=== PATIENT | female | born 1945 | race Two or more races ===

== ENCOUNTER 2024-03-04 03:21 | Inpatient (IN) | payer OTHER ==
[2024-03-04] VITALS (9 sets, daily range): BP systolic 108–128; BP diastolic 56–82; PULSE 89–128; RESP 18–39; TEMP 97.5–97.8; O2SAT 92–97
[~2024-03-04] VITALS: Ht 154.9 cm; Wt 52.0 kg
[~2024-03-04 03:21] MED LIST: ALLO300T2 PO; AMIO200T13 PO; AMLO1TAB22 PO; APIX2.5T PO; FER325T PO; FURO20TA3 PO; LISI10TA34 PO; METO25TA93 PO; NITR0.4S29 SL
--- NOTE | 2024-03-04 03:39 | ED.PDOC ---
SOB-HPI HPI Comments 78-year-old female came to the ER via EMS with shortness of breath. Patient has history of hypertension, AFib CHF. Patient started complaining of shortness a breath which progressively worsened. Was seen to be saturating a 67% on room air. Patient was placed on CPAP by paramedics in improved to 90%. Patient is s everely anxious at this time. Chief Complaint: Shortness of Breath Time Seen by MD: 03:38 Reviewed notes: Nurses Notes Information Source: Patient, Emergency Med Personnel Mode of Arrival: EMS Severity: Moderate Timing: Hours Duration: Since onset Context: With Light Exertion PE Risk Factors: None History of: CHF Prehospital treatment: None Modifying Factors: Nothing Past Medical History PAST MEDICAL HISTORY: AFIB, CHF, HTN Surgical History (Other): Heart surgery [employer]OKER History: Denies all [employer] STOKER Hx Family History Family History: Reviewed,noncontributory to illness Social History Smoker: Non-Smoker Alcohol: Denies ETOH Use Drugs: Denies Drug Use Lives In: Home Constitutional: denies: chills, diaphoresis, fatigue, fever, malaise, sweats, weakness, others EENTM: denies: blurred vision, double vision, ear bleeding, ear discharge, ear drainage, ear pain, ear ringing, eye pain, eye redness, hearing loss, mouth pain, mouth swelling, nasal discharge, nose bleeding, nose congestion, nose ale n, photophobia, tearing, throat pain, throat swelling, voice changes, others Respiratory: reports: SOB at rest, shortness of breath; denies: cough, hemoptysis, orthopnea, SOB with excertion, stridor, wheezing, others Cardiovascular: denies: chest pain, dizzy spells, diaphoresis, Dyspnea on exertion, edema, irregular heart beat, left arm pain, lightheadedness, palpitations, PND, syncope, others Gastrointestinal: denies: abdomen distended, abdominal pain, blood streaked bowels, constipated, diarrhea, dysphagia, difficulty swallowing, hematemesis, melena, nausea, poor appetite, poor fluid intake, rectal bleeding, rectal pain, vomiting, others Genitourinary: denies: abnormal vagina bleeding, burning, dyspareunia, dysuria, flank pain, frequency, hematuria, incontinence, pain, , vagina discharge, urgency, others Neurological: denies: dizziness, fainting, headache, left sided numbness, left sided weakness, numbness, paresthesia, pre-existing deficit, right sided numbness, right sided weakness, seizure, speech problems, tingling, tremors, weakness, others Musculoskeletal: denies: back pain, gout, joint pain, joint swelling, muscle pain, muscle stiffness, neck pain, others Integumetry: denies: bruises, change in color, change in hair/nails, dryness, laceration, lesions, lumps, rash, wounds, others Allergic/Immunocompromised: denies: Difficulty Healing, Frequent Infections, Hives, Itching, others Hematologic/Lymphatic: denies: anemia, blood clots, easy bleeding, easy bruising, swollen glands, others Endocrine: denies: excessive hunger, excessive sweating, excessive thirst, excessive urination, flushing, intolerance to cold, intolerance to heat, unexplained weight gain, unexplained weight loss, others Psychiatric: reports: anxiety; denies: bipolar disorder, depression, hopeless, panic disorder, schizophrenia, sleepless, suicidal, others Physical Exam General Appearance: Normal, Severe Distress HEENT: Normal ENT Inspection, Pharynx Normal, TMs Normal Neck: Full Range of Motion, Non-Tender, Normal, Normal Inspection Respiratory: Chest Non-Tender, Lungs Clear, No Accessory Muscle Use, No Respiratory Distress, Normal Breath Sounds Cardiovascular: No Edema, No JVD, No Murmur, No Gallop, Normal Peripheral Pulses, Regular Rate/Rhythm Breast Exam: Deferred Gastrointestinal: No Organomegaly, Non Tender, No Pulsatile Mass, Normal Bowel Sounds, Soft Genitalia: Deferred Pelvic: Deferred Rectal: Deferred Extremities: No calf tenderness, Normal capillary refill, Normal inspection, Normal range of motion, Non-tender, No pedal edema Musculoskeletal : Apperance: Normal Neurologic: Alert, monotype machinist II-XII nml as Tested, No Motor Deficits, Normal Affect, Normal Mood, No Sensory Deficits Cerebellar Function: Normal Reflexes: Normal Skin: Dry, Normal Color, Warm Lymphatic: No Adenopathy EKG EKG : Pulse Rate (adult): 135 Cardiac Rhythm: Afib Was a procedure done? Was a procedure done?: No Differential Dx Differential Diagnosis: CHF, COPD, Hyperventilation, Myocardial infarction, Panic Attack, Pneumonia, Respiratory Distress, Other (AFib) X-Ray, Labs, Meds, VS Vital Signs Date Time Temp Pulse Resp B/P (MAP) Pulse Ox O2 Delivery O2 Flow Rate FiO2 03/04/24 03:38 135 03/04/24 03:29 136 03/04/24 03:21 97.1 140 30 188/104 (132) 90 Lab Test 03/04/24 03:35 Range/Units Blood Gas Specimen Type Arterial Blood Gas Sample Site Left radial Blood Gas Patient Temperature 37.0 Arterial Blood Date Drawn [id number] Arterial Blood pH 7.135 *L 7.350-7.450 Arterial Blood Partial Pressure CO2 51.4 H 32.0-45.0 mmHg Arterial Blood Partial Pressure O2 79.9 L 83.0-108.0 mmHg Arterial Blood HCO3 16.9 L 21.0-28.0 mmol/L Arterial Blood Oxygen Saturation 91.0 L 94.0-98.0 % Arterial Blood Base Excess -12.3 L -2.0-3.0 mmol/L Arterial Blood Oxyhemoglobin 89.7 L 94.0-98.0 % Arterial Blood Carboxyhemoglobin 0.9 0.5-1.5 % Arterial Blood Methemoglobin 0.5 0.0-1.5 % Antoni Test Modified Blood Gas Total Hemoglobin 15.00 12.0-16.0 g/dL Blood Gas Set Respiration Rate 14.0 Blood Gas Modality Mask - bipap Blood Gas Spontaneous Rate 35 FiO2 % 60.0 Blood Gas Spontaneous Tidal Volume 378 Blood Gas EPAP 5 Blood Gas IPAP 12 Specimen Drawn By Ashleigh sahu Blood Gas Critical Value Read Back Yes Blood Gas Notified Whom Carlene monroy md Blood Gas Notified Time [id number] Blood Gas Notified By Ashleigh sahu Current Medications Medications (Trade) Dose Ordered Sig/Anthony Route Start Time Stop Time Status Last Admin Lorazepam (Ativan Inj) 2 mg ONCE ONCE IV 03/04/24 03:45 03/04/24 03:46 DC 03/04/24 03:51 EKG shows AFib. ABG shows pCO2 of 51 and SpO2 80. The patient is currently on BiPAP at 60% we will increase her RR. She was given Rocephin and Solu-Medrol and a continuous DuoNeb treatment. She was also given diltiazem for atrial fibrillation Troponin and other labs are pending. The patient will be admitted to the hospitalist for further evaluation and care. Time of 1ST Reevaluation: 03:36 Reevaluation 1ST: Unchanged Patient Education/Counseling: Diagnosis, Treatment Family Education/Counseling: No Family Present Departure 1 Departure Time of Disposition: 04:02 Impression: Primary Impression: Acute hypoxic on chronic hypercapnic respiratory failure Additional Impressions: Atrial fibrillation CHF (congestive heart failure) Acute coronary syndrome Disposition: 09 ADMITTED INPATIENT Admit to: Tele Condition: Guarded Critical Care Note Critical Care Time?: Yes (55 min-critical care time only) Critical care comment: Shortness of breath Stability Stability form required: No Heart Score Heart Score: Heart Score Response (Comments) Value History Moderate Suspicious 1 EKG Repolarization Disturb 1 Age >65 2 Risk Factors >3 or Hx ASHD 2 Troponin Normal limit 0 Total 6 I personally scribed for ADRIÁN MONROY MD ([email or web address]) on 03/04/24 at 03:38. Electronically submitted by Rafael Watson ([email or web address]). ADRIÁN MONROY MD Mar 04, 2024 03:38
[2024-03-04 03:43] LABS: Base Excess -12.3 mmol/L (-2.0-3.0)
[2024-03-04] MEDS: LORazepam 2MG/ML-1ML VIAL IV ONE (03:51)
[2024-03-04 04:15] LABS: Eosinophils # (auto) 0.1 10 ^3/uL (0-0.8); Lymphocytes # (auto) 2.4 10 ^3/uL (0.4-5.4)
[2024-03-04 04:16] LABS: Basophils # (auto) 0.1 10 ^3/uL (0-0.2); Basophils % (auto) 0.6 % (0.0-2.0); Eosinophils % (auto) 0.6 % (0.0-7.0); Hematocrit 43.3 % (36.0-46.0); Hemoglobin 14.2 g/dL (12.2-16.2); Lymphocytes % (auto) 28.1 % (10.0-50.0); Mean Corpuscular Hemoglobin 34.1 pg (28.0-32.0); Mean Corpuscular Hgb Conc. 32.7 g/dL (32.0-36.0); Mean Corpuscular Volume 104.5 fL (80.0-100.0); Monocytes # (auto) 0.2 10 ^3/uL (0-1.3); Monocytes % (auto) 2.7 % (0.0-12.0); Neutrophils # (auto) 5.8 10 ^3/uL (1.6-8.6); Nucleated Red Blood Cells % 0.1 %; Platelet Count (auto) 172 10^3/uL (140-450); Red Blood Cells 4.15 10^6/uL (4.0-5.20); Red Cell Distribution Width 15.8 % (11.8-14.3); White Blood Cell 8.5 10^3/uL (4.4-10.8)
[2024-03-04] MEDS: methylPREDNISolone SOD SUCC 125 MG/2 ML VL IV ONE (04:24)
[2024-03-04 04:26] LABS: Alanine Aminotransferase 27 U/L (7-40); Albumin 4.2 g/dL (3.2-4.8); Anion Gap 12 (5-15); Aspartate Aminotransferase 38 U/L (13-40); Calcium 9.7 mg/dL (8.7-10.4); Potassium 4.1 mmol/L (3.5-5.1); Sodium 143 mmol/L (136-145)
[2024-03-04] MEDS: ALBUTEROL SULF 2.5 MG/0.5ML(0.5%) NEB SOLN NEB ONE (04:26)
[2024-03-04 04:27] LABS: Bilirubin, Total 0.8 mg/dL (0.2-1.0); Chloride 111 mmol/L (98-107); Total Protein 6.4 g/dL (5.7-8.2)
[2024-03-04] MEDS: IPRATROPIUM BROM 0.5 MG/2.5ML INH SOL NEB ONE (04:27)
[2024-03-04 04:28] LABS: Alkaline Phosphatase 136 U/L (46-116); Carbon Dioxide 20 mmol/L (20-31); Glucose 248 mg/dL (74-106)
[2024-03-04 04:44] LABS: BUN/Creatinine Ratio 15.1 (10.0-20.0); Blood Urea Nitrogen 23 mg/dL (9-23)
[2024-03-04 05:15] LABS: INR 1.1 (0.9-1.15); Partial Thromboplastin Time 25.1 SEC (24.5-34.5); Prothrombin Time 11.6 sec (9.3-11.8)
--- NOTE | 2024-03-04 05:51 | DVH ---
CHEST RADIOGRAPH Indication: sob Technique: Single frontal view of the chest was obtained Comparison: None IMPRESSION: The heart is enlarged with low lung volumes. There are diffuse bilateral interstitial and alveolar ai rspace opacities with small bilateral pleural effusions. Findings may be on the basis of pulmonary ed eduardo versus bilateral pneumonia. No pneumothorax.
[2024-03-04] MEDS: cefTRIAXone 1GM/50ML D5W 50 ML IV ONE (07:09)
[2024-03-04 07:19] LABS: Base Excess -7.5 mmol/L (-2.0-3.0)
[2024-03-04] MEDS ORDERED: IPRATROPIUM BROM 0.5 MG/2.5ML INH SOL NEB PRN ×2 (10:30→21:30)
[2024-03-04] MEDS ORDERED: ALBUTEROL SULF 2.5 MG/0.5ML(0.5%) NEB SOLN NEB PRN ×2 (10:30→21:30)
[2024-03-04] MEDS ORDERED: NITROGLYCERIN 0.4 MG SL TAB SL PRN ×2 (10:45→21:45)
[2024-03-04] MEDS ORDERED: ONDANSETRON HCL 4 MG/2 ML VIAL IV PRN (10:45)
[2024-03-04] MEDS ORDERED: MORPHINE SULFATE INJ 2 MG/ml SYRG IV PRN ×2 (10:45→21:45)
--- NOTE | 2024-03-04 10:54 | DVHHP2 ---
History of Present Illness Reason for Visit: Shortness of breath History of Present Illness This 78-year-old female presents in the ED via EMS with a chief complaint of shortness of breath. The patient reports progressive shortness of breath for the past few days. Symptoms is associated with difficulty in breathing, dyspnea on exertion, and cough. The patient was found in respiratory distress with hypoxemia O2 Sat 67% for which was placed on CPAP by paramedics which improved O2 sat to 90%. The patient denies dizziness, syncope, chest pain, palpitations or other acute symptoms. The patient reports that she was last seen her Cardiology Dr. Sushil Teixeira last week for regular checkup. She reports that she started on a new medication, unknown name, by her cement tester assistant and has plan to see a master cosmetologist down to [place] for a Watchman procedure. Past medical history of chronic AFib on Eliquis, CHF, hypertension, and gout. Past Medical History As stated in HPI Past Surgical History Watchman procedure Family History Reviewed, non-contributory to the management of this case. Past Social History The patient lives at home, denies smoking, alcohol or illicit drugs abuse. Review of Systems Constitutional: Yes: Malaise; No: Fever, Chills, Sweats, Weakness, Other Eyes: No: Pain, Vision change, Conjunctivae inflammation, Eyelid inflammation, Other, Redness ENT: No: Ear pain, Ear discharge, Nose pain, Nose discharge, Nose congestion, Mouth pain, Mouth swelling, Throat pain, Throat swelling, Other Respiratory: Cough, Shortness of breath; No: Dry, SOB with excertion, Wheezing, Hemoptysis, Pleuritic Pain, Sputum, Wheezing, Other Cardiovascular: No: Chest Pain, Palpitations, Orthopnea, Paroxysmal Noc. Dyspnea, Edema, Lt Headedness, Other Gastrointestinal: No: Nausea, Vomiting, Abdominal Pain, Diarrhea, Constipation, Melena, Hematochezia, Other Genitourinary: No Dysuria, No Frequency, No Incontinence, No Hematuria, No Retention, No Other Skin: No: Rash, Lesions, Jaundice, Bruising, Other Neurological: No: Weakness, Numbness, Incoordination, Change in speech, Confusion, Seizures, Other Allergies: Coded Allergies: UNOBTAINABLE (Unverified , 03/04/24) Exam Vital Signs Vital Signs Date Time Temp Pulse Resp B/P (MAP) Pulse Ox O2 Delivery O2 Flow Rate FiO2 03/04/24 08:00 110 22 128/82 (97) 95 03/04/24 06:34 Facial BiPAP Mask 55 03/04/24 03:30 97.7 97.7 General Appearance: Alert, Oriented X3, Cooperative, moderate distress HEENT: Atraumatic, PERRLA, EOMI, Mucous membr. moist/pink Respiratory: Other (Rales) Cardiovascular: Other (Atrial fibrillation low 100s) Abdominal: Normal bowel sounds, Soft, No tenderness Extremities: No clubbing, No cyanosis, No edema, Normal pulses, No tenderness/swelling Skin: No rashes, No breakdown, No significant lesion Neuro: Normal speech Psych/Mental Status: Mental status NL Labs/Xrays Labs Test 03/04/24 07:32 03/04/24 07:09 03/04/24 03:48 03/04/24 03:35 Range/Units Troponin I High Sensitivity 26 </=34 ng/L Blood Gas Specimen Type Arterial Blood Gas Sample Site Left radial Blood Gas Patient Temperature 37.0 Arterial Blood Date Drawn [id number] Arterial Blood pH 7.369 7.350-7.450 Arterial Blood Partial Pressure CO2 29.2 L 32.0-45.0 mmHg Arterial Blood Partial Pressure O2 81.8 L 83.0-108.0 mmHg Arterial Blood HCO3 16.5 L 21.0-28.0 mmol/L Arterial Blood Oxygen Saturation 95.6 94.0-98.0 % Arterial Blood Base Excess -7.5 L -2.0-3.0 mmol/L Arterial Blood Oxyhemoglobin 94.5 94.0-98.0 % Arterial Blood Carboxyhemoglobin 1.0 0.5-1.5 % Arterial Blood Methemoglobin 0.2 0.0-1.5 % Antoni Test Modified Blood Gas Total Hemoglobin 13.00 12.0-16.0 g/dL Blood Gas Set Respiration Rate 14.0 Blood Gas Modality Mask - bipap Blood Gas Spontaneous Rate 23 FiO2 % 55.0 Blood Gas Spontaneous Tidal Volume 679 Blood Gas EPAP 5 Blood Gas IPAP 12 White Blood Count 8.5 4.4-10.8 10^3/uL Red Blood Count 4.15 4.0-5.20 10^6/uL Hemoglobin 14.2 12.2-16.2 g/dL Hematocrit 43.3 36.0-46.0 % Mean Corpuscular Volume 104.5 H 80.0-100.0 fL Mean Corpuscular Hemoglobin 34.1 H 28.0-32.0 pg Mean Corpuscular Hemoglobin Concent 32.7 32.0-36.0 g/dL Red Cell Distribution Width 15.8 H 11.8-14.3 % Platelet Count 172 140-450 10^3/uL Mean Platelet Volume 9.6 6.9-10.8 fL Neutrophils (%) (Auto) 68.0 37.0-80.0 % Lymphocytes (%) (Auto) 28.1 10.0-50.0 % Monocytes (%) (Auto) 2.7 0.0-12.0 % Eosinophils (%) (Auto) 0.6 0.0-7.0 % Basophils (%) (Auto) 0.6 0.0-2.0 % Neutrophils # (Auto) 5.8 1.6-8.6 10 ^3/uL Lymphocytes # (Auto) 2.4 0.4-5.4 10 ^3/uL Monocytes # (Auto) 0.2 0-1.3 10 ^3/uL Eosinophils # (Auto) 0.1 0-0.8 10 ^3/uL Basophils # (Auto) 0.1 0-0.2 10 ^3/uL Nucleated Red Blood Cells 0.1 % Prothrombin Time 11.6 9.3-11.8 sec Prothrombin Time INR 1.10 0.9-1.15 Activated Partial Thromboplast Time 25.1 24.5-34.5 SEC D-Dimer, Quantitative 4.76 H 0.0-0.49 mg/L FEU Sodium Level 143 136-145 mmol/L Potassium Level 4.1 3.5-5.1 mmol/L Chloride Level 111 H 98-107 mmol/L Carbon Dioxide Level 20 20-31 mmol/L Anion Gap 12 5-15 Blood Urea Nitrogen 23 9-23 mg/dL Creatinine 1.52 H 0.550-1.02 mg/dL Glomerular Filtration Rate Calc 34 >90 mL/min BUN/Creatinine Ratio 15.1 10.0-20.0 Serum Glucose 248 H 74-106 mg/dL Calcium Level 9.7 8.7-10.4 mg/dL Total Bilirubin 0.8 0.2-1.0 mg/dL Aspartate Amino Transferase (AST) 38 13-40 U/L Alanine Aminotransferase (ALT) 27 7-40 U/L Alkaline Phosphatase 136 H 46-116 U/L B-Type Natriuretic Peptide 1041.70 0-100 pg/mL Total Protein 6.4 5.7-8.2 g/dL Albumin 4.2 3.2-4.8 g/dL Specimen Drawn By Ashleigh sahu Blood Gas Critical Value Read Back Yes Blood Gas Notified Whom Carlene adams md Blood Gas Notified Time [id number] Blood Gas Notified By Ashleigh sahu PROCEDURE(s): CXRP - CHEST PORTABLE REASON: sob ORDER NUMBER(s): [id number], ACCESSION NUMBER(s): [id number] CHEST RADIOGRAPH Indication: sob Technique: Single frontal view of the chest was obtained Comparison: None IMPRESSION: The heart is enlarged with low lung volumes. There are diffuse bilateral interstitial and alveolar airspace opacities with small bilateral pleural effusions. Findings may be on the basis of pulmonary edema versus bilateral pneumonia. No pneumothorax. Assessment/Plan Assessment/Plan # acute hypoxic and hypercapnic respiratory failure # ?Pneumonia Admit to telemetry unit Med neb treatment O2 supplement to keep O2 sat > 92% Pulmonary consult Blood and sputum culture Was given prophylactic antibiotics in ED Chest x-ray in a.m. 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 Monitor # hypertension Amlodipine Hydralazine as needed # gout Allopurinol Medical plan discussed with patient, granddaughter, and RN Plan discussed with: Patient, Other (Granddaughter) My Orders Orders - ALMA THURMANP Procedure Category Date Status Time Nm Vq Scan NM 03/04/24 Logged 09:57 Bilat Lower Dvt US 03/04/24 Logged 10:22 Insert Bernabe Catheter ALYSA 03/04/24 In Process 10:22 Furosemide Injection PHA 03/05/24 Logged (Lasix Injection) 10:00 Furosemide Injection PHA 03/04/24 Logged (Lasix Injection) 10:30 * Cardiology Consult CONS 03/04/24 Transmitted 10:22 Echo 2d Mode Cardiac US 03/04/24 Logged DOP 10:22 Daily Weight ALYSA 03/04/24 In Process 10:22 Strict I & O ALYSA 03/04/24 In Process 10:22 B-Type Natriuretic LAB 03/05/24 Verified Peptide 04:00 Electrocardigram EKG 03/05/24 Logged 04:00 Enoxaparin Sodium PHA 03/04/24 Logged (Lovenox) 10:30 Enoxaparin Sodium PHA 03/05/24 Logged (Lovenox) 10:00 Albuterol Medneb PHA 03/04/24 Logged (Ventolin Medneb) 10:30 Albuterol Medneb PHA 03/04/24 Logged (Ventolin Medneb) 12:00 Ipratropium Medneb PHA 03/04/24 Logged (Atrovent Medneb) 10:30 Ipratropium Medneb PHA 03/04/24 Logged (Atrovent Medneb) 12:00 Chest Portable XY 03/05/24 Logged 04:00 Blood Culture MING 03/04/24 Logged 10:22 Urine Bacterial MING 03/04/24 Logged Culture 10:22 Respiratory Culture MING 03/04/24 Logged W/ Gs 10:22 Lipid Panel LAB 03/04/24 Logged 10:22 Thyroid Stimulating LAB 03/04/24 Logged Hormone 10:22 Date of Service: Mar 04, 2024 Billing Provider: ALMA THURMAN Common Visit Codes: [id number] INP/OBS CARE (HIGH) ALMA THURMAN Mar 04, 2024 10:54
[2024-03-04 11:11] LABS: Triglycerides 86 mg/dL (< 150)
[2024-03-04 11:13] LABS: Cholesterol 195 mg/dL (< 200)
[2024-03-04 11:14] LABS: HDL Cholesterol 73 mg/dL (40-59); LDL Cholesterol 107 mg/dL (< 100)
[2024-03-04] MEDS: IPRATROPIUM BROM 0.5 MG/2.5ML INH SOL NEB SCH (12:07)
[2024-03-04] MEDS: ALBUTEROL SULF 2.5 MG/0.5ML(0.5%) NEB SOLN NEB SCH (12:07)
--- NOTE | 2024-03-04 12:23 | DVH ---
US BiLat Lower DVT HISTORY: Elevated D-dimer, shortness of breath COMPARISON: None TECHNIQUE: Duplex doppler evaluation of the deep venous system of the lower extremity from the common femoral veins, superficial femoral vein, great saphenous vein, deep femoral vein, popliteal vein, an d calf veins, including color doppler and spectral/pulsed waveform analysis, was performed. FINDINGS: Right: - Common femoral vein: Compressible - Deep femoral vein: Compressible - Femoral vein: Compressible - Popliteal vein: Compressible - Posterior tibial vein: Waveforms present - Other: Nothing Left: - Common femoral vein: Compressible - Deep femoral vein: Compressible - Femoral vein: Compressible - Popliteal vein: Compressible - Posterior tibial vein: Waveforms present - Other: Nothing IMPRESSION: No right or left lower extremity deep venous thrombosis.
[2024-03-04 12:36] LABS: Urine Bacteria None Seen /hpf (None Seen)
[2024-03-04] MEDS: ENOXAPARIN SOD 80 MG/0.8ML SYRINGE SC ONE (12:38)
[2024-03-04] MEDS: FUROSEMIDE 40 MG/4 ML VIAL IV ONE (12:40)
[2024-03-04 12:46] LABS: Urine Blood Negative /uL (Negative); Urine Clarity Clear (Clear); Urine Color Yellow (Yellow); Urine Hyaline Cast FEW /lpf (0 - 2); Urine Mucus FEW (None Seen); Urine Protein, UAD 1+ (Negative); Urine Specific Gravity 1.022 (1.001-1.035); Urine Squamous Epithelial Cell FEW /hpf (<5); Urine Urobilinogen Normal (Negative); Urine WBC 4 /hpf (0 - 5); Urine pH 5.5 (5.0-9.0)
--- NOTE | 2024-03-04 16:13 | DVHSR ---
APPROVED REPORT EXAM: Two-dimensional and M-mode echocardiogram with Doppler and color Doppler. Blood Pressure: 128/82 mmHg INDICATION CHF exacerbation RISK FACTORS Height: 5'5", Weight: 150 DIMENSIONS LVDd4.2 (3.8-5.7cm)LA (2D)3.8 (1.9-4.0cm)Aortic Root3.0 (2.0-3.7cm) LVDs3.8 (2.5-4.0cm)LA (MM) (1.9-4.0cm)Aortic Cusp Exc1.2 (1.5-2.0cm) EF (%) 30.0 (55-70%)Rt. Atrium4.4 (1.9-4.0cm)Asc. Aorta cm IVSd1.1 (0.7-1.1cm)RV (D)4.0 (1.8-2.4cm) PWd1.1 (0.7-1.1cm) Mitral Valve MitralMitral Stenosis E wave1.08m/sMV Mean GR.mmHg E/A ratio0.02D MVAcm2 Aortic Valve Aortic ValveAortic Stenosis V10.73m/Linda Mean GR.5mmHg V21.58m/Linda Peak GR.10mmHg LVOT Diameter1.9 (1.8-2.4cm)Doppler AVA1.31cm2 Pulmonic Valve V21.19m/s Tricuspid Valve TR Velocity3.07m/s [id number] LEFT VENTRICLE The left ventricle is normal size. There is mild concentric left ventricular hypertrophy. Left ventricular systolic function is severely reduced, LVEF is 25-30%. Moderate diastolic dysfunctio n. There is global hypokinesis, with severe hypokinesis to akinesis of the septal, anteroseptal wall. RIGHT VENTRICLE The right ventricle is normal size. The right ventricular systolic function is normal. ATRIA The left atrium is mildly dilated. The right atrium is mildly dilated. MITRAL VALVE The mitral valve is grossly normal. Mitral regurgitation is mild to moderate. PULMONIC VALVE The pulmonic valve is not well visualized. There is no pulmonic valvular regurgitation. TRICUSPID VALVE There is moderate tricuspid regurgitation. AORTIC VALVE The aortic valve is trileaflet. The aortic valve is mildly sclerotic. No aortic regurgitation is present. GREAT VESSELS The aortic root is normal size. PERICARDIAL EFFUSION No evidence of pericardial effusion. Other Information Technically limited study due to body habitus. Conclusion The left ventricle is normal size. There is mild concentric left ventricular hypertrophy. Left ventri cular systolic function is severely reduced, LVEF is 25-30%. Moderate diastolic dysfunction. There is global hypokinesis, with severe hypokinesis to akinesis of the septal, anteroseptal wall. The right ventricle is normal size. The right ventricular systolic function is normal. The left atrium is mildly dilated. The right atrium is mildly dilated. Mitral regurgitation is mild to moderate. There is moderate tricuspid regurgitation. PASP is 51 mmHg. IVC is dilated and collapses > 50% with inspiration. No evidence of pericardial effusion.
[2024-03-04] MEDS ORDERED: CHOL20004 PO (17:26)
[2024-03-04] MEDS ORDERED: APOA10CA PO (17:26)
[2024-03-04] MEDS ORDERED: NITR1SPR TL (17:26)
[2024-03-04] MEDS ORDERED: GLUC1CAP12 PO (17:26)
[2024-03-04] MEDS ORDERED: TURM500C3 OR (17:26)
[2024-03-04] MEDS ORDERED: MELATONIN 5 MG TAB PO PRN (20:30)
[2024-03-04] MEDS: MELATONIN 5 MG TAB PO PRN (21:36)
[2024-03-04] MEDS: AMIODARONE HCL 200 MG TAB PO SCH (21:36)
[2024-03-04] MEDS ORDERED: AMIODARONE HCL 200 MG TAB PO SCH (22:00)
--- NOTE | 2024-03-04 23:38 | DVHINCON2 ---
Date of service: Mar 04, 2024 Referring Physician DANIEL Cagle Reason for Consultation Acute hypoxic respiratory failure, pneumonia, pulmonary edema. History of Present Illness An 78-year-old woman with past medical history of chronic AFib on Eliquis, CHF, hypertension, and gout who presents in the ED via EMS today with a chief complaint of shortness of breath. The patient reports progressive shortness of breath for the past few days. Symptoms associated with difficulty breathing, dyspnea on exertion, and cough. The patient was found in respiratory distress with hypoxemia, O2 Sat 67%, for which she was placed on CPAP by paramedics with improved O2 sat to 90%. She denies dizziness, syncope, chest pain, palpitations or other acute symptoms. The patient reports that she was last seen by her box liner, Dr. Sushil Teixeira last week for regular checkup. Per pt, she was started on a new medication, unknown name, by her box liner and has plan to see digital marketing manager for a Watchman procedure. Patient was admitted for further care and pulmonary consultation is requested for evaluation and management due to the above findings. Review of Systems: 14-point review of systems negative unless otherwise noted above. Past Medical History: Chronic AFib on Eliquis, CHF, hypertension, and gout Past Surgical History: Watchman procedure Medications: Reviewed. Allergies: No known drug allergies. Family History: No family history of premature CAD. No family history of lung disorders. Social History: Nonsmoker. No alcohol or illicit drug use. Family History: Patient reports no known family medical history. Allergies: Coded Allergies: UNOBTAINABLE (Unverified , 03/04/24) Home Meds Reported Medications Tqkskurcqiz-Vbttmsqdwxd-Ezc C- (Glucosamine Chondroitin) 1 Cap Cap, 1 CAP PO AC, CAP 03/04/24 Cholecalciferol (D3) 50 Mcg Cap, 50 MCG PO DAILY, CAP 03/04/24 Apoaequorin (PREVAGEN) 10 Mg Cap, 10 MG PO, CAP 03/04/24 Curcuma Longa (Turmeric) Extra (TURMERIC) 500 Mg Cap, 500 MG OR, CAP 03/04/24 Furosemide (Furosemide) 20 Mg Tab, 1 TAB PO DAILY for 30 Days, #30 03/04/24 Ferrous Sulfate (FERROUS SULFATE) 325 Mg Tb, 1 TAB PO DAILY for 90 Days, #90 03/04/24 Apixaban Base (ELIQUIS) 2.5 Mg Tab, 2.5 MG PO BID for 30 Days, #60 03/04/24 Nitroglycerin (NTROSTAT SUBLINGUAL) 0.4 Mg Sl, 0.4 MG SL PRN for 33 Days, #100 *MAY REPEAT EVERY 5 MINUTES X 3 TOTAL IF NO RELIEF, INITIATE ANALGESIC THERAPY. NOTIFY PHYSICIAN *Do not crush. 03/04/24 Amlodipine Besylate (Amlodipine Besylate) 5 Mg Tab, 1 TAB PO DAILY for 90 Days, #90 03/04/24 Lisinopril (Lisinopril) 10 Mg Tab, 1 TAB PO DAILY for 100 Days, #100 03/04/24 Metoprolol Succinate (Metoprolol Succinate Er) 25 Mg Tab, 1 TAB PO DAILY for 90 Days, #90 03/04/24 Allopurinol (Allopurinol) 300 Mg Tab, 1 TAB PO DAILY for 90 Days, #90 03/04/24 Amiodarone HCl (Amiodarone HCl) 200 Mg Tab, 1 TAB PO BID for 30 Days, #60 03/04/24 Discontinued Reported Medications Nitroglycerin (Nitroglycerin Lingual) 0.4 Mg/[place] Spr, 0.4 MG TL, SPR 03/04/24 Current Medications Current Medications Medications (Trade) Dose Ordered Sig/Anthony Route PRN Reason Start Time Stop Time Status Last Admin Furosemide (Lasix Injection) 40 mg DAILY IV 03/05/24 10:00 03/04/24 21:28 DC Enoxaparin Sodium (Lovenox) 30 mg DAILY SC 03/05/24 10:00 03/04/24 21:29 DC Albuterol (Ventolin Medneb) 2.5 mg Q4HPRN PRN NEB SHORTNESS OF BREATH 03/04/24 10:30 03/04/24 21:29 DC Albuterol (Ventolin Medneb) 2.5 mg Q6HR NEB 03/04/24 12:00 03/04/24 21:29 DC 03/04/24 12:07 Ipratropium [place] (Atrovent Medneb) 0.5 mg Q4HPRN PRN NEB SHORTNESS OF BREATH 03/04/24 10:30 03/04/24 21:29 DC Ipratropium [place] (Atrovent Medneb) 0.5 mg Q6HR NEB 03/04/24 12:00 03/04/24 21:29 DC 03/04/24 12:07 Amiodarone HCl (Cordarone Tablet) 200 mg BID PO 03/04/24 22:00 03/04/24 21:27 DC Amlodipine Besylate (Norvasc Tablet) 5 mg DAILY PO 03/05/24 10:00 03/04/24 21:29 DC Allopurinol (Zyloprim Tablet) 100 mg DAILY PO 03/05/24 10:00 03/04/24 21:29 DC Metoprolol Succinate (Toprol Xl) 25 mg DAILY PO 03/05/24 10:00 03/04/24 21:30 DC Ondansetron HCl (Zofran) 4 mg Q4HP PRN IV NAUSEA / VOMITING 03/04/24 10:45 03/04/24 21:30 DC Nitroglycerin (Ntrostat Sublingual) 0.4 mg Q5MINP PRN SL FOR CHEST PAIN 03/04/24 10:45 03/04/24 21:30 DC Morphine Sulfate 2 mg Q30M PRN IV FOR CHEST PAIN 03/04/24 10:45 03/04/24 21:30 DC Melatonin (Melatonin) 10 mg PRN PRN PO FOR INSOMNIA 03/04/24 20:30 03/04/24 21:26 DC Melatonin (Melatonin) 10 mg PRN PRN PO FOR INSOMNIA 03/04/24 21:30 03/04/24 21:36 Amiodarone HCl (Cordarone Tablet) 200 mg BID PO 03/04/24 22:00 03/04/24 21:36 Furosemide (Lasix Injection) 40 mg DAILY IV 03/05/24 10:00 Enoxaparin Sodium (Lovenox) 30 mg DAILY SC 03/05/24 10:00 Albuterol (Ventolin Medneb) 2.5 mg Q4HPRN PRN NEB SHORTNESS OF BREATH 03/04/24 21:30 Albuterol (Ventolin Medneb) 2.5 mg Q6HR NEB 03/05/24 00:00 Ipratropium [place] (Atrovent Medneb) 0.5 mg Q4HPRN PRN NEB SHORTNESS OF BREATH 03/04/24 21:30 Ipratropium [place] (Atrovent Medneb) 0.5 mg Q6HR NEB 03/05/24 00:00 Amlodipine Besylate (Norvasc Tablet) 5 mg DAILY PO 03/05/24 10:00 Allopurinol (Zyloprim Tablet) 100 mg DAILY PO 03/05/24 10:00 Metoprolol Succinate (Toprol Xl) 25 mg DAILY PO 03/05/24 10:00 Ondansetron HCl (Zofran) 4 mg Q4HP PRN IV NAUSEA / VOMITING 03/04/24 21:45 Nitroglycerin (Ntrostat Sublingual) 0.4 mg Q5MINP PRN SL FOR CHEST PAIN 03/04/24 21:45 Morphine Sulfate 2 mg Q30M PRN IV FOR CHEST PAIN 03/04/24 21:45 Vital Signs Vital Signs Date Time Temp Pulse Resp B/P (MAP) Pulse Ox O2 Delivery O2 Flow Rate FiO2 03/04/24 21:00 97.8 89 18 113/66 (82) 97 97.8 03/04/24 16:06 Nasal Cannula* 4 36 Physical Exam Gen.: Patient lying in bed in no apparent distress. On supplemental oxygen. Head: Normocephalic, atraumatic. Eyes: EOMI/PERRLA. Ears: Normal hearing. Normal anatomy. Neck/trachea: Trachea midline, supple. Nose: Normal external anatomy. Mouth: Moist mucous membranes. Chest: Decreased air entry bilaterally. No wheezing or rhonchi. Cardiovascular: Positive S1, positive S2. Regular rate and rhythm. Abdomen: Positive bowel sounds in all 4 quadrants. Soft, non-tender, non- distended. : Deferred. Rectal: Deferred. Skin: Warm, dry. Intact. Extremities: 2+ radial pulses bilaterally. No lower extremity edema. Neuro: Awake, alert, oriented x3. No gross motor or sensory deficits. Cranial nerves II through XII intact. Gait not assessed. Labs/Diagnostic Data Labs Test 03/04/24 12:34 03/04/24 07:32 03/04/24 07:09 03/04/24 03:48 Range/Units Urine Color Yellow Yellow Urine Clarity Clear Clear Urine pH 5.5 5.0-9.0 Urine Specific [place] 1.022 1.001-1.035 Urine Protein 1+ H Negative Urine Ketones 1+ H Negative Urine Blood Negative Negative /uL Urine Nitrite Negative Negative Urine Bilirubin Negative Negative Urine Urobilinogen Normal Negative mg/dL Urine Leukocyte Esterase Negative Negative /uL Urine RBC 1 0 - 4 /hpf Urine WBC 4 0 - 5 /hpf Urine Squamous Epithelial Cells Few <5 /hpf Urine Bacteria None seen None Seen /hpf Urine Hyaline Casts Few 0 - 2 /lpf Urine Mucus Few None Seen Urine Glucose Normal Normal mg/dL Magnesium Level 2.0 1.6-2.6 mg/dL Troponin I High Sensitivity 26 </=34 ng/L Triglycerides Level 86 < 150 mg/dL Cholesterol Level 195 < 200 mg/dL LDL Cholesterol 107 H < 100 mg/dL HDL Cholesterol 73 H 40-59 mg/dL Thyroid Stimulating Hormone (TSH) 1.23 0.55-4.78 uIU/mL Blood Gas Specimen Type Arterial Blood Gas Sample Site Left radial Blood Gas Patient Temperature 37.0 Arterial Blood Date Drawn [id number] Arterial Blood pH 7.369 7.350-7.450 Arterial Blood Partial Pressure CO2 29.2 L 32.0-45.0 mmHg Arterial Blood Partial Pressure O2 81.8 L 83.0-108.0 mmHg Arterial Blood HCO3 16.5 L 21.0-28.0 mmol/L Arterial Blood Oxygen Saturation 95.6 94.0-98.0 % Arterial Blood Base Excess -7.5 L -2.0-3.0 mmol/L Arterial Blood Oxyhemoglobin 94.5 94.0-98.0 % Arterial Blood Carboxyhemoglobin 1.0 0.5-1.5 % Arterial Blood Methemoglobin 0.2 0.0-1.5 % Antoni Test Modified Blood Gas Total Hemoglobin 13.00 12.0-16.0 g/dL Blood Gas Set Respiration Rate 14.0 Blood Gas Modality Mask - bipap Blood Gas Spontaneous Rate 23 FiO2 % 55.0 Blood Gas Spontaneous Tidal Volume 679 Blood Gas EPAP 5 Blood Gas IPAP 12 White Blood Count 8.5 4.4-10.8 10^3/uL Red Blood Count 4.15 4.0-5.20 10^6/uL Hemoglobin 14.2 12.2-16.2 g/dL Hematocrit 43.3 36.0-46.0 % Mean Corpuscular Volume 104.5 H 80.0-100.0 fL Mean Corpuscular Hemoglobin 34.1 H 28.0-32.0 pg Mean Corpuscular Hemoglobin Concent 32.7 32.0-36.0 g/dL Red Cell Distribution Width 15.8 H 11.8-14.3 % Platelet Count 172 140-450 10^3/uL Mean Platelet Volume 9.6 6.9-10.8 fL Neutrophils (%) (Auto) 68.0 37.0-80.0 % Lymphocytes (%) (Auto) 28.1 10.0-50.0 % Monocytes (%) (Auto) 2.7 0.0-12.0 % Eosinophils (%) (Auto) 0.6 0.0-7.0 % Basophils (%) (Auto) 0.6 0.0-2.0 % Neutrophils # (Auto) 5.8 1.6-8.6 10 ^3/uL Lymphocytes # (Auto) 2.4 0.4-5.4 10 ^3/uL Monocytes # (Auto) 0.2 0-1.3 10 ^3/uL Eosinophils # (Auto) 0.1 0-0.8 10 ^3/uL Basophils # (Auto) 0.1 0-0.2 10 ^3/uL Nucleated Red Blood Cells 0.1 % Prothrombin Time 11.6 9.3-11.8 sec Prothrombin Time INR 1.10 0.9-1.15 Activated Partial Thromboplast Time 25.1 24.5-34.5 SEC D-Dimer, Quantitative 4.76 H 0.0-0.49 mg/L FEU Sodium Level 143 136-145 mmol/L Potassium Level 4.1 3.5-5.1 mmol/L Chloride Level 111 H 98-107 mmol/L Carbon Dioxide Level 20 20-31 mmol/L Anion Gap 12 5-15 Blood Urea Nitrogen 23 9-23 mg/dL Creatinine 1.52 H 0.550-1.02 mg/dL Glomerular Filtration Rate Calc 34 >90 mL/min BUN/Creatinine Ratio 15.1 10.0-20.0 Serum Glucose 248 H 74-106 mg/dL Hemoglobin A1c 5.2 <5.7 % A1C Calcium Level 9.7 8.7-10.4 mg/dL Total Bilirubin 0.8 0.2-1.0 mg/dL Aspartate Amino Transferase (AST) 38 13-40 U/L Alanine Aminotransferase (ALT) 27 7-40 U/L Alkaline Phosphatase 136 H 46-116 U/L B-Type Natriuretic Peptide 1041.70 0-100 pg/mL Total Protein 6.4 5.7-8.2 g/dL Albumin 4.2 3.2-4.8 g/dL Test 03/04/24 03:35 Range/Units Specimen Drawn By Ashleigh sahu Blood Gas Critical Value Read Back Yes Blood Gas Notified Whom Carlene adams md Blood Gas Notified Time [id number] Blood Gas Notified By Ashleigh sahu Assessment Impression: Acute hypoxic respiratory failure Acute hypercarbic respiratory failure, improved Dependence on supplemental oxygen Pneumonia less likely Pulmonary edema. Acute CHF exacerbation Chronic AFib with RVR Plan: Supplemental oxygen 4 LPM NC Titrate to keep O2 sats above 92%. Taper O2 as tolerated. BiPAP PRN. Continue bronchodilators. No WBC elevation. No fever, less likely pneumonia. Diurese to euvolemia Monitor renal function. Monitor electrolytes. Supplement as necessary. Monitor ins and outs. DVT prophylaxis. Prognosis: Poor given patient's multiple co-morbidities. Rest of plan per hospitalist and other consultants. Thank you, DAVID Avalos, for allowing me to participate in this patient's care. Further recommendations will depend on the patient's clinical course. Please do not hesitate to contact me if you have any questions or concerns. This medical document was created using an electronic medical record system with [employer] dictation system. Although these documentations are being carefully reviewed, there may still be some phonetic and typographical changes. The errors are purely typographical, due to imperfection on the software program, and do not reflect any compromise in the patient's medical care. Plan discussed with: Patient, Other (RADHA Hinton/DAVID Avalos/) JORDAN WONG MD Mar 04, 2024 23:38
[2024-03-05] VITALS (12 sets, daily range): BP systolic 96–117; BP diastolic 60–76; PULSE 75–102; RESP 16–18; TEMP 97.6–98.1; O2SAT 97–100
[2024-03-05] MEDS: ALBUTEROL SULF 2.5 MG/0.5ML(0.5%) NEB SOLN NEB SCH
[2024-03-05] MEDS: IPRATROPIUM BROM 0.5 MG/2.5ML INH SOL NEB SCH
[2024-03-05] MEDS: amLODIPine BESYLATE 5 MG TAB PO SCH (09:40)
[2024-03-05] MEDS: METOPROLOL SUCCINATE XL 50 MG TAB PO SCH (09:41)
[2024-03-05] MEDS: FUROSEMIDE 40 MG/4 ML VIAL IV SCH (09:41)
[2024-03-05] MEDS: ENOXAPARIN SOD 30 MG/0.3 ML SYRINGE SC SCH (09:42)
[2024-03-05] MEDS: ALLOPURINOL 100 MG TAB PO SCH (09:42)
[2024-03-05] MEDS ORDERED: FUROSEMIDE 40 MG/4 ML VIAL IV SCH (10:00)
[2024-03-05] MEDS ORDERED: ENOXAPARIN SOD 30 MG/0.3 ML SYRINGE SC SCH (10:00)
[2024-03-05] MEDS ORDERED: amLODIPine BESYLATE 5 MG TAB PO SCH (10:00)
[2024-03-05] MEDS ORDERED: METOPROLOL SUCCINATE XL 50 MG TAB PO SCH (10:00)
[2024-03-05] MEDS ORDERED: ALLOPURINOL 100 MG TAB PO SCH (10:00)
--- NOTE | 2024-03-05 18:03 | DVHPN2 ---
Subjective Patient reports that her breathing has improved. Reviewed: Care Plan, H&P, Labs, Medications, Previous Orders Changes from previous H/P or p: No Changes General: Per HPI Eyes: No Pain, No Vision change, No Conjunctivae inflammation, No Eyelid inflammation, No Other, No Redness ENT: No Ear pain, No Ear discharge, No Nose pain, No Nose discharge, No Nose congestion, No Mouth pain, No Mouth swelling, No Throat pain, No Throat swelling, No Other Cardiovascular: No Chest Pain, No Palpitations, No Orthopnea, No Paroxysmal Noc. Dyspnea, No Edema, No Lt Headedness, No Other Respiratory: Cough; No Dry; Shortness of breath; No SOB with excertion, No Wheezing, No Hemoptysis, No Pleuritic Pain, No Sputum, No Other Gastrointestinal: No Nausea, No Vomiting, No Abdominal Pain, No Diarrhea, No Constipation, No Melena, No Hematochezia, No Other Genitourinary: No Dysuria, No Frequency, No Incontinence, No Hematuria, No Retention, No Other Skin: No Rash, No Lesions, No Jaundice, No Bruising, No Other Objective Vitals Vital Signs Date Time Temp Pulse Resp B/P (MAP) Pulse Ox O2 Delivery O2 Flow Rate FiO2 03/05/24 17:00 97.9 85 18 106/71 (83) 97 97.9 03/05/24 12:10 Nasal Cannula* 4 36 Intake/Output Intake and Output 03/05/24 07:00 Intake Total 1098 ml Output Total 625 ml Balance 473 ml Intake Oral 1098 ml Output Urine Total 625 ml General Appearance: Alert, Oriented X3, Cooperative, mild distress HEENT: Atraumatic, PERRLA Lungs: Clear to auscultation, Normal air movement Cardiovascular: Normal S1, Normal S2 Abdomen: Normal bowel sounds, Soft Genitourinary: No Apparent Abnormalities Musculoskeletal: Normal sensory function, Normal motor function Neuro: Normal gait, Normal speech, Strength at 5/5 X4 ext, Sensation intact, C ranial nerves 3-12 NL Psych/Mental Status: Mental status NL, Mood NL Medications Current Medications Medications Dose Ordered Sig/Anthony Route Start Time Stop Time Status Last Admin Dose Admin Melatonin 10 mg PRN PRN PO 03/04/24 21:30 03/04/24 21:36 10 MG Amiodarone HCl 200 mg BID PO 03/04/24 22:00 03/05/24 09:37 200 MG Furosemide 40 mg DAILY IV 03/05/24 10:00 03/05/24 09:41 40 MG Enoxaparin Sodium 30 mg DAILY SC 03/05/24 10:00 03/05/24 09:42 30 MG Albuterol 2.5 mg Q4HPRN PRN NEB 03/04/24 21:30 Albuterol 2.5 mg Q6HR NEB 03/05/24 00:00 03/05/24 12:10 2.5 MG Ipratropium [place] 0.5 mg Q4HPRN PRN NEB 03/04/24 21:30 Ipratropium [place] 0.5 mg Q6HR NEB 03/05/24 00:00 03/05/24 12:10 0.5 MG Amlodipine Besylate 5 mg DAILY PO 03/05/24 10:00 03/05/24 09:40 5 MG Allopurinol 100 mg DAILY PO 03/05/24 10:00 03/05/24 09:42 100 MG Metoprolol Succinate 25 mg DAILY PO 03/05/24 10:00 03/05/24 09:41 25 MG Ondansetron HCl 4 mg Q4HP PRN IV 03/04/24 21:45 Nitroglycerin 0.4 mg Q5MINP PRN SL 03/04/24 21:45 Morphine Sulfate 2 mg Q30M PRN IV 03/04/24 21:45 Laboratory Results Laboratory Tests 03/04/24 03:48 Urinalysis Test 03/04/24 12:34 Urine Color Yellow (Yellow) Urine Clarity Clear (Clear) Urine pH 5.5 (5.0-9.0) Urine Specific [place] 1.022 (1.001-1.035) Urine Protein 1+ (Negative) H Urine Ketones 1+ (Negative) H Urine Blood Negative /uL (Negative) Urine Nitrite Negative (Negative) Urine Bilirubin Negative (Negative) Urine Urobilinogen Normal mg/dL (Negative) Urine Leukocyte Esterase Negative /uL (Negative) Urine RBC 1 /hpf (0 - 4) Urine WBC 4 /hpf (0 - 5) Urine Squamous Epithelial Cells Few /hpf (<5) Urine Bacteria None seen /hpf (None Seen) Urine Hyaline Casts Few /lpf (0 - 2) Urine Mucus Few (None Seen) Urine Glucose Normal mg/dL (Normal) Microbiology Microbiology Date/Time Source Procedure Growth Status 03/04/24 12:34 Voided Urine Urine Culture - Preliminary Resulted 03/04/24 11:00 Blood Blood Culture - Preliminary NO GROWTH AFTER 24 HOURS OF INCUBATION. Resulted Labs and/or images reviewed: Labs reviewed by me, Image(s) reviewed by me Assessment/Plan Assessment/Plan Impression: -acute on chronic systolic heart failure -acute hypoxic respiratory failure -atrial fibrillation rapid ventricular rate -history of Watchman device -elevated D-dimer, rule out pulmonary embolism -dyslipidemia Plan: -cardiology consultation: Pending. Echocardiogram reviewed. -continue goal-directed medical therapy with IV diuresis -continue Eliquis -continue statin -O2 supplementation to keep saturation greater than 92% -pulmonology consultation: Recommendations reviewed -repeat chest x-ray in a.m. -further course of care per Cardiology recommendations Total time spent with patient discussing and formulating plan of care: 35 minutes. This medical document was created using an electronic medical record system with [employer] dictation system. Although this document has been carefully reviewed, there may still be some phonetic and typographical errors. These areas are purely typographical due to imperfections of the software programs, and do not reflect any compromise in the patient's medical care. Plan discussed with: Patient, Other (RN) Date of Service: Mar 05, 2024 Billing Provider: NICOLE REBOLLAR NP Common Visit Codes: [id number] INP/OBS CARE(HIGH) NICOLE REBOLLAR NP Mar 05, 2024 18:03
[2024-03-06] VITALS (8 sets, daily range): BP systolic 94–113; BP diastolic 59–69; PULSE 62–84; RESP 17–19; TEMP 97.6–98.4; O2SAT 95–99
[2024-03-06] MEDS: SPIRONOLACTONE 25 MG TAB PO SCH (10:25)
[2024-03-06] MEDS: EMPAGLIFLOZIN 10 MG TAB PO SCH (10:27)
--- NOTE | 2024-03-06 10:32 | DVH ---
CHEST RADIOGRAPH Indication: chf Technique: Single frontal view of the chest was obtained Comparison: XY CHEST PORTABLE on DOS: 03/04/24, XY CHEST PORTABLE on DOS: 03/04/24 FINDINGS: The heart is enlarged with low lung volumes. There are diffuse bilateral interstitial and alveolar ai rspace opacities with small bilateral pleural effusions. Findings may be on the basis of pulmonary ed eduardo versus bilateral pneumonia. No pneumothorax. IMPRESSION: The heart is enlarged with low lung volumes. There are diffuse bilateral interstitial and alveolar ai rspace opacities with small bilateral pleural effusions. Findings may be on the basis of pulmonary ed eduardo versus bilateral pneumonia. No pneumothorax.
--- NOTE | 2024-03-06 10:49 | CONS ---
Pharmacy Clinical Information: From Heart Failure Fallout Report on CQM Application, Romy Chase is a 78 year old female with PMH of chronic Afib, CHF, HTN, and gout. Her home medications for heart failure include metoprolol succinate, lisinopril, and furosemide. Her inpatient medications include empagliflozin, metoprolol succinate, spironolactone, and furosemide. Consider reinitiating lisinopril once patient is hemodynamically stable and renal function stabilizes. YI WALKER PHARMACIST Mar 06, 2024 10:49
--- NOTE | 2024-03-06 13:12 | DVHINCON2 ---
Date Seen: Mar 06, 2024 Referring Physician DAVID Gonzalez Reason for Consultation CHF exacerbation History of Present Illness This is an 78-year-old female patient who presents to emergency room with chief complaint of shortness of breath, chest pain, and palpitations. The patient reports that she has been having intermittent chest pain since her on January 24, 2024. The patient reports progressive worsening shortness of breath and was suddenly brought to the emergency room yesterday. Per patient, she describes the chest pain as unprovoked, pressure-like in nature, intermittent, and left-sided radiation across her chest. Associated symptoms include shortness of breath. The patient also mentions intermittent palpitations. Initial twelve lead electrocardiogram reveals atrial fibrillation with left bundle branch block. Initial troponin level of 27ng/L with flat trend thereafter. Initial BNP level of 1041.70pg/mL. Significant past medical history includes congestive heart failure, atrial fibrillation status post Watchman device, hypertension, and gout. The patient reports her primary yard cleaner is Dr.Omar Musa. She also reports following up at [facility] after Watchman device placement approximately two years ago. Past Medical History Past medical history reviewed. No other significant than mentioned above. Past Surgical History Denies Family History: Patient reports no known family medical history. Family History Family history reviewed. Social History The patient has a five pack-year history, quit smoking approximately 40 years ago Patient denies any alcohol use Patient denies any illicit drug use Allergies: Coded Allergies: UNOBTAINABLE (Unverified , 03/04/24) Home Meds Reported Medications Zewhfpdavti-Pkjnktlegiu-Gkh C- (Glucosamine Chondroitin) 1 Cap Cap, 1 CAP PO AC, CAP 03/04/24 Cholecalciferol (D3) 50 Mcg Cap, 50 MCG PO DAILY, CAP 03/04/24 Apoaequorin (PREVAGEN) 10 Mg Cap, 10 MG PO, CAP 03/04/24 Curcuma Longa (Turmeric) Extra (TURMERIC) 500 Mg Cap, 500 MG OR, CAP 03/04/24 Furosemide (Furosemide) 20 Mg Tab, 1 TAB PO DAILY for 30 Days, #30 03/04/24 Ferrous Sulfate (FERROUS SULFATE) 325 Mg Tb, 1 TAB PO DAILY for 90 Days, #90 03/04/24 Apixaban Base (ELIQUIS) 2.5 Mg Tab, 2.5 MG PO BID for 30 Days, #60 03/04/24 Nitroglycerin (NTROSTAT SUBLINGUAL) 0.4 Mg Sl, 0.4 MG SL PRN for 33 Days, #100 *MAY REPEAT EVERY 5 MINUTES X 3 TOTAL IF NO RELIEF, INITIATE ANALGESIC THERAPY. NOTIFY PHYSICIAN *Do not crush. 03/04/24 Amlodipine Besylate (Amlodipine Besylate) 5 Mg Tab, 1 TAB PO DAILY for 90 Days, #90 03/04/24 Lisinopril (Lisinopril) 10 Mg Tab, 1 TAB PO DAILY for 100 Days, #100 03/04/24 Metoprolol Succinate (Metoprolol Succinate Er) 25 Mg Tab, 1 TAB PO DAILY for 90 Days, #90 03/04/24 Allopurinol (Allopurinol) 300 Mg Tab, 1 TAB PO DAILY for 90 Days, #90 03/04/24 Amiodarone HCl (Amiodarone HCl) 200 Mg Tab, 1 TAB PO BID for 30 Days, #60 03/04/24 Discontinued Reported Medications Nitroglycerin (Nitroglycerin Lingual) 0.4 Mg/[place] Spr, 0.4 MG TL, SPR 03/04/24 Current Medications Current Medications Medications (Trade) Dose Ordered Sig/Anthony Route PRN Reason Start Time Stop Time Status Last Admin Spironolactone (Aldactone) 25 mg DAILY PO 03/06/24 10:00 03/06/24 10:25 Empaglifozin (Jardiance) 10 mg DAILY PO 03/06/24 10:00 03/06/24 10:27 Vital Signs Vital Signs Date Time Temp Pulse Resp B/P (MAP) Pulse Ox O2 Delivery O2 Flow Rate FiO2 03/06/24 10:27 110/68 03/06/24 10:26 72 03/06/24 09:00 97.7 19 95 97.7 03/06/24 08:00 Nasal Cannula* 3 32 Physical Exam General Appearance: Cooperative. Well-developed. Well-nourished. No acute distress. Pulmonary/Respiratory: Clear, bilateral breaths sounds. Cardiovascular/Chest: Regular rate and rhythm. Peripheral Pulses: 2+ Radial (R). 2+ Radial (L). 2+ Pedal (R). 2+ Pedal (L) Abdominal Exam: Normal bowel sounds. Ankle Exam: Negative ankle edema Lower extremities: Negative lower extremity edema Neuro/Mental Status: A/OX4, coherent. Thoughts/Psych: Normal thought pattern. Appropriate mood and affect. Good judgment and insight. Appearance: No acute distress. Skin Exam: Normal inspection. Normal color. Warm and dry. Labs/Diagnostic Data Labs Test 03/04/24 12:34 03/04/24 07:32 03/04/24 07:09 03/04/24 03:48 Range/Units Urine Color Yellow Yellow Urine Clarity Clear Clear Urine pH 5.5 5.0-9.0 Urine Specific [place] 1.022 1.001-1.035 Urine Protein 1+ H Negative Urine Ketones 1+ H Negative Urine Blood Negative Negative /uL Urine Nitrite Negative Negative Urine Bilirubin Negative Negative Urine Urobilinogen Normal Negative mg/dL Urine Leukocyte Esterase Negative Negative /uL Urine RBC 1 0 - 4 /hpf Urine WBC 4 0 - 5 /hpf Urine Squamous Epithelial Cells Few <5 /hpf Urine Bacteria None seen None Seen /hpf Urine Hyaline Casts Few 0 - 2 /lpf Urine Mucus Few None Seen Urine Glucose Normal Normal mg/dL Magnesium Level 2.0 1.6-2.6 mg/dL Troponin I High Sensitivity 26 </=34 ng/L Triglycerides Level 86 < 150 mg/dL Cholesterol Level 195 < 200 mg/dL LDL Cholesterol 107 H < 100 mg/dL HDL Cholesterol 73 H 40-59 mg/dL Thyroid Stimulating Hormone (TSH) 1.23 0.55-4.78 uIU/mL Blood Gas Specimen Type Arterial Blood Gas Sample Site Left radial Blood Gas Patient Temperature 37.0 Arterial Blood Date Drawn [id number] Arterial Blood pH 7.369 7.350-7.450 Arterial Blood Partial Pressure CO2 29.2 L 32.0-45.0 mmHg Arterial Blood Partial Pressure O2 81.8 L 83.0-108.0 mmHg Arterial Blood HCO3 16.5 L 21.0-28.0 mmol/L Arterial Blood Oxygen Saturation 95.6 94.0-98.0 % Arterial Blood Base Excess -7.5 L -2.0-3.0 mmol/L Arterial Blood Oxyhemoglobin 94.5 94.0-98.0 % Arterial Blood Carboxyhemoglobin 1.0 0.5-1.5 % Arterial Blood Methemoglobin 0.2 0.0-1.5 % Antoni Test Modified Blood Gas Total Hemoglobin 13.00 12.0-16.0 g/dL Blood Gas Set Respiration Rate 14.0 Blood Gas Modality Mask - bipap Blood Gas Spontaneous Rate 23 FiO2 % 55.0 Blood Gas Spontaneous Tidal Volume 679 Blood Gas EPAP 5 Blood Gas IPAP 12 White Blood Count 8.5 4.4-10.8 10^3/uL Red Blood Count 4.15 4.0-5.20 10^6/uL Hemoglobin 14.2 12.2-16.2 g/dL Hematocrit 43.3 36.0-46.0 % Mean Corpuscular Volume 104.5 H 80.0-100.0 fL Mean Corpuscular Hemoglobin 34.1 H 28.0-32.0 pg Mean Corpuscular Hemoglobin Concent 32.7 32.0-36.0 g/dL Red Cell Distribution Width 15.8 H 11.8-14.3 % Platelet Count 172 140-450 10^3/uL Mean Platelet Volume 9.6 6.9-10.8 fL Neutrophils (%) (Auto) 68.0 37.0-80.0 % Lymphocytes (%) (Auto) 28.1 10.0-50.0 % Monocytes (%) (Auto) 2.7 0.0-12.0 % Eosinophils (%) (Auto) 0.6 0.0-7.0 % Basophils (%) (Auto) 0.6 0.0-2.0 % Neutrophils # (Auto) 5.8 1.6-8.6 10 ^3/uL Lymphocytes # (Auto) 2.4 0.4-5.4 10 ^3/uL Monocytes # (Auto) 0.2 0-1.3 10 ^3/uL Eosinophils # (Auto) 0.1 0-0.8 10 ^3/uL Basophils # (Auto) 0.1 0-0.2 10 ^3/uL Nucleated Red Blood Cells 0.1 % Prothrombin Time 11.6 9.3-11.8 sec Prothrombin Time INR 1.10 0.9-1.15 Activated Partial Thromboplast Time 25.1 24.5-34.5 SEC D-Dimer, Quantitative 4.76 H 0.0-0.49 mg/L FEU Sodium Level 143 136-145 mmol/L Potassium Level 4.1 3.5-5.1 mmol/L Chloride Level 111 H 98-107 mmol/L Carbon Dioxide Level 20 20-31 mmol/L Anion Gap 12 5-15 Blood Urea Nitrogen 23 9-23 mg/dL Creatinine 1.52 H 0.550-1.02 mg/dL Glomerular Filtration Rate Calc 34 >90 mL/min BUN/Creatinine Ratio 15.1 10.0-20.0 Serum Glucose 248 H 74-106 mg/dL Hemoglobin A1c 5.2 <5.7 % A1C Calcium Level 9.7 8.7-10.4 mg/dL Total Bilirubin 0.8 0.2-1.0 mg/dL Aspartate Amino Transferase (AST) 38 13-40 U/L Alanine Aminotransferase (ALT) 27 7-40 U/L Alkaline Phosphatase 136 H 46-116 U/L B-Type Natriuretic Peptide 1041.70 0-100 pg/mL Total Protein 6.4 5.7-8.2 g/dL Albumin 4.2 3.2-4.8 g/dL Test 03/04/24 03:35 Range/Units Specimen Drawn By Ashleigh sahu Blood Gas Critical Value Read Back Yes Blood Gas Notified Whom Carlene adams md Blood Gas Notified Time [id number] Blood Gas Notified By Ashleigh sahu Microbiology Date/Time Source Procedure Growth Status 03/04/24 12:34 Voided Urine Urine Culture - Final Complete 03/04/24 11:00 Blood Blood Culture - Preliminary NO GROWTH AFTER 48 HOURS OF INCUBATION. Resulted Assessment Acute on chronic decompensated HFrEF, NYHA class III Atrial fibrillation status post Watchman device (on Eliquis) Hypertension Dyslipidemia Gout Plan/Recommendation We will continue with the following plan/recommendations (Dr. Beltrán): * Echocardiogram reveals EF 25-30% with global hypokinesis * Initiate GDMT for CHF as tolerated * Strict intake and output, daily weights, maintain fluid restriction * BP control * Lipid-lowering agent * Consider inpatient ischemic workup Case discussed with Dr. Beltrán. At this time we will recommend to control atrial fibrillation. We will also recommend to continue GDMT for CHF as tolerated. We will consider possible inpatient ischemic workup when patient is stable. Thank you for allowing us to care for this patient. Please call with any questions or concerns. Critical care time spent: 44 minutes This medical document was created using an electronic medical record system with voice recognition software and computerized dictation system. Although this document has been carefully reviewed, there might still be some phonetic and typographical errors. Occasional wrong-word or ``sound-alike substitutions may have occurred due to the inherent limitations of voice recognition software. These areas are purely typographical due to imperfections of the software p abdulkadirs and do not reflect any compromise in the patient's medical care. Please read the chart carefully and recognize, using context, where these substitutions have occurred. Plan discussed with: Patient NYHA Physical activity limitations: Class3(Marked) ordinary (activity causes symtoms) Date of Service: Mar 06, 2024 Billing Provider: TARIQ HERNÁNDEZ Cardiology Common Codes: 55565-[id number] INP/OBS CARE (High) Cardiology Consultation Codes: [id number] CONSULT <45MIN TARIQ HERNÁNDEZ Mar 06, 2024 13:12
--- NOTE | 2024-03-06 15:38 | DVHPN2 ---
Subjective Patient reports having severe dyspnea with ambulation today. Reviewed: Care Plan, H&P, Labs, Medications, Previous Orders Changes from previous H/P or p: No Changes General: Per HPI Eyes: No Pain, No Vision change, No Conjunctivae inflammation, No Eyelid inflammation, No Other, No Redness ENT: No Ear pain, No Ear discharge, No Nose pain, No Nose discharge, No Nose congestion, No Mouth pain, No Mouth swelling, No Throat pain, No Throat swelling, No Other Cardiovascular: No Chest Pain, No Palpitations, No Orthopnea, No Paroxysmal Noc. Dyspnea, No Edema, No Lt Headedness, No Other Respiratory: Cough; No Dry; Shortness of breath; No SOB with excertion, No Wheezing, No Hemoptysis, No Pleuritic Pain, No Sputum, No Other Gastrointestinal: No Nausea, No Vomiting, No Abdominal Pain, No Diarrhea, No Constipation, No Melena, No Hematochezia, No Other Genitourinary: No Dysuria, No Frequency, No Incontinence, No Hematuria, No Retention, No Other Skin: No Rash, No Lesions, No Jaundice, No Bruising, No Other Objective Vitals Vital Signs Date Time Temp Pulse Resp B/P (MAP) Pulse Ox O2 Delivery O2 Flow Rate FiO2 03/06/24 13:00 97.6 84 17 113/68 (83) 96 97.6 03/06/24 08:00 Nasal Cannula* 3 32 Intake/Output Intake and Output 03/06/24 07:00 Intake Total 1200 ml Output Total 1350 ml Balance -150 ml Intake Oral 1200 ml Output Urine Total 1350 ml # Bowel Movements 1 General Appearance: Alert, Oriented X3, Cooperative, mild distress HEENT: Atraumatic, PERRLA Lungs: Clear to auscultation, Normal air movement Cardiovascular: Normal S1, Normal S2 Abdomen: Normal bowel sounds, Soft Genitourinary: No Apparent Abnormalities Musculoskeletal: Normal sensory function, Normal motor function Neuro: Normal gait, Normal speech, Strength at 5/5 X4 ext, Sensation intact, C ranial nerves 3-12 NL Psych/Mental Status: Mental status NL, Mood NL Medications Current Medications Medications Dose Ordered Sig/Anthony Route Start Time Stop Time Status Last Admin Dose Admin Melatonin 10 mg PRN PRN PO 03/04/24 21:30 03/04/24 21:36 10 MG Amiodarone HCl 200 mg BID PO 03/04/24 22:00 03/06/24 10:26 200 MG Furosemide 40 mg DAILY IV 03/05/24 10:00 03/06/24 10:25 40 MG Enoxaparin Sodium 30 mg DAILY SC 03/05/24 10:00 03/06/24 10:28 30 MG Allopurinol 100 mg DAILY PO 03/05/24 10:00 03/06/24 10:28 100 MG Metoprolol Succinate 25 mg DAILY PO 03/05/24 10:00 03/06/24 10:26 25 MG Ondansetron HCl 4 mg Q4HP PRN IV 03/04/24 21:45 Nitroglycerin 0.4 mg Q5MINP PRN SL 03/04/24 21:45 Morphine Sulfate 2 mg Q30M PRN IV 03/04/24 21:45 Spironolactone 25 mg DAILY PO 03/06/24 10:00 03/06/24 10:25 25 MG Empaglifozin 10 mg DAILY PO 03/06/24 10:00 03/06/24 10:27 10 MG Laboratory Results Laboratory Tests 03/04/24 03:48 Urinalysis Test 03/04/24 12:34 Urine Color Yellow (Yellow) Urine Clarity Clear (Clear) Urine pH 5.5 (5.0-9.0) Urine Specific [place] 1.022 (1.001-1.035) Urine Protein 1+ (Negative) H Urine Ketones 1+ (Negative) H Urine Blood Negative /uL (Negative) Urine Nitrite Negative (Negative) Urine Bilirubin Negative (Negative) Urine Urobilinogen Normal mg/dL (Negative) Urine Leukocyte Esterase Negative /uL (Negative) Urine RBC 1 /hpf (0 - 4) Urine WBC 4 /hpf (0 - 5) Urine Squamous Epithelial Cells Few /hpf (<5) Urine Bacteria None seen /hpf (None Seen) Urine Hyaline Casts Few /lpf (0 - 2) Urine Mucus Few (None Seen) Urine Glucose Normal mg/dL (Normal) Microbiology Microbiology Date/Time Source Procedure Growth Status 03/04/24 12:34 Voided Urine Urine Culture - Final Complete 03/04/24 11:00 Blood Blood Culture - Preliminary NO GROWTH AFTER 48 HOURS OF INCUBATION. Resulted Labs and/or images reviewed: Labs reviewed by me, Image(s) reviewed by me Assessment/Plan Assessment/Plan Impression: -acute on chronic systolic heart failure -acute hypoxic respiratory failure -atrial fibrillation rapid ventricular rate -history of Watchman device -elevated D-dimer, rule out pulmonary embolism -dyslipidemia Plan: Events: Discussed case with Cardiology. Possible ischemia workup. Long discussion made with the patient's granddaughter. All questions answered. -cardiology consultation: Echocardiogram reviewed. -continue goal-directed medical therapy with IV diuresis -continue Eliquis -continue statin -O2 supplementation to keep saturation greater than 92% -pulmonology consultation: Recommendations reviewed -repeat labs in a.m. Total time spent with patient discussing and formulating plan of care: 35 minutes. This medical document was created using an electronic medical record system with [employer] dictation system. Although this document has been carefully reviewed, there may still be some phonetic and typographical errors. These areas are purely typographical due to imperfections of the software programs, and do not reflect any compromise in the patient's medical care. Plan discussed with: Patient, Other (RN) My Orders Orders - NICOLE REBOLLAR NP Procedure Category Date Status Time * Cardiology Consult CONS 03/05/24 Transmitted 17:58 Spironolactone PHA 03/06/24 In Process (Aldactone) 10:00 Empagliflozin PHA 03/06/24 In Process (Jardiance) 10:00 Chest Xray 1 View XY 03/06/24 Resulted 08:54 Basic Metabolic Panel LAB 03/07/24 Verified 04:00 Date of Service: Mar 06, 2024 Billing Provider: NICOLE REBOLLAR NP Common Visit Codes: [id number] INP/OBS CARE(HIGH) NICOLE REBOLLAR NP Mar 06, 2024 15:38
[2024-03-06] MEDS: ACETAMINOPHEN 325 MG TAB PO ONE (18:17)
--- NOTE | 2024-03-06 20:44 | DVH ---
NUCLEAR MEDICINE VENTILATION/PERFUSION LUNG SCAN. INDICATION: PULMONARY EMBOLISM COMPARISON: None TECHNIQUE: Following intravenous demonstration of 4.5 millicuries of technetium 99m MAA, and inhalat ion of 4.7 mCi of xenon aerosol scintigrams were obtained in multiple projections of the lungs. FINDINGS: There is normal uptake of radionuclide on both the ventilation and perfusion portions of the examinat ion. No mismatched perfusion defects are demonstrated. Uptake is normally homogeneous. IMPRESSION: 1. Low probability for PE.
--- NOTE | 2024-03-06 21:29 | DVHPN2 ---
Progress Note - Dictate Date Seen: Mar 05, 2024 Medical Necessity Reason Pt with a Central, PICC or Fol: No Subjective Patient seen and examined at bedside. Remains on supplemental oxygen Overnight events reviewed. vital signs Vital Sign Date Time Temp Pulse Resp B/P (MAP) Pulse Ox O2 Delivery O2 Flow Rate FiO2 03/06/24 21:00 98.4 82 18 100/64 (76) 98 98.4 03/06/24 20:00 Nasal Cannula* 3 32 Total Intake and Output 03/05/24 03/05/24 03/06/24 15:00 23:00 07:00 Intake Total 800 ml 400 ml Output Total 1000 ml 350 ml Balance -200 ml 50 ml medications Current Medications Medications Dose Ordered Sig/Anthony Route Start Time Stop Time Status Last Admin Dose Admin Melatonin 10 mg PRN PRN PO 03/04/24 21:30 03/04/24 21:36 10 MG Amiodarone HCl 200 mg BID PO 03/04/24 22:00 03/06/24 21:20 200 MG Furosemide 40 mg DAILY IV 03/05/24 10:00 03/06/24 10:25 40 MG Enoxaparin Sodium 30 mg DAILY SC 03/05/24 10:00 03/06/24 10:28 30 MG Allopurinol 100 mg DAILY PO 03/05/24 10:00 03/06/24 10:28 100 MG Metoprolol Succinate 25 mg DAILY PO 03/05/24 10:00 03/06/24 10:26 25 MG Ondansetron HCl 4 mg Q4HP PRN IV 03/04/24 21:45 Nitroglycerin 0.4 mg Q5MINP PRN SL 03/04/24 21:45 Morphine Sulfate 2 mg Q30M PRN IV 03/04/24 21:45 Spironolactone 25 mg DAILY PO 03/06/24 10:00 03/06/24 10:25 25 MG Empaglifozin 10 mg DAILY PO 03/06/24 10:00 03/06/24 10:27 10 MG objective Gen.: Patient lying in bed in no apparent distress. On supplemental oxygen. Head: Normocephalic, atraumatic. Eyes: EOMI/PERRLA. Ears: Normal hearing. Normal anatomy. Neck/trachea: Trachea midline, supple. Nose: Normal external anatomy. Mouth: Moist mucous membranes. Chest: Decreased air entry bilaterally. No wheezing or rhonchi. Cardiovascular: Positive S1, positive S2. Regular rate and rhythm. Abdomen: Positive bowel sounds in all 4 quadrants. Soft, non-tender, non- distended. : Deferred. Rectal: Deferred. Skin: Warm, dry. Intact. Extremities: 2+ radial pulses bilaterally. No lower extremity edema. Neuro: Awake, alert, oriented x3. No gross motor or sensory deficits. Cranial nerves II through XII intact. Gait not assessed. laboratory and microbiology Laboratory Tests 03/04/24 03:48 Test 03/04/24 03:48 Range/Units Serum Glucose 248 H 74-106 mg/dL Assessment/Plan Impression: Acute hypoxic respiratory failure Acute hypercarbic respiratory failure, improved Dependence on supplemental oxygen Pneumonia less likely Pulmonary edema. Acute CHF exacerbation Chronic AFib with RVR Events: Supp o2 Diurese Monitor ins/outs ABG compensated on 03/04/24 after BIPAP. Reset of plan as noted below Plan: Supplemental oxygen 4 LPM NC Titrate to keep O2 sats above 92%. Taper O2 as tolerated. BiPAP PRN. Continue bronchodilators. No WBC elevation. No fever, less likely pneumonia. Diurese to euvolemia Monitor renal function. Monitor electrolytes. Supplement as necessary. Monitor ins and outs. DVT prophylaxis. Prognosis: Poor given patient's multiple co-morbidities. Rest of plan per hospitalist and other consultants. Thank you, DAVID Avalos, for allowing me to participate in this patient's care. Further recommendations will depend on the patient's clinical course. Please do not hesitate to contact me if you have any questions or concerns. This medical document was created using an electronic medical record system with [employer] dictation system. Although these documentations are being carefully reviewed, there may still be some phonetic and typographical changes. The errors are purely typographical, due to imperfection on the software program, and do not reflect any compromise in the patient's medical care. Plan discussed with: Patient, Other (RN) JORDAN WONG MD Mar 06, 2024 21:29
--- NOTE | 2024-03-06 22:40 | DVHPN2 ---
Progress Note - Dictate Date Seen: Mar 06, 2024 Medical Necessity Reason Pt with a Central, PICC or Fol: No Subjective Patient seen and examined at bedside. Remains on supplemental oxygen Overnight events reviewed. vital signs Vital Sign Date Time Temp Pulse Resp B/P (MAP) Pulse Ox O2 Delivery O2 Flow Rate FiO2 03/06/24 21:00 98.4 82 18 100/64 (76) 98 98.4 03/06/24 20:00 Nasal Cannula* 3 32 Total Intake and Output 03/05/24 03/05/24 03/06/24 15:00 23:00 07:00 Intake Total 800 ml 400 ml Output Total 1000 ml 350 ml Balance -200 ml 50 ml medications Current Medications Medications Dose Ordered Sig/Anthony Route Start Time Stop Time Status Last Admin Dose Admin Melatonin 10 mg PRN PRN PO 03/04/24 21:30 03/04/24 21:36 10 MG Amiodarone HCl 200 mg BID PO 03/04/24 22:00 03/06/24 21:20 200 MG Furosemide 40 mg DAILY IV 03/05/24 10:00 03/06/24 10:25 40 MG Enoxaparin Sodium 30 mg DAILY SC 03/05/24 10:00 03/06/24 10:28 30 MG Allopurinol 100 mg DAILY PO 03/05/24 10:00 03/06/24 10:28 100 MG Metoprolol Succinate 25 mg DAILY PO 03/05/24 10:00 03/06/24 10:26 25 MG Ondansetron HCl 4 mg Q4HP PRN IV 03/04/24 21:45 Nitroglycerin 0.4 mg Q5MINP PRN SL 03/04/24 21:45 Morphine Sulfate 2 mg Q30M PRN IV 03/04/24 21:45 Spironolactone 25 mg DAILY PO 03/06/24 10:00 03/06/24 10:25 25 MG Empaglifozin 10 mg DAILY PO 03/06/24 10:00 03/06/24 10:27 10 MG objective Gen.: Patient lying in bed in no apparent distress. On supplemental oxygen. Head: Normocephalic, atraumatic. Eyes: EOMI/PERRLA. Ears: Normal hearing. Normal anatomy. Neck/trachea: Trachea midline, supple. Nose: Normal external anatomy. Mouth: Moist mucous membranes. Chest: Decreased air entry bilaterally. No wheezing or rhonchi. Cardiovascular: Positive S1, positive S2. Regular rate and rhythm. Abdomen: Positive bowel sounds in all 4 quadrants. Soft, non-tender, non- distended. : Deferred. Rectal: Deferred. Skin: Warm, dry. Intact. Extremities: 2+ radial pulses bilaterally. No lower extremity edema. Neuro: Awake, alert, oriented x3. No gross motor or sensory deficits. Cranial nerves II through XII intact. Gait not assessed. laboratory and microbiology Laboratory Tests 03/04/24 03:48 Test 03/04/24 03:48 Range/Units Serum Glucose 248 H 74-106 mg/dL Assessment/Plan Impression: Acute hypoxic respiratory failure Acute hypercarbic respiratory failure, improved Dependence on supplemental oxygen Pneumonia less likely Pulmonary edema. Acute CHF exacerbation Chronic AFib with RVR Events: Continue supplemental o2 at 3 LPM NC Taper O2 as tolerated. CXR demonstrates bilateral pleural effusions. Limited chest ultrasound will be performed to evaluate if pleural effusions amenable for thoracentesis. Blood cultures show no growth in 24 hours Diurese w/ Lasix as tolerated Monitor renal function. Monitor electrolytes. Supplement as necessary. Monitor ins/outs Rest of plan as noted below Plan: Supplemental oxygen Titrate to keep O2 sats above 92%. Taper O2 as tolerated. BiPAP PRN. Continue bronchodilators. No WBC elevation. No fever, less likely pneumonia. Diurese to euvolemia Monitor renal function. Monitor electrolytes. Supplement as necessary. Monitor ins and outs. DVT prophylaxis. Prognosis: Poor given patient's multiple co-morbidities. Rest of plan per hospitalist and other consultants. A total of 51 minutes of clinical care time was spent reviewing the patient record, examining the patient, making a diagnostic and therapeutic plan, discussing this plan with the medical personnel, following up on diagnostic studies and following the patient for clinical stability excluding any and all procedures. At least 50% of this time was spent in direct, [id number] contact. Thank you, DAVID Avalos, for allowing me to participate in this patient's care. Further recommendations will depend on the patient's clinical course. Please do not hesitate to contact me if you have any questions or concerns. This medical document was created using an electronic medical record system with [employer] system. Although these documentations are being carefully reviewed, there may still be some phonetic and typographical changes. The errors are purely typographical, due to imperfection on the software program, and do not reflect any compromise in the patient's medical care. Plan discussed with: Patient, Other (RADHA Kraft) JORDAN WONG MD Mar 06, 2024 22:40
[2024-03-07] VITALS (8 sets, daily range): BP systolic 98–121; BP diastolic 59–78; PULSE 65–110; RESP 16–19; TEMP 97.4–98.8; O2SAT 96–99
[2024-03-07 07:43] LABS: Anion Gap 5 (5-15); Carbon Dioxide 31 mmol/L (20-31); Chloride 104 mmol/L (98-107); Potassium 3.8 mmol/L (3.5-5.1); Sodium 140 mmol/L (136-145)
[2024-03-07 07:45] LABS: Calcium 9.4 mg/dL (8.7-10.4)
[2024-03-07 07:49] LABS: BUN/Creatinine Ratio 24.4 (10.0-20.0); Glucose 91 mg/dL (74-106)
[2024-03-07 07:50] LABS: Blood Urea Nitrogen 31 mg/dL (9-23)
--- NOTE | 2024-03-07 08:23 | DVH ---
US CHEST ULTRASOUND, HISTORY: FLUID CHECK FOR POSSIBLE THORACENTESIS COMPARISON(S): None TECHNICAL DATA: Transverse and longitudinal images are obtained of the chest. FINDING: IMPRESSION(S): Moderate right > left pleural effusion.
--- NOTE | 2024-03-07 09:41 | DVH ---
XY CHEST PORTABLE, HISTORY: POST THORACENTESIS COMPARISON: XY CHEST XRAY 1 VIEW on DOS: 03/06/24, XY CHEST PORTABLE on DOS: 03/04/24 XY CHEST XRAY 1 VIEW on DOS: 03/06/24, XY CHEST PORTABLE on DOS: 03/04/24 TECHNICAL DATA: 1 view of the chest was obtained. FINDINGS: Lines and tubes: None Cardiomediastinal silhouette: normal Pulmonary vasculature: normal Lung expansion: normal Lung airspace: normal Lung interstitium: normal Pleura: Decreased right effusion. Pneumothorax: no Bones: Unremarkable Other: no IMPRESSION: Decreased right effusion. No pneumothorax.
--- NOTE | 2024-03-07 09:42 | DVH ---
US THORACENTESIS, HISTORY: BILAT PLUERAL EFFUSIONS PROCEDURE: Informed consent was obtained. The patient was seated on the bed. A limited localization u ltrasound of the right thorax was obtained, and the optimal approach was marked on the skin. The area was prepped with chlorhexidine which was allowed to dry and draped in the usual sterile fashion. Joe e out was performed. The skin and the soft tissues were infiltrated with 1% lidocaine. A 5.5 Maori c entesis needle catheter was advanced into right pleural space. Following aspiration of fluid, the cat heter was advanced and the needle removed. About 500 cc of fluid was drained. Specimen/s was/were sen t for appropriate cultures/cytology/cultures and cytology. No immediate complication was identified. FINDINGS: Small right pleural effusion. Aspirated fluid is clear and serous. IMPRESSION: Right thoracentesis with 500 mL removed.
[2024-03-07 11:11] LABS: Body Fluid Red Blood Cells 6055 CUMM (0-2000); Body Fluid White Blood Cells 587 CUMM (0-200)
[2024-03-07 11:39] LABS: Body Fluid Polymorphonuclear 75 % (0-25)
[2024-03-07] MEDS: MORPHINE SULFATE INJ 2 MG/ml SYRG IV PRN (12:02)
--- NOTE | 2024-03-07 12:58 | DVHPN2 ---
Subjective Continues to report shortness of breath Reviewed: Care Plan, H&P, Labs, Medications, Previous Orders Changes from previous H/P or p: No Changes General: Per HPI Eyes: No Pain, No Vision change, No Conjunctivae inflammation, No Eyelid inflammation, No Other, No Redness ENT: No Ear pain, No Ear discharge, No Nose pain, No Nose discharge, No Nose congestion, No Mouth pain, No Mouth swelling, No Throat pain, No Throat swelling, No Other Cardiovascular: No Chest Pain, No Palpitations, No Orthopnea, No Paroxysmal Noc. Dyspnea, No Edema, No Lt Headedness, No Other Respiratory: Cough; No Dry; Shortness of breath; No SOB with excertion, No Wheezing, No Hemoptysis, No Pleuritic Pain, No Sputum, No Other Gastrointestinal: No Nausea, No Vomiting, No Abdominal Pain, No Diarrhea, No Constipation, No Melena, No Hematochezia, No Other Genitourinary: No Dysuria, No Frequency, No Incontinence, No Hematuria, No Retention, No Other Skin: No Rash, No Lesions, No Jaundice, No Bruising, No Other Objective Vitals Vital Signs Date Time Temp Pulse Resp B/P (MAP) Pulse Ox O2 Delivery O2 Flow Rate FiO2 03/07/24 12:02 88 18 118/68 03/07/24 11:48 97.4 99 97.4 03/07/24 08:00 Nasal Cannula* 3 32 Intake/Output Intake and Output 03/07/24 07:00 Intake Total 2200 ml Output Total 2700 ml Balance -500 ml Intake Oral 2200 ml Output Urine Total 2700 ml General Appearance: Alert, Oriented X3, Cooperative, mild distress HEENT: Atraumatic, PERRLA Lungs: Clear to auscultation, Normal air movement Cardiovascular: Normal S1, Normal S2 Abdomen: Normal bowel sounds, Soft Genitourinary: No Apparent Abnormalities Musculoskeletal: Normal sensory function, Normal motor function Neuro: Normal gait, Normal speech, Strength at 5/5 X4 ext, Sensation intact, C ranial nerves 3-12 NL Skin: Dry, Intact Psych/Mental Status: Mental status NL, Mood NL Medications Current Medications Medications Dose Ordered Sig/Anthony Route Start Time Stop Time Status Last Admin Dose Admin Melatonin 10 mg PRN PRN PO 03/04/24 21:30 03/04/24 21:36 10 MG Amiodarone HCl 200 mg BID PO 03/04/24 22:00 03/07/24 09:48 200 MG Furosemide 40 mg DAILY IV 03/05/24 10:00 03/07/24 09:47 40 MG Enoxaparin Sodium 30 mg DAILY SC 03/05/24 10:00 03/06/24 10:28 30 MG Allopurinol 100 mg DAILY PO 03/05/24 10:00 03/07/24 09:48 100 MG Metoprolol Succinate 25 mg DAILY PO 03/05/24 10:00 03/06/24 10:26 25 MG Ondansetron HCl 4 mg Q4HP PRN IV 03/04/24 21:45 Nitroglycerin 0.4 mg Q5MINP PRN SL 03/04/24 21:45 Morphine Sulfate 2 mg Q30M PRN IV 03/04/24 21:45 Spironolactone 25 mg DAILY PO 03/06/24 10:00 03/07/24 09:48 25 MG Empaglifozin 10 mg DAILY PO 03/06/24 10:00 03/07/24 09:48 10 MG Morphine Sulfate 1 mg Q3HP PRN IV 03/07/24 11:15 03/07/24 12:02 1 MG Laboratory Results Laboratory Tests 03/04/24 03:48 03/07/24 06:09 Chemistry Test 03/07/24 06:09 Calcium Level 9.4 mg/dL (8.7-10.4) Urinalysis Test 03/04/24 12:34 Urine Color Yellow (Yellow) Urine Clarity Clear (Clear) Urine pH 5.5 (5.0-9.0) Urine Specific [place] 1.022 (1.001-1.035) Urine Protein 1+ (Negative) H Urine Ketones 1+ (Negative) H Urine Blood Negative /uL (Negative) Urine Nitrite Negative (Negative) Urine Bilirubin Negative (Negative) Urine Urobilinogen Normal mg/dL (Negative) Urine Leukocyte Esterase Negative /uL (Negative) Urine RBC 1 /hpf (0 - 4) Urine WBC 4 /hpf (0 - 5) Urine Squamous Epithelial Cells Few /hpf (<5) Urine Bacteria None seen /hpf (None Seen) Urine Hyaline Casts Few /lpf (0 - 2) Urine Mucus Few (None Seen) Urine Glucose Normal mg/dL (Normal) Microbiology Microbiology Date/Time Source Procedure Growth Status 03/07/24 09:35 Pleural Fluid Received 03/04/24 12:34 Voided Urine Urine Culture - Final Complete 03/04/24 11:00 Blood Blood Culture - Preliminary NO GROWTH AFTER 72 HOURS OF INCUBATION. Resulted Labs and/or images reviewed: Labs reviewed by me, Image(s) reviewed by me Assessment/Plan Assessment/Plan Impression: -acute on chronic systolic heart failure -acute hypoxic respiratory failure -atrial fibrillation rapid ventricular rate -history of Watchman device -elevated D-dimer, rule out pulmonary embolism -dyslipidemia Plan: Events: Discussed case with Cardiology. Possible ischemia workup. Thoracentesis today, 500ml hr. -cardiology consultation: Echocardiogram reviewed. Recommendations appreciated -continue goal-directed medical therapy with IV diuresis -continue Eliquis -continue statin -O2 supplementation to keep saturation greater than 92% -pulmonology consultation: Recommendations reviewed -repeat labs in a.m. Total time spent with patient discussing and formulating plan of care: 35 minutes. This medical document was created using an electronic medical record system with [employer] dictation system. Although this document has been carefully reviewed, there may still be some phonetic and typographical errors. These areas are purely typographical due to imperfections of the software programs, and do not reflect any compromise in the patient's medical care. Plan discussed with: Patient, Other (Rn) My Orders Orders - NICOLE REBOLLAR NP Procedure Category Date Status Time Thoracentesis US 03/07/24 Resulted Morphine Sulfate PHA 03/07/24 In Process Injection 11:15 Chest Xray 1 View XY 03/08/24 Logged 04:00 Basic Metabolic Panel LAB 03/08/24 Verified 04:00 Date of Service: Mar 07, 2024 Billing Provider: NICOLE REBOLLAR NP Common Visit Codes: [id number] INP/OBS CARE(HIGH) NICOLE REBOLLAR NP Mar 07, 2024 12:58
--- NOTE | 2024-03-07 15:31 | DVHPN2 ---
Consult Progress Note Subjective Other Systems: Patient remains in atrial fibrillation with controlled rate on monitor. Objective vital signs Vital Sign Date Time Temp Pulse Resp B/P (MAP) Pulse Ox O2 Delivery O2 Flow Rate FiO2 03/07/24 12:02 88 18 118/68 03/07/24 11:48 97.4 99 97.4 03/07/24 08:00 Nasal Cannula* 3 32 Total Intake and Output 03/06/24 03/06/24 03/07/24 15:00 23:00 07:00 Intake Total 200 ml 1200 ml 800 ml Output Total 2000 ml 700 ml Balance 200 ml -800 ml 100 ml medications Current Medications Medications Dose Ordered Sig/Anthony Route Start Time Stop Time Status Last Admin Dose Admin Melatonin 10 mg PRN PRN PO 03/04/24 21:30 03/04/24 21:36 10 MG Amiodarone HCl 200 mg BID PO 03/04/24 22:00 03/07/24 09:48 200 MG Furosemide 40 mg DAILY IV 03/05/24 10:00 03/07/24 09:47 40 MG Enoxaparin Sodium 30 mg DAILY SC 03/05/24 10:00 03/06/24 10:28 30 MG Allopurinol 100 mg DAILY PO 03/05/24 10:00 03/07/24 09:48 100 MG Metoprolol Succinate 25 mg DAILY PO 03/05/24 10:00 03/06/24 10:26 25 MG Ondansetron HCl 4 mg Q4HP PRN IV 03/04/24 21:45 Nitroglycerin 0.4 mg Q5MINP PRN SL 03/04/24 21:45 Morphine Sulfate 2 mg Q30M PRN IV 03/04/24 21:45 Spironolactone 25 mg DAILY PO 03/06/24 10:00 03/07/24 09:48 25 MG Empaglifozin 10 mg DAILY PO 03/06/24 10:00 03/07/24 09:48 10 MG Morphine Sulfate 1 mg Q3HP PRN IV 03/07/24 11:15 03/07/24 12:02 1 MG Examination: GENERAL:Normal, LUNGS:Normal, CVS:Normal, NEURO:Normal laboratory and microbiology Laboratory Tests 03/07/24 06:09 03/04/24 03:48 Test 03/07/24 06:09 Range/Units Serum Glucose 91 74-106 mg/dL Problem List/Assessment/Plan Problem List/Assessment/Plan Acute on chronic decompensated HFrEF, NYHA class III Atrial fibrillation, status post Watchman device (on Eliquis and Amiodarone) Hypertension Dyslipidemia Pleural effusion s/p Right thoracentesis Gout Plan/Recommendation (Dr. Gomez): * Echocardiogram reveals EF 25-30% with global hypokinesis * Continue GDMT for CHF as tolerated * Strict intake and output, daily weights, maintain fluid restriction * [id number] VASc score: 5 points, HAS-BLED score: 2 points * Therapeutic lovenox while in patient, transition back to Eliquis (per primary wood die maker) when appropriate * Beta-kathie for rate control * Home dose Amiodarone * BP control * Preload and afterload reduction * Lipid-lowering agent * Obtain medical records Patient seen and examined at bedside with . At this time we will recommend to control atrial fibrillation. We will also recommend to continue GDMT for CHF as tolerated. We will proceed with obtaining medical records from patient's primary wood die maker regarding any previous ischemic workup. In the meantime, continue with medical management. Thank you for allowing us to care for this patient. Please call with any questions or concerns. This medical document was created using an electronic medical record system with voice recognition software and computerized dictation system. Although this document has been carefully reviewed, there might still be some phonetic and typographical errors. Occasional wrong-word or ``sound-alike substitutions may have occurred due to the inherent limitations of voice recognition software. These areas are purely typographical due to imperfections of the software programs and do not reflect any compromise in the patient's medical care. Please read the chart carefully and recognize, using context, where these substitutions have occurred. Plan discussed with: Patient, Other (Grand daughter at bedside) Date of Service: Mar 07, 2024 Billing Provider: SEAN GMOEZ MD Common Visit Codes: [id number] INP/OBS CARE(HIGH) TARIQ HERNÁNDEZ STATION EXAMINER Mar 07, 2024 15:31
[2024-03-07] MEDS ORDERED: ENOXAPARIN SOD 100 MG/1 ML SYRINGE SC SCH (22:00)
--- NOTE | 2024-03-07 22:23 | DVHPN2 ---
Progress Note - Dictate Date Seen: Mar 07, 2024 Medical Necessity Reason Pt with a Central, PICC or Fol: Yes The following are medically ne: Myers Catheter Reason for myers catheter: Strict I&O Subjective Patient seen and examined at bedside. Remains on supplemental oxygen Overnight events reviewed. vital signs Vital Sign Date Time Temp Pulse Resp B/P (MAP) Pulse Ox O2 Delivery O2 Flow Rate FiO2 03/07/24 21:00 98.8 90 18 100/72 (81) 98 98.8 03/07/24 20:00 Nasal Cannula* 3 32 Total Intake and Output 03/06/24 03/06/24 03/07/24 15:00 23:00 07:00 Intake Total 200 ml 1200 ml 800 ml Output Total 2000 ml 700 ml Balance 200 ml -800 ml 100 ml medications Current Medications Medications Dose Ordered Sig/Anthony Route Start Time Stop Time Status Last Admin Dose Admin Melatonin 10 mg PRN PRN PO 03/04/24 21:30 03/04/24 21:36 10 MG Amiodarone HCl 200 mg BID PO 03/04/24 22:00 03/07/24 21:23 200 MG Furosemide 40 mg DAILY IV 03/05/24 10:00 03/07/24 09:47 40 MG Allopurinol 100 mg DAILY PO 03/05/24 10:00 03/07/24 09:48 100 MG Metoprolol Succinate 25 mg DAILY PO 03/05/24 10:00 03/06/24 10:26 25 MG Ondansetron HCl 4 mg Q4HP PRN IV 03/04/24 21:45 Nitroglycerin 0.4 mg Q5MINP PRN SL 03/04/24 21:45 Morphine Sulfate 2 mg Q30M PRN IV 03/04/24 21:45 Spironolactone 25 mg DAILY PO 03/06/24 10:00 03/07/24 09:48 25 MG Empaglifozin 10 mg DAILY PO 03/06/24 10:00 03/07/24 09:48 10 MG Morphine Sulfate 1 mg Q3HP PRN IV 03/07/24 11:15 03/07/24 12:02 1 MG Losartan Potassium 12.5 mg DAILY PO 03/08/24 10:00 Enoxaparin Sodium 60 mg DAILY SC 03/08/24 10:00 objective Gen.: Patient lying in bed in no apparent distress. On supplemental oxygen. Head: Normocephalic, atraumatic. Eyes: EOMI/PERRLA. Ears: Normal hearing. Normal anatomy. Neck/trachea: Trachea midline, supple. Nose: Normal external anatomy. Mouth: Moist mucous membranes. Chest: Decreased air entry bilaterally. No wheezing or rhonchi. Cardiovascular: Positive S1, positive S2. Regular rate and rhythm. Abdomen: Positive bowel sounds in all 4 quadrants. Soft, non-tender, non- distended. : Deferred. Rectal: Deferred. Skin: Warm, dry. Intact. Extremities: 2+ radial pulses bilaterally. No lower extremity edema. Neuro: Awake, alert, oriented x3. No gross motor or sensory deficits. Cranial nerves II through XII intact. Gait not assessed. laboratory and microbiology Laboratory Tests 03/07/24 06:09 03/04/24 03:48 Test 03/07/24 06:09 Range/Units Serum Glucose 91 74-106 mg/dL Assessment/Plan Impression: Acute hypoxic respiratory failure Acute hypercarbic respiratory failure, improved Dependence on supplemental oxygen Pneumonia less likely Pulmonary edema. Acute CHF exacerbation Chronic AFib with RVR Events: Continue supplemental o2 at 3 LPM NC Taper O2 as tolerated. S/p right thoracentesis by IR with removal of 500 mL from right pleural space. Cardiology recs appreciated. Blood cultures show no growth in 72 hours Urine cultures show no growth in 48 hours Patient is NPO Stress test Diurese w/ Lasix as tolerated Monitor renal function. Monitor electrolytes. Supplement as necessary. Monitor ins/outs Fluid restriction Rest of plan as noted below Plan: Supplemental oxygen Titrate to keep O2 sats above 92%. Taper O2 as tolerated. BiPAP PRN. Continue bronchodilators. No WBC elevation. No fever, less likely pneumonia. Diurese to euvolemia Monitor renal function. Monitor electrolytes. Supplement as necessary. Monitor ins and outs. DVT prophylaxis. Prognosis: Poor given patient's multiple co-morbidities. Rest of plan per hospitalist and other consultants. A total of 51 minutes of clinical care time was spent reviewing the patient record, examining the patient, making a diagnostic and therapeutic plan, discussing this plan with the medical personnel, following up on diagnostic studies and following the patient for clinical stability excluding any and all procedures. At least 50% of this time was spent in direct, [id number] contact. Thank you, DAVID Avalos, for allowing me to participate in this patient's care. Further recommendations will depend on the patient's clinical course. Please do not hesitate to contact me if you have any questions or concerns. This medical document was created using an electronic medical record system with [employer] dictation system. Although these documentations are being carefully reviewed, there may still be some phonetic and typographical changes. The errors are purely typographical, due to imperfection on the software program, and do not reflect any compromise in the patient's medical care. Plan discussed with: Patient, Other (RADHA Lowe) JORDAN WONG MD Mar 07, 2024 22:23
[2024-03-07] MEDS: GABAPENTIN 100 MG CAP PO ONE (23:20)
[2024-03-08] VITALS (12 sets, daily range): BP systolic 100–148; BP diastolic 66–93; PULSE 86–112; RESP 10–24; TEMP 97.6–98.6; O2SAT 95–100
[2024-03-08] MEDS: KETOROLAC TROMETH 30 MG/ML 1ML VIAL IV ONE (00:24)
--- NOTE | 2024-03-08 06:33 | DVH ---
CHEST RADIOGRAPH Indication: chf Technique: Single frontal view of the chest was obtained Comparison: XY CHEST PORTABLE on DOS: 03/07/24 FINDINGS: Lines and Tubes: None Lungs: Right basilar opacities noted. Left basilar opacities noted. Pleura: There is a right pleural effusion similar prior study. No pneumothorax. Cardiomediastinal contours: Unremarkable Bones: No acute osseous abnormality. IMPRESSION: 1. No significant interval change in right pleural effusion and bibasilar opacities.
[2024-03-08 08:05] LABS: Mean Corpuscular Volume 100.7 fL (80.0-100.0); Platelet Count (auto) 180 10^3/uL (140-450); Red Cell Distribution Width 14.5 % (11.8-14.3)
[2024-03-08 08:07] LABS: Hematocrit 46.5 % (36.0-46.0); Hemoglobin 15.7 g/dL (12.2-16.2); Mean Corpuscular Hemoglobin 33.9 pg (28.0-32.0); Mean Corpuscular Hgb Conc. 33.7 g/dL (32.0-36.0); Red Blood Cells 4.62 10^6/uL (4.0-5.20); White Blood Cell 10.1 10^3/uL (4.4-10.8)
[2024-03-08 08:08] LABS: Anion Gap 10 (5-15); Carbon Dioxide 27 mmol/L (20-31); Chloride 101 mmol/L (98-107); Potassium 4.7 mmol/L (3.5-5.1); Sodium 138 mmol/L (136-145)
[2024-03-08 08:09] LABS: Calcium 10.2 mg/dL (8.7-10.4)
[2024-03-08 08:14] LABS: BUN/Creatinine Ratio 21.9 (10.0-20.0)
[2024-03-08 08:15] LABS: Basophils % (manual) 0 (0.0-2.0); Blast Cells 0; Eosinophils % (manual) 0 (0-7); Metamyelocytes % 0; Myelocytes % 0; Promyelocytes % 0; Reactive Lymphocytes 0
[2024-03-08 08:25] LABS: Blood Urea Nitrogen 30 mg/dL (9-23); Glucose 139 mg/dL (74-106)
[2024-03-08 10:40] LABS: Band Neutrophils % (manual) 4; Lymphocytes % (manual) 5 (10.0-50.0); Macrocytosis Slight; Monocytes % (manual) 4 (0-12); Platelet Estimate Adequate
[2024-03-08] MEDS: ENOXAPARIN SOD 100 MG/1 ML SYRINGE SC SCH (11:35)
[2024-03-08] MEDS: LOSARTAN POTASSIUM 25 MG TAB PO SCH (11:40)
[2024-03-08 13:48] LABS: Base Excess 2.4 mmol/L (-2.0-3.0)
[2024-03-08] MEDS: HYDROmorphone HCL 2 MG/ML VL/or syr IV PRN (14:56)
[2024-03-08] MEDS: HYDROMORPHONE HCL 1 MG/ML INJ IV ONE (15:03)
[2024-03-08 15:06] LABS: Protein, Body Fluid 1.9 g/dL (.)
--- NOTE | 2024-03-08 15:25 | DVH ---
RIGHT Lower Extremity Arterial Duplex Clinical History: critical limb ischemia Comparison: None Technique: Duplex Doppler evaluation including color Doppler and spectral/pulsed waveform analysis of the lower extremity arteries was performed. Findings: RIGHT: Peak systolic velocities are as follows: OUTCOMES ANALYST 72 cm/s BIPHASIC WAVEFORM Deep femoral 0 cm/s SFA proximal 0 cm/s SFA mid-portion 0 cm/s SFA distal 0 cm/s Popliteal 0 cm/s Posterior tibial 0 cm/s Anterior tibial 0 cm/s Peroneal 0 cm/s Dorsalis pedis 0 cm/s The waveforms are BIPHASIC WAVEFORM NOTED IN THE RIGHT COMMON FEMORAL ARTERY NO FLOW NOTED DISTALLY. IMPRESSION: 1. NO FLOW IDENTIFIED DISTAL TO THE RIGHT COMMON FEMORAL ARTERY. REFERENCE VALUES, [facility]) vascular Imaging Lab Criteria: Peak systolic velocity ranges (in cm/sec) are as follows: <150 cm/s - <20 % stenosis 150-200 cm/s - 20-49% stenosis 200-300 cm/s - 50-75% stenosis >300 cm/s -> 75% stenosis
--- NOTE | 2024-03-08 16:03 | DVHPN2 ---
Subjective Continues to report shortness of breath Reviewed: Care Plan, H&P, Labs, Medications, Previous Orders Changes from previous H/P or p: No Changes General: Per HPI Eyes: No Pain, No Vision change, No Conjunctivae inflammation, No Eyelid inflammation, No Other, No Redness ENT: No Ear pain, No Ear discharge, No Nose pain, No Nose discharge, No Nose congestion, No Mouth pain, No Mouth swelling, No Throat pain, No Throat swelling, No Other Cardiovascular: No Chest Pain, No Palpitations, No Orthopnea, No Paroxysmal Noc. Dyspnea, No Edema, No Lt Headedness, No Other Respiratory: Cough; No Dry; Shortness of breath; No SOB with excertion, No Wheezing, No Hemoptysis, No Pleuritic Pain, No Sputum, No Other Gastrointestinal: No Nausea, No Vomiting, No Abdominal Pain, No Diarrhea, No Constipation, No Melena, No Hematochezia, No Other Genitourinary: No Dysuria, No Frequency, No Incontinence, No Hematuria, No Retention, No Other Skin: No Rash, No Lesions, No Jaundice, No Bruising, No Other Objective Vitals Vital Signs Date Time Temp Pulse Resp B/P (MAP) Pulse Ox O2 Delivery O2 Flow Rate FiO2 03/08/24 14:56 102 19 148/85 03/08/24 12:28 98.1 95 98.1 03/07/24 20:00 Nasal Cannula* 3 32 Intake/Output Intake and Output 03/08/24 07:00 Intake Total 1300 ml Output Total 2800 ml Balance -1500 ml Intake Oral 1300 ml Output Urine Total 2800 ml General Appearance: Alert, Oriented X3, Cooperative, mild distress HEENT: Atraumatic, PERRLA Lungs: Clear to auscultation, Normal air movement Cardiovascular: Normal S1, Normal S2 Abdomen: Normal bowel sounds, Soft Genitourinary: No Apparent Abnormalities Musculoskeletal: Normal sensory function, Normal motor function Neuro: Normal gait, Normal speech, Strength at 5/5 X4 ext, Sensation intact, C ranial nerves 3-12 NL Skin: Dry, Intact Psych/Mental Status: Mental status NL, Mood NL Medications Current Medications Medications Dose Ordered Sig/Anthony Route Start Time Stop Time Status Last Admin Dose Admin Melatonin 10 mg PRN PRN PO 03/04/24 21:30 03/04/24 21:36 10 MG Amiodarone HCl 200 mg BID PO 03/04/24 22:00 03/08/24 11:36 200 MG Furosemide 40 mg DAILY IV 03/05/24 10:00 03/08/24 11:34 40 MG Allopurinol 100 mg DAILY PO 03/05/24 10:00 03/08/24 11:40 100 MG Metoprolol Succinate 25 mg DAILY PO 03/05/24 10:00 03/08/24 11:39 25 MG Ondansetron HCl 4 mg Q4HP PRN IV 03/04/24 21:45 Nitroglycerin 0.4 mg Q5MINP PRN SL 03/04/24 21:45 Morphine Sulfate 2 mg Q30M PRN IV 03/04/24 21:45 Spironolactone 25 mg DAILY PO 03/06/24 10:00 03/08/24 11:37 25 MG Empaglifozin 10 mg DAILY PO 03/06/24 10:00 03/08/24 11:44 10 MG Losartan Potassium 12.5 mg DAILY PO 03/08/24 10:00 03/08/24 11:40 12.5 MG Enoxaparin Sodium 60 mg DAILY SC 03/08/24 10:00 03/08/24 11:35 60 MG Hydromorphone HCl 0.5 mg Q4HPRN PRN IV 03/08/24 14:45 03/08/24 14:56 0.5 MG Laboratory Results Laboratory Tests 03/08/24 06:55 Chemistry Test 03/08/24 06:55 Calcium Level 10.2 mg/dL (8.7-10.4) Urinalysis Test 03/04/24 12:34 Urine Color Yellow (Yellow) Urine Clarity Clear (Clear) Urine pH 5.5 (5.0-9.0) Urine Specific [place] 1.022 (1.001-1.035) Urine Protein 1+ (Negative) H Urine Ketones 1+ (Negative) H Urine Blood Negative /uL (Negative) Urine Nitrite Negative (Negative) Urine Bilirubin Negative (Negative) Urine Urobilinogen Normal mg/dL (Negative) Urine Leukocyte Esterase Negative /uL (Negative) Urine RBC 1 /hpf (0 - 4) Urine WBC 4 /hpf (0 - 5) Urine Squamous Epithelial Cells Few /hpf (<5) Urine Bacteria None seen /hpf (None Seen) Urine Hyaline Casts Few /lpf (0 - 2) Urine Mucus Few (None Seen) Urine Glucose Normal mg/dL (Normal) Blood Gas Results Test 03/08/24 13:38 Arterial Blood pH 7.461 (7.350-7.450) FiO2 % 21.0 Microbiology Microbiology Date/Time Source Procedure Growth Status 03/07/24 09:35 Pleural Fluid Gram Stain Pending Resulted 03/07/24 09:35 Pleural Fluid Body Fluid Culture - Preliminary Resulted 03/04/24 12:34 Voided Urine Urine Culture - Final Complete 03/04/24 11:00 Blood Blood Culture - Preliminary NO GROWTH AFTER 72 HOURS OF INCUBATION. Resulted Labs and/or images reviewed: Labs reviewed by me, Image(s) reviewed by me Assessment/Plan Assessment/Plan Impression: -acute on chronic systolic heart failure -acute hypoxic respiratory failure -atrial fibrillation rapid ventricular rate -history of Watchman device -elevated D-dimer, rule out pulmonary embolism -dyslipidemia Plan: Events: Patient was assessed to have extreme pain to right lower extremity. Patient also found to have cold leg from [id number] to foot. Unable to appreciate pulse. Arterial study was ordered which showed no flow past common femoral artery. Findings were discussed with vascular surgeon. Plans for emergent revascularization of right lower extremity in the operating room. -cardiology consultation: Echocardiogram reviewed. Recommendations appreciated -continue goal-directed medical therapy with IV diuresis -continue statin -O2 supplementation to keep saturation greater than 92% -pulmonology consultation: Recommendations reviewed -repeat labs in a.m. -transfer to ICU Total time spent with patient discussing and formulating plan of care: 35 minutes. This medical document was created using an electronic medical record system with [employer] dictation system. Although this document has been carefully reviewed, there may still be some phonetic and typographical errors. These areas are purely typographical due to imperfections of the software programs, and do not reflect any compromise in the patient's medical care. Plan discussed with: Patient, Other (RN) My Orders Orders - NICOLE REBOLLAR NP Procedure Category Date Status Time Abg W/ Co-Ox RT 03/08/24 Logged 12:11 Rt Low Ext Art Duplex US 03/08/24 Resulted 14:36 Lactic Acid W/ Reflex LAB 03/08/24 Logged Order 14:36 Hydromorphone PHA 03/08/24 In Process Injection (Dilaudid 14:45 Npo (Nothing By DIET 03/08/24 Transmitted Mouth) Diet Dinner * Surgical Consult CONS 03/08/24 Transmitted Date of Service: Mar 08, 2024 Billing Provider: NICOLE REBOLLAR NP Common Visit Codes: [id number] CARE 30-74 MIN NICOLE REBOLLAR NP Mar 08, 2024 16:03
--- NOTE | 2024-03-08 16:15 | DVHPN2 ---
Consult Progress Note Subjective Other Systems: Patient remains in atrial fibrillation on athletic monitor Objective vital signs Vital Sign Date Time Temp Pulse Resp B/P (MAP) Pulse Ox O2 Delivery O2 Flow Rate FiO2 03/08/24 14:56 102 19 148/85 03/08/24 12:28 98.1 95 98.1 03/07/24 20:00 Nasal Cannula* 3 32 Total Intake and Output 03/07/24 03/07/24 03/08/24 15:00 23:00 07:00 Intake Total 200 ml 700 ml 400 ml Output Total 2300 ml 500 ml Balance 200 ml -1600 ml -100 ml medications Current Medications Medications Dose Ordered Sig/Anthony Route Start Time Stop Time Status Last Admin Dose Admin Melatonin 10 mg PRN PRN PO 03/04/24 21:30 03/04/24 21:36 Amiodarone HCl 200 mg BID PO 03/04/24 22:00 03/08/24 11:36 Furosemide 40 mg DAILY IV 03/05/24 10:00 03/08/24 11:34 Allopurinol 100 mg DAILY PO 03/05/24 10:00 03/08/24 11:40 Metoprolol Succinate 25 mg DAILY PO 03/05/24 10:00 03/08/24 11:39 Ondansetron HCl 4 mg Q4HP PRN IV 03/04/24 21:45 Nitroglycerin 0.4 mg Q5MINP PRN SL 03/04/24 21:45 Morphine Sulfate 2 mg Q30M PRN IV 03/04/24 21:45 Spironolactone 25 mg DAILY PO 03/06/24 10:00 03/08/24 11:37 Empaglifozin 10 mg DAILY PO 03/06/24 10:00 03/08/24 11:44 Losartan Potassium 12.5 mg DAILY PO 03/08/24 10:00 03/08/24 11:40 Enoxaparin Sodium 60 mg DAILY SC 03/08/24 10:00 03/08/24 11:35 Hydromorphone HCl 0.5 mg Q4HPRN PRN IV 03/08/24 14:45 03/08/24 14:56 Examination: GENERAL:Normal, LUNGS:Normal, CVS:Normal, NEURO:Normal laboratory and microbiology Laboratory Tests 03/08/24 06:55 Test 03/08/24 06:55 Range/Units Serum Glucose 139 H 74-106 mg/dL Problem List/Assessment/Plan Problem List/Assessment/Plan Acute on chronic decompensated HFrEF, NYHA class III Atrial fibrillation, status post Watchman device (on Eliquis and Amiodarone) Hypertension Dyslipidemia Pleural effusion s/p Right thoracentesis Gout Plan/Recommendation (Dr. Gomez): * Echocardiogram reveals EF 25-30% with global hypokinesis * Continue GDMT for CHF as tolerated * Strict intake and output, daily weights, maintain fluid restriction * [id number] VASc score: 5 points, HAS-BLED score: 2 points * Therapeutic lovenox while in patient, transition back to Eliquis (per primary bar gauger and lubricator tender) when appropriate * Beta-kathie for rate control * Home dose Amiodarone * BP control * Preload and afterload reduction * Lipid-lowering agent * Obtain medical records Patient seen and examined at bedside with . At this time we will recommend to control atrial fibrillation. We will also recommend to continue GDMT for CHF as tolerated. Have not received any medical records from [facility] or patient's primary bar gauger and lubricator tender. Patient to have ischemic workup as outpatient basis. Primary attending team noted patient to have extreme right lower extremity pain. An arterial duplex was ordered and revealed no flow distal to right common femoral artery. Vascular surgeon has been consulted for further intervention. Thank you for allowing us to care for this patient. Please call with any questions or concerns. This medical document was created using an electronic medical record system with voice recognition software and computerized dictation system. Although this document has been carefully reviewed, there might still be some phonetic and typographical errors. Occasional wrong-word or ``sound-alike substitutions may have occurred due to the inherent limitations of voice recognition software. These areas are purely typographical due to imperfections of the software programs and do not reflect any compromise in the patient's medical care. Please read the chart carefully and recognize, using context, where these substitutions have occurred. Plan discussed with: Patient Dietary Evaluation Review Comments: Consider renal specific-55g protein restriction with a 2GNa CCHO-60 Lo fat Lo chol diet Expected Outcomes/Goals: Avoid uremic symptoms, normal blood glucose, maintain weight. Date of Service: Mar 08, 2024 Billing Provider: SEAN GOMEZ MD Common Visit Codes: [id number] INP/OBS CARE(HIGH) TARIQ HERNÁNDEZ [facility] Mar 08, 2024 16:15
[2024-03-08] MEDS ORDERED: MIDAZOLAM HCL 2MG/2ML 2ml VIAL (1mg/ml) ONE ×2 (18:01→19:03)
[2024-03-08] MEDS ORDERED: HYDROmorphone HCL 2 MG/ML VL/or syr ONE (18:01)
[2024-03-08] MEDS ORDERED: fentaNYL CITRATE 100 MCG/2 ML VL ONE (18:01)
--- NOTE | 2024-03-08 18:07 | DVHCONRES ---
Date Seen: Mar 08, 2024 Resident Creating Document: VIDAL JONES Jr., MD Referring Physician MARILEE Reason for Consultation ischemic right leg acute History of Present Illness This 78-year-old female presents in the ED via EMS with a chief complaint of shortness of breath. The patient reports progressive shortness of breath for the past few days. Symptoms is associated with difficulty in breathing, dyspnea on exertion, and cough. The patient was found in respiratory distress with hypoxemia O2 Sat 67% for which was placed on CPAP by paramedics which improved O2 sat to 90%. The patient denies dizziness, syncope, chest pain, palpitations or other acute symptoms. The patient reports that she was last seen her Cardiology Dr. Sushil Teixeira last week for regular checkup. She reports that she started on a new medication, unknown name, by her legal aid and has plan to see a brake drum molder down to [place] for a Watchman procedure. Past medical history of chronic AFib on Eliquis, CHF, hypertension, and gout. During hospitalization over the last 24 hours patient developed right foot pain followed by coldness and decreased sensation in her foot and calf. Arterial duplex was performed this afternoon demonstrated no flow below the common femoral artery. I was consulted a proximally 3:00 p.m.. Unfortunately there was 1 emergent case going in I will be able to begin this case following. I discussed at length with the family need for emergent surgery. Past Medical History Past medical history of chronic AFib on Eliquis, CHF, hypertension, and gout. Past Surgical History None Family History: Patient reports no known family medical history. Family History Noncontributory Social History Nonsmoker nondrinker Allergies: Coded Allergies: NO KNOWN ALLERGIES (Unverified , 03/08/24) Home Meds Reported Medications Iyvwgkewmss-Pqkdopdsrzy-Qfy C- (Glucosamine Chondroitin) 1 Cap Cap, 1 CAP PO AC, CAP 03/04/24 Cholecalciferol (D3) 50 Mcg Cap, 50 MCG PO DAILY, CAP 03/04/24 Apoaequorin (PREVAGEN) 10 Mg Cap, 10 MG PO, CAP 03/04/24 Cur[place]uma [place]a (Turmeric) Extra (TURMERIC) 500 Mg Cap, 500 MG OR, CAP 03/04/24 Furosemide (Furosemide) 20 Mg Tab, 1 TAB PO DAILY for 30 Days, #30 03/04/24 Ferrous Sulfate (FERROUS SULFATE) 325 Mg Tb, 1 TAB PO DAILY for 90 Days, #90 03/04/24 Apixaban Base (ELIQUIS) 2.5 Mg Tab, 2.5 MG PO BID for 30 Days, #60 03/04/24 Nitroglycerin (NTROSTAT SUBLINGUAL) 0.4 Mg Sl, 0.4 MG SL PRN for 33 Days, #100 *MAY REPEAT EVERY 5 MINUTES X 3 TOTAL IF NO RELIEF, INITIATE ANALGESIC THERAPY. NOTIFY PHYSICIAN *Do not crush. 03/04/24 Amlodipine Besylate (Amlodipine Besylate) 5 Mg Tab, 1 TAB PO DAILY for 90 Days, #90 03/04/24 Lisinopril (Lisinopril) 10 Mg Tab, 1 TAB PO DAILY for 100 Days, #100 03/04/24 Metoprolol Succinate (Metoprolol Succinate Er) 25 Mg Tab, 1 TAB PO DAILY for 90 Days, #90 03/04/24 Allopurinol (Allopurinol) 300 Mg Tab, 1 TAB PO DAILY for 90 Days, #90 03/04/24 Amiodarone HCl (Amiodarone HCl) 200 Mg Tab, 1 TAB PO BID for 30 Days, #60 03/04/24 Discontinued Reported Medications Nitroglycerin (Nitroglycerin Lingual) 0.4 Mg/[place] Spr, 0.4 MG TL, SPR 03/04/24 Current Medications Current Medications Medications (Trade) Dose Ordered Sig/Anthony Route PRN Reason Start Time Stop Time Status Last Admin Losartan Potassium (Cozaar Tablet) 12.5 mg DAILY PO 03/08/24 10:00 03/08/24 11:40 Enoxaparin Sodium (Lovenox) 60 mg Q12HR SC 03/07/24 22:00 03/07/24 15:53 DC Enoxaparin Sodium (Lovenox) 60 mg DAILY SC 03/08/24 10:00 03/08/24 11:35 Hydromorphone HCl (Dilaudid Injection) 0.5 mg Q4HPRN PRN IV SEVERE PAIN (7-10 PAIN SCALE) 03/08/24 14:45 03/08/24 14:56 Review of Systems All systems reviewed otherwise negative other than what is in HPI Vital Signs Vital Signs Date Time Temp Pulse Resp B/P (MAP) Pulse Ox O2 Delivery O2 Flow Rate FiO2 03/08/24 16:24 97.6 96 18 123/66 (85) 98 97.6 03/07/24 20:00 Nasal Cannula* 3 32 Physical Exam Head eyes ears nose and throat exam eyes are nonicteric conjunctiva is pink neck was supple no JVD no lymphadenopathy no carotid bruits lungs are clear to auscultation heart was regular rate and rhythm abdomen was soft and nontender with no pulsatile abdominal mass or bruits lower extremities she had a palpable left femoral artery pulse palpable pedal pulse in the left side on the right side she had nonpalpable common femoral artery pulse and no pulses or Doppler signals in her right lower extremity she had a cool to touch leg her calf was tender to the touch she had no motor or sensory of her foot. Labs/Diagnostic Data Labs Test 03/08/24 16:41 03/08/24 13:38 03/08/24 06:55 03/07/24 09:35 Range/Units Lactic Acid Level 1.8 0.4-2.0 mmol/L Blood Gas Specimen Type Arterial Blood Gas Sample Site Left radial Blood Gas Patient Temperature 37.0 Arterial Blood Date Drawn [id number] Arterial Blood pH 7.461 H 7.350-7.450 Arterial Blood Partial Pressure CO2 37.4 32.0-45.0 mmHg Arterial Blood Partial Pressure O2 69.8 L 83.0-108.0 mmHg Arterial Blood HCO3 26.1 21.0-28.0 mmol/L Arterial Blood Oxygen Saturation 93.4 L 94.0-98.0 % Arterial Blood Base Excess 2.4 -2.0-3.0 mmol/L Arterial Blood Oxyhemoglobin 92.6 L 94.0-98.0 % Arterial Blood Carboxyhemoglobin 0.6 0.5-1.5 % Arterial Blood Methemoglobin 0.3 0.0-1.5 % Antoni Test Yes Blood Gas Total Hemoglobin 16.60 H 12.0-16.0 g/dL Blood Gas Modality Room air FiO2 % 21.0 White Blood Count 10.1 4.4-10.8 10^3/uL Red Blood Count 4.62 4.0-5.20 10^6/uL Hemoglobin 15.7 12.2-16.2 g/dL Hematocrit 46.5 H 36.0-46.0 % Mean Corpuscular Volume 100.7 H 80.0-100.0 fL Mean Corpuscular Hemoglobin 33.9 H 28.0-32.0 pg Mean Corpuscular Hemoglobin Concent 33.7 32.0-36.0 g/dL Red Cell Distribution Width 14.5 H 11.8-14.3 % Platelet Count 180 140-450 10^3/uL Mean Platelet Volume 10.4 6.9-10.8 fL Neutrophils (%) (Auto) 37.0-80.0 % Lymphocytes (%) (Auto) 10.0-50.0 % Monocytes (%) (Auto) 0.0-12.0 % Basophils (%) (Auto) 0.0-2.0 % Neutrophils # (Auto) 1.6-8.6 10 ^3/uL Lymphocytes # (Auto) 0.4-5.4 10 ^3/uL Monocytes # (Auto) 0-1.3 10 ^3/uL Differential Total Cells Counted 100.0 100 Neutrophils % (Manual) 87 H 37.0-80.0 Band Neutrophils % (Manual) 4 Lymphocytes % (Manual) 5 L 10.0-50.0 Monocytes % (Manual) 4 0-12 Eosinophils % (Manual) 0 0-7 Basophils % (Manual) 0 0.0-2.0 Metamyelocytes % (manual) 0 Myelocytes % (Manual) 0 Promyelocytes % (Manual) 0 Blast Cells % (Manual) 0 Reactive Lymphocytes 0 Platelet Estimate Adequate Clumped Platelets Few Macrocytosis Slight Sodium Level 138 136-145 mmol/L Potassium Level 4.7 3.5-5.1 mmol/L Chloride Level 101 98-107 mmol/L Carbon Dioxide Level 27 20-31 mmol/L Anion Gap 10 5-15 Blood Urea Nitrogen 30 H 9-23 mg/dL Creatinine 1.37 H 0.550-1.02 mg/dL Glomerular Filtration Rate Calc 39 >90 mL/min BUN/Creatinine Ratio 21.9 H 10.0-20.0 Serum Glucose 139 H 74-106 mg/dL Calcium Level 10.2 8.7-10.4 mg/dL Creatine Kinase 53 34-145 U/L Body Fluid Source Pleural fluid Body Fluid pH 8.0 Body Fluid WBC (Manual) 587 H 0-200 CUMM Body Fluid RBC (Manual) 6055 H 0-2000 CUMM Body Fluid Mononuclear Cells 25 % Body Fluid Polymorphonuclear Cells 75 H 0-25 % Body Fluid Glucose 112 . mg/dL Body Fluid Total Protein 1.9 . g/dL Body Fluid Lactate Dehydrogenase 72 . IU/L Test 03/04/24 12:34 03/04/24 07:32 03/04/24 07:09 03/04/24 03:48 Range/Units Urine Color Yellow Yellow Urine Clarity Clear Clear Urine pH 5.5 5.0-9.0 Urine Specific [place] 1.022 1.001-1.035 Urine Protein 1+ H Negative Urine Ketones 1+ H Negative Urine Blood Negative Negative /uL Urine Nitrite Negative Negative Urine Bilirubin Negative Negative Urine Urobilinogen Normal Negative mg/dL Urine Leukocyte Esterase Negative Negative /uL Urine RBC 1 0 - 4 /hpf Urine WBC 4 0 - 5 /hpf Urine Squamous Epithelial Cells Few <5 /hpf Urine Bacteria None seen None Seen /hpf Urine Hyaline Casts Few 0 - 2 /lpf Urine Mucus Few None Seen Urine Glucose Normal Normal mg/dL Magnesium Level 2.0 1.6-2.6 mg/dL Troponin I High Sensitivity 26 </=34 ng/L Triglycerides Level 86 < 150 mg/dL Cholesterol Level 195 < 200 mg/dL LDL Cholesterol 107 H < 100 mg/dL HDL Cholesterol 73 H 40-59 mg/dL Thyroid Stimulating Hormone (TSH) 1.23 0.55-4.78 uIU/mL Blood Gas Set Respiration Rate 14.0 Blood Gas Spontaneous Rate 23 Blood Gas Spontaneous Tidal Volume 679 Blood Gas EPAP 5 Blood Gas IPAP 12 Eosinophils (%) (Auto) 0.6 0.0-7.0 % Eosinophils # (Auto) 0.1 0-0.8 10 ^3/uL Basophils # (Auto) 0.1 0-0.2 10 ^3/uL Nucleated Red Blood Cells 0.1 % Prothrombin Time 11.6 9.3-11.8 sec Prothrombin Time INR 1.10 0.9-1.15 Activated Partial Thromboplast Time 25.1 24.5-34.5 SEC D-Dimer, Quantitative 4.76 H 0.0-0.49 mg/L FEU Hemoglobin A1c 5.2 <5.7 % A1C Total Bilirubin 0.8 0.2-1.0 mg/dL Aspartate Amino Transferase (AST) 38 13-40 U/L Alanine Aminotransferase (ALT) 27 7-40 U/L Alkaline Phosphatase 136 H 46-116 U/L B-Type Natriuretic Peptide 1041.70 0-100 pg/mL Total Protein 6.4 5.7-8.2 g/dL Albumin 4.2 3.2-4.8 g/dL Test 03/04/24 03:35 Range/Units Specimen Drawn By Ashleigh sahu Blood Gas Critical Value Read Back Yes Blood Gas Notified Whom Carlene adams md Blood Gas Notified Time [id number] Blood Gas Notified By Ashleigh sahu Microbiology Date/Time Source Procedure Growth Status 03/07/24 09:35 Pleural Fluid Gram Stain Pending Resulted 03/07/24 09:35 Pleural Fluid Body Fluid Culture - Preliminary Resulted 03/04/24 12:34 Voided Urine Urine Culture - Final Complete 03/04/24 11:00 Blood Blood Culture - Preliminary NO GROWTH AFTER 72 HOURS OF INCUBATION. Resulted Assessment Acute right limb ischemia We will plan on emergent right lower extremity revascularization. Plan will be right common femoral artery cutdown followed by embolectomy thrombectomy, angiogram possible bypass . And we will need fasciotomies based on the neurologic exam. Plan was discussed with the patient as well as the granddaughter Karine at length. Risks benefits of the procedure risks including bleeding infection limb loss possible . Patient agrees with this and will proceed. Plan/Recommendation Acute right limb ischemia We will plan on emergent right lower extremity revascularization. Plan will be right common femoral artery cutdown followed by embolectomy thrombectomy, angiogram possible bypass . And we will need fasciotomies based on the neurologic exam. Plan was discussed with the patient as well as the granddaughter Karine at length. Risks benefits of the procedure risks including bleeding infection limb loss possible . Patient agrees with this and will proceed. Plan discussed with: Patient, Other (Granddaughter Karine) VIDAL JONES Jr., MD Mar 08, 2024 18:07
[2024-03-08] MEDS: HEPARIN SODIUM (PORCINE) 5000 UNITS/ML 1ML VIAL ONE (19:08)
[2024-03-08] MEDS: BUPIVACAINE 0.25% INJ 50ML VIAL ONE (19:08)
[2024-03-08] MEDS: GELATIN 1 SPONGE SIZE 100 TOP ONE (19:08)
[2024-03-08] MEDS: GELATIN 1 SPONGE SIZE 50 TOP ONE (19:08)
[2024-03-08] MEDS: THROMBIN (BOVINE) 5000 UNIT SOL VIAL ONE (19:08)
[2024-03-08] MEDS: LIDOCAINE W/ EPINEPHRINE 1% 20ML VIAL ONE (19:08)
[2024-03-08] MEDS: IOHEXOL 300 MG/ML 100ML BOTTLE IJ ONE (19:09)
[2024-03-08] MEDS: IOHEXOL 180 MG/ML 20ML VIAL IJ ONE (19:09)
[2024-03-08] MEDS ORDERED: HEPARIN DRIP/D5W 100UNITS/ML 250 ML IV SCH ×2 (19:30→23:00)
[2024-03-08] MEDS ORDERED: HEPARIN SODIUM (PORCINE) 5000 UNITS/ML 1ML VIAL IV ONE (19:30)
--- NOTE | 2024-03-08 20:38 | DVH ---
C-ARM FLUOROSCOPY: PROCEDURE: Right angiogram FLUOROSCOPY TIME: 25.9 seconds DAP: 2.83 mgy FINDINGS: Spot intraoperative C arm radiographs demonstrating . IMPRESSION: 1. Please refer to surgical report for detailed findings.
[2024-03-08] MEDS ORDERED: MIDAZOLAM HCL 2MG/2ML 2ml VIAL (1mg/ml) IV PRN (20:45)
[2024-03-08] MEDS ORDERED: hydrALAZINE HCL 20 MG/ML VL IV PRN (20:45)
[2024-03-08] MEDS ORDERED: HYDROmorphone HCL 2 MG/ML VL/or syr IV PRN (20:45)
[2024-03-08] MEDS ORDERED: ePHEDrine SULFATE 50 MG/ML AMP IV PRN (20:45)
[2024-03-08] MEDS ORDERED: MORPHINE SULFATE 4 MG/ML SYR/VIAL IV PRN (20:45)
--- NOTE | 2024-03-08 21:09 | DVHOP2 ---
Operative Report - 2 Report Details Date: 03/08/24 Preop Diagnosis: Acute right limb ischemia Postop Diagnosis: Right common femoral artery thrombus/embolism Surgeon: Primo Jones MD Anesthesiologist: Dr. Jacobsen Anesthesia: General Consent: The patient was informed of the risks and benefits of the procedure. These include but are not limited to complications of anesthesia, postoperative infection, incomplete relief of symptoms, recurrence of symptoms, damage to blood vessels, nerves and tendons, deep venous thrombosis, pulmonary embolism and possible need for repeat surgery in the future. Estimated Blood Loss: 50 mL Findings: Right common femoral artery thrombus/embolus with thrombus in the common femoral, SFA, profunda. Post embolectomy angiogram demonstrated patent common femoral artery SFA and profunda with patent popliteal artery and three-vessel runoff Indications for Surgery: Right acute limb ischemia Name of Procedure Performed Right common femoral artery cutdown, right common femoral embolectomy, right lower extremity from the ostomy, right lower extremity angiogram, right 4 quadrant calf fasciotomy Procedure Details Procedure Details: Patient was identified in the preop hold area is being Mrs. Chase. She was consented and preopped by myself. She was brought back to the operating room placed the operating table in supine position after adequate induction of anesthesia antibiotics and time-out the right leg and abdomen were prepped and draped in normal surgical fashion a oblique incision was made in the right groin over the common femoral artery. Dissection was taken down to the common femoral artery which was without a pulse however the external iliac artery did have a pulse circumferential control of the common femoral artery was obtained the SFA and profunda were both circumferentially controlled with vessel loops at this point in time 5000 units of heparin was given. A transverse arteriotomy was made in the common femoral artery there was fresh followed by organize thrombus at the bifurcation of the common femoral artery. This was removed this proximally there was antegrade flow which was well pulsatile. Attention was then used with a 5 [place] balloon to do a embolectomy of the SFA as well as the profunda all thrombus was removed specimen was sent off. Once we had no further thrombus noted heparinized saline was then injected down the profunda and SFA an angiogram was then performed of the SFA which demonstrated widely patent SFA into the popliteal artery with three-vessel runoff below the knee. The a retrograde shot demonstrated the common iliac external iliac were widely patent. All vessels involved were flushed with heparinized saline and then the arteriotomy was closed with a 5 0 Prolene suture in a running fashion. Completion of the anastomosis of vessels involved were released of their vessel loops and antegrade flow was restored Doppler signals were noted in the posterior tibial artery as well as the dorsalis pedis. The popliteal artery was was palpable. Due to her length of ischemia a 4 quadrant fasciotomy was performed a medial incision was made in the of 3rd of the medial calf incision was approximately 10 cm long down to the deep fascia of the calf and then extended proximally and distally with a curved Curtis scissor the muscle did bulge there was some sluggish contraction initially but the muscle did pink up. The lateral fasciotomy was performed and the anterior lateral and compartments were opened in a similar fashion to the medial side. All muscles were viable as well at this point in time hemostasis was obtained with Bovie cauterization was decided to close the skin with interrupted tadeo proximally 2 cm apart. The groin incision was then closed a deep layer of femoral artery fascia was closed with 2-0 Vicryl sutures interrupted followed by dermal layer with 2-0 Vicryl sutures in a running fashion. Followed by skin closure with 4-0 Monocryl subcuticular suture. The skin was closed with Dermabond. Sterile dressings were applied and the patient awoke without any difficulties taken to PACU in stable condition sponge and needle counts were correct. Specimen: Right common femoral artery embolus Condition Guarded Disposition Guarded to the PACU PRIMO JONES Jr., MD Mar 08, 2024 21:09
[2024-03-08 21:59] LABS: Basophils # (auto) 0 10 ^3/uL (0-0.2); Basophils % (auto) 0.1 % (0.0-2.0); Eosinophils # (auto) 0 10 ^3/uL (0-0.8); Eosinophils % (auto) 0.1 % (0.0-7.0); Hematocrit 47.1 % (36.0-46.0); Hemoglobin 15.6 g/dL (12.2-16.2); Lymphocytes # (auto) 0.7 10 ^3/uL (0.4-5.4); Lymphocytes % (auto) 5.6 % (10.0-50.0); Mean Corpuscular Hemoglobin 33.7 pg (28.0-32.0); Mean Corpuscular Hgb Conc. 33.1 g/dL (32.0-36.0); Monocytes # (auto) 0.4 10 ^3/uL (0-1.3); Monocytes % (auto) 3.8 % (0.0-12.0); Neutrophils # (auto) 10.5 10 ^3/uL (1.6-8.6); Neutrophils % (auto) 90.4 % (37.0-80.0); Platelet Count (auto) 173 10^3/uL (140-450); Red Blood Cells 4.62 10^6/uL (4.0-5.20); Red Cell Distribution Width 14.4 % (11.8-14.3); White Blood Cell 11.6 10^3/uL (4.4-10.8)
[2024-03-08] MEDS: NALOXONE HCL 0.4 MG/ML VIAL IV PRN (22:15)
[2024-03-08 22:22] LABS: INR 1.22 (0.9-1.15); Prothrombin Time 12.7 sec (9.3-11.8)
[2024-03-08 22:31] LABS: Partial Thromboplastin Time 81.8 SEC (24.5-34.5)
[2024-03-08] MEDS: HEPARIN DRIP/D5W 100UNITS/ML 250 ML IV SCH (23:15)
[2024-03-08] MEDS: MIDAZOLAM DRIP 50 mg/50mL 50 ML IV SCH (23:25)
[2024-03-08] MEDS: fentaNYL Drip 2500mCg/250mlNS 250 ML IV SCH (23:25)
--- NOTE | 2024-03-08 23:26 | DVHPN2 ---
Progress Note - Dictate Date Seen: Mar 08, 2024 Medical Necessity Reason Pt with a Central, PICC or Fol: Yes The following are medically ne: Myers Catheter Reason for myers catheter: Strict I&O Subjective Patient seen and examined at bedside. Remains on supplemental oxygen Overnight events reviewed. vital signs Vital Sign Date Time Temp Pulse Resp B/P (MAP) Pulse Ox O2 Delivery O2 Flow Rate FiO2 03/08/24 21:10 Nasal Cannula 2.0 99 03/08/24 21:10 87 10 99 03/08/24 20:55 125/80 (95) 03/08/24 20:25 99.3 99.3 Total Intake and Output 03/07/24 03/07/24 03/08/24 15:00 23:00 07:00 Intake Total 200 ml 700 ml 400 ml Output Total 2300 ml 500 ml Balance 200 ml -1600 ml -100 ml medications Current Medications Medications Dose Ordered Sig/Anthony Route Start Time Stop Time Status Last Admin Dose Admin Melatonin 10 mg PRN PRN PO 03/04/24 21:30 03/04/24 21:36 10 MG Amiodarone HCl 200 mg BID PO 03/04/24 22:00 03/08/24 11:36 200 MG Furosemide 40 mg DAILY IV 03/05/24 10:00 03/08/24 11:34 40 MG Allopurinol 100 mg DAILY PO 03/05/24 10:00 03/08/24 11:40 100 MG Metoprolol Succinate 25 mg DAILY PO 03/05/24 10:00 03/08/24 11:39 25 MG Ondansetron HCl 4 mg Q4HP PRN IV 03/04/24 21:45 Nitroglycerin 0.4 mg Q5MINP PRN SL 03/04/24 21:45 Morphine Sulfate 2 mg Q30M PRN IV 03/04/24 21:45 Spironolactone 25 mg DAILY PO 03/06/24 10:00 03/08/24 11:37 25 MG Empaglifozin 10 mg DAILY PO 03/06/24 10:00 03/08/24 11:44 10 MG Losartan Potassium 12.5 mg DAILY PO 03/08/24 10:00 03/08/24 11:40 12.5 MG Hydromorphone HCl 0.5 mg Q4HPRN PRN IV 03/08/24 14:45 03/08/24 14:56 0.5 MG Midazolam HCl 50 ml @ 1 mls/hr Q24H IV 03/08/24 19:15 Fentanyl Citrate 250 ml @ 2.5 mls/hr Q24H IV 03/08/24 19:15 Naloxone HCl 0.08 mg PRN PRN IV 03/08/24 22:10 03/08/24 23:59 03/08/24 22:15 0.08 MG Heparin Sodium/ Dextrose 250 ml @ 10 mls/hr Q24H IV 03/08/24 23:15 objective Gen.: Patient lying in bed in no apparent distress. On supplemental oxygen. Head: Normocephalic, atraumatic. Eyes: EOMI/PERRLA. Ears: Normal hearing. Normal anatomy. Neck/trachea: Trachea midline, supple. Nose: Normal external anatomy. Mouth: Moist mucous membranes. Chest: Decreased air entry bilaterally. No wheezing or rhonchi. Cardiovascular: Positive S1, positive S2. Regular rate and rhythm. Abdomen: Positive bowel sounds in all 4 quadrants. Soft, non-tender, non- distended. : Deferred. Rectal: Deferred. Skin: Warm, dry. Intact. Extremities: 2+ radial pulses bilaterally. No lower extremity edema. Neuro: Awake, alert, oriented x3. No gross motor or sensory deficits. Cranial nerves II through XII intact. Gait not assessed. laboratory and microbiology Laboratory Tests 03/08/24 21:15 03/08/24 06:55 Test 03/08/24 06:55 Range/Units Serum Glucose 139 H 74-106 mg/dL Assessment/Plan Impression: Acute hypoxic respiratory failure Acute hypercarbic respiratory failure, improved Dependence on supplemental oxygen Pneumonia less likely Pulmonary edema. Acute CHF exacerbation Chronic AFib with RVR Events: Patient underwent vascular surgery - femoral artery embolectomy with fasciotomy. Pt tolerated procedure well, was extubated post procedure. Continue heparin drip. Continue supplemental o2 at 2 LPM NC Taper O2 as tolerated. Continue abx Wound care Monitor hemoglobin S/p right thoracentesis on 03/07/24 by IR with removal of 500 mL from right pleural space. F/u pleural fluid cultures Patient is NPO Stress test Diurese w/ Lasix as tolerated Monitor renal function. Monitor electrolytes. Supplement as necessary. Monitor ins/outs Fluid restriction Rest of plan as noted below Plan: Supplemental oxygen Titrate to keep O2 sats above 92%. Taper O2 as tolerated. BiPAP PRN. Continue bronchodilators. Continue antibiotics F/u cultures Monitor WBC Diurese to euvolemia Monitor renal function. Monitor electrolytes. Supplement as necessary. Monitor ins and outs. DVT prophylaxis. Prognosis: Poor given patient's multiple co-morbidities. Rest of plan per hospitalist and other consultants. A total of 51 minutes of clinical care time was spent reviewing the patient record, examining the patient, making a diagnostic and therapeutic plan, discussing this plan with the medical personnel, following up on diagnostic studies and following the patient for clinical stability excluding any and all procedures. At least 50% of this time was spent in direct, [id number] contact. Thank you, DAVID Avalos, for allowing me to participate in this patient's care. Further recommendations will depend on the patient's clinical course. Please do not hesitate to contact me if you have any questions or concerns. This medical document was created using an electronic medical record system with [employer] dictation system. Although these documentations are being carefully reviewed, there may still be some phonetic and typographical changes. The errors are purely typographical, due to imperfection on the software program, and do not reflect any compromise in the patient's medical care. Dietary Evaluation Review Comments: Consider renal specific-55g protein restriction with a 2GNa CCHO-60 Lo fat Lo chol diet Expected Outcomes/Goals: Avoid uremic symptoms, normal blood glucose, maintain weight. Plan discussed with: Patient, Other (RADHA Betancourt) Critical Care Time(min): 35 JORDAN WONG MD Mar 08, 2024 23:26
[2024-03-08] MEDS: ACETAMINOPHEN IV 1000 MG/100ML (10MG/ML) IV ONE (23:30)
[2024-03-08] MEDS: ONDANSETRON HCL 4 MG/2 ML VIAL IV ONE (23:38)
--- NOTE | 2024-03-08 23:48 | DVH ---
C-ARM FLUOROSCOPY: PROCEDURE: angio FLUOROSCOPY TIME: refer to op report DAP: refer to op report mgy FINDINGS: Spot intraoperative C arm radiographs demonstrating angiography . IMPRESSION: Please refer to surgical report for detailed findings.
[2024-03-08] MEDS: NALOXONE HCL 0.4 MG/ML VIAL ONE (23:53)
[2024-03-08] MEDS: NALOXONE HCL 0.4 MG/ML VIAL IV ONE (23:53)
[2024-03-09] VITALS (48 sets, daily range): BP systolic 84–132; BP diastolic 50–87; PULSE 71–120; RESP 7–28; TEMP 97.5–98.3; O2SAT 97–100
[2024-03-09] MEDS: ONDANSETRON HCL 4 MG/2 ML VIAL IV PRN (03:49)
[2024-03-09 04:53] LABS: Basophils # (auto) 0 10 ^3/uL (0-0.2); Eosinophils # (auto) 0 10 ^3/uL (0-0.8); Hemoglobin 15.8 g/dL (12.2-16.2); INR 1.06 (0.9-1.15); Mean Corpuscular Hgb Conc. 33.2 g/dL (32.0-36.0); Prothrombin Time 11.2 sec (9.3-11.8)
[2024-03-09 04:54] LABS: Basophils % (auto) 0.2 % (0.0-2.0); Eosinophils % (auto) 0.1 % (0.0-7.0); Hematocrit 47.5 % (36.0-46.0); Lymphocytes # (auto) 0.4 10 ^3/uL (0.4-5.4); Lymphocytes % (auto) 3.7 % (10.0-50.0); Mean Corpuscular Hemoglobin 33.9 pg (28.0-32.0); Mean Corpuscular Volume 102.2 fL (80.0-100.0); Monocytes # (auto) 0.7 10 ^3/uL (0-1.3); Monocytes % (auto) 5.6 % (0.0-12.0); Neutrophils # (auto) 10.7 10 ^3/uL (1.6-8.6); Neutrophils % (auto) 90.4 % (37.0-80.0); Nucleated Red Blood Cells % 0.1 %; Platelet Count (auto) 151 10^3/uL (140-450); Red Blood Cells 4.64 10^6/uL (4.0-5.20); Red Cell Distribution Width 14.7 % (11.8-14.3); White Blood Cell 11.8 10^3/uL (4.4-10.8)
[2024-03-09 04:55] LABS: Chloride 101 mmol/L (98-107); Sodium 138 mmol/L (136-145)
[2024-03-09 04:56] LABS: Anion Gap 10 (5-15); Carbon Dioxide 27 mmol/L (20-31)
[2024-03-09 04:57] LABS: Calcium 9.5 mg/dL (8.7-10.4)
[2024-03-09 05:01] LABS: BUN/Creatinine Ratio 25.6 (10.0-20.0)
[2024-03-09 05:55] LABS: Blood Urea Nitrogen 41 mg/dL (9-23); Glucose 153 mg/dL (74-106); Potassium 6.2 mmol/L (3.5-5.1)
[2024-03-09] MEDS: SODIUM BICARB 8.4% 50Meq/50ml SYR INJ IV ONE (06:55)
[2024-03-09] MEDS: CALCIUM GLUC 1,000mg/50ml-NS 50 ML IV ONE (06:55)
[2024-03-09] MEDS: DEXTROSE (50%) 50ML SYRG IV ONE (06:55)
[2024-03-09] MEDS: FUROSEMIDE 20 MG/2 ML VIAL IV ONE (06:56)
[2024-03-09] MEDS: InsuLIN REG 1unit/0.01ml Soln (100units/ml) IV ONE (06:57)
[2024-03-09] MEDS: SODIUM CHLORIDE 0.9% 1,000 ML IV SCH (06:59)
[2024-03-09] MEDS ORDERED: HYDROmorphone HCL 2 MG/ML VL/or syr IV PRN (09:00)
--- NOTE | 2024-03-09 09:10 | DVHPN2 ---
Subjective Continues to report shortness of breath Reviewed: Care Plan, H&P, Labs, Medications, Previous Orders Changes from previous H/P or p: Changes General: Per HPI Eyes: No Pain, No Vision change, No Conjunctivae inflammation, No Eyelid inflammation, No Other, No Redness ENT: No Ear pain, No Ear discharge, No Nose pain, No Nose discharge, No Nose congestion, No Mouth pain, No Mouth swelling, No Throat pain, No Throat swelling, No Other Cardiovascular: No Chest Pain, No Palpitations, No Orthopnea, No Paroxysmal Noc. Dyspnea, No Edema, No Lt Headedness, No Other Respiratory: Cough; No Dry; Shortness of breath; No SOB with excertion, No Wheezing, No Hemoptysis, No Pleuritic Pain, No Sputum, No Other Gastrointestinal: No Nausea, No Vomiting, No Abdominal Pain, No Diarrhea, No Constipation, No Melena, No Hematochezia, No Other Genitourinary: No Dysuria, No Frequency, No Incontinence, No Hematuria, No Retention, No Other Skin: No Rash, No Lesions, No Jaundice, No Bruising, No Other Objective Vitals Vital Signs Date Time Temp Pulse Resp B/P (MAP) Pulse Ox O2 Delivery O2 Flow Rate FiO2 03/09/24 08:14 89 12 125/87 03/09/24 06:30 99 03/09/24 04:00 97.5 97.5 03/08/24 22:55 Nasal Cannula* 2 28 Intake/Output Intake and Output 03/09/24 07:00 Intake Total 700 ml Output Total 3140 ml Balance -2440 ml Intake Oral 700 ml Output Urine Total 3140 ml General Appearance: Alert, Oriented X3, Cooperative, mild distress HEENT: Atraumatic, PERRLA Lungs: Clear to auscultation, Normal air movement Cardiovascular: Normal S1, Normal S2 Abdomen: Normal bowel sounds, Soft Genitourinary: No Apparent Abnormalities (Bernabe catheter) Musculoskeletal: Normal sensory function, Normal motor function Neuro: Normal gait, Normal speech, Strength at 5/5 X4 ext, Sensation intact, C ranial nerves 3-12 NL Skin: Dry, Intact Psych/Mental Status: Mental status NL, Mood NL Medications Current Medications Medications Dose Ordered Sig/Anthony Route Start Time Stop Time Status Last Admin Dose Admin Melatonin 10 mg PRN PRN PO 03/04/24 21:30 03/04/24 21:36 10 MG Amiodarone HCl 200 mg BID PO 03/04/24 22:00 03/08/24 11:36 200 MG Furosemide 40 mg DAILY IV 03/05/24 10:00 03/08/24 11:34 40 MG Allopurinol 100 mg DAILY PO 03/05/24 10:00 03/08/24 11:40 100 MG Metoprolol Succinate 25 mg DAILY PO 03/05/24 10:00 03/08/24 11:39 25 MG Ondansetron HCl 4 mg Q4HP PRN IV 03/04/24 21:45 03/09/24 03:49 4 MG Nitroglycerin 0.4 mg Q5MINP PRN SL 03/04/24 21:45 Morphine Sulfate 2 mg Q30M PRN IV 03/04/24 21:45 Spironolactone 25 mg DAILY PO 03/06/24 10:00 03/08/24 11:37 25 MG Empaglifozin 10 mg DAILY PO 03/06/24 10:00 03/08/24 11:44 10 MG Fentanyl Citrate 250 ml @ 2.5 mls/hr Q24H IV 03/08/24 19:15 Heparin Sodium/ Dextrose 250 ml @ 10 mls/hr Q24H IV 03/08/24 23:15 Hydromorphone HCl 0.25 mg Q4HPRN PRN IV 03/09/24 09:00 UNV Sodium Bicarbonate 50 ml/ Sodium Chloride 1,050 ml @ 75 mls/hr Q14H IV 03/09/24 09:00 UNV Laboratory Results Laboratory Tests 03/09/24 03:14 Chemistry Test 03/09/24 03:14 Calcium Level 9.5 mg/dL (8.7-10.4) Coagulation Test 03/08/24 21:15 03/09/24 03:14 Prothrombin Time 12.7 sec (9.3-11.8) H 11.2 sec (9.3-11.8) Prothrombin Time INR 1.22 (0.9-1.15) H 1.06 (0.9-1.15) Activated Partial Thromboplast Time 81.8 SEC (24.5-34.5) *H 29.0 SEC (24.5-34.5) Urinalysis Test 03/04/24 12:34 Urine Color Yellow (Yellow) Urine Clarity Clear (Clear) Urine pH 5.5 (5.0-9.0) Urine Specific [place] 1.022 (1.001-1.035) Urine Protein 1+ (Negative) H Urine Ketones 1+ (Negative) H Urine Blood Negative /uL (Negative) Urine Nitrite Negative (Negative) Urine Bilirubin Negative (Negative) Urine Urobilinogen Normal mg/dL (Negative) Urine Leukocyte Esterase Negative /uL (Negative) Urine RBC 1 /hpf (0 - 4) Urine WBC 4 /hpf (0 - 5) Urine Squamous Epithelial Cells Few /hpf (<5) Urine Bacteria None seen /hpf (None Seen) Urine Hyaline Casts Few /lpf (0 - 2) Urine Mucus Few (None Seen) Urine Glucose Normal mg/dL (Normal) Blood Gas Results Test 03/08/24 13:38 Arterial Blood pH 7.461 (7.350-7.450) FiO2 % 21.0 Microbiology Microbiology Date/Time Source Procedure Growth Status 03/07/24 09:35 Pleural Fluid Gram Stain Pending Resulted 03/07/24 09:35 Pleural Fluid Body Fluid Culture - Preliminary Resulted 03/04/24 12:34 Voided Urine Urine Culture - Final Complete 03/04/24 11:00 Blood Blood Culture - Preliminary NO GROWTH AFTER 72 HOURS OF INCUBATION. Resulted Labs and/or images reviewed: Labs reviewed by me, Image(s) reviewed by me Assessment/Plan Assessment/Plan Impression: -acute on chronic systolic heart failure -acute hypoxic respiratory failure -atrial fibrillation rapid ventricular rate -history of Watchman device -elevated D-dimer, rule out pulmonary embolism -dyslipidemia -acute right lower leg PND with a ischemia -hyperkalemia with acute kidney injury -rule out rhabdomyolysis Plan: Events: Patient was status post right peripheral angiogram with thrombectomy as well as fasciotomy. Patient has improved circulation to foot, palpable pulses and immediate cap refill with skin warm to touch. Patient has some issues with motor movement feeling at this time. Room air ABG was performed yesterday, with patient not qualify for oxygen. Discussed case with Cardiology as well as vascular surgery, with further workup for etiology of thrombus including possible ASA. -continue heparin drip per vascular surgery recommendations. -nephrology consultation -potassium lowering agent. Restart IV fluids with sodium bicarbonate. Repeat CMP and CPK -cardiology consultation: Echocardiogram reviewed. Recommendations appreciated -continue goal-directed medical therapy with IV diuresis -continue statin -O2 supplementation to keep saturation greater than 92% -pulmonology consultation: Recommendations reviewed -repeat labs in a.m. -long discussion we will who me with patient was family as well as administration regarding arrangements for patient to go to 's tomorrow with continued care in the hospital. Critical care time spent with patient discussing and formulating plan of care: 90 minutes. This does not include time spent performing procedures. This medical document was created using an electronic medical record system with [employer] dictation system. Although this document has been carefully reviewed, there may still be some phonetic and typographical errors. These areas are purely typographical due to imperfections of the software programs, and do not reflect any compromise in the patient's medical care. Plan discussed with: Patient, Other (RN, Granddaughter) My Orders Orders - NICOLE REBOLLAR NP Procedure Category Date Status Time Abg W/ Co-Ox RT 03/08/24 Logged 12:11 Rt Low Ext Art Duplex US 03/08/24 Resulted 14:36 Npo (Nothing By DIET 03/08/24 Transmitted Mouth) Diet Dinner * Surgical Consult CONS 03/08/24 Transmitted Transfer Orders XFER 03/08/24 Transmitted 15:56 C Arm Fluoroscopy Up XY 03/08/24 Resulted To 60min 19:31 ANGAC XY 03/08/24 Resulted 19:31 Mrsa Screen MING 03/08/24 In Process 22:46 Hydromorphone PHA 03/09/24 Logged Injection (Dilaudid 09:00 Creatine Kinase LAB 03/09/24 In Process 08:47 Sod Chl 0.45% PHA 03/09/24 Logged (Sodi... W/Sodium 09:00 Comprehensive LAB 03/09/24 Logged Metabolic Panel 14:00 *Dr. [facility] CONS 03/09/24 Transmitted -[place] 08:47 Complete Blood Count LAB 03/09/24 Logged 14:00 Date of Service: Mar 09, 2024 Billing Provider: NICOLE REBOLLAR NP Common Visit Codes: [id number] CARE 30-74 MIN NICOLE REBOLLAR NP Mar 09, 2024 09:10
--- NOTE | 2024-03-09 09:29 | DVHPN2 ---
Progress Note Date Seen: Mar 09, 2024 Has the PT tested + for MRSA If YES, has PT been informed?: No Medical Necessity Reason Pt with a Central, PICC or Fol: Yes The following are medically ne: Myers Catheter Reason for myers catheter: Strict I&O Subjective Patient reports: Other (Pain in right calf) Review of Systems: HEENT:Normal, CVS:Normal, RESPIRATORY:Normal, GI:Normal, :Normal, MSK:Normal, NEURO:Normal Objective vital signs Vital Sign Date Time Temp Pulse Resp B/P (MAP) Pulse Ox O2 Delivery O2 Flow Rate FiO2 03/09/24 08:14 89 12 125/87 03/09/24 06:30 99 03/09/24 04:00 97.5 97.5 03/08/24 22:55 Nasal Cannula* 2 28 Total Intake and Output 03/08/24 03/08/24 03/09/24 15:00 23:00 07:00 Intake Total 700 ml Output Total 100 ml 2800 ml 240 ml Balance -100 ml -2100 ml -240 ml medications Current Medications Medications Dose Ordered Sig/Anthony Route Start Time Stop Time Status Last Admin Dose Admin Melatonin 10 mg PRN PRN PO 03/04/24 21:30 03/04/24 21:36 10 MG Amiodarone HCl 200 mg BID PO 03/04/24 22:00 03/08/24 11:36 200 MG Furosemide 40 mg DAILY IV 03/05/24 10:00 03/08/24 11:34 40 MG Allopurinol 100 mg DAILY PO 03/05/24 10:00 03/08/24 11:40 100 MG Metoprolol Succinate 25 mg DAILY PO 03/05/24 10:00 03/08/24 11:39 25 MG Ondansetron HCl 4 mg Q4HP PRN IV 03/04/24 21:45 03/09/24 03:49 4 MG Nitroglycerin 0.4 mg Q5MINP PRN SL 03/04/24 21:45 Morphine Sulfate 2 mg Q30M PRN IV 03/04/24 21:45 Spironolactone 25 mg DAILY PO 03/06/24 10:00 03/08/24 11:37 25 MG Empaglifozin 10 mg DAILY PO 03/06/24 10:00 03/08/24 11:44 10 MG Fentanyl Citrate 250 ml @ 2.5 mls/hr Q24H IV 03/08/24 19:15 Heparin Sodium/ Dextrose 250 ml @ 10 mls/hr Q24H IV 03/08/24 23:15 Hydromorphone HCl 0.25 mg Q4HPRN PRN IV 03/09/24 09:00 Sodium Bicarbonate 50 ml/ Sodium Chloride 1,050 ml @ 75 mls/hr Q14H IV 03/09/24 09:00 Examination: GENERAL:Normal, HEENT:Normal, NECK:Normal, LUNGS:Normal, CVS:Normal, ABDOMEN:Normal, MSK:Normal (Right foot is warm palpable pulse DP and PT. calf is tender to the touch. Kincaid were removed muscles were viable. Both fasciotomy sites were packed with saline soaked gauze. Patient has minimal sensation in her foot and minimal movement of her toes.), SKIN:Normal, NEURO:Normal, :Normal laboratory and microbiology Laboratory Tests 03/09/24 03:14 Test 03/09/24 03:14 Range/Units Serum Glucose 153 H 74-106 mg/dL Microbiology Date/Time Source Procedure Growth Status 03/07/24 09:35 Pleural Fluid Gram Stain Pending Resulted 03/07/24 09:35 Pleural Fluid Body Fluid Culture - Preliminary Resulted 03/04/24 12:34 Voided Urine Urine Culture - Final Complete 03/04/24 11:00 Blood Blood Culture - Preliminary NO GROWTH AFTER 72 HOURS OF INCUBATION. Resulted Problem List/Assessment/Plan Problem List/Assessment/Plan Status post right common femoral artery embolectomy, angiogram, fasciotomy March 08 2024. Plan today tadeo were removed to allow calf muscles to expand. Preventative measures for rhabdomyolysis Drowsy consultation Offloading of the heels. Brace the foot from foot drop position. Insulin, Plan discussed with: Patient, Other (Granddaughter) My Orders My Orders Orders - VIDAL JONES Jr., MD Procedure Category Date Status Time Platelet Monitoring ALYSA 03/08/24 In Process 19:28 Vte Protocol Initiated ALYSA 03/08/24 In Process 19:28 Heparin Per ALYSA 03/08/24 In Process Standardized Proce 19:28 Discontinue All Im ALYSA 03/08/24 In Process Injections 19:28 Heparin Drip/D5w PHA 03/08/24 In Process 100units/Ml 23:15 Dietary Evaluation Review Comments: Consider renal specific-55g protein restriction with a 2GNa CCHO-60 Lo fat Lo chol diet Expected Outcomes/Goals: Avoid uremic symptoms, normal blood glucose, maintain weight. VIDAL JONES Jr., MD Mar 09, 2024 09:29
[2024-03-09] MEDS: HEPARIN DRIP/D5W 100UNITS/ML 250 ML IV SCH ×2 (09:33→18:00)
[2024-03-09] MEDS: SODIUM BICARB 50mEq/50ml Vial 50 ML in SOD CHL 0.45% 1,000 ML IV SCH (11:07)
[2024-03-09] MEDS: ALBUTEROL SULF 2.5 MG/0.5ML(0.5%) NEB SOLN NEB ONE (11:10)
[2024-03-09] MEDS: HYDROmorphone HCL 2 MG/ML VL/or syr IV PRN (12:01)
[2024-03-09 14:46] LABS: Basophils # (auto) 0 10 ^3/uL (0-0.2); Eosinophils # (auto) 0 10 ^3/uL (0-0.8); Hemoglobin 14.5 g/dL (12.2-16.2); Lymphocytes # (auto) 0.3 10 ^3/uL (0.4-5.4); Neutrophils # (auto) 11.3 10 ^3/uL (1.6-8.6); White Blood Cell 12.4 10^3/uL (4.4-10.8)
[2024-03-09 14:47] LABS: Basophils % (auto) 0.1 % (0.0-2.0); Hematocrit 43.9 % (36.0-46.0); Lymphocytes % (auto) 2.6 % (10.0-50.0); Mean Corpuscular Hemoglobin 33.8 pg (28.0-32.0); Mean Corpuscular Hgb Conc. 33.1 g/dL (32.0-36.0); Monocytes # (auto) 0.8 10 ^3/uL (0-1.3); Monocytes % (auto) 6.1 % (0.0-12.0); Neutrophils % (auto) 91.2 % (37.0-80.0); Nucleated Red Blood Cells % 0.2 %; Platelet Count (auto) 153 10^3/uL (140-450); Red Cell Distribution Width 14.4 % (11.8-14.3)
[2024-03-09 15:05] LABS: Albumin 3.7 g/dL (3.2-4.8); Alkaline Phosphatase 101 U/L (46-116); Anion Gap 10 (5-15); BUN/Creatinine Ratio 23.2 (10.0-20.0); Calcium 9.2 mg/dL (8.7-10.4); Carbon Dioxide 29 mmol/L (20-31); Chloride 100 mmol/L (98-107); Potassium 4.4 mmol/L (3.5-5.1); Sodium 139 mmol/L (136-145)
[2024-03-09 15:06] LABS: Bilirubin, Total 0.7 mg/dL (0.2-1.0)
[2024-03-09 15:09] LABS: Alanine Aminotransferase 183 U/L (7-40); Aspartate Aminotransferase 773 U/L (13-40); Blood Urea Nitrogen 43 mg/dL (9-23); Glucose 205 mg/dL (74-106)
--- NOTE | 2024-03-09 16:51 | DVHPN2 ---
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 Objective vital signs Vital Sign Date Time Temp Pulse Resp B/P (MAP) Pulse Ox O2 Delivery O2 Flow Rate FiO2 03/09/24 12:31 111 12 108/71 03/09/24 12:00 97.6 98 97.6 03/09/24 11:10 Nasal Cannula 2.0 03/09/24 11:10 28 Total Intake and Output 03/08/24 03/08/24 03/09/24 15:00 23:00 07:00 Intake Total 700 ml Output Total 100 ml 2800 ml 240 ml Balance -100 ml -2100 ml -240 ml medications Current Medications Medications Dose Ordered Sig/Anthony Route Start Time Stop Time Status Last Admin Dose Admin Melatonin 10 mg PRN PRN PO 03/04/24 21:30 03/04/24 21:36 10 MG Amiodarone HCl 200 mg BID PO 03/04/24 22:00 03/09/24 11:07 200 MG Furosemide 40 mg DAILY IV 03/05/24 10:00 03/09/24 11:06 40 MG Allopurinol 100 mg DAILY PO 03/05/24 10:00 03/09/24 11:08 100 MG Metoprolol Succinate 25 mg DAILY PO 03/05/24 10:00 03/09/24 11:07 25 MG Ondansetron HCl 4 mg Q4HP PRN IV 03/04/24 21:45 03/09/24 09:52 4 MG Nitroglycerin 0.4 mg Q5MINP PRN SL 03/04/24 21:45 Morphine Sulfate 2 mg Q30M PRN IV 03/04/24 21:45 Spironolactone 25 mg DAILY PO 03/06/24 10:00 03/09/24 11:08 25 MG Empaglifozin 10 mg DAILY PO 03/06/24 10:00 03/09/24 11:07 10 MG Fentanyl Citrate 250 ml @ 2.5 mls/hr Q24H IV 03/08/24 19:15 Sodium Bicarbonate 50 ml/ Sodium Chloride 1,050 ml @ 75 mls/hr Q14H IV 03/09/24 09:00 03/09/24 11:07 75 MLS/HR Heparin Sodium/ Dextrose 250 ml @ 10 mls/hr Q24H IV 03/09/24 09:30 03/09/24 09:33 10 MLS/HR Hydromorphone HCl 0.25 mg Q3HPRN PRN IV 03/09/24 11:30 03/09/24 12:01 0.25 MG Cefazolin Sodium 50 ml @ 100 mls/hr Q12HR IV 03/09/24 16:30 Examination: GENERAL:Abnormal (Generalized weakness), LUNGS:Normal, CVS:Normal, NEURO:Normal laboratory and microbiology Laboratory Tests 03/09/24 14:25 Test 03/09/24 14:25 Range/Units Serum Glucose 205 H 74-106 mg/dL Problem List/Assessment/Plan Problem List/Assessment/Plan Rule out cardiac source of embolus Acute on chronic decompensated HFrEF, NYHA class III Atrial fibrillation, status post Watchman device (on Eliquis and Amiodarone) Right common femoral artery embolism status post thrombectomy and fasciotomy Hypertension Dyslipidemia Pleural effusion s/p Right thoracentesis Gout Plan/Recommendation (Dr. Gabriel): * Echocardiogram reveals EF 25-30% with global hypokinesis * Continue GDMT for CHF as tolerated * Strict intake and output, daily weights, maintain fluid restriction * [id number] VASc score: 5 points, HAS-BLED score: 2 points * on Heparin per vascular team; transition to NOAC when appropriate * Beta-kathie for rate control * Home dose Amiodarone * BP control * Preload and afterload reduction * Lipid-lowering agent * Obtain medical records Patient seen and examined at bedside with . The patient underwent a right lower extremity angiogram on 03/08/24 with vascular team. She was found to have a right common femoral artery thrombus in which she underwent a thrombectomy and fasciotomy. Today, the patient denies any pain to her right lower extremity. Pulse not palpable, but auscultated via Doppler. Right foot warm to touch. Primary team requesting for a future transesophageal echocardiogram to rule out cardiac source of embolus. Pending possible transesophageal echocardiogram on 03/11/24. Thank you for allowing us to care for this patient. Please call with any questions or concerns. Critical care time spent: 38 minutes This medical document was created using an electronic medical record system with voice recognition software and computerized dictation system. Although this document has been carefully reviewed, there might still be some phonetic and typographical errors. Occasional wrong-word or ``sound-alike substitutions may have occurred due to the inherent limitations of voice recognition software. These areas are purely typographical due to imperfections of the software programs and do not reflect any compromise in the patient's medical care. Please read the chart carefully and recognize, using context, where these substitutions have occurred. Plan discussed with: Patient, Other (Bedside RN) Dietary Evaluation Review Comments: Consider renal specific-55g protein restriction with a 2GNa CCHO-60 Lo fat Lo chol diet Expected Outcomes/Goals: Avoid uremic symptoms, normal blood glucose, maintain weight. Date of Service: Mar 09, 2024 Billing Provider: TARIQ HERNÁNDEZ Common Visit Codes: [id number] CARE 30-74 MIN TARIQ HERNÁNDEZ Mar 09, 2024 16:51
[2024-03-09 17:02] LABS: INR 1.05 (0.9-1.15); Prothrombin Time 11.1 sec (9.3-11.8)
[2024-03-09 17:11] LABS: Partial Thromboplastin Time > 139.0 SEC (24.5-34.5)
[2024-03-09] MEDS: ceFAZolin 1GM/50ML 50 ML IV SCH (17:26)
[2024-03-09] MEDS: methylPREDNISolone SOD SUCC 125 MG/2 ML VL ONE (19:06)
--- NOTE | 2024-03-09 21:00 | DVHPN2 ---
Consult Progress Note Subjective Other Systems: Patient was seen and evaluated in follow up in the ICU. Patient remains in atrial fibrillation on cancer genetic counselor. Patint awating wheelchair to be delivered. WBC 12.4, PTT 139, BUN 43, FISCAL ECONOMIST 1.85, GLUC 205, AST 773. Objective vital signs Vital Sign Date Time Temp Pulse Resp B/P (MAP) Pulse Ox O2 Delivery O2 Flow Rate FiO2 03/09/24 18:30 81 14 117/77 (90) 99 03/09/24 12:00 97.6 97.6 03/09/24 11:10 Nasal Cannula 2.0 03/09/24 11:10 28 Total Intake and Output 03/08/24 03/08/24 03/09/24 15:00 23:00 07:00 Intake Total 700 ml Output Total 100 ml 2800 ml 240 ml Balance -100 ml -2100 ml -240 ml medications Current Medications Medications Dose Ordered Sig/Anthony Route Start Time Stop Time Status Last Admin Dose Admin Melatonin 10 mg PRN PRN PO 03/04/24 21:30 03/04/24 21:36 10 MG Amiodarone HCl 200 mg BID PO 03/04/24 22:00 03/09/24 11:07 200 MG Furosemide 40 mg DAILY IV 03/05/24 10:00 03/09/24 11:06 40 MG Allopurinol 100 mg DAILY PO 03/05/24 10:00 03/09/24 11:08 100 MG Metoprolol Succinate 25 mg DAILY PO 03/05/24 10:00 03/09/24 11:07 25 MG Ondansetron HCl 4 mg Q4HP PRN IV 03/04/24 21:45 03/09/24 09:52 4 MG Nitroglycerin 0.4 mg Q5MINP PRN SL 03/04/24 21:45 Morphine Sulfate 2 mg Q30M PRN IV 03/04/24 21:45 Spironolactone 25 mg DAILY PO 03/06/24 10:00 03/09/24 11:08 25 MG Empaglifozin 10 mg DAILY PO 03/06/24 10:00 03/09/24 11:07 10 MG Fentanyl Citrate 250 ml @ 2.5 mls/hr Q24H IV 03/08/24 19:15 Sodium Bicarbonate 50 ml/ Sodium Chloride 1,050 ml @ 75 mls/hr Q14H IV 03/09/24 09:00 03/09/24 11:07 75 MLS/HR Hydromorphone HCl 0.25 mg Q3HPRN PRN IV 03/09/24 11:30 03/09/24 12:01 0.25 MG Cefazolin Sodium 50 ml @ 100 mls/hr Q12HR IV 03/09/24 16:30 03/09/24 17:26 100 MLS/HR Heparin Sodium/ Dextrose 250 ml @ 7 mls/hr Q24H IV 03/09/24 18:00 03/09/24 18:00 7 MLS/HR Examination: GENERAL:Abnormal (Generalized weakness), HEENT:Normal, NECK:Normal, LUNGS:Normal, CVS:Normal, ABDOMEN:Normal, MSK:Normal, SKIN:Normal, NEURO:Normal laboratory and microbiology Laboratory Tests 03/09/24 14:25 Test 03/09/24 14:25 Range/Units Serum Glucose 205 H 74-106 mg/dL Problem List/Assessment/Plan Problem List/Assessment/Plan Rule out cardiac source of embolus. Acute on chronic decompensated HFrEF, NYHA class III. Atrial fibrillation, status post Watchman device (on Eliquis and Amiodarone). Right common femoral artery embolism status post thrombectomy and fasciotomy. Hypertension. Dyslipidemia. Pleural effusion s/p Right thoracentesis. Gout. Plan/Recommendation Continued all current supportive medical care. Patient has been seen by Keli Stuart NP on my behalf, her and I discussed the plan with the patient. The patient underwent a right lower extremity angiogram on 03/08/24 with vascular team. She was found to have a right common femoral artery thrombus in which she underwent a thrombectomy and fasciotomy. Today, the patient denies any pain to her right lower extremity. Pulse not palpable, but auscultated via Doppler. Right foot warm to touch. Primary team requesting for a future transesophageal echocardiogram to rule out cardiac source of embolus. Pending possible transesophageal echocardiogram on 03/11/24. Echocardiogram reveals EF 25-30% with global hypokinesis. Continue GDMT for CHF as tolerated. Strict intake and output, daily weights, maintain fluid restriction. [id number] VASc score: 5 points, HAS-BLED score: 2 points. on Heparin per vascular team; transition to NOAC when appropriate. Beta-kathie for rate control. Home dose Amiodarone. BP control. Preload and afterload reduction. Lipid-lowering agent. Obtain medical records. Additional plan as per the hospital course. Plan discussed with: Patient Dietary Evaluation Review Comments: Consider renal specific-55g protein restriction with a 2GNa CCHO-60 Lo fat Lo chol diet Expected Outcomes/Goals: Avoid uremic symptoms, normal blood glucose, maintain weight. Date of Service: Mar 09, 2024 Billing Provider: SALVADOR CONNORS MD Cardiology Common Codes: 49716-[id number] CARE 30-74 MIN SALVADOR CONNORS MD Mar 09, 2024 19:48
[2024-03-09 23:07] LABS: INR 1.06 (0.9-1.15); Partial Thromboplastin Time 58.7 SEC (24.5-34.5); Prothrombin Time 11.2 sec (9.3-11.8)
--- NOTE | 2024-03-09 23:10 | DVHPN2 ---
Progress Note - Dictate Date Seen: Mar 09, 2024 Has the PT tested + for MRSA If YES, has PT been informed?: No Medical Necessity Reason Pt with a Central, PICC or Fol: Yes The following are medically ne: Myers Catheter Reason for myers catheter: Strict I&O Subjective Patient seen and examined at bedside. Remains on supplemental oxygen Overnight events reviewed. vital signs Vital Sign Date Time Temp Pulse Resp B/P (MAP) Pulse Ox O2 Delivery O2 Flow Rate FiO2 03/09/24 22:00 83 03/09/24 20:00 11 98 Nasal Cannula* 2 28 03/09/24 19:30 110/58 (75) 03/09/24 12:00 97.6 97.6 Total Intake and Output 03/08/24 03/08/24 03/09/24 15:00 23:00 07:00 Intake Total 700 ml Output Total 100 ml 2800 ml 240 ml Balance -100 ml -2100 ml -240 ml medications Current Medications Medications Dose Ordered Sig/Anthony Route Start Time Stop Time Status Last Admin Dose Admin Melatonin 10 mg PRN PRN PO 03/04/24 21:30 03/04/24 21:36 10 MG Amiodarone HCl 200 mg BID PO 03/04/24 22:00 03/09/24 21:56 200 MG Furosemide 40 mg DAILY IV 03/05/24 10:00 03/09/24 11:06 40 MG Allopurinol 100 mg DAILY PO 03/05/24 10:00 03/09/24 11:08 100 MG Metoprolol Succinate 25 mg DAILY PO 03/05/24 10:00 03/09/24 11:07 25 MG Ondansetron HCl 4 mg Q4HP PRN IV 03/04/24 21:45 03/09/24 09:52 4 MG Nitroglycerin 0.4 mg Q5MINP PRN SL 03/04/24 21:45 Morphine Sulfate 2 mg Q30M PRN IV 03/04/24 21:45 Spironolactone 25 mg DAILY PO 03/06/24 10:00 03/09/24 11:08 25 MG Empaglifozin 10 mg DAILY PO 03/06/24 10:00 03/09/24 11:07 10 MG Fentanyl Citrate 250 ml @ 2.5 mls/hr Q24H IV 03/08/24 19:15 Sodium Bicarbonate 50 ml/ Sodium Chloride 1,050 ml @ 75 mls/hr Q14H IV 03/09/24 09:00 03/09/24 11:07 75 MLS/HR Hydromorphone HCl 0.25 mg Q3HPRN PRN IV 03/09/24 11:30 03/09/24 12:01 0.25 MG Cefazolin Sodium 50 ml @ 100 mls/hr Q12HR IV 03/09/24 16:30 03/09/24 21:55 100 MLS/HR Heparin Sodium/ Dextrose 250 ml @ 7 mls/hr Q24H IV 03/09/24 18:00 03/09/24 18:00 7 MLS/HR objective Gen.: Patient lying in bed in no apparent distress. On supplemental oxygen. Head: Normocephalic, atraumatic. Eyes: EOMI/PERRLA. Ears: Normal hearing. Normal anatomy. Neck/trachea: Trachea midline, supple. Nose: Normal external anatomy. Mouth: Moist mucous membranes. Chest: Decreased air entry bilaterally. No wheezing or rhonchi. Cardiovascular: Positive S1, positive S2. Regular rate and rhythm. Abdomen: Positive bowel sounds in all 4 quadrants. Soft, non-tender, non- distended. : Deferred. Rectal: Deferred. Skin: Warm, dry. Intact. Extremities: 2+ radial pulses bilaterally. No lower extremity edema. Neuro: Awake, alert, oriented x3. No gross motor or sensory deficits. Cranial nerves II through XII intact. Gait not assessed. laboratory and microbiology Laboratory Tests 03/09/24 14:25 Test 03/09/24 14:25 Range/Units Serum Glucose 205 H 74-106 mg/dL Assessment/Plan Impression: Acute hypoxic respiratory failure Acute hypercarbic respiratory failure, improved Dependence on supplemental oxygen Pneumonia less likely Pulmonary edema. Acute CHF exacerbation Chronic AFib with RVR Events: Patient underwent vascular surgery - femoral artery embolectomy with fasciotomy on 03/08/24. Pt tolerated procedure well, was extubated post procedure. Continue heparin drip. Continue supplemental o2 at 2 LPM NC Taper O2 as tolerated. Continue abx Wound care Monitor hemoglobin Rhabdomyolysis Monitor renal function. Monitor electrolytes. Supplement as necessary. Monitor ins/outs Diurese w/ Lasix as tolerated IV fluids. Bicarbonate drip Pain control Avoid oversedation S/p right thoracentesis on 03/07/24 by IR with removal of 500 mL from right pleural space. Labs and imaging reviewed Rest of plan as noted below Plan: Supplemental oxygen Titrate to keep O2 sats above 92%. Taper O2 as tolerated. BiPAP PRN. Continue bronchodilators. Continue antibiotics F/u cultures Monitor WBC Diurese to euvolemia Monitor renal function. Monitor electrolytes. Supplement as necessary. Monitor ins and outs. DVT prophylaxis. Prognosis: Poor given patient's multiple co-morbidities. Rest of plan per hospitalist and other consultants. A total of 51 minutes of clinical care time was spent reviewing the patient record, examining the patient, making a diagnostic and therapeutic plan, discussing this plan with the medical personnel, following up on diagnostic studies and following the patient for clinical stability excluding any and all procedures. At least 50% of this time was spent in direct, [id number] contact. Thank you, DAVID Avalos, for allowing me to participate in this patient's care. Further recommendations will depend on the patient's clinical course. Please do not hesitate to contact me if you have any questions or concerns. This medical document was created using an electronic medical record system with [employer] dictation system. Although these documentations are being carefully reviewed, there may still be some phonetic and typographical changes. The errors are purely typographical, due to imperfection on the software program, and do not reflect any compromise in the patient's medical care. Dietary Evaluation Review Comments: Consider renal specific-55g protein restriction with a 2GNa CCHO-60 Lo fat Lo chol diet Expected Outcomes/Goals: Avoid uremic symptoms, normal blood glucose, maintain weight. Plan discussed with: Other (RADHA Perez) Critical Care Time(min): 35 JORDAN WONG MD Mar 09, 2024 23:10
[2024-03-10] VITALS (17 sets, daily range): BP systolic 105–133; BP diastolic 56–79; PULSE 75–95; RESP 11–25; TEMP 97.6–98.1; O2SAT 93–100
[2024-03-10 04:28] LABS: Eosinophils # (auto) 0 10 ^3/uL (0-0.8); Lymphocytes # (auto) 0.4 10 ^3/uL (0.4-5.4); Lymphocytes % (auto) 3.9 % (10.0-50.0)
[2024-03-10 04:31] LABS: Basophils # (auto) 0.1 10 ^3/uL (0-0.2); Basophils % (auto) 0.5 % (0.0-2.0); Hematocrit 39.1 % (36.0-46.0); Hemoglobin 13.2 g/dL (12.2-16.2); Mean Corpuscular Hemoglobin 34.2 pg (28.0-32.0); Mean Corpuscular Hgb Conc. 33.7 g/dL (32.0-36.0); Mean Corpuscular Volume 101.5 fL (80.0-100.0); Monocytes # (auto) 0.7 10 ^3/uL (0-1.3); Monocytes % (auto) 6.5 % (0.0-12.0); Neutrophils # (auto) 9.1 10 ^3/uL (1.6-8.6); Neutrophils % (auto) 89.1 % (37.0-80.0); Platelet Count (auto) 140 10^3/uL (140-450); Red Blood Cells 3.85 10^6/uL (4.0-5.20); Red Cell Distribution Width 14.6 % (11.8-14.3); White Blood Cell 10.2 10^3/uL (4.4-10.8)
[2024-03-10 04:43] LABS: INR 1.04 (0.9-1.15); Partial Thromboplastin Time 60.1 SEC (24.5-34.5)
[2024-03-10 04:52] LABS: Albumin 3.6 g/dL (3.2-4.8); Alkaline Phosphatase 90 U/L (46-116); Anion Gap 7 (5-15); BUN/Creatinine Ratio 25.6 (10.0-20.0); Bilirubin, Total 0.6 mg/dL (0.2-1.0); Calcium 8.7 mg/dL (8.7-10.4); Potassium 4.9 mmol/L (3.5-5.1); Sodium 136 mmol/L (136-145)
[2024-03-10 05:08] LABS: Alanine Aminotransferase 167 U/L (7-40); Aspartate Aminotransferase 653 U/L (13-40); Blood Urea Nitrogen 52 mg/dL (9-23); Carbon Dioxide 32 mmol/L (20-31); Chloride 97 mmol/L (98-107); Creatine Kinase IFCC 23665 U/L (34-145); Glucose 172 mg/dL (74-106)
[2024-03-10 06:34] LABS: Total Protein 5.8 g/dL (5.7-8.2)
--- NOTE | 2024-03-10 07:40 | DVHPN2 ---
Progress Note Date Seen: Mar 10, 2024 Has the PT tested + for MRSA If YES, has PT been informed?: No Medical Necessity Reason Pt with a Central, PICC or Fol: Yes The following are medically ne: Myers Catheter Reason for myers catheter: Strict I&O Subjective Patient reports: Feels better Changes from previous H/P or p: No Changes Review of Systems: HEENT:Normal, CVS:Normal, RESPIRATORY:Normal, GI:Normal, :Normal, MSK:Normal, NEURO:Normal Objective vital signs Vital Sign Date Time Temp Pulse Resp B/P (MAP) Pulse Ox O2 Delivery O2 Flow Rate FiO2 03/10/24 06:30 87 25 127/77 (94) 93 03/10/24 04:00 97.6 97.6 03/09/24 20:00 Nasal Cannula* 2 28 Total Intake and Output 03/09/24 03/09/24 03/10/24 15:00 23:00 07:00 Intake Total 340 ml 1637 ml 674 ml Output Total 525 ml 350 ml Balance 340 ml 1112 ml 324 ml medications Current Medications Medications Dose Ordered Sig/Anthony Route Start Time Stop Time Status Last Admin Dose Admin Melatonin 10 mg PRN PRN PO 03/04/24 21:30 03/04/24 21:36 10 MG Amiodarone HCl 200 mg BID PO 03/04/24 22:00 03/09/24 21:56 200 MG Allopurinol 100 mg DAILY PO 03/05/24 10:00 03/09/24 11:08 100 MG Metoprolol Succinate 25 mg DAILY PO 03/05/24 10:00 03/09/24 11:07 25 MG Ondansetron HCl 4 mg Q4HP PRN IV 03/04/24 21:45 03/10/24 00:26 4 MG Nitroglycerin 0.4 mg Q5MINP PRN SL 03/04/24 21:45 Morphine Sulfate 2 mg Q30M PRN IV 03/04/24 21:45 Spironolactone 25 mg DAILY PO 03/06/24 10:00 03/09/24 11:08 25 MG Empaglifozin 10 mg DAILY PO 03/06/24 10:00 03/09/24 11:07 10 MG Fentanyl Citrate 250 ml @ 2.5 mls/hr Q24H IV 03/08/24 19:15 Sodium Bicarbonate 50 ml/ Sodium Chloride 1,050 ml @ 75 mls/hr Q14H IV 03/09/24 09:00 03/10/24 05:05 75 MLS/HR Hydromorphone HCl 0.25 mg Q3HPRN PRN IV 03/09/24 11:30 03/10/24 00:25 0.25 MG Cefazolin Sodium 50 ml @ 100 mls/hr Q12HR IV 03/09/24 16:30 03/09/24 21:55 100 MLS/HR Heparin Sodium/ Dextrose 250 ml @ 7 mls/hr Q24H IV 03/09/24 18:00 03/09/24 18:00 7 MLS/HR Oxycodone/ Acetaminophen 1 tab Q4HP PRN PO 03/10/24 06:30 Examination: GENERAL:Normal, HEENT:Normal, NECK:Normal, LUNGS:Normal, CVS:Normal, ABDOMEN:Normal, MSK:Normal (Palpable posterior tibial and dorsalis pedis pulse. Minimal sensation in the right foot. Slight movement of the toes at this time. Fasciotomy incisions are dressed just within the last hour nurse states healthy tissue.), SKIN:Normal, NEURO:Normal, :Normal laboratory and microbiology Laboratory Tests 03/10/24 03:53 Test 03/10/24 03:53 Range/Units Serum Glucose 172 H 74-106 mg/dL Microbiology Date/Time Source Procedure Growth Status 03/08/24 22:46 Nose MRSA Screen - Final Complete 03/07/24 09:35 Pleural Fluid Gram Stain - Final Resulted 03/07/24 09:35 Pleural Fluid Body Fluid Culture - Preliminary Resulted 03/04/24 12:34 Voided Urine Urine Culture - Final Complete 03/04/24 11:00 Blood Blood Culture - Final NO GROWTH AFTER 5 DAYS OF INCUBATION. Complete Labs and/or images reviewed: Labs reviewed by me Problem List/Assessment/Plan Problem List/Assessment/Plan Status post right common femoral artery embolectomy, angiogram, fasciotomy March 08 2024. Preventative measures for rhabdomyolysis Consider renal consultation Offloading of the heels. Brace the foot from foot drop position. Regarding fasciotomy incisions we will require either wound VAC or operative closure in the next several days. Plan discussed with: Patient My Orders My Orders Orders - VIDAL JONES Jr., MD Procedure Category Date Status Time Order Routine Aptt ALYSA 03/09/24 In Process 15:30 Order Routine Aptt ALYSA 03/09/24 In Process 21:30 Heparin Per Pharmacy ALYSA 03/09/24 In Process Protocol 10:15 Heparin Drip/D5w PHA 03/09/24 In Process 100units/Ml 18:00 Heparin Per Pharmacy [facility] 03/09/24 In Process Protocol 18:46 PTPTT LAB 03/10/24 Logged 10:00 Dietary Evaluation Review Comments: Consider renal specific-55g protein restriction with a 2GNa CCHO-60 Lo fat Lo chol diet Expected Outcomes/Goals: Avoid uremic symptoms, normal blood glucose, maintain weight. VIDAL JONES Jr., MD Mar 10, 2024 07:40
[2024-03-10] MEDS: OXYCODONE W/ ACETAMINOPHEN 5/325MG TABLET PO PRN (08:05)
--- NOTE | 2024-03-10 11:04 | DVHDS2 ---
Discharge Summary Date of Admission Mar 04, 2024 at 10:32 Date of Discharge: Mar 10, 2024 Admitting Diagnosis Acute hypoxic respiratory failure Labs/Diagnostic Data: Laboratory Results Test 03/10/24 03:53 03/08/24 16:41 03/08/24 13:38 03/08/24 06:55 White Blood Count 10.2 10^3/uL (4.4-10.8) Red Blood Count 3.85 10^6/uL (4.0-5.20) Hemoglobin 13.2 g/dL (12.2-16.2) Hematocrit 39.1 % (36.0-46.0) Mean Corpuscular Volume 101.5 fL (80.0-100.0) Mean Corpuscular Hemoglobin 34.2 pg (28.0-32.0) Mean Corpuscular Hemoglobin Concent 33.7 g/dL (32.0-36.0) Red Cell Distribution Width 14.6 % (11.8-14.3) Platelet Count 140 10^3/uL (140-450) Mean Platelet Volume 10.1 fL (6.9-10.8) Neutrophils (%) (Auto) 89.1 % (37.0-80.0) Lymphocytes (%) (Auto) 3.9 % (10.0-50.0) Monocytes (%) (Auto) 6.5 % (0.0-12.0) Eosinophils (%) (Auto) 0.0 % (0.0-7.0) Basophils (%) (Auto) 0.5 % (0.0-2.0) Neutrophils # (Auto) 9.1 10 ^3/uL (1.6-8.6) Lymphocytes # (Auto) 0.4 10 ^3/uL (0.4-5.4) Monocytes # (Auto) 0.7 10 ^3/uL (0-1.3) Eosinophils # (Auto) 0 10 ^3/uL (0-0.8) Basophils # (Auto) 0.1 10 ^3/uL (0-0.2) Nucleated Red Blood Cells 0.0 % Prothrombin Time 11.0 sec (9.3-11.8) Prothrombin Time INR 1.04 (0.9-1.15) Activated Partial Thromboplast Time 60.1 SEC (24.5-34.5) Sodium Level 136 mmol/L (136-145) Potassium Level 4.9 mmol/L (3.5-5.1) Chloride Level 97 mmol/L (98-107) Carbon Dioxide Level 32 mmol/L (20-31) Anion Gap 7 (5-15) Blood Urea Nitrogen 52 mg/dL (9-23) Creatinine 2.03 mg/dL (0.550-1.02) Glomerular Filtration Rate Calc 24 mL/min (>90) BUN/Creatinine Ratio 25.6 (10.0-20.0) Serum Glucose 172 mg/dL (74-106) Calcium Level 8.7 mg/dL (8.7-10.4) Total Bilirubin 0.6 mg/dL (0.2-1.0) Aspartate Amino Transferase (AST) 653 U/L (13-40) Alanine Aminotransferase (ALT) 167 U/L (7-40) Alkaline Phosphatase 90 U/L (46-116) Lactate Dehydrogenase 690 U/L (120-246) Creatine Kinase 72113 U/L (34-145) Total Protein 5.8 g/dL (5.7-8.2) Albumin 3.6 g/dL (3.2-4.8) Carcinoembryonic Antigen 4.09 ng/mL (<=5.0) Lactic Acid Level 1.8 mmol/L (0.4-2.0) Blood Gas Specimen Type Arterial Blood Gas Sample Site Left radial Blood Gas Patient Temperature 37.0 Arterial Blood Date Drawn [id number] Arterial Blood pH 7.461 (7.350-7.450) Arterial Blood Partial Pressure CO2 37.4 mmHg (32.0-45.0) Arterial Blood Partial Pressure O2 69.8 mmHg (83.0-108.0) Arterial Blood HCO3 26.1 mmol/L (21.0-28.0) Arterial Blood Oxygen Saturation 93.4 % (94.0-98.0) Arterial Blood Base Excess 2.4 mmol/L (-2.0-3.0) Arterial Blood Oxyhemoglobin 92.6 % (94.0-98.0) Arterial Blood Carboxyhemoglobin 0.6 % (0.5-1.5) Arterial Blood Methemoglobin 0.3 % (0.0-1.5) Antoni Test Yes Blood Gas Total Hemoglobin 16.60 g/dL (12.0-16.0) Blood Gas Modality Room air FiO2 % 21.0 Differential Total Cells Counted 100.0 (100) Neutrophils % (Manual) 87 (37.0-80.0) Band Neutrophils % (Manual) 4 Lymphocytes % (Manual) 5 (10.0-50.0) Monocytes % (Manual) 4 (0-12) Eosinophils % (Manual) 0 (0-7) Basophils % (Manual) 0 (0.0-2.0) Metamyelocytes % (manual) 0 Myelocytes % (Manual) 0 Promyelocytes % (Manual) 0 Blast Cells % (Manual) 0 Reactive Lymphocytes 0 Platelet Estimate Adequate Clumped Platelets Few Macrocytosis Slight Test 03/07/24 09:35 03/04/24 12:34 03/04/24 07:32 03/04/24 07:09 Body Fluid Source Pleural fluid Body Fluid pH 8.0 Body Fluid WBC (Manual) 587 CUMM (0-200) Body Fluid RBC (Manual) 6055 CUMM (0-2000) Body Fluid Mononuclear Cells 25 % Body Fluid Polymorphonuclear Cells 75 % (0-25) Body Fluid Glucose 112 mg/dL (.) Body Fluid Total Protein 1.9 g/dL (.) Body Fluid Lactate Dehydrogenase 72 IU/L (.) Urine Color Yellow (Yellow) Urine Clarity Clear (Clear) Urine pH 5.5 (5.0-9.0) Urine Specific [place] 1.022 (1.001-1.035) Urine Protein 1+ (Negative) Urine Ketones 1+ (Negative) Urine Blood Negative /uL (Negative) Urine Nitrite Negative (Negative) Urine Bilirubin Negative (Negative) Urine Urobilinogen Normal mg/dL (Negative) Urine Leukocyte Esterase Negative /uL (Negative) Urine RBC 1 /hpf (0 - 4) Urine WBC 4 /hpf (0 - 5) Urine Squamous Epithelial Cells Few /hpf (<5) Urine Bacteria None seen /hpf (None Seen) Urine Hyaline Casts Few /lpf (0 - 2) Urine Mucus Few (None Seen) Urine Glucose Normal mg/dL (Normal) Magnesium Level 2.0 mg/dL (1.6-2.6) Troponin I High Sensitivity 26 ng/L (</=34) Triglycerides Level 86 mg/dL (< 150) Cholesterol Level 195 mg/dL (< 200) LDL Cholesterol 107 mg/dL (< 100) HDL Cholesterol 73 mg/dL (40-59) Thyroid Stimulating Hormone (TSH) 1.23 uIU/mL (0.55-4.78) Blood Gas Set Respiration Rate 14.0 Blood Gas Spontaneous Rate 23 Blood Gas Spontaneous Tidal Volume 679 Blood Gas EPAP 5 Blood Gas IPAP 12 Test 03/04/24 03:48 03/04/24 03:35 D-Dimer, Quantitative 4.76 mg/L FEU (0.0-0.49) Hemoglobin A1c 5.2 % A1C (<5.7) B-Type Natriuretic Peptide 1041.70 pg/mL (0-100) Specimen Drawn By Ashleigh sahu Blood Gas Critical Value Read Back Yes Blood Gas Notified Whom Carlene adams md Blood Gas Notified Time [id number] Blood Gas Notified By Ashleigh sahu Other Laboratory Tests 03/10/24 03:53 Brief Hx & Hospital Course: History of Present Illness This 78-year-old female presents in the ED via EMS with a chief complaint of shortness of breath. The patient reports progressive shortness of breath for the past few days. Symptoms is associated with difficulty in breathing, dyspnea on exertion, and cough. The patient was found in respiratory distress with hypoxemia O2 Sat 67% for which was placed on CPAP by paramedics which improved O2 sat to 90%. The patient denies dizziness, syncope, chest pain, palpitations or other acute symptoms. The patient reports that she was last seen her Cardiology Dr. Sushil Teixeira last week for regular checkup. She reports that she started on a new medication, unknown name, by her rugby union footballer and has plan to see a k9 handler down to [place] for a Watchman procedure. Past medical history of chronic AFib on Eliquis, CHF, hypertension, and gout. Course of hospitalization: Patient was found to have ejection fraction 25% and echocardiogram. Pulmonary vascular congestion was also appreciated on the patient's x-ray. Cardiology consultation was obtained. Patient was continued on Eliquis, which was transitioned to Lovenox after contemplating having left heart catheterization for the assessment of the patient's decompensated heart failure. It was decided that given the patient's request to be discharge prior to Tuesday for her 's , left heart catheterization will be performed at a later date as an outpatient. Patient has CHF has improved with the patient able to ambulate with improvement with her dyspnea. Two days ago, she was found to have extreme pain to her right lower extremity without palpable pulse, as well as extremity being cold. After assess the patient's leg, stat arterial study was performed via ultrasound, in addition to calling vascular surgery myself, with the patient going to the operating room shortly after for revascularization of the leg. Patient had improvement with the circulation to a rollover extremity, with questionable neurological status of the extremity as well as limited motor movement. Fasciotomy was also performed given the patient has signs of rhabdomyolysis, confirmed with elevated CPK. Patient also went into acute kidney injury, for which a sodium bicarbonate drip was started, with the patient having adequate urine output. Nephrology consultation was placed. Long discussion was made with the patient's family given her clinical status and the need for further treatment. At this time they are leaving in the hospital AMA to attend the , with plans of bringing of the patient back after services today. Bernabe catheter and IVs were removed. Physical examination General: Alert and Oriented x3. No acute distress. Well-nourished. Eyes: EOMI. Anicteric. HENT: Moist mucous membranes. Lungs: Clear to auscultation bilaterally. No accessory muscle use. Cardiovascular: Regular rate and rhythm. No murmur. No JVD. Abdomen: Soft, non-tender and non-distended. No palpable masses. Extremities: No edema. Non-tender. Dressing dry and intact to right lower extremity. Foot warm , with quick cap refill as well as palpable pulses. Skin: No rashes or lesions. Warm. Neurologic: No focal neurological deficits. CN II-XII grossly intact, but not individually tested. Psychiatric: Cooperative. Appropriate mood and affect. Total time spent with patient discussing and formulating plan of care: 35 minutes. This medical document was created using an electronic medical record system with [employer] dictation system. Although this document has been carefully reviewed, there may still be some phonetic and typographical errors. These areas are purely typographical due to imperfections of the software programs, and do not reflect any compromise in the patient's medical care. Consults/Reason for consult Cardiology: Decompensated heart failure Vascular surgery: Right lower extremity ischemia Nephrology: Acute kidney injury Condition at Discharge: Undetermined Final Diagnosis/Problems List Acute decompensated systolic heart failure. Acute thrombus with right lower extremity ischemia Secondary Diagnosis: -acute on chronic systolic heart failure -acute hypoxic respiratory failure -atrial fibrillation rapid ventricular rate -history of Watchman device -elevated D-dimer, rule out pulmonary embolism -dyslipidemia -acute right lower leg PND with a ischemia -hyperkalemia with acute kidney injury -rhabdomyolysis Discharge Disposition: AMA 36 Discharge Statement: "Patient was advised to return to the ER or call 911 if any headaches, dizziness, shortness of breath, chest pain, abdominal pain, bleeding, fevers, or worsening of medical condition. Patient was counseled about treatment plan, medications, possible side effects, patientverbalized understanding. All questions were answered to the best of my ability. This discharge took greater then 30 minutes in planning, reviewing documentation, counseling the patient, and discussing with other team members." DME: Diagnosis: RLE ischemia, s/p fasciotomy ASSESSMENT ASSESSMENT Assessment Right common femoral artery thrombus/embolism Date of Service: Mar 10, 2024 Billing Provider: NICOLE REBOLLAR NP Common Visit Codes: 98552-LDD/OBS DISCH DAY >30min NICOLE REBOLLAR NP Mar 10, 2024 11:04
--- NOTE | 2024-03-10 19:29 | DVHPN2 ---
Progress Note - Dictate Date Seen: Mar 10, 2024 Has the PT tested + for MRSA If YES, has PT been informed?: No Medical Necessity Reason Pt with a Central, PICC or Fol: Yes The following are medically ne: Myers Catheter Reason for myers catheter: Strict I&O Subjective Patient was seen and evaluated in follow up in the ICU earlier this morning. Patient is c/o right sided back pain. CO2 32, BUN 52, HOUSE[employer]OLD [employer]PLI[employer] MECH[employer]IC 2.03, AST 653, ALT 167. vital signs Vital Sign Date Time Temp Pulse Resp B/P (MAP) Pulse Ox O2 Delivery O2 Flow Rate FiO2 03/10/24 08:04 83 133/78 03/10/24 08:00 98.1 16 100 98.1 03/10/24 08:00 Nasal Cannula* 2 28 Total Intake and Output 03/09/24 03/09/24 03/10/24 15:00 23:00 07:00 Intake Total 340 ml 1637 ml 681 ml Output Total 525 ml 350 ml Balance 340 ml 1112 ml 331 ml objective GENERAL: Awake, alert, oriented. LUNGS: Clear. CARDIOVASCULAR: Heart sounds are good. ABDOMEN: Soft. laboratory and microbiology Laboratory Tests 03/10/24 03:53 Test 03/10/24 03:53 Range/Units Serum Glucose 172 H 74-106 mg/dL Problem List Rule out cardiac source of embolus. Acute on chronic decompensated HFrEF, NYHA class III. Atrial fibrillation, status post Watchman device (on Eliquis and Amiodarone). Right common femoral artery embolism status post thrombectomy and fasciotomy. Hypertension. Dyslipidemia. Pleural effusion s/p Right thoracentesis. Gout. Plan/Recommendation Continued all current supportive medical care. Patient has been seen by Keli Stuart NP on my behalf, her and I discussed the plan with the patient. The patient underwent a right lower extremity angiogram on 03/08/24 with vascular team. She was found to have a right common femoral artery thrombus in which she underwent a thrombectomy and fasciotomy. Today, the patient denies any pain to her right lower extremity. Pulse not palpable, but auscultated via Doppler. Right foot warm to touch. Primary team requesting for a future transesophageal echocardiogram to rule out cardiac source of embolus. Pending possible transesophageal echocardiogram on 03/11/24. Echocardiogram reveals EF 25-30% with global hypokinesis. Continue GDMT for CHF as tolerated. Strict intake and output, daily weights, maintain fluid restriction. [id number] VASc score: 5 points, HAS-BLED score: 2 points. on Heparin per vascular team; transition to NOAC when appropriate. Beta-kathie for rate control. Home dose Amiodarone. BP control. Preload and afterload reduction. Lipid-lowering agent. Obtain medical records. Additional plan as per the hospital course. Assessment/Plan Continued all current supportive medical care. Amiodarone. Diuretics with Lasix. Heparin drip per protocol. IV antibiotics as ordered. Solu-Medrol. Dilaudid for pain management. Additional plan as per the hospital course. Critical care time of 45 minutes provided to include time spent evaluation of patient at bedside, when appropriate patient/family education for diagnosis, treatment plan, review of pertinent medical information and discussion of care with specialty providers and PCP. Dietary Evaluation Review Comments: Consider renal specific-55g protein restriction with a 2GNa CCHO-60 Lo fat Lo chol diet Expected Outcomes/Goals: Avoid uremic symptoms, normal blood glucose, maintain weight. Plan discussed with: Patient SALVADOR CONNORS MD Mar 10, 2024 16:59
--- NOTE | 2024-03-10 23:41 | DVHPN2 ---
Progress Note - Dictate Date Seen: Mar 10, 2024 Has the PT tested + for MRSA If YES, has PT been informed?: No Medical Necessity Reason Pt with a Central, PICC or Fol: Yes The following are medically ne: Myers Catheter Reason for myers catheter: Strict I&O Subjective Patient seen and examined at bedside. Remains on supplemental oxygen Overnight events reviewed. vital signs Vital Sign Date Time Temp Pulse Resp B/P (MAP) Pulse Ox O2 Delivery O2 Flow Rate FiO2 03/10/24 08:04 83 133/78 03/10/24 08:00 98.1 16 100 98.1 03/10/24 08:00 Nasal Cannula* 2 28 Total Intake and Output 03/09/24 03/09/24 03/10/24 15:00 23:00 07:00 Intake Total 340 ml 1637 ml 681 ml Output Total 525 ml 350 ml Balance 340 ml 1112 ml 331 ml objective Gen.: Patient lying in bed in no apparent distress. On supplemental oxygen. Head: Normocephalic, atraumatic. Eyes: EOMI/PERRLA. Ears: Normal hearing. Normal anatomy. Neck/trachea: Trachea midline, supple. Nose: Normal external anatomy. Mouth: Moist mucous membranes. Chest: Decreased air entry bilaterally. No wheezing or rhonchi. Cardiovascular: Positive S1, positive S2. Regular rate and rhythm. Abdomen: Positive bowel sounds in all 4 quadrants. Soft, non-tender, non- distended. : Deferred. Rectal: Deferred. Skin: Warm, dry. Intact. Extremities: 2+ radial pulses bilaterally. No lower extremity edema. Neuro: Awake, alert, oriented x3. No gross motor or sensory deficits. Cranial nerves II through XII intact. Gait not assessed. laboratory and microbiology Laboratory Tests 03/10/24 03:53 Test 03/10/24 03:53 Range/Units Serum Glucose 172 H 74-106 mg/dL Assessment/Plan Impression: Acute hypoxic respiratory failure Acute hypercarbic respiratory failure, improved Dependence on supplemental oxygen Pneumonia less likely Pulmonary edema. Acute CHF exacerbation Chronic AFib with RVR Events: Patient underwent vascular surgery - femoral artery embolectomy with fasciotomy on 03/08/24. Pt tolerated procedure well, was extubated post procedure. Continue supplemental o2 at 3 LPM NC Taper O2 as tolerated. Continue abx Wound care Monitor hemoglobin Vascular surgery recs appreciated Rhabdomyolysis Monitor renal function. Monitor electrolytes. Supplement as necessary. Monitor ins/outs Maintain euvolemia IV fluids. Bicarbonate drip Pain control Avoid oversedation S/p right thoracentesis on 03/07/24 by IR with removal of 500 mL from right pleural space. Labs and imaging reviewed Rest of plan as noted below Plan: Supplemental oxygen Titrate to keep O2 sats above 92%. Taper O2 as tolerated. BiPAP PRN. Continue bronchodilators PRN Continue antibiotics F/u cultures Monitor WBC Diurese to euvolemia Monitor renal function. Monitor electrolytes. Supplement as necessary. Monitor ins and outs. DVT prophylaxis. Prognosis: Guarded given patient's multiple co-morbidities. Rest of plan per hospitalist and other consultants. A total of 51 minutes of clinical care time was spent reviewing the patient record, examining the patient, making a diagnostic and therapeutic plan, discussing this plan with the medical personnel, following up on diagnostic studies and following the patient for clinical stability excluding any and all procedures. At least 50% of this time was spent in direct, [id number] contact. Thank you, DAVID Avalos, for allowing me to participate in this patient's care. Further recommendations will depend on the patient's clinical course. Please do not hesitate to contact me if you have any questions or concerns. This medical document was created using an electronic medical record system with [employer] dictation system. Although these documentations are being carefully reviewed, there may still be some phonetic and typographical changes. The errors are purely typographical, due to imperfection on the software program, and do not reflect any compromise in the patient's medical care. Dietary Evaluation Review Comments: Consider renal specific-55g protein restriction with a 2GNa CCHO-60 Lo fat Lo chol diet Expected Outcomes/Goals: Avoid uremic symptoms, normal blood glucose, maintain weight. Plan discussed with: Other (RADHA Perez) Critical Care Time(min): 35 JORDAN WONG MD Mar 10, 2024 23:41
[2024-03-11 07:06] LABS: Carbohydrate Antigen 19-9 9 U/mL (0-35)
== END 2024-03-10 09:30 | disposition left against medical advice (07) | DRG 252 ==
LOC: EDBD 03:21 → ER 03:21 → TELE 10:32 → TELE-WESTW 15:21 → UNDODISIN 20:27 → ICU WEST 03-08 22:45
PROVIDERS: ADMIT Nurse Practitioner Acute Care; ATTEND Nurse Practitioner Acute Care
PROC: 5A09357 Assistance with Respiratory Ventilation, Less than 24 Consecutive Hours, Continuous Positive Airway Pressure (ICD-10-PCS; 2024-03-04)
PROC: 0W993ZX Drainage of Right Pleural Cavity, Percutaneous Approach, Diagnostic (ICD-10-PCS; 2024-03-07)
PROC: 04CK0ZZ Extirpation of Matter from Right Femoral Artery, Open Approach (ICD-10-PCS; 2024-03-08)
PROC: B41F1ZZ Fluoroscopy of Right Lower Extremity Arteries using Low Osmolar Contrast (ICD-10-PCS; 2024-03-08)
PROC: 0J8N0ZZ Division of Right Lower Leg Subcutaneous Tissue and Fascia, Open Approach (ICD-10-PCS; 2024-03-08)
PROC: 05HB33Z Insertion of Infusion Device into Right Basilic Vein, Percutaneous Approach (ICD-10-PCS; principal; 2024-03-09)
PROC: B54MZZA Ultrasonography of Right Upper Extremity Veins, Guidance (ICD-10-PCS; 2024-03-09)
DX: I74.3 Embolism and thrombosis of arteries of the lower extremities (principal); I50.23 Acute on chronic systolic (congestive) heart failure; J96.21 Acute and chronic respiratory failure with hypoxia; J96.22 Acute and chronic respiratory failure with hypercapnia; I13.0 Hypertensive heart and chronic kidney disease with heart failure and stage 1 through stage 4 chronic kidney disease, or unspecified chronic kidney disease; I24.9 Acute ischemic heart disease, unspecified; I48.20 Chronic atrial fibrillation, unspecified; N17.9 Acute kidney failure, unspecified; M62.82 Rhabdomyolysis; Z53.29 Procedure and treatment not carried out because of patient's decision for other reasons; E78.5 Hyperlipidemia, unspecified; M10.9 Gout, unspecified; N18.32 Chronic kidney disease, stage 3b; I44.7 Left bundle-branch block, unspecified; E87.5 Hyperkalemia; Z79.01 Long term (current) use of anticoagulants; Z99.81 Dependence on supplemental oxygen; Z95.818 Presence of other cardiac implants and grafts
CPT/HCPCS: 32555; 36415; 36600; 71045; 75625; 76000; 76604; 76942; 78582; 80048; 80053; 80061; 81001; 82378; 82550; 82805; 83036; 83605; 83615; 83735; 83880; 83986; 84132; 84443; 84484; 85007; 85025; 85027; 85379; 85610; 85730; 86301; 86304; 87040; 87081; 87086; 87205; 89051; 93306; 93926; 93970; 94640; 94660; 96365; 96375; 99291; G0378; J0131; J1885; J2250; J2405; J3490; Q9965

== ENCOUNTER 2024-03-10 13:57 | Inpatient (IN) | payer OTHER ==
[~2024-03-10] VITALS: Ht 157.5 cm; Wt 83.0 kg
[2024-03-10] VITALS (20 sets, daily range): BP systolic 80–109; BP diastolic 44–73; PULSE 71–90; RESP 11–24; TEMP 97.5; O2SAT 76–100
[~2024-03-10 13:57] MED LIST changes: +APOA10CA PO; +CHOL20004 PO; +GLUC1CAP12 PO; +TURM500C3 OR
[2024-03-10] MEDS ORDERED: HEPARIN DRIP/D5W 100UNITS/ML 250 ML IV SCH (14:45)
[2024-03-10] MEDS ORDERED: ONDANSETRON HCL 4 MG/2 ML VIAL IV PRN (14:45)
[2024-03-10] MEDS ORDERED: NITROGLYCERIN 0.4 MG SL TAB SL PRN (14:45)
[2024-03-10 16:03] LABS: Basophils # (auto) 0 10 ^3/uL (0-0.2); Eosinophils # (auto) 0 10 ^3/uL (0-0.8); Hemoglobin 12.8 g/dL (12.2-16.2); Platelet Count (auto) 163 10^3/uL (140-450)
[2024-03-10 16:05] LABS: Basophils % (auto) 0.5 % (0.0-2.0); Lymphocytes # (auto) 0.6 10 ^3/uL (0.4-5.4); Lymphocytes % (auto) 7.4 % (10.0-50.0); Mean Corpuscular Hemoglobin 34.6 pg (28.0-32.0); Mean Corpuscular Hgb Conc. 34.5 g/dL (32.0-36.0); Mean Corpuscular Volume 100.4 fL (80.0-100.0); Monocytes # (auto) 0.6 10 ^3/uL (0-1.3); Monocytes % (auto) 7.8 % (0.0-12.0); Neutrophils # (auto) 6.5 10 ^3/uL (1.6-8.6); Neutrophils % (auto) 84.3 % (37.0-80.0); Nucleated Red Blood Cells % 0.2 %; Red Blood Cells 3.68 10^6/uL (4.0-5.20); Red Cell Distribution Width 14.7 % (11.8-14.3); White Blood Cell 7.7 10^3/uL (4.4-10.8)
[2024-03-10] MEDS: HYDROcodone-ACET 5/325MG TAB PO PRN (16:22)
[2024-03-10] MEDS: DOCUSATE SOD 100 MG CAP PO PRN (16:23)
[2024-03-10] MEDS: cefTRIAXone 1GM/50ML D5W 50 ML IV SCH (16:23)
[2024-03-10] MEDS: FUROSEMIDE 20 MG TAB PO ONE (16:23)
[2024-03-10] MEDS: SODIUM BICARB 50mEq/50ml Vial 50 ML in SOD CHL 0.45% 1,000 ML IV SCH (16:52)
[2024-03-10] MEDS: HEPARIN DRIP/D5W 100UNITS/ML 250 ML IV SCH (16:54)
[2024-03-10] MEDS: AMIODARONE HCL 200 MG TAB PO SCH (21:57)
[2024-03-10 22:46] LABS: Prothrombin Time 10.6 sec (9.3-11.8)
[2024-03-10 23:37] LABS: Urine Bacteria None Seen /hpf (None Seen)
[2024-03-10 23:59] LABS: Urine Blood 3+ /uL (Negative); Urine Budding Yeast FEW /hpf (None Seen); Urine Clarity Ex.Turbid (Clear); Urine Color Brown (Yellow); Urine Protein, UAD TRACE (Negative); Urine Specific Gravity 1.012 (1.001-1.035); Urine Squamous Epithelial Cell FEW /hpf (<5); Urine Urobilinogen Normal (Negative); Urine WBC 42 /hpf (0 - 5); Urine WBC Clumps PRESENT /hpf (None Seen); Urine pH 5.5 (5.0-9.0)
[2024-03-11] VITALS (42 sets, daily range): BP systolic 82–120; BP diastolic 44–65; PULSE 64–105; RESP 12–27; TEMP 97.5–98.1; O2SAT 76–100
[2024-03-11 04:10] LABS: Basophils # (auto) 0 10 ^3/uL (0-0.2); Eosinophils # (auto) 0 10 ^3/uL (0-0.8); Eosinophils % (auto) 0.2 % (0.0-7.0); Hemoglobin 12.3 g/dL (12.2-16.2); Lymphocytes # (auto) 0.8 10 ^3/uL (0.4-5.4); Mean Corpuscular Hemoglobin 34.2 pg (28.0-32.0); Monocytes # (auto) 0.7 10 ^3/uL (0-1.3); Nucleated Red Blood Cells % 0.1 %
[2024-03-11 04:12] LABS: Basophils % (auto) 0.3 % (0.0-2.0); Hematocrit 36.4 % (36.0-46.0); Lymphocytes % (auto) 13.6 % (10.0-50.0); Mean Corpuscular Hgb Conc. 33.8 g/dL (32.0-36.0); Mean Corpuscular Volume 101.1 fL (80.0-100.0); Neutrophils # (auto) 4.7 10 ^3/uL (1.6-8.6); Neutrophils % (auto) 74.9 % (37.0-80.0); Platelet Count (auto) 120 10^3/uL (140-450); Red Cell Distribution Width 14.3 % (11.8-14.3); White Blood Cell 6.2 10^3/uL (4.4-10.8)
[2024-03-11 04:15] LABS: Albumin 3.3 g/dL (3.2-4.8); Alkaline Phosphatase 79 U/L (46-116); Anion Gap 7 (5-15); Bilirubin, Total 0.4 mg/dL (0.2-1.0); Calcium 8.7 mg/dL (8.7-10.4); Potassium 4.4 mmol/L (3.5-5.1); Sodium 137 mmol/L (136-145)
[2024-03-11 04:16] LABS: Alanine Aminotransferase 138 U/L (7-40); Aspartate Aminotransferase 511 U/L (13-40); Blood Urea Nitrogen 44 mg/dL (9-23); Carbon Dioxide 33 mmol/L (20-31); Chloride 97 mmol/L (98-107); Glucose 119 mg/dL (74-106); Total Protein 5.4 g/dL (5.7-8.2)
[2024-03-11 08:56] LABS: INR 0.97 (0.9-1.15); Prothrombin Time 10.5 sec (9.3-11.8)
[2024-03-11 08:58] LABS: Partial Thromboplastin Time 108.5 SEC (24.5-34.5)
[2024-03-11] MEDS: METOPROLOL SUCCINATE XL 50 MG TAB PO SCH (09:01)
[2024-03-11] MEDS ORDERED: HEPARIN DRIP/D5W 100UNITS/ML 250 ML IV SCH (09:15)
--- NOTE | 2024-03-11 09:25 | DVHPN2 ---
Progress Note Date Seen: Mar 11, 2024 Medical Necessity Reason Pt with a Central, PICC or Fol: No Reason for myers catheter: Strict I&O Subjective Patient reports: Feels better (Still with decreased sensation in her foot she is able to feel her heel which she was unable to do 24 hours ago. No movement in the toes.) Review of Systems: HEENT:Normal, CVS:Normal, RESPIRATORY:Normal, GI:Normal, :Normal, MSK:Normal, NEURO:Normal Objective vital signs Vital Sign Date Time Temp Pulse Resp B/P (MAP) Pulse Ox O2 Delivery O2 Flow Rate FiO2 03/11/24 09:01 83 103/61 03/11/24 08:00 13 76 Nasal Cannula* 2 28 03/11/24 08:00 98.1 98.1 Total Intake and Output 03/10/24 03/10/24 03/11/24 15:00 23:00 07:00 Intake Total 939 ml 752 ml Output Total 200 ml 1125 ml Balance 739 ml -373 ml medications Current Medications Medications Dose Ordered Sig/Anthony Route Start Time Stop Time Status Last Admin Dose Admin Nitroglycerin 0.4 mg Q5MINP PRN SL 03/10/24 14:45 Morphine Sulfate 2 mg Q30M PRN IV 03/10/24 14:45 Morphine Sulfate 2 mg Q4HPRN PRN IV 03/10/24 14:45 Acetaminophen/ Hydrocodone Bitart 1 tab Q6HPRN PRN PO 03/10/24 14:45 03/10/24 16:22 1 TAB Acetaminophen 500 mg Q8HP PRN PO 03/10/24 14:45 Ondansetron HCl 4 mg Q6HP PRN IV 03/10/24 14:45 Docusate Sodium 100 mg BID PRN PO 03/10/24 14:45 03/10/24 16:23 100 MG Ceftriaxone Sodium 50 ml @ 100 mls/hr DAILY@09 IV 03/10/24 15:30 03/11/24 09:01 100 MLS/HR Sodium Bicarbonate 50 ml/ Sodium Chloride 1,050 ml @ 80 mls/hr Q13H8M IV 03/10/24 14:45 03/11/24 06:23 80 MLS/HR Amiodarone HCl 200 mg BID PO 03/10/24 22:00 03/11/24 09:01 200 MG Heparin Sodium/ Dextrose 250 ml @ 6 mls/hr Q24H IV 03/11/24 10:00 Examination: GENERAL:Normal, HEENT:Normal, NECK:Normal, LUNGS:Normal, CVS:Normal, ABDOMEN:Normal, MSK:Normal (Fasciotomy sites are wrapped we will re- evaluate tomorrow for possible wound VAC versus secondary closure versus primary closure.), SKIN:Normal, NEURO:Normal, :Normal laboratory and microbiology Laboratory Tests 03/11/24 03:20 Test 03/11/24 03:20 Range/Units Serum Glucose 119 H 74-106 mg/dL Problem List/Assessment/Plan Problem List/Assessment/Plan Status post right common femoral embolectomy, angiogram, 4 quadrant fasciotomy March 08, 2024 Out of bed Continue current wound care to the right leg. Continue anticoagulation We will re-evaluate fasciotomy sites tomorrow for plan for ice primary versus secondary closure. Plan discussed with: Patient VIDAL JONES Jr., MD Mar 11, 2024 09:25
[2024-03-11] MEDS: HEPARIN DRIP/D5W 100UNITS/ML 250 ML IV SCH ×2 (10:13→17:48)
--- NOTE | 2024-03-11 11:31 | DVHHP2 ---
History of Present Illness Reason for Visit: Right lower extremity pain History of Present Illness Patient was an 78-year-old female returning back to the hospital after leaving against medical advice to attend her 's . Patient was originally admitted approximately a week ago for decompensated heart failure which improved. Patient later then had acute limb ischemia to her right lower extremity requiring thrombectomy by vascular surgery in addition to fasciotomy for patient's going to the extremity as well as rhabdomyolysis. Patient also is in acute kidney injury. Patient's tumor markers were performed which have come back with a positive CA 125 with a level of 328. Patient will be continued on heparin drip and be re-evaluated several days for closure of her fasciotomy. Cardiovascular: AFIB, CHF Past Surgical History Watchman device placement Family History: None Smoke: No ALCOHOL: none Drugs: None Lives: with Family Review of Systems Constitutional: No: Fever, Chills, Sweats, Weakness, Malaise, Other Eyes: No: Pain, Vision change, Conjunctivae inflammation, Eyelid inflammation, Other, Redness ENT: No: Ear pain, Ear discharge, Nose pain, Nose discharge, Nose congestion, Mouth pain, Mouth swelling, Throat pain, Throat swelling, Other Respiratory: No: Cough, Dry, Shortness of breath, SOB with excertion, Wheezing, Hemoptysis, Pleuritic Pain, Sputum, Wheezing, Other Cardiovascular: No: Chest Pain, Palpitations, Orthopnea, Paroxysmal Noc. Dyspnea, Edema, Lt Headedness, Other Genitourinary: No Dysuria, No Frequency, No Incontinence, No Hematuria, No Retention, No Other Musculoskeletal: leg pain (Dressing dry and intact) Skin: No: Rash, Lesions, Jaundice, Bruising, Other Neurological: No: Weakness, Numbness, Incoordination, Change in speech, Confusion, Seizures, Other Allergies: Coded Allergies: Procaine (Verified Allergy, Unknown, 03/11/24) Sulfa Antibiotics (Verified Allergy, Unknown, 03/11/24) Medications Current Medications Medications Dose Ordered Sig/Anthony Route Start Time Stop Time Status Last Admin Dose Admin Nitroglycerin 0.4 mg Q5MINP PRN SL 03/10/24 14:45 Morphine Sulfate 2 mg Q30M PRN IV 03/10/24 14:45 Morphine Sulfate 2 mg Q4HPRN PRN IV 03/10/24 14:45 Acetaminophen/ Hydrocodone Bitart 1 tab Q6HPRN PRN PO 03/10/24 14:45 03/10/24 16:22 1 TAB Acetaminophen 500 mg Q8HP PRN PO 03/10/24 14:45 Ondansetron HCl 4 mg Q6HP PRN IV 03/10/24 14:45 Docusate Sodium 100 mg BID PRN PO 03/10/24 14:45 03/10/24 16:23 100 MG Ceftriaxone Sodium 50 ml @ 100 mls/hr DAILY@09 IV 03/10/24 15:30 03/11/24 09:01 100 MLS/HR Sodium Bicarbonate 50 ml/ Sodium Chloride 1,050 ml @ 80 mls/hr Q13H8M IV 03/10/24 14:45 03/11/24 06:23 80 MLS/HR Amiodarone HCl 200 mg BID PO 03/10/24 22:00 03/11/24 09:01 200 MG Heparin Sodium/ Dextrose 250 ml @ 6 mls/hr Q24H IV 03/11/24 10:00 03/11/24 10:13 6 MLS/HR Exam Vital Signs Vital Signs Date Time Temp Pulse Resp B/P (MAP) Pulse Ox O2 Delivery O2 Flow Rate FiO2 03/11/24 11:00 75 16 94/58 (70) 100 03/11/24 10:00 Nasal Cannula* 2 28 03/11/24 08:00 98.1 98.1 General Appearance: Alert, Oriented X3, Cooperative, mild distress HEENT: Atraumatic, PERRLA Respiratory: Clear to auscultation, Normal air movement Cardiovascular: Normal S1, Normal S2, Other (Atrial fibrillation) Abdominal: Normal bowel sounds Extremities: No clubbing, No cyanosis, No edema, Normal pulses, No ten derness/swelling Skin: No rashes, No breakdown Neuro: Normal gait, Normal speech Psych/Mental Status: Mental status NL, Mood NL Labs/Xrays Labs Test 03/11/24 04:43 03/11/24 03:20 03/10/24 23:15 Range/Units Prothrombin Time 10.5 9.3-11.8 sec Prothrombin Time INR 0.97 0.9-1.15 Activated Partial Thromboplast Time 108.5 *H 24.5-34.5 SEC White Blood Count 6.2 4.4-10.8 10^3/uL Red Blood Count 3.60 L 4.0-5.20 10^6/uL Hemoglobin 12.3 12.2-16.2 g/dL Hematocrit 36.4 36.0-46.0 % Mean Corpuscular Volume 101.1 H 80.0-100.0 fL Mean Corpuscular Hemoglobin 34.2 H 28.0-32.0 pg Mean Corpuscular Hemoglobin Concent 33.8 32.0-36.0 g/dL Red Cell Distribution Width 14.3 11.8-14.3 % Platelet Count 120 L 140-450 10^3/uL Mean Platelet Volume 10.4 6.9-10.8 fL Neutrophils (%) (Auto) 74.9 37.0-80.0 % Lymphocytes (%) (Auto) 13.6 10.0-50.0 % Monocytes (%) (Auto) 11.0 0.0-12.0 % Eosinophils (%) (Auto) 0.2 0.0-7.0 % Basophils (%) (Auto) 0.3 0.0-2.0 % Neutrophils # (Auto) 4.7 1.6-8.6 10 ^3/uL Lymphocytes # (Auto) 0.8 0.4-5.4 10 ^3/uL Monocytes # (Auto) 0.7 0-1.3 10 ^3/uL Eosinophils # (Auto) 0 0-0.8 10 ^3/uL Basophils # (Auto) 0 0-0.2 10 ^3/uL Nucleated Red Blood Cells 0.1 % Sodium Level 137 136-145 mmol/L Potassium Level 4.4 3.5-5.1 mmol/L Chloride Level 97 L 98-107 mmol/L Carbon Dioxide Level 33 H 20-31 mmol/L Anion Gap 7 5-15 Blood Urea Nitrogen 44 H 9-23 mg/dL Creatinine 1.76 H 0.550-1.02 mg/dL Glomerular Filtration Rate Calc 29 >90 mL/min BUN/Creatinine Ratio 25.0 H 10.0-20.0 Serum Glucose 119 H 74-106 mg/dL Calcium Level 8.7 8.7-10.4 mg/dL Total Bilirubin 0.4 0.2-1.0 mg/dL Aspartate Amino Transferase (AST) 511 H 13-40 U/L Alanine Aminotransferase (ALT) 138 H 7-40 U/L Alkaline Phosphatase 79 46-116 U/L Creatine Kinase 59422 H 34-145 U/L Total Protein 5.4 L 5.7-8.2 g/dL Albumin 3.3 3.2-4.8 g/dL Urine Color Brown H Yellow Urine Clarity Ex.turbid Clear Urine pH 5.5 5.0-9.0 Urine Specific [place] 1.012 1.001-1.035 Urine Protein Trace H Negative Urine Ketones Negative Negative Urine Blood 3+ H Negative /uL Urine Nitrite Negative Negative Urine Bilirubin Negative Negative Urine Urobilinogen Normal Negative mg/dL Urine Leukocyte Esterase 1+ Negative /uL Urine RBC 3 0 - 4 /hpf Urine WBC 42 0 - 5 /hpf Urine WBC Clumps Present None Seen /hpf Urine Squamous Epithelial Cells Few <5 /hpf Urine Bacteria None seen None Seen /hpf Urine Yeast (Budding) Few None Seen /hpf Urine Glucose 3+ H Normal mg/dL Assessment/Plan Assessment/Plan Acute decompensated systolic heart failure. Acute thrombus with right lower extremity ischemia Secondary Diagnosis: -acute on chronic systolic heart failure -acute hypoxic respiratory failure -atrial fibrillation rapid ventricular rate -history of Watchman device -elevated D-dimer, rule out pulmonary embolism -dyslipidemia -acute right lower leg PND with a ischemia -hyperkalemia with acute kidney injury -rhabdomyolysis -rule out abdominal CA Plan discussed with: Patient, Other (RN) My Orders Orders - NICOLE REBOLLAR BID CLERK Procedure Category Date Status Time Admit ADMIT 03/10/24 Transmitted 14:42 Nitroglycerin PHA 03/10/24 In Process Sublingual (Ntrostat 14:45 Morphine Sulfate PHA 03/10/24 In Process Injection 14:45 Stat Ekg For Chest ALYSA 03/10/24 In Process Pain 14:42 Notify Of Changes ALYSA 03/10/24 In Process From Base 14:42 Vascular Technologist For ALYSA 03/10/24 In Process 24 Hours 14:42 Emergency Dysrhythmia ALYSA 03/10/24 In Process Protocol 14:42 Rhythm Strips Once ALYSA 03/10/24 In Process Every Shift 14:42 Oxygen By Nasal RT 03/10/24 Transmitted Cannula 14:42 *Dr. [facility] CONS 03/10/24 Transmitted -[place] 14:42 * Surgical Consult CONS 03/10/24 Transmitted * Cardiology Consult CONS 03/10/24 Transmitted 14:42 Morphine Sulfate PHA 03/10/24 In Process Injection 14:45 Hydrocodone-Acet PHA 03/10/24 In Process 5/325mg Tab ([place] 14:45 Acetaminophen Tab Or PHA 03/10/24 In Process Cap (Tylenol Tablet 14:45 Ondansetron Hcl PHA 03/10/24 In Process (Zofran) 14:45 Docusate Sodium PHA 03/10/24 In Process Capsule (Colace 14:45 Platelet Monitoring ALYSA 03/10/24 In Process 14:42 Heparin Per ALYSA 03/10/24 In Process Standardized Proce 14:42 Discontinue All Im ALYSA 03/10/24 In Process Injections 14:42 Cleanse Wound With Ns ALYSA 03/10/24 In Process 14:42 Sod Chl 0.45% PHA 03/10/24 In Process (Sodi... W/Sodium 14:45 Insert Midline ORDERS 03/10/24 Transmitted 14:56 Amiodarone Tablet PHA 03/10/24 In Process (Cordarone Tablet) 22:00 Ceftriaxone 1gm/50ml PHA 03/10/24 In Process D5w (Rocephin) 15:30 Mrsa Screen MING 03/10/24 In Process 16:34 Cardiac DIET 03/11/24 Transmitted Diet-2gna,Lofat,Lochol Breakfast Heparin Drip/D5w PHA 03/11/24 In Process 100units/Ml 10:00 PTPTT LAB 03/11/24 Logged 16:00 Basic Metabolic Panel LAB 03/12/24 Verified 05:00 Basic Metabolic Panel LAB 03/13/24 Verified 05:00 Date of Service: Mar 11, 2024 Billing Provider: NICOLE REBOLLAR NP Common Visit Codes: 87461-[id number] CARE 30-74 MIN NICOLE REBOLLAR NP Mar 11, 2024 11:31
[2024-03-11] MEDS: POLYETHYLENE GLYCOL 17 GM PWDR PO PRN (13:29)
--- NOTE | 2024-03-11 16:32 | DVHINCON2 ---
Date of service: Mar 11, 2024 Referring Physician Roque Gonzalez NP Reason for Consultation acute kidney injury History of Present Illness Mrs. Chase is a 78-year-old female who is back at the hospital for ongoing care of recent right lower extremity acute vascular insufficiency requiring vascular surgery intervention, acute kidney injury, rhabdomyolysis. She was seen in the ICU awake alert conversant and in no acute distress currently. 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 Initial creatinines during most recent admission were in the low to mid 1 range. Serum CK levels are down trending. She denies current disproportionate pain involving her right lower extremity. Past Medical History chronic heart failure Allergies: Coded Allergies: Procaine (Verified Allergy, Unknown, 03/11/24) Sulfa Antibiotics (Verified Allergy, Unknown, 03/11/24) Home Meds Reported Medications Wueugksvhbg-Nylusvtmbht-Zql C- (Glucosamine Chondroitin) 1 Cap Cap, 1 CAP PO AC, CAP 03/04/24 Cholecalciferol (D3) 50 Mcg Cap, 50 MCG PO DAILY, CAP 03/04/24 Apoaequorin (PREVAGEN) 10 Mg Cap, 10 MG PO, CAP 03/04/24 Curcuma Longa (Turmeric) Extra (TURMERIC) 500 Mg Cap, 500 MG OR, CAP 03/04/24 Furosemide (Furosemide) 20 Mg Tab, 1 TAB PO DAILY for 30 Days, #30 03/04/24 Ferrous Sulfate (FERROUS SULFATE) 325 Mg Tb, 1 TAB PO DAILY for 90 Days, #90 03/04/24 Apixaban Base (ELIQUIS) 2.5 Mg Tab, 2.5 MG PO BID for 30 Days, #60 03/04/24 Nitroglycerin (NTROSTAT SUBLINGUAL) 0.4 Mg Sl, 0.4 MG SL PRN for 33 Days, #100 *MAY REPEAT EVERY 5 MINUTES X 3 TOTAL IF NO RELIEF, INITIATE ANALGESIC THERAPY. NOTIFY PHYSICIAN *Do not crush. 03/04/24 Amlodipine Besylate (Amlodipine Besylate) 5 Mg Tab, 1 TAB PO DAILY for 90 Days, #90 03/04/24 Lisinopril (Lisinopril) 10 Mg Tab, 1 TAB PO DAILY for 100 Days, #100 03/04/24 Metoprolol Succinate (Metoprolol Succinate Er) 25 Mg Tab, 1 TAB PO DAILY for 90 Days, #90 03/04/24 Allopurinol (Allopurinol) 300 Mg Tab, 1 TAB PO DAILY for 90 Days, #90 03/04/24 Amiodarone HCl (Amiodarone HCl) 200 Mg Tab, 1 TAB PO BID for 30 Days, #60 03/04/24 Discontinued Reported Medications Nitroglycerin (Nitroglycerin Lingual) 0.4 Mg/[place] Spr, 0.4 MG TL, SPR 03/04/24 Current Medications Current Medications Medications (Trade) Dose Ordered Sig/Anthony Route PRN Reason Start Time Stop Time Status Last Admin Amiodarone HCl (Cordarone Tablet) 200 mg BID PO 03/10/24 22:00 03/11/24 09:01 Metoprolol Succinate (Toprol Xl) 25 mg DAILY PO 03/11/24 10:00 03/11/24 09:19 DC Heparin Sodium/ Dextrose 250 ml @ 6 mls/hr Q24H IV 03/11/24 09:15 03/11/24 09:13 DC Heparin Sodium/ Dextrose 250 ml @ 6 mls/hr Q24H IV 03/11/24 10:00 03/11/24 10:13 Polyethylene Glycol (Miralax 17GM Powder) 17 gm DAILYPRN PRN PO FOR CONSTIPATION 03/11/24 13:15 03/11/24 13:29 Family History: Patient reports no known family medical history. Review of Systems denies recent significant outpatient NSAID use, fever, hemoptysis, abdominal pain. H&P Exam Vital Signs/I&O Vital Sign Date Time Temp Pulse Resp B/P (MAP) Pulse Ox O2 Delivery O2 Flow Rate FiO2 03/11/24 16:00 22 99 Nasal Cannula* 2 28 03/11/24 15:00 84 105/57 (73) 03/11/24 08:00 98.1 98.1 Intake and Output 03/10/24 03/11/24 19:00 07:00 Intake Total 551 ml 1140 ml Output Total 200 ml 1125 ml Balance 351 ml 15 ml Intake Oral 240 ml 80 ml IV Total 311 ml 1060 ml Output Urine Total 200 ml 1125 ml # Voids 1 Physical Exam gen: thin elderly woman in no acute distress heent: mmm lungs: cta cvs: no rub abd: soft, nontender ext: R LE wrapped in dressing, L LE with trace dependent edema skin: no petechiae neuro: awake and alert Labs/Diagnostic Data Labs/Diagnostic Data Laboratory Tests Test 03/11/24 16:03 03/11/24 04:43 03/11/24 03:20 03/10/24 23:15 Range/Units Prothrombin Time 10.5 9.3-11.8 sec Prothrombin Time INR 0.97 0.9-1.15 Activated Partial Thromboplast Time 108.5 *H 24.5-34.5 SEC White Blood Count 6.2 4.4-10.8 10^3/uL Red Blood Count 3.60 L 4.0-5.20 10^6/uL Hemoglobin 12.3 12.2-16.2 g/dL Hematocrit 36.4 36.0-46.0 % Mean Corpuscular Volume 101.1 H 80.0-100.0 fL Mean Corpuscular Hemoglobin 34.2 H 28.0-32.0 pg Mean Corpuscular Hemoglobin Concent 33.8 32.0-36.0 g/dL Red Cell Distribution Width 14.3 11.8-14.3 % Platelet Count 120 L 140-450 10^3/uL Mean Platelet Volume 10.4 6.9-10.8 fL Neutrophils (%) (Auto) 74.9 37.0-80.0 % Lymphocytes (%) (Auto) 13.6 10.0-50.0 % Monocytes (%) (Auto) 11.0 0.0-12.0 % Eosinophils (%) (Auto) 0.2 0.0-7.0 % Basophils (%) (Auto) 0.3 0.0-2.0 % Neutrophils # (Auto) 4.7 1.6-8.6 10 ^3/uL Lymphocytes # (Auto) 0.8 0.4-5.4 10 ^3/uL Monocytes # (Auto) 0.7 0-1.3 10 ^3/uL Eosinophils # (Auto) 0 0-0.8 10 ^3/uL Basophils # (Auto) 0 0-0.2 10 ^3/uL Nucleated Red Blood Cells 0.1 % Sodium Level 137 136-145 mmol/L Potassium Level 4.4 3.5-5.1 mmol/L Chloride Level 97 L 98-107 mmol/L Carbon Dioxide Level 33 H 20-31 mmol/L Anion Gap 7 5-15 Blood Urea Nitrogen 44 H 9-23 mg/dL Creatinine 1.76 H 0.550-1.02 mg/dL Glomerular Filtration Rate Calc 29 >90 mL/min BUN/Creatinine Ratio 25.0 H 10.0-20.0 Serum Glucose 119 H 74-106 mg/dL Calcium Level 8.7 8.7-10.4 mg/dL Total Bilirubin 0.4 0.2-1.0 mg/dL Aspartate Amino Transferase (AST) 511 H 13-40 U/L Alanine Aminotransferase (ALT) 138 H 7-40 U/L Alkaline Phosphatase 79 46-116 U/L Creatine Kinase 40171 H 34-145 U/L Total Protein 5.4 L 5.7-8.2 g/dL Albumin 3.3 3.2-4.8 g/dL Urine Color Brown H Yellow Urine Clarity Ex.turbid Clear Urine pH 5.5 5.0-9.0 Urine Specific [place] 1.012 1.001-1.035 Urine Protein Trace H Negative Urine Ketones Negative Negative Urine Blood 3+ H Negative /uL Urine Nitrite Negative Negative Urine Bilirubin Negative Negative Urine Urobilinogen Normal Negative mg/dL Urine Leukocyte Esterase 1+ Negative /uL Urine RBC 3 0 - 4 /hpf Urine WBC 42 0 - 5 /hpf Urine WBC Clumps Present None Seen /hpf Urine Squamous Epithelial Cells Few <5 /hpf Urine Bacteria None seen None Seen /hpf Urine Yeast (Budding) Few None Seen /hpf Urine Glucose 3+ H Normal mg/dL Test 03/10/24 22:10 03/10/24 15:30 Range/Units Prothrombin Time 10.6 9.3-11.8 sec Prothrombin Time INR 1.00 0.9-1.15 Activated Partial Thromboplast Time 44.0 H 24.5-34.5 SEC White Blood Count 7.7 4.4-10.8 10^3/uL Red Blood Count 3.68 L 4.0-5.20 10^6/uL Hemoglobin 12.8 12.2-16.2 g/dL Hematocrit 37.0 36.0-46.0 % Mean Corpuscular Volume 100.4 H 80.0-100.0 fL Mean Corpuscular Hemoglobin 34.6 H 28.0-32.0 pg Mean Corpuscular Hemoglobin Concent 34.5 32.0-36.0 g/dL Red Cell Distribution Width 14.7 H 11.8-14.3 % Platelet Count 163 140-450 10^3/uL Mean Platelet Volume 10.2 6.9-10.8 fL Neutrophils (%) (Auto) 84.3 H 37.0-80.0 % Lymphocytes (%) (Auto) 7.4 L 10.0-50.0 % Monocytes (%) (Auto) 7.8 0.0-12.0 % Eosinophils (%) (Auto) 0.0 0.0-7.0 % Basophils (%) (Auto) 0.5 0.0-2.0 % Neutrophils # (Auto) 6.5 1.6-8.6 10 ^3/uL Lymphocytes # (Auto) 0.6 0.4-5.4 10 ^3/uL Monocytes # (Auto) 0.6 0-1.3 10 ^3/uL Eosinophils # (Auto) 0 0-0.8 10 ^3/uL Basophils # (Auto) 0 0-0.2 10 ^3/uL Nucleated Red Blood Cells 0.2 % Microbiology Date/Time Source Procedure Growth Status 03/10/24 16:00 Nose MRSA Screen - Final Complete Assessment IMP: 1) hemodynamically mediated acute kidney injury, possible ischemic/nephrotoxic ATN, 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 2) Hx of HF 3) elevated tumor marker 4) anemia 5) CKD IIIa? 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 Chase is at relatively low risk for severe episode of contrast-induced nephropathy if CT scan with iodinated contrast is required. Agree with holding off on CT imaging until guille of serum creatinine is observed. - We will continue to follow closely along with you. thank you for the consultation. Plan discussed with: Patient WILLIAM MULLER MD Mar 11, 2024 16:32
[2024-03-11 17:01] LABS: INR 0.96 (0.9-1.15); Partial Thromboplastin Time 38.6 SEC (24.5-34.5); Prothrombin Time 10.2 sec (9.3-11.8)
--- NOTE | 2024-03-11 22:45 | DVHINCON2 ---
Date of service: Mar 11, 2024 Referring Physician Jose Gonzalez NP Reason for Consultation Acute hypoxic respiratory failure History of Present Illness An 78-year-old woman with past medical history of chronic AFib on Eliquis, CHF, hypertension, and gout who is returning back to the hospital after leaving against medical advice to attend her 's . Patient was originally admitted approximately a week ago for decompensated heart failure which improved. Patient later then had acute limb ischemia to her right lower extremity, requiring vascular surgery intervention, acute kidney injury, and rhabdomyolysis. Tumor markers returned with positive CA 125 with a level of 328. Patient was admitted for further care, and pulmonary consultation is requested for evaluation and management of acute hypoxic respiratory failure. Review of Systems: 14-point review of systems negative unless otherwise noted above. Past Medical History: Chronic AFib on Eliquis, CHF, hypertension, and gout Past Surgical History: Watchman device placement Medications: Reviewed. Allergies: Procaine Sulfa antibiotics. Family History: No family history of premature CAD. No family history of lung disorders. Social History: Nonsmoker. No alcohol or illicit drug use. Family History: Patient reports no known family medical history. Allergies: Coded Allergies: Procaine (Verified Allergy, Unknown, 03/11/24) Sulfa Antibiotics (Verified Allergy, Unknown, 03/11/24) Home Meds Reported Medications Dndqvilnqyi-Kwbieaqrayo-Ysf C- (Glucosamine Chondroitin) 1 Cap Cap, 1 CAP PO AC, CAP 03/04/24 Cholecalciferol (D3) 50 Mcg Cap, 50 MCG PO DAILY, CAP 03/04/24 Apoaequorin (PREVAGEN) 10 Mg Cap, 10 MG PO, CAP 03/04/24 Curcuma Longa (Turmeric) Extra (TURMERIC) 500 Mg Cap, 500 MG OR, CAP 03/04/24 Furosemide (Furosemide) 20 Mg Tab, 1 TAB PO DAILY for 30 Days, #30 03/04/24 Ferrous Sulfate (FERROUS SULFATE) 325 Mg Tb, 1 TAB PO DAILY for 90 Days, #90 03/04/24 Apixaban Base (ELIQUIS) 2.5 Mg Tab, 2.5 MG PO BID for 30 Days, #60 25 Nitroglycerin (NTROSTAT SUBLINGUAL) 0.4 Mg Sl, 0.4 MG SL PRN for 33 Days, #100 *MAY REPEAT EVERY 5 MINUTES X 3 TOTAL IF NO RELIEF, INITIATE ANALGESIC THERAPY. NOTIFY PHYSICIAN *Do not crush. 03/04/24 Amlodipine Besylate (Amlodipine Besylate) 5 Mg Tab, 1 TAB PO DAILY for 90 Days, #90 03/04/24 Lisinopril (Lisinopril) 10 Mg Tab, 1 TAB PO DAILY for 100 Days, #100 03/04/24 Metoprolol Succinate (Metoprolol Succinate Er) 25 Mg Tab, 1 TAB PO DAILY for 90 Days, #90 03/04/24 Allopurinol (Allopurinol) 300 Mg Tab, 1 TAB PO DAILY for 90 Days, #90 03/04/24 Amiodarone HCl (Amiodarone HCl) 200 Mg Tab, 1 TAB PO BID for 30 Days, #60 03/04/24 Current Medications Current Medications Medications (Trade) Dose Ordered Sig/Anthony Route PRN Reason Start Time Stop Time Status Last Admin Metoprolol Succinate (Toprol Xl) 25 mg DAILY PO 03/11/24 10:00 03/11/24 09:19 DC Heparin Sodium/ Dextrose 250 ml @ 6 mls/hr Q24H IV 03/11/24 09:15 03/11/24 09:13 DC Heparin Sodium/ Dextrose 250 ml @ 6 mls/hr Q24H IV 03/11/24 10:00 03/11/24 17:44 DC 03/11/24 10:13 Polyethylene Glycol (Miralax 17GM Powder) 17 gm DAILYPRN PRN PO FOR CONSTIPATION 03/11/24 13:15 03/11/24 13:29 Heparin Sodium/ Dextrose 250 ml @ 8 mls/hr Q24H IV 03/11/24 17:45 03/11/24 17:48 Vital Signs Vital Signs Date Time Temp Pulse Resp B/P (MAP) Pulse Ox O2 Delivery O2 Flow Rate FiO2 03/11/24 22:00 75 14 91/49 (63) 100 03/11/24 22:00 Nasal Cannula* 2 28 03/11/24 20:00 98.1 98.1 Physical Exam Gen.: Patient lying in bed in no apparent distress. On supplemental oxygen. Head: Normocephalic, atraumatic. Eyes: EOMI/PERRLA. Ears: Normal hearing. Normal anatomy. Neck/trachea: Trachea midline, supple. Nose: Normal external anatomy. Mouth: Moist mucous membranes. Chest: Decreased air entry bilaterally. No wheezing or rhonchi. Cardiovascular: Positive S1, positive S2. Regular rate and rhythm. Abdomen: Positive bowel sounds in all 4 quadrants. Soft, non-tender, non- distended. : Deferred. Rectal: Deferred. Skin: Warm, dry. Intact. Extremities: 2+ radial pulses bilaterally. No lower extremity edema. Neuro: Awake, alert, oriented x3. No gross motor or sensory deficits. Cranial nerves II through XII intact. Gait not assessed. Labs/Diagnostic Data Labs Test 03/11/24 16:03 03/11/24 03:20 03/10/24 23:15 Range/Units Prothrombin Time 10.2 9.3-11.8 sec Prothrombin Time INR 0.96 0.9-1.15 Activated Partial Thromboplast Time 38.6 H 24.5-34.5 SEC White Blood Count 6.2 4.4-10.8 10^3/uL Red Blood Count 3.60 L 4.0-5.20 10^6/uL Hemoglobin 12.3 12.2-16.2 g/dL Hematocrit 36.4 36.0-46.0 % Mean Corpuscular Volume 101.1 H 80.0-100.0 fL Mean Corpuscular Hemoglobin 34.2 H 28.0-32.0 pg Mean Corpuscular Hemoglobin Concent 33.8 32.0-36.0 g/dL Red Cell Distribution Width 14.3 11.8-14.3 % Platelet Count 120 L 140-450 10^3/uL Mean Platelet Volume 10.4 6.9-10.8 fL Neutrophils (%) (Auto) 74.9 37.0-80.0 % Lymphocytes (%) (Auto) 13.6 10.0-50.0 % Monocytes (%) (Auto) 11.0 0.0-12.0 % Eosinophils (%) (Auto) 0.2 0.0-7.0 % Basophils (%) (Auto) 0.3 0.0-2.0 % Neutrophils # (Auto) 4.7 1.6-8.6 10 ^3/uL Lymphocytes # (Auto) 0.8 0.4-5.4 10 ^3/uL Monocytes # (Auto) 0.7 0-1.3 10 ^3/uL Eosinophils # (Auto) 0 0-0.8 10 ^3/uL Basophils # (Auto) 0 0-0.2 10 ^3/uL Nucleated Red Blood Cells 0.1 % Sodium Level 137 136-145 mmol/L Potassium Level 4.4 3.5-5.1 mmol/L Chloride Level 97 L 98-107 mmol/L Carbon Dioxide Level 33 H 20-31 mmol/L Anion Gap 7 5-15 Blood Urea Nitrogen 44 H 9-23 mg/dL Creatinine 1.76 H 0.550-1.02 mg/dL Glomerular Filtration Rate Calc 29 >90 mL/min BUN/Creatinine Ratio 25.0 H 10.0-20.0 Serum Glucose 119 H 74-106 mg/dL Calcium Level 8.7 8.7-10.4 mg/dL Total Bilirubin 0.4 0.2-1.0 mg/dL Aspartate Amino Transferase (AST) 511 H 13-40 U/L Alanine Aminotransferase (ALT) 138 H 7-40 U/L Alkaline Phosphatase 79 46-116 U/L Creatine Kinase 06979 H 34-145 U/L Total Protein 5.4 L 5.7-8.2 g/dL Albumin 3.3 3.2-4.8 g/dL Urine Color Brown H Yellow Urine Clarity Ex.turbid Clear Urine pH 5.5 5.0-9.0 Urine Specific [place] 1.012 1.001-1.035 Urine Protein Trace H Negative Urine Ketones Negative Negative Urine Blood 3+ H Negative /uL Urine Nitrite Negative Negative Urine Bilirubin Negative Negative Urine Urobilinogen Normal Negative mg/dL Urine Leukocyte Esterase 1+ Negative /uL Urine RBC 3 0 - 4 /hpf Urine WBC 42 0 - 5 /hpf Urine WBC Clumps Present None Seen /hpf Urine Squamous Epithelial Cells Few <5 /hpf Urine Bacteria None seen None Seen /hpf Urine Yeast (Budding) Few None Seen /hpf Urine Glucose 3+ H Normal mg/dL Microbiology Date/Time Source Procedure Growth Status 03/10/24 23:15 Urine - [place] Urine Culture - Preliminary Resulted 03/10/24 16:00 Nose MRSA Screen - Final Complete Assessment Impression: Acute hypoxic respiratory failure Dependence on supplemental oxygen Acute thrombus with right lower extremity ischemia Acute on chronic systolic heart failure Atrial fibrillation w/ rapid ventricular rate Acute kidney injury Rhabdomyolysis Plan: Supplemental oxygen 2 LPM NC Titrate to keep O2 sats above 92%. Taper O2 as tolerated. Continue antibiotics Amiodarone PO Bicarb drip Heparin drip Vascular Surgery recs appreciated. Wound care Monitor renal function. Monitor electrolytes. Supplement as necessary. Monitor ins and outs. DVT prophylaxis. Prognosis: Poor given patient's multiple co-morbidities. Rest of plan per hospitalist and other consultants. Thank you, DAVID Gonzalez, for allowing me to participate in this patient's care. Further recommendations will depend on the patient's clinical course. Please do not hesitate to contact me if you have any questions or concerns. This medical document was created using an electronic medical record system with [employer] dictation system. Although these documentations are being carefully reviewed, there may still be some phonetic and typographical changes. The errors are purely typographical, due to imperfection on the software gulshan panchal, and do not reflect any compromise in the patient's medical care. Plan discussed with: Patient, Other (RADHA Perez/DAVID Gonzalez/) JORDAN WONG MD Mar 11, 2024 22:44
--- NOTE | 2024-03-11 23:26 | DVHINCON2 ---
Date of service: Mar 11, 2024 Referring Physician Lisa Reason for Consultation Acute decompensated HF History of Present Illness This is an 78-year-old female with a PMH of AFIB, CHF who's returning back to [facility] after leaving against medical advice yesterday to attend her late 's . Patient was originally admitted approximately a week ago for decompensated heart failure which has improved. Patient later then had an acute limb ischemia to her right lower extremity requiring thrombectomy by vascular surgery in addition to fasciotomy for patient's going to the extremity as well as rhabdomyolysis. Patient also is in acute kidney injury. Patient's tumor markers were performed which have come back with a positive CA 125 with a level of 328. Patient will be continued on heparin drip and be re-evaluated several days for closure of her fasciotomy. Patient was admitted to the hospital. I am asked to consult on this patient. Family History: Patient reports no known family medical history. Allergies: Coded Allergies: Procaine (Verified Allergy, Unknown, 03/11/24) Sulfa Antibiotics (Verified Allergy, Unknown, 03/11/24) Home Meds Reported Medications Jpokwwalcdw-Gzfwiqkmjui-Boj C- (Glucosamine Chondroitin) 1 Cap Cap, 1 CAP PO AC, CAP 03/04/24 Cholecalciferol (D3) 50 Mcg Cap, 50 MCG PO DAILY, CAP 03/04/24 Apoaequorin (PREVAGEN) 10 Mg Cap, 10 MG PO, CAP 03/04/24 Cur[place]uma [place] (Turmeric) Extra (TURMERIC) 500 Mg Cap, 500 MG OR, CAP 03/04/24 Furosemide (Furosemide) 20 Mg Tab, 1 TAB PO DAILY for 30 Days, #30 03/04/24 Ferrous Sulfate (FERROUS SULFATE) 325 Mg Tb, 1 TAB PO DAILY for 90 Days, #90 03/04/24 Apixaban Base (ELIQUIS) 2.5 Mg Tab, 2.5 MG PO BID for 30 Days, #60 03/04/24 Nitroglycerin (NTROSTAT SUBLINGUAL) 0.4 Mg Sl, 0.4 MG SL PRN for 33 Days, #100 *MAY REPEAT EVERY 5 MINUTES X 3 TOTAL IF NO RELIEF, INITIATE ANALGESIC THERAPY. NOTIFY PHYSICIAN *Do not crush. 03/04/24 Amlodipine Besylate (Amlodipine Besylate) 5 Mg Tab, 1 TAB PO DAILY for 90 Days, #90 03/04/24 Lisinopril (Lisinopril) 10 Mg Tab, 1 TAB PO DAILY for 100 Days, #100 03/04/24 Metoprolol Succinate (Metoprolol Succinate Er) 25 Mg Tab, 1 TAB PO DAILY for 90 Days, #90 03/04/24 Allopurinol (Allopurinol) 300 Mg Tab, 1 TAB PO DAILY for 90 Days, #90 03/04/24 Amiodarone HCl (Amiodarone HCl) 200 Mg Tab, 1 TAB PO BID for 30 Days, #60 03/04/24 Discontinued Reported Medications Nitroglycerin (Nitroglycerin Lingual) 0.4 Mg/[place] Spr, 0.4 MG TL, SPR 03/04/24 Current Medications Current Medications Medications (Trade) Dose Ordered Sig/Anthony Route PRN Reason Start Time Stop Time Status Last Admin Amiodarone HCl (Cordarone Tablet) 200 mg BID PO 03/10/24 22:00 03/11/24 09:01 Metoprolol Succinate (Toprol Xl) 25 mg DAILY PO 03/11/24 10:00 03/11/24 09:19 DC Heparin Sodium/ Dextrose 250 ml @ 6 mls/hr Q24H IV 03/11/24 09:15 03/11/24 09:13 DC Heparin Sodium/ Dextrose 250 ml @ 6 mls/hr Q24H IV 03/11/24 10:00 03/11/24 17:44 DC 03/11/24 10:13 Polyethylene Glycol (Miralax 17GM Powder) 17 gm DAILYPRN PRN PO FOR CONSTIPATION 03/11/24 13:15 03/11/24 13:29 Heparin Sodium/ Dextrose 250 ml @ 8 mls/hr Q24H IV 03/11/24 17:45 03/11/24 17:48 Review of Systems Constitutional: No: Fever, Chills, Sweats, Weakness, Malaise, Other Eyes: No: Pain, Vision change, Conjunctivae inflammation, Eyelid inflammation, Other, Redness ENT: No: Ear pain, Ear discharge, Nose pain, Nose discharge, Nose congestion, Mouth pain, Mouth swelling, Throat pain, Throat swelling, Other Respiratory: No: Cough, Dry, Shortness of breath, SOB with excertion, Wheezing, Hemoptysis, Pleuritic Pain, Sputum, Wheezing, Other Cardiovascular: No: Chest Pain, Palpitations, Orthopnea, Paroxysmal Noc. Dyspnea, Edema, Lt Headedness, Other Genitourinary: No Dysuria, No Frequency, No Incontinence, No Hematuria, No Retention, No Other Musculoskeletal: leg pain (Dressing dry and intact) Skin: No: Rash, Lesions, Jaundice, Bruising, Other Neurological: No: Weakness, Numbness, Incoordination, Change in speech, Confusion, Seizures, Other Vital Signs Vital Signs Date Time Temp Pulse Resp B/P (MAP) Pulse Ox O2 Delivery O2 Flow Rate FiO2 03/11/24 18:30 83 19 99 03/11/24 18:00 Nasal Cannula* 2 28 03/11/24 16:00 98.0 98.0 Physical Exam GENERAL: Awake, alert, oriented. LUNGS: Clear. CARDIOVASCULAR: Heart sounds are good. ABDOMEN: Soft. Labs/Diagnostic Data Labs Test 03/11/24 16:03 03/11/24 03:20 03/10/24 23:15 Range/Units Prothrombin Time 10.2 9.3-11.8 sec Prothrombin Time INR 0.96 0.9-1.15 Activated Partial Thromboplast Time 38.6 H 24.5-34.5 SEC White Blood Count 6.2 4.4-10.8 10^3/uL Red Blood Count 3.60 L 4.0-5.20 10^6/uL Hemoglobin 12.3 12.2-16.2 g/dL Hematocrit 36.4 36.0-46.0 % Mean Corpuscular Volume 101.1 H 80.0-100.0 fL Mean Corpuscular Hemoglobin 34.2 H 28.0-32.0 pg Mean Corpuscular Hemoglobin Concent 33.8 32.0-36.0 g/dL Red Cell Distribution Width 14.3 11.8-14.3 % Platelet Count 120 L 140-450 10^3/uL Mean Platelet Volume 10.4 6.9-10.8 fL Neutrophils (%) (Auto) 74.9 37.0-80.0 % Lymphocytes (%) (Auto) 13.6 10.0-50.0 % Monocytes (%) (Auto) 11.0 0.0-12.0 % Eosinophils (%) (Auto) 0.2 0.0-7.0 % Basophils (%) (Auto) 0.3 0.0-2.0 % Neutrophils # (Auto) 4.7 1.6-8.6 10 ^3/uL Lymphocytes # (Auto) 0.8 0.4-5.4 10 ^3/uL Monocytes # (Auto) 0.7 0-1.3 10 ^3/uL Eosinophils # (Auto) 0 0-0.8 10 ^3/uL Basophils # (Auto) 0 0-0.2 10 ^3/uL Nucleated Red Blood Cells 0.1 % Sodium Level 137 136-145 mmol/L Potassium Level 4.4 3.5-5.1 mmol/L Chloride Level 97 L 98-107 mmol/L Carbon Dioxide Level 33 H 20-31 mmol/L Anion Gap 7 5-15 Blood Urea Nitrogen 44 H 9-23 mg/dL Creatinine 1.76 H 0.550-1.02 mg/dL Glomerular Filtration Rate Calc 29 >90 mL/min BUN/Creatinine Ratio 25.0 H 10.0-20.0 Serum Glucose 119 H 74-106 mg/dL Calcium Level 8.7 8.7-10.4 mg/dL Total Bilirubin 0.4 0.2-1.0 mg/dL Aspartate Amino Transferase (AST) 511 H 13-40 U/L Alanine Aminotransferase (ALT) 138 H 7-40 U/L Alkaline Phosphatase 79 46-116 U/L Creatine Kinase 01958 H 34-145 U/L Total Protein 5.4 L 5.7-8.2 g/dL Albumin 3.3 3.2-4.8 g/dL Urine Color Brown H Yellow Urine Clarity Ex.turbid Clear Urine pH 5.5 5.0-9.0 Urine Specific [place] 1.012 1.001-1.035 Urine Protein Trace H Negative Urine Ketones Negative Negative Urine Blood 3+ H Negative /uL Urine Nitrite Negative Negative Urine Bilirubin Negative Negative Urine Urobilinogen Normal Negative mg/dL Urine Leukocyte Esterase 1+ Negative /uL Urine RBC 3 0 - 4 /hpf Urine WBC 42 0 - 5 /hpf Urine WBC Clumps Present None Seen /hpf Urine Squamous Epithelial Cells Few <5 /hpf Urine Bacteria None seen None Seen /hpf Urine Yeast (Budding) Few None Seen /hpf Urine Glucose 3+ H Normal mg/dL Microbiology Date/Time Source Procedure Growth Status 03/10/24 23:15 Urine - [place] Urine Culture - Preliminary Resulted 03/10/24 16:00 Nose MRSA Screen - Final Complete Assessment Acute decompensated systolic heart failure. Lower extremity ischemia. Acute on chronic systolic heart failure. Acute hypoxic respiratory failure. Atrial fibrillation rapid ventricular rate. History of Watchman device. Dyslipidemia. Acute right lower leg PND with ischemia. Hyperkalemia with acute kidney injury. Rhabdomyolysis. Plan/Recommendation I agree with your ongoing assessment and care of plan. Morphine and [place] for pain management. Amiodarone. IV antibiotics as ordered. Heparin drip per protocol. Nitro SL. Additional plan as per the hospital course. Critical care time of 90 minutes provided to include time spent evaluation of patient at bedside, when appropriate patient/family education for diagnosis, treatment plan, review of pertinent medical information and discussion of care with specialty providers and PCP. Plan discussed with: Patient SALVADOR CONNORS MD Mar 11, 2024 19:47
[2024-03-12] VITALS (24 sets, daily range): BP systolic 88–106; BP diastolic 44–68; PULSE 67–100; RESP 13–25; TEMP 97.6–98.2; O2SAT 96–100
[2024-03-12 04:33] LABS: Chloride 99 mmol/L (98-107); Potassium 4.5 mmol/L (3.5-5.1); Sodium 138 mmol/L (136-145)
[2024-03-12 04:34] LABS: Anion Gap 5 (5-15); Calcium 8.8 mg/dL (8.7-10.4)
[2024-03-12 04:39] LABS: BUN/Creatinine Ratio 24.1 (10.0-20.0); Glucose 94 mg/dL (74-106)
[2024-03-12 04:52] LABS: Blood Urea Nitrogen 28 mg/dL (9-23); Carbon Dioxide 34 mmol/L (20-31)
--- NOTE | 2024-03-12 09:32 | DVHPN2 ---
Subjective Patient reports pain to right lower extremity. Reviewed: Care Plan, H&P, Labs, Medications Changes from previous H/P or p: No Changes General: Per HPI Eyes: No Pain, No Vision change, No Conjunctivae inflammation, No Eyelid inflammation, No Other, No Redness ENT: No Ear pain, No Ear discharge, No Nose pain, No Nose discharge, No Nose congestion, No Mouth pain, No Mouth swelling, No Throat pain, No Throat swelling, No Other Cardiovascular: No Chest Pain, No Palpitations, No Orthopnea, No Paroxysmal Noc. Dyspnea, No Edema, No Lt Headedness, No Other Respiratory: No Cough, No Dry, No Shortness of breath, No SOB with excertion, No Wheezing, No Hemoptysis, No Pleuritic Pain, No Sputum, No Other Genitourinary: No Dysuria, No Frequency, No Incontinence, No Hematuria, No Retention, No Other Musculoskeletal: leg pain (Dressing dry and intact) Skin: No Rash, No Lesions, No Jaundice, No Bruising, No Other Objective Vitals Vital Signs Date Time Temp Pulse Resp B/P (MAP) Pulse Ox O2 Delivery O2 Flow Rate FiO2 03/12/24 06:00 13 100 Nasal Cannula* 2 28 03/12/24 06:00 78 03/12/24 06:00 100/65 (77) 03/12/24 04:00 98.1 98.1 Intake/Output Intake and Output 03/12/24 07:00 Intake Total 2417 ml Output Total 1175 ml Balance 1242 ml Intake Oral 390 ml IV Total 2027 ml Output Urine Total 1175 ml General Appearance: Alert, Oriented X3, Cooperative, mild distress HEENT: Atraumatic, PERRLA Lungs: Clear to auscultation, Normal air movement, Other (Nasal cannula at 2 liters/minute) Cardiovascular: Normal S1, Normal S2, Other (Atrial fibrillation with controlled rate) Abdomen: Normal bowel sounds Genitourinary: No Apparent Abnormalities (Bernabe catheter) Musculoskeletal: Other (No motor movement to right foot.) Extremities: Other (No motor movement or feeling to right foot.) Neuro: Normal gait, Normal speech Skin: Dry, Intact, Warm, Wounds (See nurse notes and pictures) Psych/Mental Status: Mental status NL, Mood NL Medications Current Medications Medications Dose Ordered Sig/Anthony Route Start Time Stop Time Status Last Admin Dose Admin Nitroglycerin 0.4 mg Q5MINP PRN SL 03/10/24 14:45 Morphine Sulfate 2 mg Q30M PRN IV 03/10/24 14:45 Morphine Sulfate 2 mg Q4HPRN PRN IV 03/10/24 14:45 Acetaminophen/ Hydrocodone Bitart 1 tab Q6HPRN PRN PO 03/10/24 14:45 03/11/24 17:46 1 TAB Acetaminophen 500 mg Q8HP PRN PO 03/10/24 14:45 Ondansetron HCl 4 mg Q6HP PRN IV 03/10/24 14:45 Docusate Sodium 100 mg BID PRN PO 03/10/24 14:45 03/10/24 16:23 100 MG Ceftriaxone Sodium 50 ml @ 100 mls/hr DAILY@09 IV 03/10/24 15:30 03/11/24 09:01 100 MLS/HR Sodium Bicarbonate 50 ml/ Sodium Chloride 1,050 ml @ 80 mls/hr Q13H8M IV 03/10/24 14:45 03/11/24 22:01 80 MLS/HR Amiodarone HCl 200 mg BID PO 03/10/24 22:00 03/11/24 22:01 200 MG Polyethylene Glycol 17 gm DAILYPRN PRN PO 03/11/24 13:15 03/11/24 13:29 17 GM Heparin Sodium/ Dextrose 250 ml @ 8 mls/hr Q24H IV 03/11/24 17:45 03/12/24 02:07 8 MLS/HR Laboratory Results Laboratory Tests 03/11/24 03:20 03/12/24 03:25 Chemistry Test 03/12/24 03:25 Calcium Level 8.8 mg/dL (8.7-10.4) Coagulation Test 03/11/24 16:03 03/12/24 00:25 Prothrombin Time 10.2 sec (9.3-11.8) Prothrombin Time INR 0.96 (0.9-1.15) Activated Partial Thromboplast Time 38.6 SEC (24.5-34.5) H 72.7 SEC (24.5-34.5) *H Urinalysis Test 03/10/24 23:15 Urine Color Brown (Yellow) H Urine Clarity Ex.turbid (Clear) Urine pH 5.5 (5.0-9.0) Urine Specific Orr 1.012 (1.001-1.035) Urine Protein Trace (Negative) H Urine Ketones Negative (Negative) Urine Blood 3+ /uL (Negative) H Urine Nitrite Negative (Negative) Urine Bilirubin Negative (Negative) Urine Urobilinogen Normal mg/dL (Negative) Urine Leukocyte Esterase 1+ /uL (Negative) Urine RBC 3 /hpf (0 - 4) Urine WBC 42 /hpf (0 - 5) Urine WBC Clumps Present /hpf (None Seen) Urine Squamous Epithelial Cells Few /hpf (<5) Urine Bacteria None seen /hpf (None Seen) Urine Yeast (Budding) Few /hpf (None Seen) Urine Glucose 3+ mg/dL (Normal) H Microbiology Microbiology Date/Time Source Procedure Growth Status 03/10/24 23:15 Urine - Bernabe Port Urine Culture - Preliminary Resulted 03/10/24 16:00 Nose MRSA Screen - Final Complete Labs and/or images reviewed: Labs reviewed by me, Image(s) reviewed by me Assessment/Plan Assessment/Plan Impression: -Acute decompensated systolic heart failure. -Acute thrombus with right lower extremity ischemia -acute on chronic systolic heart failure -acute hypoxic respiratory failure -atrial fibrillation rapid ventricular rate -history of Watchman device -elevated D-dimer, ruled out pulmonary embolism -dyslipidemia -hyperkalemia with acute kidney injury -rhabdomyolysis -rule out abdominal CA. CA 125: 328 Plan: -continue heparin drip -continue wound care per vascular surgery -continue sodium bicarbonate drip -nephrology consultation -CT of chest, abdomen, pelvis -pain management -bowel regimen -further course of care per findings of CT scan. Consider ASA Critical care time spent with patient discussing and formulating plan of care: 40 minutes. This does not include time spent performing procedures. This medical document was created using an electronic medical record system with [employer] dictation system. Although this document has been carefully reviewed, there may still be some phonetic and typographical errors. These areas are purely typographical due to imperfections of the software programs, and do not reflect any compromise in the patient's medical care. Plan discussed with: Patient, Other (RN) My Orders Orders - NICOLE REBOLLAR NP Procedure Category Date Status Time Polyethylene Glycol PHA 03/11/24 In Process 17g Powder (Miralax 13:15 Heparin Drip/D5w PHA 03/11/24 In Process 100units/Ml 17:45 Complete Blood Count LAB 03/13/24 Verified 04:00 PTPTT LAB 03/12/24 Logged 08:30 Chst Ab Pel Wo Con-No CT 03/12/24 Logged Iv/Oral 08:26 Date of Service: Mar 12, 2024 Billing Provider: NICOLE REBOLLAR NP Common Visit Codes: 98072-[id number] CARE 30-74 MIN NICOLE REBOLLAR NP Mar 12, 2024 09:32
--- NOTE | 2024-03-12 10:16 | DVHPN2 ---
Progress Note Date Seen: Mar 12, 2024 Medical Necessity Reason Pt with a Central, PICC or Fol: Yes The following are medically ne: Myers Catheter Reason for myers catheter: Strict I&O Subjective Patient reports: Feels better Review of Systems: CVS:Abnormal Objective vital signs Vital Sign Date Time Temp Pulse Resp B/P (MAP) Pulse Ox O2 Delivery O2 Flow Rate FiO2 03/12/24 08:00 94 18 96 Room Air* 0 21 03/12/24 06:00 100/65 (77) 03/12/24 04:00 98.1 98.1 Total Intake and Output 03/11/24 03/11/24 03/12/24 15:00 23:00 07:00 Intake Total 763 ml 928 ml 726 ml Output Total 550 ml 625 ml Balance 763 ml 378 ml 101 ml medications Current Medications Medications Dose Ordered Sig/Anthony Route Start Time Stop Time Status Last Admin Dose Admin Nitroglycerin 0.4 mg Q5MINP PRN SL 03/10/24 14:45 Morphine Sulfate 2 mg Q30M PRN IV 03/10/24 14:45 Morphine Sulfate 2 mg Q4HPRN PRN IV 03/10/24 14:45 Acetaminophen/ Hydrocodone Bitart 1 tab Q6HPRN PRN PO 03/10/24 14:45 03/11/24 17:46 1 TAB Acetaminophen 500 mg Q8HP PRN PO 03/10/24 14:45 Ondansetron HCl 4 mg Q6HP PRN IV 03/10/24 14:45 Docusate Sodium 100 mg BID PRN PO 03/10/24 14:45 03/10/24 16:23 100 MG Ceftriaxone Sodium 50 ml @ 100 mls/hr DAILY@09 IV 03/10/24 15:30 03/11/24 09:01 100 MLS/HR Sodium Bicarbonate 50 ml/ Sodium Chloride 1,050 ml @ 80 mls/hr Q13H8M IV 03/10/24 14:45 03/11/24 22:01 80 MLS/HR Amiodarone HCl 200 mg BID PO 03/10/24 22:00 03/11/24 22:01 200 MG Polyethylene Glycol 17 gm DAILYPRN PRN PO 03/11/24 13:15 03/11/24 13:29 17 GM Heparin Sodium/ Dextrose 250 ml @ 8 mls/hr Q24H IV 03/11/24 17:45 03/12/24 02:07 8 MLS/HR Enteral Nutritional Formula 240 ml QID PO 03/12/24 12:00 Examination: LUNGS:Abnormal, CVS:Abnormal laboratory and microbiology Laboratory Tests 03/12/24 03:25 03/11/24 03:20 Test 03/12/24 03:25 Range/Units Serum Glucose 94 74-106 mg/dL Microbiology Date/Time Source Procedure Growth Status 03/10/24 23:15 Urine - Myers Port Urine Culture - Preliminary Resulted 03/10/24 16:00 Nose MRSA Screen - Final Complete Problem List/Assessment/Plan Problem List/Assessment/Plan hemodynamically mediated acute kidney injury, possible ischemic/nephrotoxic ATN, 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 Diastolic and systolic HF EF 25% baseline renal function unknown elevated tumor marker anemia high risk for contrast induced nephropathy 57% due to CHF and low BP 12% risk of requiring dialysis rec IVF due to current rhabdomyolysis, diuretics concurrently for fluid excretion cardiology heparin drip high CPK yesterday continue IVF, change to NS repeat CPK today Plan discussed with: Patient KURT WATERS MD Mar 12, 2024 10:15
[2024-03-12 11:05] LABS: INR 0.96 (0.9-1.15); Prothrombin Time 10.2 sec (9.3-11.8)
[2024-03-12 11:08] LABS: Partial Thromboplastin Time 75.7 SEC (24.5-34.5)
--- NOTE | 2024-03-12 11:54 | DVH ---
CT CHEST, ABDOMEN AND PELVIS WITHOUT CONTRAST CLINICAL HISTORY: elevated Ca 125, CA TECHNIQUE: Multiple contiguous axial images of the chest, abdomen and pelvis without intravenous cont rast. The images were reformatted degenerate coronal and sagittal reconstructions. All CT scans at this medical facility are performed using dose modulation techniques as appropriate t o a performed exam including the following:Automated exposure control was utilized; adjustment of the MA and/or KV according to patient size; and use of iterative reconstruction technique. Radiation Dose Information: CT Dose: CTDI volume is 6 mGy. Dose-length product is 403 mGy*cm FINDINGS: [Findings] Evaluation of the chest, abdomen and pelvis is limited without intravenous contrast. There are small bilateral pleural effusions with atelectasis in the posterior lung bases. there is no lung consolidation. There is no suspicious appearing pulmonary nodule or mass. There is no evidence of pneumothorax. There is no evidence of a mediastinal mass or lymphadenopathy. There is no axillary lymphadenopathy . There is cardiomegaly. There is no significant pericardial effusion. There is a 1.4 cm fat attenuating nodule in the upper pole of the left kidney compatible with an tobias omyolipoma. There is no evidence of nephrolithiasis or hydronephrosis. There is a 1.0 cm left hepatic lobe cyst. The gallbladder is distended with likely layering sludge. T here are no obvious gallstones. The pancreas, adrenal glands, and spleen appear within normal li mits. There is no gross evidence of abdominal lymphadenopathy. There is no free fluid or free air. The small and large bowel loops demonstrate normal caliber. There is moderate amount of stool in the colon. The abdominal aorta and IVC appear within normal limits. There is a Bernabe catheter in the bladder which is decompressed limiting evaluation. Pelvic organ appe ars within normal limits. There is no gross evidence of a pelvic mass or lymphadenopathy. There is n o free fluid collection. There are postsurgical changes in the right groin with surgical clips and escamilla bcutaneous fatty infiltration There is no acute osseous abnormality. IMPRESSION: 1. There is no acute process in the chest, abdomen and pelvis. 2. Cardiomegaly. 3. Small bilateral pleural effusions with atelectasis in the posterior lung bases. 4. 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 5. Distended gallbladder with likely layering sludge. There are no obvious gallstones. 6. Moderate amount of stool in the colon. 7. Postsurgical changes in the right groin with surgical clips and subcutaneous fatty infiltration. HS:Y
[2024-03-12] MEDS: Ensure HIGH Protein Chocolate 8oz Bottle PO SCH (12:00)
[2024-03-12] MEDS: FUROSEMIDE 40 MG/4 ML VIAL IV SCH (12:00)
[2024-03-12] MEDS: SODIUM CHLORIDE 0.9% 1,000 ML IV SCH (12:00)
[2024-03-12] MEDS: MORPHINE SULFATE INJ 2 MG/ml SYRG IV PRN (15:03)
--- NOTE | 2024-03-12 16:26 | DVHPN2 ---
Progress Note Date Seen: Mar 12, 2024 Has the PT tested + for MRSA If YES, has PT been informed?: No Medical Necessity Reason Pt with a Central, PICC or Fol: Yes The following are medically ne: Myers Catheter Reason for myers catheter: Strict I&O Subjective Patient reports: No new complaints Review of Systems: HEENT:Normal, CVS:Normal, RESPIRATORY:Normal, GI:Normal, :Normal, MSK:Normal, NEURO:Normal Objective vital signs Vital Sign Date Time Temp Pulse Resp B/P (MAP) Pulse Ox O2 Delivery O2 Flow Rate FiO2 03/12/24 15:03 90 16 95/57 03/12/24 15:00 99 03/12/24 14:00 Room Air* 0 21 03/12/24 12:00 98.1 98.1 Total Intake and Output 03/11/24 03/11/24 03/12/24 15:00 23:00 07:00 Intake Total 763 ml 928 ml 814 ml Output Total 550 ml 625 ml Balance 763 ml 378 ml 189 ml medications Current Medications Medications Dose Ordered Sig/Anthony Route Start Time Stop Time Status Last Admin Dose Admin Nitroglycerin 0.4 mg Q5MINP PRN SL 03/10/24 14:45 Morphine Sulfate 2 mg Q30M PRN IV 03/10/24 14:45 Morphine Sulfate 2 mg Q4HPRN PRN IV 03/10/24 14:45 03/12/24 15:03 2 MG Acetaminophen/ Hydrocodone Bitart 1 tab Q6HPRN PRN PO 03/10/24 14:45 03/12/24 10:09 1 TAB Acetaminophen 500 mg Q8HP PRN PO 03/10/24 14:45 Ondansetron HCl 4 mg Q6HP PRN IV 03/10/24 14:45 Docusate Sodium 100 mg BID PRN PO 03/10/24 14:45 03/10/24 16:23 100 MG Ceftriaxone Sodium 50 ml @ 100 mls/hr DAILY@09 IV 03/10/24 15:30 03/12/24 10:08 100 MLS/HR Amiodarone HCl 200 mg BID PO 03/10/24 22:00 03/12/24 10:08 200 MG Polyethylene Glycol 17 gm DAILYPRN PRN PO 03/11/24 13:15 03/12/24 10:09 17 GM Heparin Sodium/ Dextrose 250 ml @ 8 mls/hr Q24H IV 03/11/24 17:45 03/12/24 02:07 8 MLS/HR Enteral Nutritional Formula 240 ml QID PO 03/12/24 12:00 Sodium Chloride 1,000 ml @ 75 mls/hr [id number] IV 03/12/24 10:15 03/12/24 12:00 75 MLS/HR Furosemide 40 mg DAILY IV 03/12/24 10:15 03/12/24 12:00 40 MG Examination: GENERAL:Normal, HEENT:Normal, NECK:Normal, LUNGS:Normal, CVS:Normal, ABDOMEN:Normal, MSK:Normal (Fasciotomy sites open muscles pink and healthy.), SKIN:Normal, NEURO:Normal, :Normal laboratory and microbiology Laboratory Tests 03/12/24 03:25 03/11/24 03:20 Test 03/12/24 03:25 Range/Units Serum Glucose 94 74-106 mg/dL Microbiology Date/Time Source Procedure Growth Status 03/10/24 23:15 Urine - Myers Port Urine Culture - Preliminary Resulted 03/10/24 16:00 Nose MRSA Screen - Final Complete Problem List/Assessment/Plan Problem List/Assessment/Plan Status post right common femoral embolectomy, angiogram, 4 quadrant fasciotomy March 08, 2024 Out of bed Continue current wound care to the right leg. Continue anticoagulation Recommend wound care consult for wound VAC placement for fasciotomy incisions. Plan discussed with: Patient My Orders My Orders Orders - VIDAL JONES Jr., MD Procedure Category Date Status Time * Wound Consult CONS 03/12/24 Transmitted VIDAL JONES Jr., MD Mar 12, 2024 16:26
[2024-03-12 19:09] LABS: INR 0.97 (0.9-1.15); Prothrombin Time 10.3 sec (9.3-11.8)
--- NOTE | 2024-03-12 23:12 | DVHPN2 ---
Progress Note - Dictate Date Seen: Mar 12, 2024 Has the PT tested + for MRSA If YES, has PT been informed?: No Medical Necessity Reason Pt with a Central, PICC or Fol: Yes The following are medically ne: Myers Catheter Reason for myers catheter: Strict I&O Subjective Patient was seen and evaluated in follow up in the ICU. Patient reports pain to right lower extremity, increases with activity. Patient receiving heparin drip. CO2 34, BUN 28, Ict Managers 1.16, creatine kinase [address]07. 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 vital signs Vital Sign Date Time Temp Pulse Resp B/P (MAP) Pulse Ox O2 Delivery O2 Flow Rate FiO2 03/12/24 18:00 17 100 Room Air* 0 21 03/12/24 18:00 88 03/12/24 18:00 100/56 (71) 03/12/24 16:00 97.6 97.6 Total Intake and Output 03/11/24 03/11/24 03/12/24 15:00 23:00 07:00 Intake Total 763 ml 928 ml 814 ml Output Total 550 ml 625 ml Balance 763 ml 378 ml 189 ml medications Current Medications Medications Dose Ordered Sig/Anthony Route Start Time Stop Time Status Last Admin Dose Admin Nitroglycerin 0.4 mg Q5MINP PRN SL 03/10/24 14:45 Morphine Sulfate 2 mg Q30M PRN IV 03/10/24 14:45 Morphine Sulfate 2 mg Q4HPRN PRN IV 03/10/24 14:45 03/12/24 15:03 2 MG Acetaminophen/ Hydrocodone Bitart 1 tab Q6HPRN PRN PO 03/10/24 14:45 03/12/24 10:09 1 TAB Acetaminophen 500 mg Q8HP PRN PO 03/10/24 14:45 Ondansetron HCl 4 mg Q6HP PRN IV 03/10/24 14:45 Docusate Sodium 100 mg BID PRN PO 03/10/24 14:45 03/10/24 16:23 100 MG Ceftriaxone Sodium 50 ml @ 100 mls/hr DAILY@09 IV 03/10/24 15:30 03/12/24 10:08 100 MLS/HR Amiodarone HCl 200 mg BID PO 03/10/24 22:00 03/12/24 22:03 200 MG Polyethylene Glycol 17 gm DAILYPRN PRN PO 03/11/24 13:15 03/12/24 10:09 17 GM Heparin Sodium/ Dextrose 250 ml @ 8 mls/hr Q24H IV 03/11/24 17:45 03/12/24 02:07 8 MLS/HR Enteral Nutritional Formula 240 ml QID PO 03/12/24 12:00 03/12/24 22:04 240 ML Sodium Chloride 1,000 ml @ 75 mls/hr [id number] IV 03/12/24 10:15 03/12/24 12:00 75 MLS/HR Furosemide 40 mg DAILY IV 03/12/24 10:15 03/12/24 12:00 40 MG objective GENERAL: Awake, alert, oriented. LUNGS: Clear. CARDIOVASCULAR: Heart sounds are good. ABDOMEN: Soft. laboratory and microbiology Laboratory Tests 03/12/24 03:25 03/11/24 03:20 Test 03/12/24 03:25 Range/Units Serum Glucose 94 74-106 mg/dL Problem List Acute decompensated systolic heart failure. Lower extremity ischemia. Acute on chronic systolic heart failure. Acute hypoxic respiratory failure. Atrial fibrillation rapid ventricular rate. History of Watchman device. Dyslipidemia. Acute right lower leg PND with ischemia. Hyperkalemia with acute kidney injury. Rhabdomyolysis. Assessment/Plan Continued all current supportive medical care. Morphine and [place] for pain management. Amiodarone. IV antibiotics as ordered. Heparin drip per protocol. Nitro SL. Additional plan as per the hospital course. Critical care time of 45 minutes provided to include time spent evaluation of patient at bedside, when appropriate patient/family education for diagnosis, treatment plan, review of pertinent medical information and discussion of care with specialty providers and PCP. Plan discussed with: Patient SALVADOR CONNORS MD Mar 12, 2024 23:12
--- NOTE | 2024-03-12 23:52 | DVHPN2 ---
Progress Note - Dictate Date Seen: Mar 12, 2024 Has the PT tested + for MRSA If YES, has PT been informed?: No Medical Necessity Reason Pt with a Central, PICC or Fol: Yes The following are medically ne: Myers Catheter Reason for myers catheter: Strict I&O Subjective Patient seen and examined at bedside. Breathing comfortably on room air. Overnight events reviewed. vital signs Vital Sign Date Time Temp Pulse Resp B/P (MAP) Pulse Ox O2 Delivery O2 Flow Rate FiO2 03/12/24 18:00 17 100 Room Air* 0 21 03/12/24 18:00 88 03/12/24 18:00 100/56 (71) 03/12/24 16:00 97.6 97.6 Total Intake and Output 03/11/24 03/11/24 03/12/24 15:00 23:00 07:00 Intake Total 763 ml 928 ml 814 ml Output Total 550 ml 625 ml Balance 763 ml 378 ml 189 ml medications Current Medications Medications Dose Ordered Sig/Anthony Route Start Time Stop Time Status Last Admin Dose Admin Nitroglycerin 0.4 mg Q5MINP PRN SL 03/10/24 14:45 Morphine Sulfate 2 mg Q30M PRN IV 03/10/24 14:45 Morphine Sulfate 2 mg Q4HPRN PRN IV 03/10/24 14:45 03/12/24 15:03 2 MG Acetaminophen/ Hydrocodone Bitart 1 tab Q6HPRN PRN PO 03/10/24 14:45 03/12/24 10:09 1 TAB Acetaminophen 500 mg Q8HP PRN PO 03/10/24 14:45 Ondansetron HCl 4 mg Q6HP PRN IV 03/10/24 14:45 Docusate Sodium 100 mg BID PRN PO 03/10/24 14:45 03/10/24 16:23 100 MG Ceftriaxone Sodium 50 ml @ 100 mls/hr DAILY@09 IV 03/10/24 15:30 03/12/24 10:08 100 MLS/HR Amiodarone HCl 200 mg BID PO 03/10/24 22:00 03/12/24 22:03 200 MG Polyethylene Glycol 17 gm DAILYPRN PRN PO 03/11/24 13:15 03/12/24 10:09 17 GM Heparin Sodium/ Dextrose 250 ml @ 8 mls/hr Q24H IV 03/11/24 17:45 03/12/24 02:07 8 MLS/HR Enteral Nutritional Formula 240 ml QID PO 03/12/24 12:00 03/12/24 22:04 240 ML Sodium Chloride 1,000 ml @ 75 mls/hr [id number] IV 03/12/24 10:15 03/12/24 12:00 75 MLS/HR Furosemide 40 mg DAILY IV 03/12/24 10:15 03/12/24 12:00 40 MG objective Gen.: Patient lying in bed in no apparent distress. Breathing on room air. Head: Normocephalic, atraumatic. Eyes: EOMI/PERRLA. Ears: Normal hearing. Normal anatomy. Neck/trachea: Trachea midline, supple. Nose: Normal external anatomy. Mouth: Moist mucous membranes. Chest: Decreased air entry bilaterally. No wheezing or rhonchi. Cardiovascular: Positive S1, positive S2. Regular rate and rhythm. Abdomen: Positive bowel sounds in all 4 quadrants. Soft, non-tender, non- distended. : Deferred. Rectal: Deferred. Skin: Warm, dry. Intact. Extremities: 2+ radial pulses bilaterally. No lower extremity edema. Neuro: Awake, alert, oriented x3. No gross motor or sensory deficits. Cranial nerves II through XII intact. Gait not assessed. laboratory and microbiology Laboratory Tests 03/12/24 03:25 03/11/24 03:20 Test 03/12/24 03:25 Range/Units Serum Glucose 94 74-106 mg/dL Assessment/Plan Impression: Acute hypoxic respiratory failure Dependence on supplemental oxygen Acute thrombus with right lower extremity ischemia Acute on chronic systolic heart failure Atrial fibrillation w/ rapid ventricular rate Acute kidney injury Rhabdomyolysis Events: Tapered off supplemental oxygen Breathing on room air. Supplemental O2 PRN CT abdomen and pelvis demonstrates small bilateral pleural effusions and atelectasis. Continue antibiotics Incentive spirometry IV fluids at 75 ml/hr. Diurese as tolerated with Lasix QD Monitor renal function Monitor electrolytes. Supplement as necessary. Labs and imaging reviewed. Rest of plan as noted below. Plan: Supplemental oxygen PRN Titrate to keep O2 sats above 92%. Continue antibiotics Amiodarone PO Heparin drip Vascular Surgery recs appreciated. Wound care Monitor renal function. Monitor electrolytes. Supplement as necessary. Monitor ins and outs. DVT prophylaxis. Prognosis: Poor given patient's multiple co-morbidities. Rest of plan per hospitalist and other consultants. A total of 51 minutes of clinical care time was spent reviewing the patient record, examining the patient, making a diagnostic and therapeutic plan, discussing this plan with the medical personnel, following up on diagnostic studies and following the patient for clinical stability excluding any and all procedures. At least 50% of this time was spent in direct, [id number] contact. Thank you, DAVID Gonzalez, for allowing me to participate in this patient's care. Further recommendations will depend on the patient's clinical course. Please do not hesitate to contact me if you have any questions or concerns. This medical document was created using an electronic medical record system with [employer] computerized dictation system. Although these documentations are being carefully reviewed, there may still be some phonetic and typographical changes. The errors are purely typographical, due to imperfection on the software program, and do not reflect any compromise in the patient's medical care. Plan discussed with: Patient, Other (RADHA Lowe) JORDAN WONG MD Mar 12, 2024 23:52
[2024-03-13] VITALS (25 sets, daily range): BP systolic 91–116; BP diastolic 46–72; PULSE 77–114; RESP 14–32; TEMP 98–99.1; O2SAT 96–100
[2024-03-13 04:12] LABS: Basophils # (auto) 0 10 ^3/uL (0-0.2); Hemoglobin 11.2 g/dL (12.2-16.2); Lymphocytes # (auto) 0.9 10 ^3/uL (0.4-5.4); Monocytes # (auto) 0.4 10 ^3/uL (0-1.3)
[2024-03-13 04:19] LABS: Basophils % (auto) 0.5 % (0.0-2.0); Eosinophils # (auto) 0.1 10 ^3/uL (0-0.8); Eosinophils % (auto) 0.9 % (0.0-7.0); Hematocrit 33.3 % (36.0-46.0); Lymphocytes % (auto) 14.3 % (10.0-50.0); Mean Corpuscular Hemoglobin 34.2 pg (28.0-32.0); Mean Corpuscular Hgb Conc. 33.7 g/dL (32.0-36.0); Mean Corpuscular Volume 101.5 fL (80.0-100.0); Monocytes % (auto) 6.2 % (0.0-12.0); Neutrophils # (auto) 4.7 10 ^3/uL (1.6-8.6); Neutrophils % (auto) 78.1 % (37.0-80.0); Nucleated Red Blood Cells % 0.1 %; Platelet Count (auto) 120 10^3/uL (140-450); Red Blood Cells 3.28 10^6/uL (4.0-5.20)
[2024-03-13 04:23] LABS: Chloride 102 mmol/L (98-107); Potassium 4.3 mmol/L (3.5-5.1); Sodium 139 mmol/L (136-145)
[2024-03-13 04:24] LABS: Anion Gap 6 (5-15)
[2024-03-13 04:29] LABS: BUN/Creatinine Ratio 21.8 (10.0-20.0); Blood Urea Nitrogen 22 mg/dL (9-23); Glucose 99 mg/dL (74-106)
[2024-03-13 04:42] LABS: Carbon Dioxide 31 mmol/L (20-31); Creatine Kinase IFCC 10156 U/L (34-145)
[2024-03-13] MEDS: LACTULOSE 20Gm/30ML SOLN PO ONE (09:11)
--- NOTE | 2024-03-13 09:31 | DVHPN2 ---
Subjective Patient reports constipation Reviewed: Care Plan, H&P, Labs, Medications Changes from previous H/P or p: Changes General: Per HPI Eyes: No Pain, No Vision change, No Conjunctivae inflammation, No Eyelid inflammation, No Other, No Redness ENT: No Ear pain, No Ear discharge, No Nose pain, No Nose discharge, No Nose congestion, No Mouth pain, No Mouth swelling, No Throat pain, No Throat swelling, No Other Cardiovascular: No Chest Pain, No Palpitations, No Orthopnea, No Paroxysmal Noc. Dyspnea, No Edema, No Lt Headedness, No Other Respiratory: No Cough, No Dry, No Shortness of breath, No SOB with excertion, No Wheezing, No Hemoptysis, No Pleuritic Pain, No Sputum, No Other Genitourinary: No Dysuria, No Frequency, No Incontinence, No Hematuria, No Retention, No Other Musculoskeletal: leg pain (Dressing dry and intact) Skin: No Rash, No Lesions, No Jaundice, No Bruising, No Other Objective Vitals Vital Signs Date Time Temp Pulse Resp B/P (MAP) Pulse Ox O2 Delivery O2 Flow Rate FiO2 03/13/24 06:00 85 20 98/56 (70) 99 03/13/24 06:00 Room Air* 0 21 03/13/24 04:00 98.2 98.2 Intake/Output Intake and Output 03/13/24 07:00 Intake Total 2969 ml Output Total 2520 ml Balance 449 ml Intake Oral 930 ml IV Total 2039 ml Output Urine Total 2520 ml General Appearance: Alert, Oriented X3, Cooperative, mild distress HEENT: Atraumatic, PERRLA Lungs: Clear to auscultation, Normal air movement, Other (Nasal cannula at 2 liters/minute) Cardiovascular: Normal S1, Normal S2, Other (Atrial fibrillation with controlled rate) Abdomen: Normal bowel sounds Genitourinary: No Apparent Abnormalities (Bernabe catheter) Musculoskeletal: Other (No motor movement to right foot.) Extremities: Other (No motor movement or feeling to right foot.) Neuro: Normal gait, Normal speech Skin: Dry, Intact, Warm, Wounds (See nurse notes and pictures) Psych/Mental Status: Mental status NL, Mood NL Medications Current Medications Medications Dose Ordered Sig/Anthony Route Start Time Stop Time Status Last Admin Dose Admin Nitroglycerin 0.4 mg Q5MINP PRN SL 03/10/24 14:45 Morphine Sulfate 2 mg Q30M PRN IV 03/10/24 14:45 Morphine Sulfate 2 mg Q4HPRN PRN IV 03/10/24 14:45 03/12/24 15:03 2 MG Acetaminophen/ Hydrocodone Bitart 1 tab Q6HPRN PRN PO 03/10/24 14:45 03/12/24 10:09 1 TAB Acetaminophen 500 mg Q8HP PRN PO 03/10/24 14:45 Ondansetron HCl 4 mg Q6HP PRN IV 03/10/24 14:45 Docusate Sodium 100 mg BID PRN PO 03/10/24 14:45 03/10/24 16:23 100 MG Ceftriaxone Sodium 50 ml @ 100 mls/hr DAILY@09 IV 03/10/24 15:30 03/13/24 09:11 100 MLS/HR Amiodarone HCl 200 mg BID PO 03/10/24 22:00 03/12/24 22:03 200 MG Polyethylene Glycol 17 gm DAILYPRN PRN PO 03/11/24 13:15 03/12/24 10:09 17 GM Heparin Sodium/ Dextrose 250 ml @ 8 mls/hr Q24H IV 03/11/24 17:45 03/12/24 02:07 8 MLS/HR Enteral Nutritional Formula 240 ml QID PO 03/12/24 12:00 03/13/24 06:52 240 ML Sodium Chloride 1,000 ml @ 75 mls/hr [id number] IV 03/12/24 10:15 03/13/24 01:54 75 MLS/HR Furosemide 40 mg DAILY IV 03/12/24 10:15 03/12/24 12:00 40 MG Laboratory Results Laboratory Tests 03/13/24 03:34 Chemistry Test 03/13/24 03:34 Calcium Level 9.0 mg/dL (8.7-10.4) Coagulation Test 03/12/24 09:38 03/12/24 18:16 Prothrombin Time 10.2 sec (9.3-11.8) 10.3 sec (9.3-11.8) Prothrombin Time INR 0.96 (0.9-1.15) 0.97 (0.9-1.15) Activated Partial Thromboplast Time 75.7 SEC (24.5-34.5) *H 66.0 SEC (24.5-34.5) H Urinalysis Test 03/10/24 23:15 Urine Color Brown (Yellow) H Urine Clarity Ex.turbid (Clear) Urine pH 5.5 (5.0-9.0) Urine Specific [place] 1.012 (1.001-1.035) Urine Protein Trace (Negative) H Urine Ketones Negative (Negative) Urine Blood 3+ /uL (Negative) H Urine Nitrite Negative (Negative) Urine Bilirubin Negative (Negative) Urine Urobilinogen Normal mg/dL (Negative) Urine Leukocyte Esterase 1+ /uL (Negative) Urine RBC 3 /hpf (0 - 4) Urine WBC 42 /hpf (0 - 5) Urine WBC Clumps Present /hpf (None Seen) Urine Squamous Epithelial Cells Few /hpf (<5) Urine Bacteria None seen /hpf (None Seen) Urine Yeast (Budding) Few /hpf (None Seen) Urine Glucose 3+ mg/dL (Normal) H Microbiology Microbiology Date/Time Source Procedure Growth Status 03/10/24 23:15 Urine - [place] Urine Culture - Preliminary Resulted 03/10/24 16:00 Nose MRSA Screen - Final Complete Labs and/or images reviewed: Labs reviewed by me, Image(s) reviewed by me Assessment/Plan Assessment/Plan Impression: -Acute decompensated systolic heart failure. -Acute thrombus with right lower extremity ischemia -acute on chronic systolic heart failure -acute hypoxic respiratory failure -atrial fibrillation rapid ventricular rate -history of Watchman device -elevated D-dimer, ruled out pulmonary embolism -dyslipidemia -hyperkalemia with acute kidney injury -rhabdomyolysis -rule out abdominal CA. CA 125: 328 Plan: -Events: CT results discussed with pt. Given no acute findings, proceed with ASA. -continue heparin drip -continue wound care per vascular surgery: Plans for wound vac -continue sodium bicarbonate drip -nephrology consultation: results reviewed -Pain management -bowel regimen: add lactulose -Transfer to [facility] Critical care time spent with patient discussing and formulating plan of care: 40 minutes. This does not include time spent performing procedures. This medical document was created using an electronic medical record system with [employer] dictation system. Although this document has been carefully reviewed, there may still be some phonetic and typographical errors. These areas are purely typographical due to imperfections of the software programs, and do not reflect any compromise in the patient's medical care. Plan discussed with: Patient, Other (RN) My Orders Orders - NICOLE REBOLLAR NP Procedure Category Date Status Time Regular Diet DIET 03/12/24 Transmitted Lunch Nutritional PHA 03/12/24 In Process Supplements (Ensure 12:00 Heparin Per Pharmacy ALYSA 03/12/24 In Process Protocol 12:00 Basic Metabolic Panel LAB 03/14/24 Verified 04:00 Complete Blood Count LAB 03/14/24 Verified 04:00 Creatine Kinase LAB 03/14/24 Verified 04:00 Transfer Orders XFER 03/13/24 Verified 09:27 Date of Service: Mar 13, 2024 Billing Provider: NICOLE REBOLLAR NP Common Visit Codes: 37759-[id number] CARE 30-74 MIN NICOLE REBOLLAR NP Mar 13, 2024 09:31
--- NOTE | 2024-03-13 12:50 | DVHPN2 ---
Progress Note Date Seen: Mar 13, 2024 Has the PT tested + for MRSA If YES, has PT been informed?: No Medical Necessity Reason Pt with a Central, PICC or Fol: Yes The following are medically ne: Myers Catheter Reason for myers catheter: Strict I&O Subjective Patient reports: Feels better Objective vital signs Vital Sign Date Time Temp Pulse Resp B/P (MAP) Pulse Ox O2 Delivery O2 Flow Rate FiO2 03/13/24 11:00 93 19 116/65 (82) 100 03/13/24 10:00 Room Air* 0 21 03/13/24 08:00 98.2 98.2 Total Intake and Output 03/12/24 03/12/24 03/13/24 15:00 23:00 07:00 Intake Total 1381 ml 784 ml 804 ml Output Total 1850 ml 670 ml Balance 1381 ml -1066 ml 134 ml medications Current Medications Medications Dose Ordered Sig/Anthony Route Start Time Stop Time Status Last Admin Dose Admin Nitroglycerin 0.4 mg Q5MINP PRN SL 03/10/24 14:45 Morphine Sulfate 2 mg Q30M PRN IV 03/10/24 14:45 Morphine Sulfate 2 mg Q4HPRN PRN IV 03/10/24 14:45 03/12/24 15:03 2 MG Acetaminophen/ Hydrocodone Bitart 1 tab Q6HPRN PRN PO 03/10/24 14:45 03/12/24 10:09 1 TAB Acetaminophen 500 mg Q8HP PRN PO 03/10/24 14:45 Ondansetron HCl 4 mg Q6HP PRN IV 03/10/24 14:45 Docusate Sodium 100 mg BID PRN PO 03/10/24 14:45 03/10/24 16:23 100 MG Ceftriaxone Sodium 50 ml @ 100 mls/hr DAILY@09 IV 03/10/24 15:30 03/13/24 09:11 100 MLS/HR Amiodarone HCl 200 mg BID PO 03/10/24 22:00 03/13/24 10:08 200 MG Polyethylene Glycol 17 gm DAILYPRN PRN PO 03/11/24 13:15 03/12/24 10:09 17 GM Heparin Sodium/ Dextrose 250 ml @ 8 mls/hr Q24H IV 03/11/24 17:45 03/13/24 10:18 8 MLS/HR Enteral Nutritional Formula 240 ml QID PO 03/12/24 12:00 03/13/24 06:52 240 ML Sodium Chloride 1,000 ml @ 75 mls/hr [id number] IV 03/12/24 10:15 03/13/24 01:54 75 MLS/HR Furosemide 40 mg DAILY IV 03/12/24 10:15 03/13/24 10:08 40 MG Examination: GENERAL:Abnormal, LUNGS:Abnormal, CVS:Abnormal laboratory and microbiology Laboratory Tests 03/13/24 03:34 Test 03/13/24 03:34 Range/Units Serum Glucose 99 74-106 mg/dL Microbiology Date/Time Source Procedure Growth Status 03/10/24 23:15 Urine - [place] Port Urine Culture - Final Complete 03/10/24 16:00 Nose MRSA Screen - Final Complete Problem List/Assessment/Plan Problem List/Assessment/Plan hemodynamically mediated acute kidney injury, possible ischemic/nephrotoxic ATN, 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 Diastolic and systolic HF EF 25% baseline renal function unknown elevated tumor marker anemia Right lower limb ischemia rec IVF, continue lasix to maintain urinary excretion cardiology, possible ASA heparin drip cpk improved Plan discussed with: Patient KURT WATERS MD Mar 13, 2024 12:49
--- NOTE | 2024-03-13 12:52 | MEDREC ---
[facility] Intervention Section I [facility] Intervention: Review courses of therapy (PLEASE CONSIDER D/C ANTIBIOTIC IN ABSENCE OF BACTERIAL INFECTION) JESSIE MACKAY PHARMACIST Mar 13, 2024 12:52
--- NOTE | 2024-03-13 17:48 | DVHINCON2 ---
Date Seen: Mar 13, 2024 Referring Physician DAVID Gonzalez Reason for Consultation ASA History of Present Illness This is an 78-year-old female patient who was recently seen at this facility, then left AMA to attend her husbands services and now returns for further management of care. Initially, the patient came to the emergency room with complaints of shortness of breath, chest pain, and palpitations. She was found to have a new onset of congestive heart failure and was being treated medically. During her previous stay, the patient had acute limb ischemia to her right lower extremity in which she was urgently taken by a vascular surgeon to have a right lower extremity angiogram and underwent a thrombectomy as well as fasciotomy. At this time, our team has been consulted for a transesophageal echocardiogram to rule out cardiac source of embolus. Significant past medical history includes congestive heart failure, atrial fibrillation status post Watchman device (on Eliquis), hypertension, and gout. 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 She also reports following up at [facility] after Watchman device placement approximately two years ago. Past Medical History Past medical history reviewed. No other significant than mentioned above. Past Surgical History Denies Family History: Patient reports no known family medical history. Family History Family history reviewed. Social History The patient has a five pack-year history, quit smoking approximately 40 years ago Patient denies any alcohol use Patient denies any illicit drug use Allergies: Coded Allergies: Procaine (Verified Allergy, Unknown, 03/11/24) Sulfa Antibiotics (Verified Allergy, Unknown, 03/11/24) Home Meds Reported Medications Fyvmdcdubkr-Eapycsehtuw-Pvt C- (Glucosamine Chondroitin) 1 Cap Cap, 1 CAP PO AC, CAP 03/04/24 Cholecalciferol (D3) 50 Mcg Cap, 50 MCG PO DAILY, CAP 03/04/24 Apoaequorin (PREVAGEN) 10 Mg Cap, 10 MG PO, CAP 03/04/24 Curcuma Longa (Turmeric) Extra (TURMERIC) 500 Mg Cap, 500 MG OR, CAP 03/04/24 Furosemide (Furosemide) 20 Mg Tab, 1 TAB PO DAILY for 30 Days, #30 03/04/24 Ferrous Sulfate (FERROUS SULFATE) 325 Mg Tb, 1 TAB PO DAILY for 90 Days, #90 03/04/24 Apixaban Base (ELIQUIS) 2.5 Mg Tab, 2.5 MG PO BID for 30 Days, #60 03/04/24 Nitroglycerin (NTROSTAT SUBLINGUAL) 0.4 Mg Sl, 0.4 MG SL PRN for 33 Days, #100 *MAY REPEAT EVERY 5 MINUTES X 3 TOTAL IF NO RELIEF, INITIATE ANALGESIC THERAPY. NOTIFY PHYSICIAN *Do not crush. 03/04/24 Amlodipine Besylate (Amlodipine Besylate) 5 Mg Tab, 1 TAB PO DAILY for 90 Days, #90 03/04/24 Lisinopril (Lisinopril) 10 Mg Tab, 1 TAB PO DAILY for 100 Days, #100 03/04/24 Metoprolol Succinate (Metoprolol Succinate Er) 25 Mg Tab, 1 TAB PO DAILY for 90 Days, #90 03/04/24 Allopurinol (Allopurinol) 300 Mg Tab, 1 TAB PO DAILY for 90 Days, #90 03/04/24 Amiodarone HCl (Amiodarone HCl) 200 Mg Tab, 1 TAB PO BID for 30 Days, #60 03/04/24 Home Meds Home medications reviewed. Review of Systems Constitutional: No symptom reported Ears, Nose, & Throat: No symptom reported Eyes: No symptom reported Neurological: No symptoms reported Pulmonary/Respiratory: No symptoms reported Cardiovascular: No symptom reported Gastrointestinal: No symptom reported Genitourinary: No symptom reported Musculoskeletal: Right lower extremity pain Skin: No symptom reported Psychiatric: No symptom reported Endocrine: No symptom reported Hematologic/Lymphatic: No symptom reported Vital Signs Vital Signs Date Time Temp Pulse Resp B/P (MAP) Pulse Ox O2 Delivery O2 Flow Rate FiO2 03/13/24 16:00 104 03/13/24 16:00 16 98 Room Air* 0 21 03/13/24 15:00 114/61 (78) 03/13/24 12:00 98.0 98.0 Physical Exam General Appearance: Cooperative. Well-developed. Well-nourished. No acute distress. Pulmonary/Respiratory: Clear, bilateral breaths sounds. Cardiovascular/Chest: Irregular rate and rhythm. Peripheral Pulses: 2+ Radial (R). 2+ Radial (L). 1+ Pedal (R). 1+ Pedal (L) Abdominal Exam: Normal bowel sounds. Ankle Exam: Negative ankle edema Lower extremities: Negative lower extremity edema Neuro/Mental Status: A/OX4, coherent. Thoughts/Psych: Normal thought pattern. Appropriate mood and affect. Good judgment and insight. Appearance: No acute distress. Skin Exam: Right lower extremity dressing in place. Skin warm to touch Labs/Diagnostic Data Labs Test 03/13/24 03:34 03/12/24 18:16 03/11/24 03:20 03/10/24 23:15 Range/Units White Blood Count 6.0 4.4-10.8 10^3/uL Red Blood Count 3.28 L 4.0-5.20 10^6/uL Hemoglobin 11.2 L 12.2-16.2 g/dL Hematocrit 33.3 L 36.0-46.0 % Mean Corpuscular Volume 101.5 H 80.0-100.0 fL Mean Corpuscular Hemoglobin 34.2 H 28.0-32.0 pg Mean Corpuscular Hemoglobin Concent 33.7 32.0-36.0 g/dL Red Cell Distribution Width 14.0 11.8-14.3 % Platelet Count 120 L 140-450 10^3/uL Mean Platelet Volume 10.1 6.9-10.8 fL Neutrophils (%) (Auto) 78.1 37.0-80.0 % Lymphocytes (%) (Auto) 14.3 10.0-50.0 % Monocytes (%) (Auto) 6.2 0.0-12.0 % Eosinophils (%) (Auto) 0.9 0.0-7.0 % Basophils (%) (Auto) 0.5 0.0-2.0 % Neutrophils # (Auto) 4.7 1.6-8.6 10 ^3/uL Lymphocytes # (Auto) 0.9 0.4-5.4 10 ^3/uL Monocytes # (Auto) 0.4 0-1.3 10 ^3/uL Eosinophils # (Auto) 0.1 0-0.8 10 ^3/uL Basophils # (Auto) 0 0-0.2 10 ^3/uL Nucleated Red Blood Cells 0.1 % Sodium Level 139 136-145 mmol/L Potassium Level 4.3 3.5-5.1 mmol/L Chloride Level 102 98-107 mmol/L Carbon Dioxide Level 31 20-31 mmol/L Anion Gap 6 5-15 Blood Urea Nitrogen 22 9-23 mg/dL Creatinine 1.01 0.550-1.02 mg/dL Glomerular Filtration Rate Calc 56 >90 mL/min BUN/Creatinine Ratio 21.8 H 10.0-20.0 Serum Glucose 99 74-106 mg/dL Calcium Level 9.0 8.7-10.4 mg/dL Creatine Kinase 66987 H 34-145 U/L Prothrombin Time 10.3 9.3-11.8 sec Prothrombin Time INR 0.97 0.9-1.15 Activated Partial Thromboplast Time 66.0 H 24.5-34.5 SEC Total Bilirubin 0.4 0.2-1.0 mg/dL Aspartate Amino Transferase (AST) 511 H 13-40 U/L Alanine Aminotransferase (ALT) 138 H 7-40 U/L Alkaline Phosphatase 79 46-116 U/L Total Protein 5.4 L 5.7-8.2 g/dL Albumin 3.3 3.2-4.8 g/dL Urine Color Brown H Yellow Urine Clarity Ex.turbid Clear Urine pH 5.5 5.0-9.0 Urine Specific [place] 1.012 1.001-1.035 Urine Protein Trace H Negative Urine Ketones Negative Negative Urine Blood 3+ H Negative /uL Urine Nitrite Negative Negative Urine Bilirubin Negative Negative Urine Urobilinogen Normal Negative mg/dL Urine Leukocyte Esterase 1+ Negative /uL Urine RBC 3 0 - 4 /hpf Urine WBC 42 0 - 5 /hpf Urine WBC Clumps Present None Seen /hpf Urine Squamous Epithelial Cells Few <5 /hpf Urine Bacteria None seen None Seen /hpf Urine Yeast (Budding) Few None Seen /hpf Urine Glucose 3+ H Normal mg/dL Microbiology Date/Time Source Procedure Growth Status 03/10/24 23:15 Urine - [place] Urine Culture - Final Complete 03/10/24 16:00 Nose MRSA Screen - Final Complete Assessment Rule out cardiac source of embolus Acute limb ischemia, right common femoral artery embolism, status post thrombectomy and fasciotomy Acute on chronic decompensated HFrEF, NYHA class III Atrial fibrillation, status post Watchman device (on Eliquis and Amiodarone) Hypertension Dyslipidemia Pleural effusion s/p Right thoracentesis Acute kidney injury Gout Plan/Recommendation We will continue with the following plan/recommendations (Dr. Gomez): Transthoracic echocardiogram reveals EF 25-30% with global hypokinesis. [id number] VASc score: 5 points, HAS-BLED score: 2 points. Patient currently on heparin per vascular team, transition to NOAC when appropriate, consider adding beta kathie for rate control. Consider GDMT for CHF with optimal renal function. The patient underwent a right lower extremity angiogram on 03/08/24 with vascular team. She was found to have a right common femoral artery thrombus in which she underwent a thrombectomy and fasciotomy. Primary team requesting for a transesophageal echocardiogram to rule out cardiac source of embolus. Procedure was discussed in full detail with the patient and her granddaughter via telephone with bedside RN as witness. The patient is agreeable to undergo the procedure. We will schedule the patient at first availability on 03/14/24. Thank you for allowing us to care for this patient. Please call with any questions or concerns. Critical care time spent: 40 minutes This medical document was created using an electronic medical record system with voice recognition software and computerized dictation system. Although this document has been carefully reviewed, there might still be some phonetic and typographical errors. Occasional wrong-word or ``sound-alike substitutions may have occurred due to the inherent limitations of voice recognition software. These areas are purely typographical due to imperfections of the software programs and do not reflect any compromise in the patient's medical care. Please read the chart carefully and recognize, using context, where these substitutions have occurred. Plan discussed with: Patient, Other (Bedside RN) NYHA Physical activity limitations: Class3(Marked) ordinary (activity causes symtoms) Date of Service: Mar 13, 2024 Billing Provider: SEAN GOMEZ MD Cardiology Common Codes: 42635-BITDEPN INP/OBS CARE (High) Cardiology Consultation Codes: 12628-[id number] CONSULT <45MIN TARIQ HERNÁNDEZ Mar 13, 2024 17:48
[2024-03-13 19:30] LABS: INR 1.01 (0.9-1.15); Partial Thromboplastin Time 63.2 SEC (24.5-34.5); Prothrombin Time 10.7 sec (9.3-11.8)
--- NOTE | 2024-03-13 21:41 | DVHPN2 ---
Progress Note - Dictate Date Seen: Mar 13, 2024 Has the PT tested + for MRSA If YES, has PT been informed?: No Medical Necessity Reason Pt with a Central, PICC or Fol: Yes The following are medically ne: Myers Catheter Reason for myers catheter: Strict I&O Subjective Patient seen and examined at bedside. Breathing comfortably on room air. Overnight events reviewed. vital signs Vital Sign Date Time Temp Pulse Resp B/P (MAP) Pulse Ox O2 Delivery O2 Flow Rate FiO2 03/13/24 20:00 15 99 Room Air* 0 21 03/13/24 20:00 99.1 93 112/64 (80) 99.1 Total Intake and Output 03/12/24 03/12/24 03/13/24 15:00 23:00 07:00 Intake Total 1381 ml 784 ml 804 ml Output Total 1850 ml 670 ml Balance 1381 ml -1066 ml 134 ml medications Current Medications Medications Dose Ordered Sig/Anthony Route Start Time Stop Time Status Last Admin Dose Admin Nitroglycerin 0.4 mg Q5MINP PRN SL 03/10/24 14:45 Morphine Sulfate 2 mg Q30M PRN IV 03/10/24 14:45 Morphine Sulfate 2 mg Q4HPRN PRN IV 03/10/24 14:45 03/12/24 15:03 2 MG Acetaminophen/ Hydrocodone Bitart 1 tab Q6HPRN PRN PO 03/10/24 14:45 03/12/24 10:09 1 TAB Acetaminophen 500 mg Q8HP PRN PO 03/10/24 14:45 Ondansetron HCl 4 mg Q6HP PRN IV 03/10/24 14:45 Docusate Sodium 100 mg BID PRN PO 03/10/24 14:45 03/10/24 16:23 100 MG Ceftriaxone Sodium 50 ml @ 100 mls/hr DAILY@09 IV 03/10/24 15:30 03/13/24 09:11 100 MLS/HR Amiodarone HCl 200 mg BID PO 03/10/24 22:00 03/13/24 21:39 200 MG Polyethylene Glycol 17 gm DAILYPRN PRN PO 03/11/24 13:15 03/12/24 10:09 17 GM Heparin Sodium/ Dextrose 250 ml @ 8 mls/hr Q24H IV 03/11/24 17:45 03/13/24 10:18 8 MLS/HR Enteral Nutritional Formula 240 ml QID PO 03/12/24 12:00 03/13/24 18:00 240 ML Sodium Chloride 1,000 ml @ 75 mls/hr [id number] IV 03/12/24 10:15 03/13/24 15:52 75 MLS/HR Furosemide 40 mg DAILY IV 03/12/24 10:15 03/13/24 10:08 40 MG objective Gen.: Patient lying in bed in no apparent distress. Breathing on room air. Head: Normocephalic, atraumatic. Eyes: EOMI/PERRLA. Ears: Normal hearing. Normal anatomy. Neck/trachea: Trachea midline, supple. Nose: Normal external anatomy. Mouth: Moist mucous membranes. Chest: Decreased air entry bilaterally. No wheezing or rhonchi. Cardiovascular: Positive S1, positive S2. Regular rate and rhythm. Abdomen: Positive bowel sounds in all 4 quadrants. Soft, non-tender, non- distended. : Deferred. Rectal: Deferred. Skin: Warm, dry. Intact. Extremities: 2+ radial pulses bilaterally. No lower extremity edema. Neuro: Awake, alert, oriented x3. No gross motor or sensory deficits. Cranial nerves II through XII intact. Gait not assessed. laboratory and microbiology Laboratory Tests 03/13/24 03:34 Test 03/13/24 03:34 Range/Units Serum Glucose 99 74-106 mg/dL Assessment/Plan Impression: Acute hypoxic respiratory failure Dependence on supplemental oxygen Acute thrombus with right lower extremity ischemia Acute on chronic systolic heart failure Atrial fibrillation w/ rapid ventricular rate Acute kidney injury Rhabdomyolysis Events: Remains on room air. Supplemental O2 PRN Obtain ASA to rule out endocarditis. Patient had bowel movement. Continue antibiotics Incentive spirometry IV fluids with NS at 75 ml/hr. Wound care Heparin drip Diurese as tolerated with Lasix QD Monitor renal function Monitor electrolytes. Supplement as necessary. Labs and imaging reviewed. Rest of plan as noted below. Plan: Supplemental oxygen PRN Titrate to keep O2 sats above 92%. Continue antibiotics Amiodarone PO Heparin drip Vascular Surgery recs appreciated. Wound care Monitor renal function. Monitor electrolytes. Supplement as necessary. Monitor ins and outs. DVT prophylaxis. Prognosis: Poor given patient's multiple co-morbidities. Rest of plan per hospitalist and other consultants. A total of 51 minutes of clinical care time was spent reviewing the patient record, examining the patient, making a diagnostic and therapeutic plan, discussing this plan with the medical personnel, following up on diagnostic studies and following the patient for clinical stability excluding any and all procedures. At least 50% of this time was spent in direct, [id number] contact. Thank you, DAVID Gonzalez, for allowing me to participate in this patient's care. Further recommendations will depend on the patient's clinical course. Please do not hesitate to contact me if you have any questions or concerns. This medical document was created using an electronic medical record system with [employer] dictation system. Although these documentations are being carefully reviewed, there may still be some phonetic and typographical changes. The errors are purely typographical, due to imperfection on the software program, and do not reflect any compromise in the patient's medical care. Plan discussed with: Patient, Other (RADHA Pereira) JORDAN WONG MD Mar 13, 2024 21:41
--- NOTE | 2024-03-13 22:35 | DVHPN2 ---
Progress Note - Dictate Date Seen: Mar 13, 2024 Has the PT tested + for MRSA If YES, has PT been informed?: No Medical Necessity Reason Pt with a Central, PICC or Fol: Yes The following are medically ne: Myers Catheter Reason for myers catheter: Strict I&O Subjective Patient was seen and evaluated in follow up in the ICU. Patient is complaining of abdominal discomfort and constipation. Patient is on 2 LPM NC. Creatine kinase [id number]. The patient is scheduled for transesophageal echocardiogram to rule out cardiac source of embolus. vital signs Vital Sign Date Time Temp Pulse Resp B/P (MAP) Pulse Ox O2 Delivery O2 Flow Rate FiO2 03/13/24 22:00 20 100 Room Air* 0 21 03/13/24 20:00 99.1 93 112/64 (80) 99.1 Total Intake and Output 03/12/24 03/12/24 03/13/24 15:00 23:00 07:00 Intake Total 1381 ml 784 ml 804 ml Output Total 1850 ml 670 ml Balance 1381 ml -1066 ml 134 ml medications Current Medications Medications Dose Ordered Sig/Anthony Route Start Time Stop Time Status Last Admin Dose Admin Nitroglycerin 0.4 mg Q5MINP PRN SL 03/10/24 14:45 Morphine Sulfate 2 mg Q30M PRN IV 03/10/24 14:45 Morphine Sulfate 2 mg Q4HPRN PRN IV 03/10/24 14:45 03/12/24 15:03 2 MG Acetaminophen/ Hydrocodone Bitart 1 tab Q6HPRN PRN PO 03/10/24 14:45 03/12/24 10:09 1 TAB Acetaminophen 500 mg Q8HP PRN PO 03/10/24 14:45 Ondansetron HCl 4 mg Q6HP PRN IV 03/10/24 14:45 Docusate Sodium 100 mg BID PRN PO 03/10/24 14:45 03/10/24 16:23 100 MG Ceftriaxone Sodium 50 ml @ 100 mls/hr DAILY@09 IV 03/10/24 15:30 03/13/24 09:11 100 MLS/HR Amiodarone HCl 200 mg BID PO 03/10/24 22:00 03/13/24 21:39 200 MG Polyethylene Glycol 17 gm DAILYPRN PRN PO 03/11/24 13:15 03/12/24 10:09 17 GM Heparin Sodium/ Dextrose 250 ml @ 8 mls/hr Q24H IV 03/11/24 17:45 03/13/24 10:18 8 MLS/HR Enteral Nutritional Formula 240 ml QID PO 03/12/24 12:00 03/13/24 18:00 240 ML Sodium Chloride 1,000 ml @ 75 mls/hr [id number] IV 03/12/24 10:15 03/13/24 15:52 75 MLS/HR Furosemide 40 mg DAILY IV 03/12/24 10:15 03/13/24 10:08 40 MG objective GENERAL: Awake, alert, oriented. LUNGS: Clear. CARDIOVASCULAR: Heart sounds are good. ABDOMEN: Soft. laboratory and microbiology Laboratory Tests 03/13/24 03:34 Test 03/13/24 03:34 Range/Units Serum Glucose 99 74-106 mg/dL Problem List Acute decompensated systolic heart failure. Lower extremity ischemia. Acute on chronic systolic heart failure. Acute hypoxic respiratory failure. Atrial fibrillation rapid ventricular rate. History of Watchman device. Dyslipidemia. Acute right lower leg PND with ischemia. Hyperkalemia with acute kidney injury. Rhabdomyolysis. Assessment/Plan Continued all current supportive medical care. Morphine and [place] for pain management. Amiodarone. IV antibiotics as ordered. Heparin drip per protocol. Additional plan as per the hospital course. Critical care time of 45 minutes provided to include time spent evaluation of patient at bedside, when appropriate patient/family education for diagnosis, treatment plan, review of pertinent medical information and discussion of care with specialty providers and PCP. Plan discussed with: Patient SALVADOR CONNORS MD Mar 13, 2024 22:35
[2024-03-14] VITALS (24 sets, daily range): BP systolic 89–135; BP diastolic 50–82; PULSE 72–109; RESP 14–26; TEMP 98.3–99.2; O2SAT 98–100
[2024-03-14 03:30] LABS: Basophils # (auto) 0 10 ^3/uL (0-0.2); Eosinophils # (auto) 0.1 10 ^3/uL (0-0.8); Eosinophils % (auto) 1.2 % (0.0-7.0); Hemoglobin 11.1 g/dL (12.2-16.2); Monocytes # (auto) 0.4 10 ^3/uL (0-1.3); Monocytes % (auto) 5.6 % (0.0-12.0); Neutrophils # (auto) 5.6 10 ^3/uL (1.6-8.6); White Blood Cell 6.9 10^3/uL (4.4-10.8)
[2024-03-14 03:33] LABS: Basophils % (auto) 0.2 % (0.0-2.0); Hematocrit 32.7 % (36.0-46.0); Lymphocytes # (auto) 0.9 10 ^3/uL (0.4-5.4); Lymphocytes % (auto) 12.3 % (10.0-50.0); Mean Corpuscular Hemoglobin 34.5 pg (28.0-32.0); Mean Corpuscular Hgb Conc. 33.9 g/dL (32.0-36.0); Mean Corpuscular Volume 101.8 fL (80.0-100.0); Neutrophils % (auto) 80.7 % (37.0-80.0); Platelet Count (auto) 133 10^3/uL (140-450); Red Blood Cells 3.22 10^6/uL (4.0-5.20); Red Cell Distribution Width 14.2 % (11.8-14.3)
[2024-03-14 03:45] LABS: Chloride 104 mmol/L (98-107); Sodium 138 mmol/L (136-145)
[2024-03-14 03:46] LABS: Anion Gap 6 (5-15); Carbon Dioxide 28 mmol/L (20-31)
[2024-03-14 03:47] LABS: Calcium 9.1 mg/dL (8.7-10.4)
[2024-03-14 03:51] LABS: BUN/Creatinine Ratio 18.9 (10.0-20.0); Blood Urea Nitrogen 21 mg/dL (9-23); Glucose 100 mg/dL (74-106)
[2024-03-14 03:58] LABS: INR 1.04 (0.9-1.15); Partial Thromboplastin Time 65.5 SEC (24.5-34.5)
[2024-03-14 04:08] LABS: Creatine Kinase IFCC 5664 U/L (34-145)
--- NOTE | 2024-03-14 09:12 | DVHPN2 ---
Subjective Patient reports constipation Reviewed: Care Plan, H&P, Labs, Medications Changes from previous H/P or p: No Changes General: Per HPI Eyes: No Pain, No Vision change, No Conjunctivae inflammation, No Eyelid inflammation, No Other, No Redness ENT: No Ear pain, No Ear discharge, No Nose pain, No Nose discharge, No Nose congestion, No Mouth pain, No Mouth swelling, No Throat pain, No Throat swelling, No Other Cardiovascular: No Chest Pain, No Palpitations, No Orthopnea, No Paroxysmal Noc. Dyspnea, No Edema, No Lt Headedness, No Other Respiratory: No Cough, No Dry, No Shortness of breath, No SOB with excertion, No Wheezing, No Hemoptysis, No Pleuritic Pain, No Sputum, No Other Genitourinary: No Dysuria, No Frequency, No Incontinence, No Hematuria, No Retention, No Other Musculoskeletal: leg pain (Dressing dry and intact) Skin: No Rash, No Lesions, No Jaundice, No Bruising, No Other Objective Vitals Vital Signs Date Time Temp Pulse Resp B/P (MAP) Pulse Ox O2 Delivery O2 Flow Rate FiO2 03/14/24 08:00 14 100 Room Air* 0 21 03/14/24 06:00 78 99/50 (66) 03/14/24 04:00 99.1 99.1 Intake/Output Intake and Output 03/14/24 07:00 Intake Total 3649 ml Output Total 2625 ml Balance 1024 ml Intake Oral 1640 ml IV Total 2009 ml Output Urine Total 2625 ml # Bowel Movements 3 General Appearance: Alert, Oriented X3, Cooperative, mild distress HEENT: Atraumatic, PERRLA Lungs: Clear to auscultation, Normal air movement, Other (Nasal cannula at 2 liters/minute) Cardiovascular: Normal S1, Normal S2, Other (Atrial fibrillation with controlled rate) Abdomen: Normal bowel sounds Genitourinary: No Apparent Abnormalities (Bernabe catheter) Musculoskeletal: Other (No motor movement to right foot.) Extremities: Other (No motor movement or feeling to right foot.) Neuro: Normal gait, Normal speech Skin: Dry, Intact, Warm, Wounds (See nurse notes and pictures) Psych/Mental Status: Mental status NL, Mood NL Medications Current Medications Medications Dose Ordered Sig/Anthony Route Start Time Stop Time Status Last Admin Dose Admin Nitroglycerin 0.4 mg Q5MINP PRN SL 03/10/24 14:45 Morphine Sulfate 2 mg Q30M PRN IV 03/10/24 14:45 Morphine Sulfate 2 mg Q4HPRN PRN IV 03/10/24 14:45 03/12/24 15:03 2 MG Acetaminophen/ Hydrocodone Bitart 1 tab Q6HPRN PRN PO 03/10/24 14:45 03/13/24 22:38 1 TAB Acetaminophen 500 mg Q8HP PRN PO 03/10/24 14:45 Ondansetron HCl 4 mg Q6HP PRN IV 03/10/24 14:45 Docusate Sodium 100 mg BID PRN PO 03/10/24 14:45 03/10/24 16:23 100 MG Ceftriaxone Sodium 50 ml @ 100 mls/hr DAILY@09 IV 03/10/24 15:30 03/13/24 09:11 100 MLS/HR Amiodarone HCl 200 mg BID PO 03/10/24 22:00 03/13/24 21:39 200 MG Polyethylene Glycol 17 gm DAILYPRN PRN PO 03/11/24 13:15 03/12/24 10:09 17 GM Heparin Sodium/ Dextrose 250 ml @ 8 mls/hr Q24H IV 03/11/24 17:45 03/13/24 10:18 8 MLS/HR Enteral Nutritional Formula 240 ml QID PO 03/12/24 12:00 03/13/24 18:00 240 ML Sodium Chloride 1,000 ml @ 75 mls/hr [id number] IV 03/12/24 10:15 03/14/24 03:36 75 MLS/HR Furosemide 40 mg DAILY IV 03/12/24 10:15 03/13/24 10:08 40 MG Laboratory Results Laboratory Tests 03/14/24 02:54 Chemistry Test 03/14/24 02:54 Calcium Level 9.1 mg/dL (8.7-10.4) Coagulation Test 03/13/24 18:19 03/14/24 02:54 Prothrombin Time 10.7 sec (9.3-11.8) 11.0 sec (9.3-11.8) Prothrombin Time INR 1.01 (0.9-1.15) 1.04 (0.9-1.15) Activated Partial Thromboplast Time 63.2 SEC (24.5-34.5) H 65.5 SEC (24.5-34.5) H Urinalysis Test 03/10/24 23:15 Urine Color Brown (Yellow) H Urine Clarity Ex.turbid (Clear) Urine pH 5.5 (5.0-9.0) Urine Specific [place] 1.012 (1.001-1.035) Urine Protein Trace (Negative) H Urine Ketones Negative (Negative) Urine Blood 3+ /uL (Negative) H Urine Nitrite Negative (Negative) Urine Bilirubin Negative (Negative) Urine Urobilinogen Normal mg/dL (Negative) Urine Leukocyte Esterase 1+ /uL (Negative) Urine RBC 3 /hpf (0 - 4) Urine WBC 42 /hpf (0 - 5) Urine WBC Clumps Present /hpf (None Seen) Urine Squamous Epithelial Cells Few /hpf (<5) Urine Bacteria None seen /hpf (None Seen) Urine Yeast (Budding) Few /hpf (None Seen) Urine Glucose 3+ mg/dL (Normal) H Microbiology Microbiology Date/Time Source Procedure Growth Status 03/10/24 23:15 Urine - [place]abe [place] Urine Culture - Final Complete 03/10/24 16:00 Nose MRSA Screen - Final Complete Labs and/or images reviewed: Labs reviewed by me, Image(s) reviewed by me Assessment/Plan Assessment/Plan Impression: -Acute decompensated systolic heart failure. -Acute thrombus with right lower extremity ischemia -acute on chronic systolic heart failure -acute hypoxic respiratory failure -atrial fibrillation rapid ventricular rate -history of Watchman device -elevated D-dimer, ruled out pulmonary embolism -dyslipidemia -hyperkalemia with acute kidney injury -rhabdomyolysis -rule out abdominal CA. CA 125: 328 Plan: -Events: Plans for ASA this morning. Discussed case with vascular surgery who states that the plan is for a wound VAC. Patient now reports having some feeling in her foot, verified by find pinprick testing. -continue heparin drip -continue wound care per vascular surgery: Plans for wound vac -continue sodium bicarbonate drip -nephrology consultation: results reviewed -Pain management -bowel regimen: add lactulose -Transfer to [facility] Critical care time spent with patient discussing and formulating plan of care: 40 minutes. This does not include time spent performing procedures. This medical document was created using an electronic medical record system with [employer] system. Although this document has been carefully reviewed, there may still be some phonetic and typographical errors. These areas are purely typographical due to imperfections of the software programs, and do not reflect any compromise in the patient's medical care. Plan discussed with: Patient, Other (RN) My Orders Orders - NICOLE REBOLLAR NP Procedure Category Date Status Time Transfer Orders XFER 03/13/24 Transmitted 09:27 * Cardiology Consult CONS 03/13/24 Transmitted 12:16 Heparin Per Pharmacy [facility] 03/13/24 In Process Protocol 20:03 PTPTT LAB 03/15/24 Verified 04:00 Heparin Per Pharmacy [facility] 03/14/24 In Process Protocol 08:19 Complete Blood Count LAB 03/15/24 Verified 04:00 Date of Service: Mar 14, 2024 Billing Provider: NICOLE REBOLLAR NP Common Visit Codes: [id number] CARE 30-74 MIN NICOLE REBOLLAR NP Mar 14, 2024 09:12
[2024-03-14] MEDS: MIDAZOLAM HCL 2MG/2ML 2ml VIAL (1mg/ml) IV ONE ×2 (10:47→10:48)
[2024-03-14] MEDS: fentaNYL CITRATE 100 MCG/2 ML VL IV ONE ×2 (10:47→10:49)
[2024-03-14] MEDS: LIDOCAINE VISCOUS 2% 15ML UD MT ONE (10:48)
--- NOTE | 2024-03-14 11:19 | DVHNC2 ---
Procedure - Procedure date: 03/14/2024 Procedures performed: Transesophageal echocardiography under conscious sedation. Indications: Patient has history of atrial fibrillation and acute limb ischemia thought to be secondary to an embolic event. ASA was done to look for an embolic source. Sedation: The patient was deemed an adequate candidate for conscious sedation. Procedure was done bedside in the ICU. Versed and fentanyl were used for the sedation. She received a total of 1.5 mg of Versed and75 mcg of Versed. I was available continuously for [id number] monitoring during the procedure. Findings: Left ventricle: There is a global hypokinesis. Ejection fraction is estimated at 20-25%. No evidence of thrombus in the LV. Right ventricle: Normal size and systolic function. Atria: Both atria are severely dilated in size. There is significant smoke in the left atrium. The left atrial appendage is free of any clots. The intra- atrial septum appears to be intact. No evidence of shunting based on color and also based on bubble study. Aortic valve: The valve is trileaflet in morphology. Leaflets are sclerotic. 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 No significant stenosis or regurgitation. No evidence of vegetations. Mitral valve: The leaflets appeared to be thickened. There is mild central mitral regurgitation. No evidence of vegetations. Tricuspid valve: The leaflets are of normal structure and mobility. There is mild central tricuspid regurgitation. PA systolic pressure is estimated at 40- 45 mm Hg. Pulmonic valve: Appears to be normal structure and mobility. No significant regurgitation. Aorta: The ascending aorta is of normal size. The descending aorta has mild atheromatous. Impressions: 1. No evidence of intracardiac thrombi or vegetations. 2. Severely decreased left ventricular systolic function with ejection fraction of 20 25%. 3. Normal right ventricular size and systolic function. 4. Both atria are severely dilated in size. There is significant smoke in the left atrium. 5. No evidence of intracardiac shunting. 6. No hemodynamically significant valvular disease. 7. Mild atheroma in the descending aorta. SEAN GOMEZ MD Mar 14, 2024 11:19
--- NOTE | 2024-03-14 14:58 | DVHPN2 ---
Progress Note Date Seen: Mar 14, 2024 Has the PT tested + for MRSA If YES, has PT been informed?: No Medical Necessity Reason Pt with a Central, PICC or Fol: Yes The following are medically ne: Myers Catheter Reason for myers catheter: Strict I&O Subjective Patient reports: Feels better Objective vital signs Vital Sign Date Time Temp Pulse Resp B/P (MAP) Pulse Ox O2 Delivery O2 Flow Rate FiO2 03/14/24 12:00 84 03/14/24 12:00 18 100/70 (80) 100 03/14/24 12:00 Room Air* 0 21 03/14/24 08:00 98.3 98.3 Total Intake and Output 03/13/24 03/13/24 03/14/24 15:00 23:00 07:00 Intake Total 1164 ml 1464 ml 1104 ml Output Total 2200 ml 425 ml Balance 1164 ml -736 ml 679 ml medications Current Medications Medications Dose Ordered Sig/Anthony Route Start Time Stop Time Status Last Admin Dose Admin Nitroglycerin 0.4 mg Q5MINP PRN SL 03/10/24 14:45 Morphine Sulfate 2 mg Q30M PRN IV 03/10/24 14:45 Morphine Sulfate 2 mg Q4HPRN PRN IV 03/10/24 14:45 03/12/24 15:03 2 MG Acetaminophen/ Hydrocodone Bitart 1 tab Q6HPRN PRN PO 03/10/24 14:45 03/13/24 22:38 1 TAB Acetaminophen 500 mg Q8HP PRN PO 03/10/24 14:45 Ondansetron HCl 4 mg Q6HP PRN IV 03/10/24 14:45 Docusate Sodium 100 mg BID PRN PO 03/10/24 14:45 03/10/24 16:23 100 MG Ceftriaxone Sodium 50 ml @ 100 mls/hr DAILY@09 IV 03/10/24 15:30 03/14/24 09:19 100 MLS/HR Amiodarone HCl 200 mg BID PO 03/10/24 22:00 03/13/24 21:39 200 MG Polyethylene Glycol 17 gm DAILYPRN PRN PO 03/11/24 13:15 03/12/24 10:09 17 GM Heparin Sodium/ Dextrose 250 ml @ 8 mls/hr Q24H IV 03/11/24 17:45 03/14/24 13:59 8 MLS/HR Enteral Nutritional Formula 240 ml QID PO 03/12/24 12:00 03/13/24 18:00 240 ML Sodium Chloride 1,000 ml @ 75 mls/hr [id number] IV 03/12/24 10:15 03/14/24 03:36 75 MLS/HR Furosemide 40 mg DAILY IV 03/12/24 10:15 03/14/24 10:57 40 MG Examination: GENERAL:Abnormal, ABDOMEN:Abnormal laboratory and microbiology Laboratory Tests 03/14/24 02:54 Test 03/14/24 02:54 Range/Units Serum Glucose 100 74-106 mg/dL Microbiology Date/Time Source Procedure Growth Status 03/10/24 23:15 Urine - Myers Port Urine Culture - Final Complete 03/10/24 16:00 Nose MRSA Screen - Final Complete Problem List/Assessment/Plan Problem List/Assessment/Plan hemodynamically mediated acute kidney injury, possible ischemic/nephrotoxic ATN, 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 Diastolic and systolic HF EF 25% baseline renal function unknown elevated tumor marker anemia Right lower limb ischemia continue lasixand IVF to maintain urinary excretion cardiology, ASA heparin drip cpk improved Plan discussed with: Patient Dietary Evaluation Review Comments: 1. Encourage PO intake when medically feasible. Continue with Ensure Hi Protein PO feedidngs/supplement if pt can tolerate. 2. If GI asscessible, feeding can not meet her protein and energy goal, consider TF jevity 50ml/hr providing 67 gPro and 1440 kcal FS in 24 hrs, 3. Considere TPN per pharmacy to meet 75% of her needds, if NPO>7 days 4. Advance to 2 GNA Lo fat Lo Cholesterol cardiac diet, texture as tolerated if Pt passes speech eval. Expected Outcomes/Goals: maintain Weight, improved lab values KURT WATERS MD Mar 14, 2024 14:58
--- NOTE | 2024-03-14 18:28 | DVH ---
EXAM: US PELVIC CLINICAL HISTORY: elevated ca 125. ovarian ca TECHNIQUE: TTransabdominal and transvaginal ultrasound of the pelvis with color Doppler flow as clini lisa indicated. COMPARISON: None Findings/Impression: Suboptimal visualization of the uterus and ovaries. Cannot exclude malignancy.
--- NOTE | 2024-03-14 20:00 | DVHPN2 ---
Progress Note - Dictate Date Seen: Mar 14, 2024 Has the PT tested + for MRSA If YES, has PT been informed?: No Medical Necessity Reason Pt with a Central, PICC or Fol: Yes The following are medically ne: Myers Catheter Reason for myers catheter: Strict I&O Subjective Patient was seen and evaluated in follow up in the ICU. Patient is complaining of RLE pain. Patient has periods of confusion. Transesophageal echocardiogram showed no evidence of intracardiac thrombi or vegetations. There is severely decreased left ventricular systolic function with ejection fraction of 20 25%. Normal right ventricular size and systolic function. No evidence of intracardiac shunting. No hemodynamically significant valvular disease. Mild atheroma in the descending aorta. Creatine kinase [id number]. vital signs Vital Sign Date Time Temp Pulse Resp B/P (MAP) Pulse Ox O2 Delivery O2 Flow Rate FiO2 03/14/24 12:00 84 03/14/24 12:00 18 100/70 (80) 100 03/14/24 12:00 Room Air* 0 21 03/14/24 08:00 98.3 98.3 Total Intake and Output 03/13/24 03/13/24 03/14/24 15:00 23:00 07:00 Intake Total 1164 ml 1464 ml 1104 ml Output Total 2200 ml 425 ml Balance 1164 ml -736 ml 679 ml medications Current Medications Medications Dose Ordered Sig/Atnhony Route Start Time Stop Time Status Last Admin Dose Admin Nitroglycerin 0.4 mg Q5MINP PRN SL 03/10/24 14:45 Morphine Sulfate 2 mg Q30M PRN IV 03/10/24 14:45 Morphine Sulfate 2 mg Q4HPRN PRN IV 03/10/24 14:45 03/12/24 15:03 2 MG Acetaminophen/ Hydrocodone Bitart 1 tab Q6HPRN PRN PO 03/10/24 14:45 03/13/24 22:38 1 TAB Acetaminophen 500 mg Q8HP PRN PO 03/10/24 14:45 Ondansetron HCl 4 mg Q6HP PRN IV 03/10/24 14:45 Docusate Sodium 100 mg BID PRN PO 03/10/24 14:45 03/10/24 16:23 100 MG Ceftriaxone Sodium 50 ml @ 100 mls/hr DAILY@09 IV 03/10/24 15:30 03/14/24 09:19 100 MLS/HR Amiodarone HCl 200 mg BID PO 03/10/24 22:00 03/13/24 21:39 200 MG Polyethylene Glycol 17 gm DAILYPRN PRN PO 03/11/24 13:15 03/12/24 10:09 17 GM Heparin Sodium/ Dextrose 250 ml @ 8 mls/hr Q24H IV 03/11/24 17:45 03/13/24 10:18 8 MLS/HR Enteral Nutritional Formula 240 ml QID PO 03/12/24 12:00 03/13/24 18:00 240 ML Sodium Chloride 1,000 ml @ 75 mls/hr [id number] IV 03/12/24 10:15 03/14/24 03:36 75 MLS/HR Furosemide 40 mg DAILY IV 03/12/24 10:15 03/14/24 10:57 40 MG objective GENERAL: Awake, alert, oriented. LUNGS: Clear. CARDIOVASCULAR: Heart sounds are good. ABDOMEN: Soft. laboratory and microbiology Laboratory Tests 03/14/24 02:54 Test 03/14/24 02:54 Range/Units Serum Glucose 100 74-106 mg/dL Problem List Acute decompensated systolic heart failure. Lower extremity ischemia. Acute on chronic systolic heart failure. Acute hypoxic respiratory failure. Atrial fibrillation rapid ventricular rate. History of Watchman device. Dyslipidemia. Acute right lower leg PND with ischemia. Hyperkalemia with acute kidney injury. Rhabdomyolysis. Assessment/Plan Continued all current supportive medical care. Morphine and [place] for pain management. Amiodarone. IV antibiotics as ordered. Additional plan as per the hospital course. Critical care time of 45 minutes provided to include time spent evaluation of patient at bedside, when appropriate patient/family education for diagnosis, treatment plan, review of pertinent medical information and discussion of care with specialty providers and PCP. Dietary Evaluation Review Comments: 1. Encourage PO intake when medically feasible. Continue with Ensure Hi Protein PO feedidngs/supplement if pt can tolerate. 2. If GI asscessible, feeding can not meet her protein and energy goal, consider TF jevity 50ml/hr providing 67 gPro and 1440 kcal FS in 24 hrs, 3. Considere TPN per pharmacy to meet 75% of her needds, if NPO>7 days 4. Advance to 2 GNA Lo fat Lo Cholesterol cardiac diet, texture as tolerated if Pt passes speech eval. Expected Outcomes/Goals: maintain Weight, improved lab values Plan discussed with: Patient SALVADOR CONNORS MD Mar 14, 2024 13:27
[2024-03-14] MEDS: APIXABAN 5 MG TAB PO SCH (21:45)
--- NOTE | 2024-03-14 22:08 | DVHPN2 ---
Progress Note - Dictate Date Seen: Mar 14, 2024 Has the PT tested + for MRSA If YES, has PT been informed?: No Medical Necessity Reason Pt with a Central, PICC or Fol: Yes The following are medically ne: Myers Catheter Reason for myers catheter: Strict I&O Subjective Patient seen and examined at bedside. Currently on supplemental oxygen Overnight events reviewed. vital signs Vital Sign Date Time Temp Pulse Resp B/P (MAP) Pulse Ox O2 Delivery O2 Flow Rate FiO2 03/14/24 21:00 97 24 93/72 (79) 100 03/14/24 20:00 99.2 99.2 03/14/24 20:00 Room Air* 0 21 Total Intake and Output 03/13/24 03/13/24 03/14/24 15:00 23:00 07:00 Intake Total 1164 ml 1464 ml 1104 ml Output Total 2200 ml 425 ml Balance 1164 ml -736 ml 679 ml medications Current Medications Medications Dose Ordered Sig/Anthony Route Start Time Stop Time Status Last Admin Dose Admin Nitroglycerin 0.4 mg Q5MINP PRN SL 03/10/24 14:45 Morphine Sulfate 2 mg Q30M PRN IV 03/10/24 14:45 Morphine Sulfate 2 mg Q4HPRN PRN IV 03/10/24 14:45 03/12/24 15:03 2 MG Acetaminophen/ Hydrocodone Bitart 1 tab Q6HPRN PRN PO 03/10/24 14:45 03/14/24 21:56 1 TAB Acetaminophen 500 mg Q8HP PRN PO 03/10/24 14:45 Ondansetron HCl 4 mg Q6HP PRN IV 03/10/24 14:45 Docusate Sodium 100 mg BID PRN PO 03/10/24 14:45 03/10/24 16:23 100 MG Ceftriaxone Sodium 50 ml @ 100 mls/hr DAILY@09 IV 03/10/24 15:30 03/14/24 09:19 100 MLS/HR Amiodarone HCl 200 mg BID PO 03/10/24 22:00 03/14/24 21:45 200 MG Polyethylene Glycol 17 gm DAILYPRN PRN PO 03/11/24 13:15 03/12/24 10:09 17 GM Enteral Nutritional Formula 240 ml QID PO 03/12/24 12:00 03/14/24 21:45 240 ML Sodium Chloride 1,000 ml @ 75 mls/hr [id number] IV 03/12/24 10:15 03/14/24 16:01 75 MLS/HR Furosemide 40 mg DAILY IV 03/12/24 10:15 03/14/24 10:57 40 MG Apixaban 5 mg BID PO 03/14/24 22:00 03/14/24 21:45 5 MG objective Gen.: Patient lying in bed in no apparent distress. On supplemental oxygen. Head: Normocephalic, atraumatic. Eyes: EOMI/PERRLA. Ears: Normal hearing. Normal anatomy. Neck/trachea: Trachea midline, supple. Nose: Normal external anatomy. Mouth: Moist mucous membranes. Chest: Decreased air entry bilaterally. No wheezing or rhonchi. Cardiovascular: Positive S1, positive S2. Regular rate and rhythm. Abdomen: Positive bowel sounds in all 4 quadrants. Soft, non-tender, non- distended. : Deferred. Rectal: Deferred. Skin: Warm, dry. Intact. Extremities: 2+ radial pulses bilaterally. No lower extremity edema. Neuro: Awake, alert, oriented x3. No gross motor or sensory deficits. Cranial nerves II through XII intact. Gait not assessed. laboratory and microbiology Laboratory Tests 03/14/24 02:54 Test 03/14/24 02:54 Range/Units Serum Glucose 100 74-106 mg/dL Assessment/Plan Impression: Acute hypoxic respiratory failure Dependence on supplemental oxygen Acute thrombus with right lower extremity ischemia Acute on chronic systolic heart failure Atrial fibrillation w/ rapid ventricular rate Acute kidney injury Rhabdomyolysis Events: On supplemental oxygen at 3 LPM NC Taper O2 as tolerated ASA ruled out endocarditis. Continue antibiotics Incentive spirometry IV fluids with NS at 75 ml/hr. Wound care Vascular Surgery recs appreciated Heparin drip Diurese as tolerated with Lasix QD Monitor renal function Monitor electrolytes. Supplement as necessary. Patient is stable for downgrade from the pulmonary standpoint. Labs and imaging reviewed. Rest of plan as noted below. Plan: Supplemental oxygen Titrate to keep O2 sats above 92%. Continue antibiotics Amiodarone PO Heparin drip Vascular Surgery recs appreciated. Wound care Monitor renal function. Monitor electrolytes. Supplement as necessary. Monitor ins and outs. DVT prophylaxis. Prognosis: Guarded given patient's multiple co-morbidities. Rest of plan per hospitalist and other consultants. A total of 51 minutes of clinical care time was spent reviewing the patient record, examining the patient, making a diagnostic and therapeutic plan, discussing this plan with the medical personnel, following up on diagnostic studies and following the patient for clinical stability excluding any and all procedures. At least 50% of this time was spent in direct, [id number] contact. Thank you, DAVID Gonzalez, for allowing me to participate in this patient's care. Further recommendations will depend on the patient's clinical course. Please do not hesitate to contact me if you have any questions or concerns. This medical document was created using an electronic medical record system with [employer] dictation system. Although these documentations are being carefully reviewed, there may still be some phonetic and typographical changes. The errors are purely typographical, due to imperfection on the software program, and do not reflect any compromise in the patient's medical care. Dietary Evaluation Review Comments: 1. Encourage PO intake when medically feasible. Continue with Ensure Hi Protein PO feedidngs/supplement if pt can tolerate. 2. If GI asscessible, feeding can not meet her protein and energy goal, consider TF jevity 50ml/hr providing 67 gPro and 1440 kcal FS in 24 hrs, 3. Considere TPN per pharmacy to meet 75% of her needds, if NPO>7 days 4. Advance to 2 GNA Lo fat Lo Cholesterol cardiac diet, texture as tolerated if Pt passes speech eval. Expected Outcomes/Goals: maintain Weight, improved lab values Plan discussed with: Patient, Other (RADHA Mims) JORDAN WONG MD Mar 14, 2024 22:08
[2024-03-15] VITALS (23 sets, daily range): BP systolic 95–122; BP diastolic 44–78; PULSE 71–98; RESP 12–23; TEMP 97.8–98.7; O2SAT 95–100
[2024-03-15 05:32] LABS: Chloride 104 mmol/L (98-107); Potassium 4.2 mmol/L (3.5-5.1); Sodium 137 mmol/L (136-145)
[2024-03-15 05:33] LABS: Anion Gap 2 (5-15)
[2024-03-15 05:35] LABS: Basophils # (auto) 0 10 ^3/uL (0-0.2); Basophils % (auto) 0.3 % (0.0-2.0); Eosinophils # (auto) 0.1 10 ^3/uL (0-0.8); Eosinophils % (auto) 1.6 % (0.0-7.0); Hematocrit 32.7 % (36.0-46.0); Lymphocytes % (auto) 14.7 % (10.0-50.0); Mean Corpuscular Hemoglobin 34.1 pg (28.0-32.0); Mean Corpuscular Hgb Conc. 33.7 g/dL (32.0-36.0); Mean Corpuscular Volume 101.5 fL (80.0-100.0); Monocytes # (auto) 0.4 10 ^3/uL (0-1.3); Monocytes % (auto) 6.6 % (0.0-12.0); Neutrophils # (auto) 5.1 10 ^3/uL (1.6-8.6); Neutrophils % (auto) 76.8 % (37.0-80.0); Nucleated Red Blood Cells % 0.1 %; Platelet Count (auto) 144 10^3/uL (140-450); Red Blood Cells 3.23 10^6/uL (4.0-5.20); Red Cell Distribution Width 14.1 % (11.8-14.3); White Blood Cell 6.6 10^3/uL (4.4-10.8)
[2024-03-15 05:38] LABS: Blood Urea Nitrogen 22 mg/dL (9-23); Glucose 101 mg/dL (74-106)
[2024-03-15 05:50] LABS: Carbon Dioxide 31 mmol/L (20-31)
--- NOTE | 2024-03-15 07:47 | DVHPN2 ---
Progress Note Date Seen: Mar 15, 2024 Has the PT tested + for MRSA If YES, has PT been informed?: No Medical Necessity Reason Pt with a Central, PICC or Fol: Yes The following are medically ne: Myers Catheter Reason for myers catheter: Strict I&O Subjective Patient reports: Feels better Objective vital signs Vital Sign Date Time Temp Pulse Resp B/P (MAP) Pulse Ox O2 Delivery O2 Flow Rate FiO2 03/15/24 06:00 75 03/15/24 06:00 15 98/62 (74) 100 03/15/24 06:00 Room Air* 0 21 03/15/24 04:00 98.2 98.2 Total Intake and Output 03/14/24 03/14/24 03/15/24 15:00 23:00 07:00 Intake Total 764 ml 938 ml 825 ml Output Total 1000 ml 200 ml Balance 764 ml -62 ml 625 ml medications Current Medications Medications Dose Ordered Sig/Anthony Route Start Time Stop Time Status Last Admin Dose Admin Nitroglycerin 0.4 mg Q5MINP PRN SL 03/10/24 14:45 Morphine Sulfate 2 mg Q30M PRN IV 03/10/24 14:45 Morphine Sulfate 2 mg Q4HPRN PRN IV 03/10/24 14:45 03/12/24 15:03 2 MG Acetaminophen/ Hydrocodone Bitart 1 tab Q6HPRN PRN PO 03/10/24 14:45 03/14/24 21:56 1 TAB Acetaminophen 500 mg Q8HP PRN PO 03/10/24 14:45 Ondansetron HCl 4 mg Q6HP PRN IV 03/10/24 14:45 Docusate Sodium 100 mg BID PRN PO 03/10/24 14:45 03/10/24 16:23 100 MG Ceftriaxone Sodium 50 ml @ 100 mls/hr DAILY@09 IV 03/10/24 15:30 03/14/24 09:19 100 MLS/HR Amiodarone HCl 200 mg BID PO 03/10/24 22:00 03/14/24 21:45 200 MG Polyethylene Glycol 17 gm DAILYPRN PRN PO 03/11/24 13:15 03/12/24 10:09 17 GM Enteral Nutritional Formula 240 ml QID PO 03/12/24 12:00 03/15/24 06:04 240 ML Apixaban 5 mg BID PO 03/14/24 22:00 03/14/24 21:45 5 MG Examination: GENERAL:Normal, CVS:Normal laboratory and microbiology Laboratory Tests 03/15/24 04:48 Test 03/15/24 04:48 Range/Units Serum Glucose 101 74-106 mg/dL Microbiology Date/Time Source Procedure Growth Status 03/10/24 23:15 Urine - Myers Port Urine Culture - Final Complete 03/10/24 16:00 Nose MRSA Screen - Final Complete Problem List/Assessment/Plan Problem List/Assessment/Plan hemodynamically mediated acute kidney injury, possible ischemic/nephrotoxic ATN, 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 Diastolic and systolic HF EF 25% baseline renal function unknown elevated tumor marker anemia Right lower limb ischemia cardiology, heparin drip cpk improved Antonino has resolved with fluids CPK down trending. IVF stopped. lasix stopped today. may change to po lasix or prn dosing if needed no further renal recs will sign off Plan discussed with: Patient Dietary Evaluation Review Comments: 1. Encourage PO intake when medically feasible. Continue with Ensure Hi Protein PO feedidngs/supplement if pt can tolerate. 2. If GI asscessible, feeding can not meet her protein and energy goal, consider TF jevity 50ml/hr providing 67 gPro and 1440 kcal FS in 24 hrs, 3. Considere TPN per pharmacy to meet 75% of her needds, if NPO>7 days 4. Advance to 2 GNA Lo fat Lo Cholesterol cardiac diet, texture as tolerated if Pt passes speech eval. Expected Outcomes/Goals: maintain Weight, improved lab values KURT WATERS MD Mar 15, 2024 07:47
--- NOTE | 2024-03-15 12:59 | DVHPN2 ---
Subjective Patient reports constipation Reviewed: Care Plan, H&P, Labs, Medications Changes from previous H/P or p: No Changes General: Per HPI Eyes: No Pain, No Vision change, No Conjunctivae inflammation, No Eyelid inflammation, No Other, No Redness ENT: No Ear pain, No Ear discharge, No Nose pain, No Nose discharge, No Nose congestion, No Mouth pain, No Mouth swelling, No Throat pain, No Throat swelling, No Other Cardiovascular: No Chest Pain, No Palpitations, No Orthopnea, No Paroxysmal Noc. Dyspnea, No Edema, No Lt Headedness, No Other Respiratory: No Cough, No Dry, No Shortness of breath, No SOB with excertion, No Wheezing, No Hemoptysis, No Pleuritic Pain, No Sputum, No Other Genitourinary: No Dysuria, No Frequency, No Incontinence, No Hematuria, No Retention, No Other Musculoskeletal: leg pain (Dressing dry and intact) Skin: No Rash, No Lesions, No Jaundice, No Bruising, No Other Objective Vitals Vital Signs Date Time Temp Pulse Resp B/P (MAP) Pulse Ox O2 Delivery O2 Flow Rate FiO2 03/15/24 12:00 93 03/15/24 12:00 19 100 Room Air* 0 21 03/15/24 12:00 120/78 (92) 03/15/24 11:30 98.0 98.0 Intake/Output Intake and Output 03/15/24 07:00 Intake Total 2602 ml Output Total 1200 ml Balance 1402 ml Intake Oral 780 ml IV Total 1822 ml Output Urine Total 1200 ml General Appearance: Alert, Oriented X3, Cooperative, mild distress HEENT: Atraumatic, PERRLA Lungs: Clear to auscultation, Normal air movement, Other (Nasal cannula at 2 liters/minute) Cardiovascular: Normal S1, Normal S2, Other (Atrial fibrillation with controlled rate) Abdomen: Normal bowel sounds Genitourinary: No Apparent Abnormalities (Bernabe catheter) Musculoskeletal: Other (No motor movement to right foot.) Extremities: Other (No motor movement or feeling to right foot.) Neuro: Normal gait, Normal speech Skin: Dry, Intact, Warm, Wounds (See nurse notes and pictures) Psych/Mental Status: Mental status NL, Mood NL Medications Current Medications Medications Dose Ordered Sig/Anthony Route Start Time Stop Time Status Last Admin Dose Admin Nitroglycerin 0.4 mg Q5MINP PRN SL 03/10/24 14:45 Morphine Sulfate 2 mg Q30M PRN IV 03/10/24 14:45 Morphine Sulfate 2 mg Q4HPRN PRN IV 03/10/24 14:45 03/12/24 15:03 2 MG Acetaminophen/ Hydrocodone Bitart 1 tab Q6HPRN PRN PO 03/10/24 14:45 03/14/24 21:56 1 TAB Acetaminophen 500 mg Q8HP PRN PO 03/10/24 14:45 Ondansetron HCl 4 mg Q6HP PRN IV 03/10/24 14:45 Docusate Sodium 100 mg BID PRN PO 03/10/24 14:45 03/10/24 16:23 100 MG Ceftriaxone Sodium 50 ml @ 100 mls/hr DAILY@09 IV 03/10/24 15:30 03/15/24 09:48 100 MLS/HR Amiodarone HCl 200 mg BID PO 03/10/24 22:00 03/15/24 09:48 200 MG Polyethylene Glycol 17 gm DAILYPRN PRN PO 03/11/24 13:15 03/12/24 10:09 17 GM Enteral Nutritional Formula 240 ml QID PO 03/12/24 12:00 03/15/24 09:55 240 ML Apixaban 5 mg BID PO 03/14/24 22:00 03/14/24 21:45 5 MG Laboratory Results Laboratory Tests 03/15/24 04:48 Chemistry Test 03/15/24 04:48 Calcium Level 9.0 mg/dL (8.7-10.4) Urinalysis Test 03/10/24 23:15 Urine Color Brown (Yellow) H Urine Clarity Ex.turbid (Clear) Urine pH 5.5 (5.0-9.0) Urine Specific [place] 1.012 (1.001-1.035) Urine Protein Trace (Negative) H Urine Ketones Negative (Negative) Urine Blood 3+ /uL (Negative) H Urine Nitrite Negative (Negative) Urine Bilirubin Negative (Negative) Urine Urobilinogen Normal mg/dL (Negative) Urine Leukocyte Esterase 1+ /uL (Negative) Urine RBC 3 /hpf (0 - 4) Urine WBC 42 /hpf (0 - 5) Urine WBC Clumps Present /hpf (None Seen) Urine Squamous Epithelial Cells Few /hpf (<5) Urine Bacteria None seen /hpf (None Seen) Urine Yeast (Budding) Few /hpf (None Seen) Urine Glucose 3+ mg/dL (Normal) H Microbiology Microbiology Date/Time Source Procedure Growth Status 03/10/24 23:15 Urine - Bernabe Port Urine Culture - Final Complete 03/10/24 16:00 Nose MRSA Screen - Final Complete Labs and/or images reviewed: Labs reviewed by me, Image(s) reviewed by me Assessment/Plan Assessment/Plan Impression: -Acute decompensated systolic heart failure. -Acute thrombus with right lower extremity ischemia -acute on chronic systolic heart failure -acute hypoxic respiratory failure -atrial fibrillation rapid ventricular rate -history of Watchman device -elevated D-dimer, ruled out pulmonary embolism -dyslipidemia -hyperkalemia with acute kidney injury -rhabdomyolysis -ruled out abdominal CA. CA 125: 328 Plan: -Events: ASA performed yesterday. Negative findings of thrombus in addition to findings of a Watchman device. Negative for PFO. Discussed case with vascular surgery, who plans to take the patient to surgery today to close fasciotomy. Patient was now slightly moving her toes as well as having return of feeling. -heparin drip stopped, transitioned to Eliquis -continue IV fluids per Nephrology -nephrology consultation: results reviewed -Pain management -bowel regimen: add lactulose -repeat labs in a.m. -social service consultation for DC planning. At this time patient states she lives alone, with a granddaughter available to help daily, but patient was not have someone in-house 24 hours a day. Critical care time spent with patient discussing and formulating plan of care: 40 minutes. This does not include time spent performing procedures. This medical document was created using an electronic medical record system with [employer] dictation system. Although this document has been carefully reviewed, there may still be some phonetic and typographical errors. These areas are purely typographical due to imperfections of the software programs, and do not reflect any compromise in the patient's medical care. Plan discussed with: Patient, Other (RN, Granddaughter) My Orders Orders - NICOLE REBOLLAR NP Procedure Category Date Status Time Pelvic US 03/14/24 Resulted 14:49 Apixaban (Eliquis) PHA 03/14/24 In Process 22:00 Basic Metabolic Panel LAB 03/16/24 Verified 04:00 Complete Blood Count LAB 03/16/24 Verified 04:00 Creatine Kinase LAB 03/16/24 Verified 04:00 * Production Operations Manager CONS 03/15/24 Transmitted Consult Pt Request For Service PT 03/15/24 Logged 12:25 Date of Service: Mar 15, 2024 Billing Provider: NICOLE REBOLLAR NP Common Visit Codes: 90450-[id number] CARE 30-74 MIN NICOLE REBOLLAR NP Mar 15, 2024 12:59
[2024-03-15] MEDS ORDERED: KETAMINE 50mg/ML 1ml syringe ONE (16:09)
[2024-03-15] MEDS ORDERED: LIDOCAINE 1% INJ PF 5ML AMP ONE (16:09)
[2024-03-15] MEDS ORDERED: fentaNYL CITRATE 100 MCG/2 ML VL ONE (16:09)
[2024-03-15] MEDS ORDERED: ONDANSETRON HCL 4 MG/2 ML VIAL ONE (16:09)
[2024-03-15] MEDS ORDERED: MIDAZOLAM HCL 2MG/2ML 2ml VIAL (1mg/ml) ONE (16:09)
[2024-03-15] MEDS ORDERED: PROPOFOL 10 MG/ML 20 ML IV ONE (16:09)
--- NOTE | 2024-03-15 17:14 | POSTOP ---
Post-Operative Note Post-Operative Note Preop Diagnosis S/p right lower extremity revascularization and four quadrant fasciotomy. One week postop Postop Diagnosis: Same Operation performed Right leg four quadrant fasciotomy closure. Anesthesia: General, Mac Anesthesiologist: Mac Blood Loss(fluid mgmt) Minimal Surgeon Primo Mckeon MD Complications & Mgmt None Date 03/15/24 Time 17:12 PRIMO MCKEON Jr., MD Mar 15, 2024 17:14
--- NOTE | 2024-03-15 17:16 | DVHOP2 ---
Operative Report - 2 Report Details Date: 03/15/24 Preop Diagnosis: S/p right lower extremity revascularization and four quadrant fasciotomy. One week postop Postop Diagnosis: Same Surgeon: Primo Mckeon MD Anesthesiologist: Venancio Anesthesia: General, Mac Consent: The patient was informed of the risks and benefits of the procedure. These include but are not limited to complications of anesthesia, postoperative infection, incomplete relief of symptoms, recurrence of symptoms, damage to blood vessels, nerves and tendons, deep venous thrombosis, pulmonary embolism and possible need for repeat surgery in the future. Complications: None Estimated Blood Loss: Minimal Name of Procedure Performed Right leg four quadrant fasciotomy closure. Procedure Details Procedure Details: Patient was identified in the preop hold area is being Mrs. Chase. She was consented in preop by myself she was brought back to the operating room placed in a prone table in supine position after adequate induction of anesthesia antibiotics and time-out the right leg was prepped and draped in normal surgical fashion. The fasciotomy sites were were examined muscles were healthy muscle was pink and contractile. The fasciotomy sites were both irrigated with pulse shank tapper a total of a L of saline was used. At this point in time the skin and was thin friable so we decided to use interrupted transverse interrupted nylon sutures for closure with Steri-Strips between. Both wounds were closed in the similar fashion. The leg was then dressed with ABDs Kerlix and Bassam wrap. Patient tolerated the procedure well. Sponge and needle counts were correct. Patient was taken to the PACU in stable condition. Condition Good Disposition pacu PRIMO MCKEON Jr., MD Mar 15, 2024 17:16
--- NOTE | 2024-03-15 23:12 | DVHPN2 ---
Progress Note - Dictate Date Seen: Mar 15, 2024 Has the PT tested + for MRSA If YES, has PT been informed?: No Medical Necessity Reason Pt with a Central, PICC or Fol: Yes The following are medically ne: Myers Catheter Reason for myers catheter: Strict I&O Subjective Patient seen and examined at bedside. On room air Overnight events reviewed. vital signs Vital Sign Date Time Temp Pulse Resp B/P (MAP) Pulse Ox O2 Delivery O2 Flow Rate FiO2 03/15/24 20:00 97.8 88 18 122/71 (88) 98 97.8 03/15/24 18:00 Room Air* 0 21 Total Intake and Output 03/14/24 03/14/24 03/15/24 15:00 23:00 07:00 Intake Total 764 ml 938 ml 900 ml Output Total 1000 ml 200 ml Balance 764 ml -62 ml 700 ml medications Current Medications Medications Dose Ordered Sig/Anthony Route Start Time Stop Time Status Last Admin Dose Admin Nitroglycerin 0.4 mg Q5MINP PRN SL 03/10/24 14:45 Morphine Sulfate 2 mg Q30M PRN IV 03/10/24 14:45 Morphine Sulfate 2 mg Q4HPRN PRN IV 03/10/24 14:45 03/12/24 15:03 2 MG Acetaminophen/ Hydrocodone Bitart 1 tab Q6HPRN PRN PO 03/10/24 14:45 03/14/24 21:56 1 TAB Acetaminophen 500 mg Q8HP PRN PO 03/10/24 14:45 Ondansetron HCl 4 mg Q6HP PRN IV 03/10/24 14:45 Docusate Sodium 100 mg BID PRN PO 03/10/24 14:45 03/10/24 16:23 100 MG Ceftriaxone Sodium 50 ml @ 100 mls/hr DAILY@09 IV 03/10/24 15:30 03/15/24 09:48 100 MLS/HR Amiodarone HCl 200 mg BID PO 03/10/24 22:00 03/15/24 22:45 200 MG Polyethylene Glycol 17 gm DAILYPRN PRN PO 03/11/24 13:15 03/12/24 10:09 17 GM Enteral Nutritional Formula 240 ml QID PO 03/12/24 12:00 03/15/24 18:28 240 ML Apixaban 5 mg BID PO 03/14/24 22:00 03/15/24 22:45 5 MG objective Gen.: Patient lying in bed in no apparent distress. On room air Head: Normocephalic, atraumatic. Eyes: EOMI/PERRLA. Ears: Normal hearing. Normal anatomy. Neck/trachea: Trachea midline, supple. Nose: Normal external anatomy. Mouth: Moist mucous membranes. Chest: Decreased air entry bilaterally. No wheezing or rhonchi. Cardiovascular: Positive S1, positive S2. Regular rate and rhythm. Abdomen: Positive bowel sounds in all 4 quadrants. Soft, non-tender, non- distended. : Deferred. Rectal: Deferred. Skin: Warm, dry. Intact. Extremities: 2+ radial pulses bilaterally. No lower extremity edema. Neuro: Awake, alert, oriented x3. No gross motor or sensory deficits. Cranial nerves II through XII intact. Gait not assessed. laboratory and microbiology Laboratory Tests 03/15/24 04:48 Test 03/15/24 04:48 Range/Units Serum Glucose 101 74-106 mg/dL Assessment/Plan Impression: Acute hypoxic respiratory failure Acute thrombus with right lower extremity ischemia Acute on chronic systolic heart failure Atrial fibrillation w/ rapid ventricular rate Acute kidney injury Rhabdomyolysis Events: Tapered off supplemental oxygen Breathing on room air No respiratory distress. Continue antibiotics Incentive spirometry IV fluids with NS at 75 ml/hr. Wound care Vascular Surgery recs appreciated Plan for left leg fasciotomy with closure. PT evaluation. ASA ruled out endocarditis. Labs and imaging reviewed. Rest of plan as noted below. Plan: Supplemental oxygen PRN Titrate to keep O2 sats above 92%. Continue antibiotics Amiodarone PO Plan for left leg fasciotomy with closure. Vascular Surgery recs appreciated. Wound care Monitor renal function. Monitor electrolytes. Supplement as necessary. Monitor ins and outs. DVT prophylaxis. Prognosis: Guarded given patient's multiple co-morbidities. Rest of plan per hospitalist and other consultants. A total of 51 minutes of clinical care time was spent reviewing the patient record, examining the patient, making a diagnostic and therapeutic plan, discussing this plan with the medical personnel, following up on diagnostic studies and following the patient for clinical stability excluding any and all procedures. At least 50% of this time was spent in direct, [id number] contact. Thank you, DAVID Gonzalez, for allowing me to participate in this patient's care. Further recommendations will depend on the patient's clinical course. Please do not hesitate to contact me if you have any questions or concerns. This medical document was created using an electronic medical record system with [employer] dictation system. Although these documentations are being carefully reviewed, there may still be some phonetic and typographical changes. The errors are purely typographical, due to imperfection on the software program, and do not reflect any compromise in the patient's medical care. Dietary Evaluation Review Comments: 1. Encourage PO intake when medically feasible. Continue with Ensure Hi Protein PO feedidngs/supplement if pt can tolerate. 2. If GI asscessible, feeding can not meet her protein and energy goal, consider TF jevity 50ml/hr providing 67 gPro and 1440 kcal FS in 24 hrs, 3. Considere TPN per pharmacy to meet 75% of her needds, if NPO>7 days 4. Advance to 2 GNA Lo fat Lo Cholesterol cardiac diet, texture as tolerated if Pt passes speech eval. Expected Outcomes/Goals: maintain Weight, improved lab values Plan discussed with: Patient, Other (RADHA Ramirez) JORDAN WONG MD Mar 15, 2024 23:12
--- NOTE | 2024-03-15 23:21 | DVHPN2 ---
Progress Note - Dictate Date Seen: Mar 15, 2024 Has the PT tested + for MRSA If YES, has PT been informed?: No Medical Necessity Reason Pt with a Central, PICC or Fol: Yes The following are medically ne: Myers Catheter Reason for myers catheter: Strict I&O Subjective Patient was seen and evaluated in follow up in the ICU. Patient is complaining of RLE pain. Patient passed swallow eval. 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 services are being arranged for patient at discharge. vital signs Vital Sign Date Time Temp Pulse Resp B/P (MAP) Pulse Ox O2 Delivery O2 Flow Rate FiO2 03/15/24 11:30 98.0 98.0 03/15/24 10:00 19 100 Room Air* 0 21 03/15/24 10:00 89 Total Intake and Output 03/14/24 03/14/24 03/15/24 14:59 22:59 06:59 Intake Total 764 ml 946 ml 900 ml Output Total 1000 ml 200 ml Balance 764 ml -54 ml 700 ml medications Current Medications Medications Dose Ordered Sig/Anthony Route Start Time Stop Time Status Last Admin Dose Admin Nitroglycerin 0.4 mg Q5MINP PRN SL 03/10/24 14:45 Morphine Sulfate 2 mg Q30M PRN IV 03/10/24 14:45 Morphine Sulfate 2 mg Q4HPRN PRN IV 03/10/24 14:45 03/12/24 15:03 2 MG Acetaminophen/ Hydrocodone Bitart 1 tab Q6HPRN PRN PO 03/10/24 14:45 03/14/24 21:56 1 TAB Acetaminophen 500 mg Q8HP PRN PO 03/10/24 14:45 Ondansetron HCl 4 mg Q6HP PRN IV 03/10/24 14:45 Docusate Sodium 100 mg BID PRN PO 03/10/24 14:45 03/10/24 16:23 100 MG Ceftriaxone Sodium 50 ml @ 100 mls/hr DAILY@09 IV 03/10/24 15:30 03/15/24 09:48 100 MLS/HR Amiodarone HCl 200 mg BID PO 03/10/24 22:00 03/15/24 09:48 200 MG Polyethylene Glycol 17 gm DAILYPRN PRN PO 03/11/24 13:15 03/12/24 10:09 17 GM Enteral Nutritional Formula 240 ml QID PO 03/12/24 12:00 03/15/24 09:55 240 ML Apixaban 5 mg BID PO 03/14/24 22:00 03/14/24 21:45 5 MG objective GENERAL: Awake, alert, oriented. LUNGS: Clear. CARDIOVASCULAR: Heart sounds are good. ABDOMEN: Soft. laboratory and microbiology Laboratory Tests 03/15/24 04:48 Test 03/15/24 04:48 Range/Units Serum Glucose 101 74-106 mg/dL Problem List Acute decompensated systolic heart failure. Lower extremity ischemia. Acute on chronic systolic heart failure. Acute hypoxic respiratory failure. Atrial fibrillation rapid ventricular rate. History of Watchman device. Dyslipidemia. Acute right lower leg PND with ischemia. Hyperkalemia with acute kidney injury. Rhabdomyolysis. Assessment/Plan Continued all current supportive medical care. Morphine and [place] for pain management. Amiodarone. IV antibiotics as ordered. Additional plan as per the hospital course. Critical care time of 45 minutes provided to include time spent evaluation of patient at bedside, when appropriate patient/family education for diagnosis, treatment plan, review of pertinent medical information and discussion of care with specialty providers and PCP. Dietary Evaluation Review Comments: 1. Encourage PO intake when medically feasible. Continue with Ensure Hi Protein PO feedidngs/supplement if pt can tolerate. 2. If GI asscessible, feeding can not meet her protein and energy goal, consider TF jevity 50ml/hr providing 67 gPro and 1440 kcal FS in 24 hrs, 3. Considere TPN per pharmacy to meet 75% of her needds, if NPO>7 days 4. Advance to 2 GNA Lo fat Lo Cholesterol cardiac diet, texture as tolerated if Pt passes speech eval. Expected Outcomes/Goals: maintain Weight, improved lab values Plan discussed with: Patient SALVADOR CONNORS MD Mar 15, 2024 12:38
[2024-03-16] VITALS (23 sets, daily range): BP systolic 92–140; BP diastolic 45–81; PULSE 71–128; RESP 18–25; TEMP 97.5–98.7; O2SAT 95–99
[2024-03-16 05:15] LABS: Basophils # (auto) 0 10 ^3/uL (0-0.2); Eosinophils # (auto) 0.1 10 ^3/uL (0-0.8); Lymphocytes # (auto) 0.6 10 ^3/uL (0.4-5.4); Monocytes # (auto) 0.5 10 ^3/uL (0-1.3); White Blood Cell 7.9 10^3/uL (4.4-10.8)
[2024-03-16 05:17] LABS: Basophils % (auto) 0.2 % (0.0-2.0); Hematocrit 33.3 % (36.0-46.0); Hemoglobin 11.1 g/dL (12.2-16.2); Lymphocytes % (auto) 7.4 % (10.0-50.0); Mean Corpuscular Hemoglobin 34.2 pg (28.0-32.0); Mean Corpuscular Hgb Conc. 33.5 g/dL (32.0-36.0); Mean Corpuscular Volume 102.1 fL (80.0-100.0); Monocytes % (auto) 6.4 % (0.0-12.0); Neutrophils # (auto) 6.8 10 ^3/uL (1.6-8.6); Platelet Count (auto) 159 10^3/uL (140-450); Red Blood Cells 3.26 10^6/uL (4.0-5.20); Red Cell Distribution Width 14.4 % (11.8-14.3)
[2024-03-16 06:02] LABS: Calcium 9.5 mg/dL (8.7-10.4); Chloride 104 mmol/L (98-107); Potassium 4.4 mmol/L (3.5-5.1); Sodium 137 mmol/L (136-145)
[2024-03-16 06:03] LABS: Anion Gap 8 (5-15); Carbon Dioxide 25 mmol/L (20-31)
[2024-03-16 06:08] LABS: Blood Urea Nitrogen 19 mg/dL (9-23); Glucose 103 mg/dL (74-106)
[2024-03-16 06:20] LABS: Creatine Kinase IFCC 1011 U/L (34-145)
--- NOTE | 2024-03-16 09:02 | DVHPN2 ---
Subjective Patient reports constipation Reviewed: Care Plan, H&P, Labs, Medications Changes from previous H/P or p: No Changes General: Per HPI Eyes: No Pain, No Vision change, No Conjunctivae inflammation, No Eyelid inflammation, No Other, No Redness ENT: No Ear pain, No Ear discharge, No Nose pain, No Nose discharge, No Nose congestion, No Mouth pain, No Mouth swelling, No Throat pain, No Throat swelling, No Other Cardiovascular: No Chest Pain, No Palpitations, No Orthopnea, No Paroxysmal Noc. Dyspnea, No Edema, No Lt Headedness, No Other Respiratory: No Cough, No Dry, No Shortness of breath, No SOB with excertion, No Wheezing, No Hemoptysis, No Pleuritic Pain, No Sputum, No Other Genitourinary: No Dysuria, No Frequency, No Incontinence, No Hematuria, No Retention, No Other Musculoskeletal: leg pain (Dressing dry and intact) Skin: No Rash, No Lesions, No Jaundice, No Bruising, No Other Objective Vitals Vital Signs Date Time Temp Pulse Resp B/P (MAP) Pulse Ox O2 Delivery O2 Flow Rate FiO2 03/16/24 08:00 98.7 78 20 109/56 (73) 97 98.7 03/16/24 06:00 Room Air* 0 21 Intake/Output Intake and Output 03/16/24 07:00 Intake Total 860 ml Output Total 2375 ml Balance -1515 ml Intake Oral 810 ml IV Total 50 ml Output Urine Total 2375 ml General Appearance: Alert, Oriented X3, Cooperative, mild distress HEENT: Atraumatic, PERRLA Lungs: Clear to auscultation, Normal air movement, Other (Nasal cannula at 2 liters/minute) Cardiovascular: Normal S1, Normal S2, Other (Atrial fibrillation with controlled rate) Abdomen: Normal bowel sounds Genitourinary: No Apparent Abnormalities (Bernabe catheter) Musculoskeletal: Other (No motor movement to right foot.) Extremities: Other (No motor movement or feeling to right foot.) Neuro: Normal gait, Normal speech Skin: Dry, Intact, Warm, Wounds (See nurse notes and pictures) Psych/Mental Status: Mental status NL, Mood NL Medications Current Medications Medications Dose Ordered Sig/Anthony Route Start Time Stop Time Status Last Admin Dose Admin Nitroglycerin 0.4 mg Q5MINP PRN SL 03/10/24 14:45 Morphine Sulfate 2 mg Q30M PRN IV 03/10/24 14:45 Morphine Sulfate 2 mg Q4HPRN PRN IV 03/10/24 14:45 03/12/24 15:03 2 MG Acetaminophen/ Hydrocodone Bitart 1 tab Q6HPRN PRN PO 03/10/24 14:45 03/14/24 21:56 1 TAB Acetaminophen 500 mg Q8HP PRN PO 03/10/24 14:45 Ondansetron HCl 4 mg Q6HP PRN IV 03/10/24 14:45 Docusate Sodium 100 mg BID PRN PO 03/10/24 14:45 03/10/24 16:23 100 MG Ceftriaxone Sodium 50 ml @ 100 mls/hr DAILY@09 IV 03/10/24 15:30 03/15/24 09:48 100 MLS/HR Amiodarone HCl 200 mg BID PO 03/10/24 22:00 03/15/24 22:45 200 MG Polyethylene Glycol 17 gm DAILYPRN PRN PO 03/11/24 13:15 03/12/24 10:09 17 GM Enteral Nutritional Formula 240 ml QID PO 03/12/24 12:00 03/15/24 18:28 240 ML Apixaban 5 mg BID PO 03/14/24 22:00 03/15/24 22:45 5 MG Laboratory Results Laboratory Tests 03/16/24 05:08 Chemistry Test 03/16/24 05:08 Calcium Level 9.5 mg/dL (8.7-10.4) Urinalysis Test 03/10/24 23:15 Urine Color Brown (Yellow) H Urine Clarity Ex.turbid (Clear) Urine pH 5.5 (5.0-9.0) Urine Specific [place] 1.012 (1.001-1.035) Urine Protein Trace (Negative) H Urine Ketones Negative (Negative) Urine Blood 3+ /uL (Negative) H Urine Nitrite Negative (Negative) Urine Bilirubin Negative (Negative) Urine Urobilinogen Normal mg/dL (Negative) Urine Leukocyte Esterase 1+ /uL (Negative) Urine RBC 3 /hpf (0 - 4) Urine WBC 42 /hpf (0 - 5) Urine WBC Clumps Present /hpf (None Seen) Urine Squamous Epithelial Cells Few /hpf (<5) Urine Bacteria None seen /hpf (None Seen) Urine Yeast (Budding) Few /hpf (None Seen) Urine Glucose 3+ mg/dL (Normal) H Microbiology Microbiology Date/Time Source Procedure Growth Status 03/10/24 23:15 Urine - [place] Urine Culture - Final Complete 03/10/24 16:00 Nose MRSA Screen - Final Complete Labs and/or images reviewed: Labs reviewed by me, Image(s) reviewed by me Assessment/Plan Assessment/Plan Impression: -Acute decompensated systolic heart failure. -Acute thrombus with right lower extremity ischemia -acute on chronic systolic heart failure -acute hypoxic respiratory failure -atrial fibrillation rapid ventricular rate -history of Watchman device -elevated D-dimer, ruled out pulmonary embolism -dyslipidemia -hyperkalemia with acute kidney injury -rhabdomyolysis -ruled out CA. CA 125: 328 Plan: -Events: Patient to OR yesterday for closure of fasciotomy. Patient with improved feeling to her feet, noted with pinprick test. -continue Eliquis -PPI -continue IV fluids per Nephrology -nephrology consultation: results reviewed -Pain management -bowel regimen: add lactulose -DC antibiotic therapy tomorrow -repeat labs in a.m. -social service consultation for DC planning. At this time patient states she lives alone, with a granddaughter available to help daily, but patient does not have someone in-house 24 hours a day. Critical care time spent with patient discussing and formulating plan of care: 40 minutes. This does not include time spent performing procedures. This medical document was created using an electronic medical record system with [employer] dictation system. Although this document has been carefully reviewed, there may still be some phonetic and typographical errors. These areas are purely typographical due to imperfections of the software programs, and do not reflect any compromise in the patient's medical care. Plan discussed with: Patient, Other (RN) My Orders Orders - NICOLE REBOLLAR NP Procedure Category Date Status Time * Radarman CONS 03/15/24 Transmitted Consult Pt Request For Service PT 03/15/24 Logged 12:25 Date of Service: Mar 16, 2024 Billing Provider: NICOLE REBOLLAR NP Common Visit Codes: 17675-PRSSHFFY CARE 30-74 MIN NICOLE REBOLLAR NP Mar 16, 2024 09:02
[2024-03-16] MEDS: LACTULOSE 20Gm/30ML SOLN PO SCH (10:17)
[2024-03-16] MEDS: PANTOPRAZOLE 40 MG TAB PO ONE (10:30)
--- NOTE | 2024-03-16 21:52 | DVHPN2 ---
Progress Note - Dictate Date Seen: Mar 16, 2024 Has the PT tested + for MRSA If YES, has PT been informed?: No Medical Necessity Reason Pt with a Central, PICC or Fol: Yes The following are medically ne: Myers Catheter Reason for myers catheter: Strict I&O Subjective Patient was seen and evaluated in follow up in the ICU. Patient is complaining of abdominal discomfort and constipation. Family at bedside. Creatine Kinase 1011. Per CM, patient is arranged for services with [facility]. vital signs Vital Sign Date Time Temp Pulse Resp B/P (MAP) Pulse Ox O2 Delivery O2 Flow Rate FiO2 03/16/24 11:00 87 19 99 03/16/24 10:00 Room Air* 0 21 03/16/24 08:00 98.7 98.7 Total Intake and Output 03/15/24 03/15/24 03/16/24 15:00 23:00 07:00 Intake Total 50 ml 350 ml 460 ml Output Total 375 ml 2000 ml Balance 50 ml -25 ml -1540 ml medications Current Medications Medications Dose Ordered Sig/Anthony Route Start Time Stop Time Status Last Admin Dose Admin Nitroglycerin 0.4 mg Q5MINP PRN SL 03/10/24 14:45 Morphine Sulfate 2 mg Q30M PRN IV 03/10/24 14:45 Morphine Sulfate 2 mg Q4HPRN PRN IV 03/10/24 14:45 03/12/24 15:03 2 MG Acetaminophen/ Hydrocodone Bitart 1 tab Q6HPRN PRN PO 03/10/24 14:45 03/16/24 10:28 1 TAB Acetaminophen 500 mg Q8HP PRN PO 03/10/24 14:45 Ondansetron HCl 4 mg Q6HP PRN IV 03/10/24 14:45 Docusate Sodium 100 mg BID PRN PO 03/10/24 14:45 03/10/24 16:23 100 MG Ceftriaxone Sodium 50 ml @ 100 mls/hr DAILY@09 IV 03/10/24 15:30 03/16/24 08:56 100 MLS/HR Amiodarone HCl 200 mg BID PO 03/10/24 22:00 03/16/24 10:17 200 MG Polyethylene Glycol 17 gm DAILYPRN PRN PO 03/11/24 13:15 03/12/24 10:09 17 GM Enteral Nutritional Formula 240 ml QID PO 03/12/24 12:00 03/16/24 06:00 240 ML Apixaban 5 mg BID PO 03/14/24 22:00 03/16/24 10:17 5 MG Lactulose 30 ml DAILY PO 03/16/24 10:00 03/16/24 10:17 30 ML Pantoprazole Sodium 40 mg DAILY@0600 PO 03/17/24 06:00 objective GENERAL: Awake, alert, oriented. LUNGS: Clear. CARDIOVASCULAR: Heart sounds are good. ABDOMEN: Soft. laboratory and microbiology Laboratory Tests 03/16/24 05:08 Test 03/16/24 05:08 Range/Units Serum Glucose 103 74-106 mg/dL Problem List Acute decompensated systolic heart failure. Lower extremity ischemia. Acute on chronic systolic heart failure. Acute hypoxic respiratory failure. Atrial fibrillation rapid ventricular rate. History of Watchman device. Dyslipidemia. Acute right lower leg PND with ischemia. Hyperkalemia with acute kidney injury. Rhabdomyolysis. Assessment/Plan Continued all current supportive medical care. Morphine and [place] for pain management. Amiodarone. IV antibiotics as ordered. Additional plan as per the hospital course. Critical care time of 45 minutes provided to include time spent evaluation of patient at bedside, when appropriate patient/family education for diagnosis, treatment plan, review of pertinent medical information and discussion of care with specialty providers and PCP. Dietary Evaluation Review Comments: 1. Encourage PO intake when medically feasible. Continue with Ensure Hi Protein PO feedidngs/supplement if pt can tolerate. 2. If GI asscessible, feeding can not meet her protein and energy goal, consider TF jevity 50ml/hr providing 67 gPro and 1440 kcal FS in 24 hrs, 3. Considere TPN per pharmacy to meet 75% of her needds, if NPO>7 days 4. Advance to 2 GNA Lo fat Lo Cholesterol cardiac diet, texture as tolerated if Pt passes speech eval. Expected Outcomes/Goals: maintain Weight, improved lab values Plan discussed with: Patient SALVADOR CONNORS MD Mar 16, 2024 11:58
--- NOTE | 2024-03-16 22:08 | DVHPN2 ---
Progress Note - Dictate Date Seen: Mar 16, 2024 Has the PT tested + for MRSA If YES, has PT been informed?: No Medical Necessity Reason Pt with a Central, PICC or Fol: Yes The following are medically ne: Myers Catheter Reason for myers catheter: Strict I&O Subjective Patient seen and examined at bedside. On room air Overnight events reviewed. vital signs Vital Sign Date Time Temp Pulse Resp B/P (MAP) Pulse Ox O2 Delivery O2 Flow Rate FiO2 03/16/24 20:00 23 98 Room Air* 0 21 03/16/24 20:00 87 03/16/24 18:00 03/16/24 12:00 98.3 98.3 Total Intake and Output 03/15/24 03/15/24 03/16/24 15:00 23:00 07:00 Intake Total 50 ml 350 ml 460 ml Output Total 375 ml 2000 ml Balance 50 ml -25 ml -1540 ml medications Current Medications Medications Dose Ordered Sig/Anthony Route Start Time Stop Time Status Last Admin Dose Admin Nitroglycerin 0.4 mg Q5MINP PRN SL 03/10/24 14:45 Morphine Sulfate 2 mg Q30M PRN IV 03/10/24 14:45 Morphine Sulfate 2 mg Q4HPRN PRN IV 03/10/24 14:45 03/12/24 15:03 2 MG Acetaminophen/ Hydrocodone Bitart 1 tab Q6HPRN PRN PO 03/10/24 14:45 03/16/24 20:43 1 TAB Acetaminophen 500 mg Q8HP PRN PO 03/10/24 14:45 Ondansetron HCl 4 mg Q6HP PRN IV 03/10/24 14:45 Docusate Sodium 100 mg BID PRN PO 03/10/24 14:45 03/10/24 16:23 100 MG Ceftriaxone Sodium 50 ml @ 100 mls/hr DAILY@09 IV 03/10/24 15:30 03/16/24 08:56 100 MLS/HR Amiodarone HCl 200 mg BID PO 03/10/24 22:00 03/16/24 22:01 200 MG Polyethylene Glycol 17 gm DAILYPRN PRN PO 03/11/24 13:15 03/12/24 10:09 17 GM Enteral Nutritional Formula 240 ml QID PO 03/12/24 12:00 03/16/24 22:03 240 ML Apixaban 5 mg BID PO 03/14/24 22:00 03/16/24 22:01 5 MG Lactulose 30 ml DAILY PO 03/16/24 10:00 03/16/24 10:17 30 ML Pantoprazole Sodium 40 mg DAILY@0600 PO 03/17/24 06:00 objective Gen.: Patient lying in bed in no apparent distress. On room air Head: Normocephalic, atraumatic. Eyes: EOMI/PERRLA. Ears: Normal hearing. Normal anatomy. Neck/trachea: Trachea midline, supple. Nose: Normal external anatomy. Mouth: Moist mucous membranes. Chest: Decreased air entry bilaterally. No wheezing or rhonchi. Cardiovascular: Positive S1, positive S2. Regular rate and rhythm. Abdomen: Positive bowel sounds in all 4 quadrants. Soft, non-tender, non- distended. : Deferred. Rectal: Deferred. Skin: Warm, dry. Intact. Extremities: 2+ radial pulses bilaterally. No lower extremity edema. Neuro: Awake, alert, oriented x3. No gross motor or sensory deficits. Cranial nerves II through XII intact. Gait not assessed. laboratory and microbiology Laboratory Tests 03/16/24 05:08 Test 03/16/24 05:08 Range/Units Serum Glucose 103 74-106 mg/dL Assessment/Plan Impression: Acute hypoxic respiratory failure Acute thrombus with right lower extremity ischemia Acute on chronic systolic heart failure Atrial fibrillation w/ rapid ventricular rate Acute kidney injury Rhabdomyolysis Events: Remains on room air No respiratory distress. Supplemental oxygen PRN Continue antibiotics Incentive spirometry Eliquis BID Amiodarone PO. Pt had 2 large bowel movements. S/p left leg fasciotomy with closure. Wound care Vascular Surgery recs appreciated Awaiting PT evaluation. We will obtain CXR in the AM to monitor pleural effusion. ASA ruled out endocarditis. Labs and imaging reviewed. Rest of plan as noted below. Plan: Supplemental oxygen PRN Titrate to keep O2 sats above 92%. Continue antibiotics Amiodarone PO S/p left leg fasciotomy with closure. Vascular Surgery recs appreciated. Wound care Monitor renal function. Monitor electrolytes. Supplement as necessary. Monitor ins and outs. DVT prophylaxis. Prognosis: Guarded given patient's multiple co-morbidities. Rest of plan per hospitalist and other consultants. A total of 51 minutes of clinical care time was spent reviewing the patient record, examining the patient, making a diagnostic and therapeutic plan, discussing this plan with the medical personnel, following up on diagnostic studies and following the patient for clinical stability excluding any and all procedures. At least 50% of this time was spent in direct, [id number] contact. Thank you, DAVID Gonzalez, for allowing me to participate in this patient's care. Further recommendations will depend on the patient's clinical course. Please do not hesitate to contact me if you have any questions or concerns. This medical document was created using an electronic medical record system with [employer] dictation system. Although these documentations are being carefully reviewed, there may still be some phonetic and typographical changes. The errors are purely typographical, due to imperfection on the software program, and do not reflect any compromise in the patient's medical care. Dietary Evaluation Review Comments: 1. Encourage PO intake when medically feasible. Continue with Ensure Hi Protein PO feedidngs/supplement if pt can tolerate. 2. If GI asscessible, feeding can not meet her protein and energy goal, consider TF jevity 50ml/hr providing 67 gPro and 1440 kcal FS in 24 hrs, 3. Considere TPN per pharmacy to meet 75% of her needds, if NPO>7 days 4. Advance to 2 GNA Lo fat Lo Cholesterol cardiac diet, texture as tolerated if Pt passes speech eval. Expected Outcomes/Goals: maintain Weight, improved lab values Plan discussed with: Patient, Other (RADHA Perez) JORDAN WONG MD Mar 16, 2024 22:08
[2024-03-17] VITALS (13 sets, daily range): BP systolic 87–115; BP diastolic 44–67; PULSE 67–97; RESP 12–24; TEMP 97.3–98.6; O2SAT 95–100
[2024-03-17] MEDS: PANTOPRAZOLE 40 MG TAB PO SCH (04:55)
--- NOTE | 2024-03-17 05:46 | DVH ---
CHEST RADIOGRAPH Indication: REASSESS PLEURAL EFFUSIONS Technique: Single frontal view of the chest was obtained COMPARISON: XY CHEST XRAY 1 VIEW on DOS: 03/08/24, XY CHEST PORTABLE on DOS: 03/07/24, XY CHEST XRAY 1 EW on DOS: 03/06/24, XY CHEST PORTABLE on DOS: 03/04/24 FINDINGS: Lines and Tubes: None Lungs: Mild congestion Pleura: No effusion. No pneumothorax. Cardiomediastinal contours: Cardiomegaly Bones: Unremarkable IMPRESSION: Mild congestion
--- NOTE | 2024-03-17 15:17 | DVHPN2 ---
Progress Note - Dictate Date Seen: Mar 17, 2024 Has the PT tested + for MRSA If YES, has PT been informed?: No Medical Necessity Reason Pt with a Central, PICC or Fol: Yes The following are medically ne: Myers Catheter Reason for myers catheter: Strict I&O Subjective Patient was seen and evaluated in follow up in the ICU. Patient is complaining of abdominal discomfort and constipation. Patient is refusing to use bedpan. Chest x-ray showed mild congestion. vital signs Vital Sign Date Time Temp Pulse Resp B/P (MAP) Pulse Ox O2 Delivery O2 Flow Rate FiO2 03/17/24 12:00 98.6 97 20 97/66 (76) 96 98.6 03/17/24 08:00 Room Air* 0 21 Total Intake and Output 03/16/24 03/16/24 03/17/24 15:00 23:00 07:00 Intake Total 850 ml 700 ml 75 ml Output Total 500 ml 150 ml Balance 850 ml 200 ml -75 ml medications Current Medications Medications Dose Ordered Sig/Anthony Route Start Time Stop Time Status Last Admin Dose Admin Nitroglycerin 0.4 mg Q5MINP PRN SL 03/10/24 14:45 Morphine Sulfate 2 mg Q30M PRN IV 03/10/24 14:45 Morphine Sulfate 2 mg Q4HPRN PRN IV 03/10/24 14:45 03/12/24 15:03 2 MG Acetaminophen/ Hydrocodone Bitart 1 tab Q6HPRN PRN PO 03/10/24 14:45 03/17/24 10:38 1 TAB Acetaminophen 500 mg Q8HP PRN PO 03/10/24 14:45 Ondansetron HCl 4 mg Q6HP PRN IV 03/10/24 14:45 Docusate Sodium 100 mg BID PRN PO 03/10/24 14:45 03/10/24 16:23 100 MG Ceftriaxone Sodium 50 ml @ 100 mls/hr DAILY@09 IV 03/10/24 15:30 03/17/24 09:15 100 MLS/HR Amiodarone HCl 200 mg BID PO 03/10/24 22:00 03/17/24 10:37 200 MG Polyethylene Glycol 17 gm DAILYPRN PRN PO 03/11/24 13:15 03/12/24 10:09 17 GM Enteral Nutritional Formula 240 ml QID PO 03/12/24 12:00 03/16/24 22:03 240 ML Apixaban 5 mg BID PO 03/14/24 22:00 03/17/24 10:37 5 MG Lactulose 30 ml DAILY PO 03/16/24 10:00 03/17/24 10:38 30 ML Pantoprazole Sodium 40 mg DAILY@0600 PO 03/17/24 06:00 03/17/24 04:55 40 MG objective GENERAL: Awake, alert, oriented. LUNGS: Clear. CARDIOVASCULAR: Heart sounds are good. ABDOMEN: Soft. laboratory and microbiology Laboratory Tests 03/16/24 05:08 Test 03/16/24 05:08 Range/Units Serum Glucose 103 74-106 mg/dL Problem List Acute decompensated systolic heart failure. Lower extremity ischemia. Acute on chronic systolic heart failure. Acute hypoxic respiratory failure. Atrial fibrillation rapid ventricular rate. History of Watchman device. Dyslipidemia. Acute right lower leg PND with ischemia. Hyperkalemia with acute kidney injury. Rhabdomyolysis. Assessment/Plan Continued all current supportive medical care. Morphine and [place] for pain management. Amiodarone. IV antibiotics as ordered. Additional plan as per the hospital course. Critical care time of 45 minutes provided to include time spent evaluation of patient at bedside, when appropriate patient/family education for diagnosis, treatment plan, review of pertinent medical information and discussion of care with specialty providers and PCP. Dietary Evaluation Review Comments: 1. Encourage PO intake when medically feasible. Continue with Ensure Hi Protein PO feedidngs/supplement if pt can tolerate. 2. If GI asscessible, feeding can not meet her protein and energy goal, consider TF jevity 50ml/hr providing 67 gPro and 1440 kcal FS in 24 hrs, 3. Considere TPN per pharmacy to meet 75% of her needds, if NPO>7 days 4. Advance to 2 GNA Lo fat Lo Cholesterol cardiac diet, texture as tolerated if Pt passes speech eval. Expected Outcomes/Goals: maintain Weight, improved lab values Plan discussed with: Patient SALVADOR CONNORS MD Mar 17, 2024 12:17
--- NOTE | 2024-03-17 20:27 | DVHPN2 ---
Progress Note - Dictate Date Seen: Mar 17, 2024 Has the PT tested + for MRSA If YES, has PT been informed?: No Medical Necessity Reason Pt with a Central, PICC or Fol: Yes The following are medically ne: Myers Catheter Reason for myers catheter: Strict I&O Subjective Patient seen and examined at bedside. On room air Overnight events reviewed. vital signs Vital Sign Date Time Temp Pulse Resp B/P (MAP) Pulse Ox O2 Delivery O2 Flow Rate FiO2 03/17/24 16:40 97.3 72 18 113/60 (77) 97 97.3 03/17/24 16:00 Room Air* 0 21 Total Intake and Output 03/16/24 03/16/24 03/17/24 15:00 23:00 07:00 Intake Total 850 ml 700 ml 75 ml Output Total 500 ml 150 ml Balance 850 ml 200 ml -75 ml medications Current Medications Medications Dose Ordered Sig/Anthony Route Start Time Stop Time Status Last Admin Dose Admin Nitroglycerin 0.4 mg Q5MINP PRN SL 03/10/24 14:45 Morphine Sulfate 2 mg Q30M PRN IV 03/10/24 14:45 Morphine Sulfate 2 mg Q4HPRN PRN IV 03/10/24 14:45 03/12/24 15:03 2 MG Acetaminophen/ Hydrocodone Bitart 1 tab Q6HPRN PRN PO 03/10/24 14:45 03/17/24 10:38 1 TAB Acetaminophen 500 mg Q8HP PRN PO 03/10/24 14:45 Ondansetron HCl 4 mg Q6HP PRN IV 03/10/24 14:45 Docusate Sodium 100 mg BID PRN PO 03/10/24 14:45 03/10/24 16:23 100 MG Ceftriaxone Sodium 50 ml @ 100 mls/hr DAILY@09 IV 03/10/24 15:30 03/17/24 09:15 100 MLS/HR Amiodarone HCl 200 mg BID PO 03/10/24 22:00 03/17/24 10:37 200 MG Polyethylene Glycol 17 gm DAILYPRN PRN PO 03/11/24 13:15 03/12/24 10:09 17 GM Enteral Nutritional Formula 240 ml QID PO 03/12/24 12:00 03/17/24 17:51 240 ML Apixaban 5 mg BID PO 03/14/24 22:00 03/17/24 10:37 5 MG Lactulose 30 ml DAILY PO 03/16/24 10:00 03/17/24 10:38 30 ML Pantoprazole Sodium 40 mg DAILY@0600 PO 03/17/24 06:00 03/17/24 04:55 40 MG objective Gen.: Patient lying in bed in no apparent distress. On room air Head: Normocephalic, atraumatic. Eyes: EOMI/PERRLA. Ears: Normal hearing. Normal anatomy. Neck/trachea: Trachea midline, supple. Nose: Normal external anatomy. Mouth: Moist mucous membranes. Chest: Decreased air entry bilaterally. No wheezing or rhonchi. Cardiovascular: Positive S1, positive S2. Regular rate and rhythm. Abdomen: Positive bowel sounds in all 4 quadrants. Soft, non-tender, non- distended. : Deferred. Rectal: Deferred. Skin: Warm, dry. Intact. Extremities: 2+ radial pulses bilaterally. No lower extremity edema. Neuro: Awake, alert, oriented x3. No gross motor or sensory deficits. Cranial nerves II through XII intact. Gait not assessed. laboratory and microbiology Laboratory Tests 03/16/24 05:08 Test 03/16/24 05:08 Range/Units Serum Glucose 103 74-106 mg/dL Assessment/Plan Impression: Acute hypoxic respiratory failure Acute thrombus with right lower extremity ischemia Acute on chronic systolic heart failure Atrial fibrillation w/ rapid ventricular rate Acute kidney injury Rhabdomyolysis Events: Remains on room air No respiratory distress. Supplemental oxygen PRN CXR reviewed, demonstrates mild pulmonary congestion. No pleural effusion or pneumothorax. Continue antibiotics Bronchodilators PRN. Incentive spirometry Eliquis BID Amiodarone PO. S/p left leg fasciotomy with closure. Wound care Vascular Surgery recs appreciated Awaiting PT evaluation. ASA ruled out endocarditis. Labs and imaging reviewed. Rest of plan as noted below. Plan: Supplemental oxygen PRN Titrate to keep O2 sats above 92%. Continue antibiotics Amiodarone PO S/p left leg fasciotomy with closure. Vascular Surgery recs appreciated. Wound care Monitor renal function. Monitor electrolytes. Supplement as necessary. Monitor ins and outs. DVT prophylaxis. Prognosis: Guarded given patient's multiple co-morbidities. Rest of plan per hospitalist and other consultants. A total of 51 minutes of clinical care time was spent reviewing the patient record, examining the patient, making a diagnostic and therapeutic plan, discussing this plan with the medical personnel, following up on diagnostic studies and following the patient for clinical stability excluding any and all procedures. At least 50% of this time was spent in direct, [id number] contact. Thank you, DAVID Gonzalez, for allowing me to participate in this patient's care. Further recommendations will depend on the patient's clinical course. Please do not hesitate to contact me if you have any questions or concerns. This medical document was created using an electronic medical record system with [employer] dictation system. Although these documentations are being carefully reviewed, there may still be some phonetic and typographical changes. The errors are purely typographical, due to imperfection on the software program, and do not reflect any compromise in the patient's medical care. Dietary Evaluation Review Comments: 1. Encourage PO intake when medically feasible. Continue with Ensure Hi Protein PO feedidngs/supplement if pt can tolerate. 2. If GI asscessible, feeding can not meet her protein and energy goal, consider TF jevity 50ml/hr providing 67 gPro and 1440 kcal FS in 24 hrs, 3. Considere TPN per pharmacy to meet 75% of her needds, if NPO>7 days 4. Advance to 2 GNA Lo fat Lo Cholesterol cardiac diet, texture as tolerated if Pt passes speech eval. Expected Outcomes/Goals: maintain Weight, improved lab values Plan discussed with: Patient, Other (RADHA Moraes) JORDAN WONG MD Mar 17, 2024 20:27
--- NOTE | 2024-03-17 20:49 | DVHPN2 ---
Subjective in bed resting Reviewed: Care Plan, H&P, Labs, Medications Changes from previous H/P or p: No Changes General: Per HPI Eyes: No Pain, No Vision change, No Conjunctivae inflammation, No Eyelid inflammation, No Other, No Redness ENT: No Ear pain, No Ear discharge, No Nose pain, No Nose discharge, No Nose congestion, No Mouth pain, No Mouth swelling, No Throat pain, No Throat swelling, No Other Cardiovascular: No Chest Pain, No Palpitations, No Orthopnea, No Paroxysmal Noc. Dyspnea, No Edema, No Lt Headedness, No Other Respiratory: No Cough, No Dry, No Shortness of breath, No SOB with excertion, No Wheezing, No Hemoptysis, No Pleuritic Pain, No Sputum, No Other Genitourinary: No Dysuria, No Frequency, No Incontinence, No Hematuria, No Retention, No Other Musculoskeletal: leg pain (Dressing dry and intact) Skin: No Rash, No Lesions, No Jaundice, No Bruising, No Other Objective Vitals Vital Signs Date Time Temp Pulse Resp B/P (MAP) Pulse Ox O2 Delivery O2 Flow Rate FiO2 03/17/24 19:30 80 16 Room Air* 0 21 03/17/24 19:30 95 03/17/24 16:40 97.3 113/60 (77) 97.3 Intake/Output Intake and Output 03/17/24 05:00 Intake Total 1625 ml Output Total 650 ml Balance 975 ml Intake Oral 1625 ml Output Urine Total 650 ml # Bowel Movements 2 General Appearance: Alert, Oriented X3, Cooperative, mild distress HEENT: Atraumatic, PERRLA Lungs: Clear to auscultation, Normal air movement, Other (Nasal cannula at 2 liters/minute) Cardiovascular: Normal S1, Normal S2, Other (Atrial fibrillation with controlled rate) Abdomen: Normal bowel sounds Genitourinary: No Apparent Abnormalities (Bernabe catheter) Musculoskeletal: Other (No motor movement to right foot.) Extremities: Other (No motor movement or feeling to right foot.) Neuro: Normal gait, Normal speech Skin: Dry, Intact, Warm, Wounds (See nurse notes and pictures) Psych/Mental Status: Mental status NL, Mood NL Medications Current Medications Medications Dose Ordered Sig/Anthony Route Start Time Stop Time Status Last Admin Dose Admin Nitroglycerin 0.4 mg Q5MINP PRN SL 03/10/24 14:45 Morphine Sulfate 2 mg Q30M PRN IV 03/10/24 14:45 Morphine Sulfate 2 mg Q4HPRN PRN IV 03/10/24 14:45 03/12/24 15:03 2 MG Acetaminophen/ Hydrocodone Bitart 1 tab Q6HPRN PRN PO 03/10/24 14:45 03/17/24 10:38 1 TAB Acetaminophen 500 mg Q8HP PRN PO 03/10/24 14:45 Ondansetron HCl 4 mg Q6HP PRN IV 03/10/24 14:45 Docusate Sodium 100 mg BID PRN PO 03/10/24 14:45 03/10/24 16:23 100 MG Ceftriaxone Sodium 50 ml @ 100 mls/hr DAILY@09 IV 03/10/24 15:30 03/17/24 09:15 100 MLS/HR Amiodarone HCl 200 mg BID PO 03/10/24 22:00 03/17/24 10:37 200 MG Polyethylene Glycol 17 gm DAILYPRN PRN PO 03/11/24 13:15 03/12/24 10:09 17 GM Enteral Nutritional Formula 240 ml QID PO 03/12/24 12:00 03/17/24 17:51 240 ML Apixaban 5 mg BID PO 03/14/24 22:00 03/17/24 10:37 5 MG Lactulose 30 ml DAILY PO 03/16/24 10:00 03/17/24 10:38 30 ML Pantoprazole Sodium 40 mg DAILY@0600 PO 03/17/24 06:00 03/17/24 04:55 40 MG Laboratory Results Laboratory Tests 03/16/24 05:08 Urinalysis Test 03/10/24 23:15 Urine Color Brown (Yellow) H Urine Clarity Ex.turbid (Clear) Urine pH 5.5 (5.0-9.0) Urine Specific [place] 1.012 (1.001-1.035) Urine Protein Trace (Negative) H Urine Ketones Negative (Negative) Urine Blood 3+ /uL (Negative) H Urine Nitrite Negative (Negative) Urine Bilirubin Negative (Negative) Urine Urobilinogen Normal mg/dL (Negative) Urine Leukocyte Esterase 1+ /uL (Negative) Urine RBC 3 /hpf (0 - 4) Urine WBC 42 /hpf (0 - 5) Urine WBC Clumps Present /hpf (None Seen) Urine Squamous Epithelial Cells Few /hpf (<5) Urine Bacteria None seen /hpf (None Seen) Urine Yeast (Budding) Few /hpf (None Seen) Urine Glucose 3+ mg/dL (Normal) H Microbiology Microbiology Date/Time Source Procedure Growth Status 03/10/24 23:15 Urine - [place] Urine Culture - Final Complete 03/10/24 16:00 Nose MRSA Screen - Final Complete Assessment/Plan Assessment/Plan -Acute decompensated systolic heart failure. -Acute thrombus with right lower extremity ischemia -acute on chronic systolic heart failure -acute hypoxic respiratory failure -atrial fibrillation rapid ventricular rate -history of Watchman device -elevated D-dimer, ruled out pulmonary embolism -dyslipidemia -hyperkalemia with acute kidney injury -rhabdomyolysis -ruled out CA. [place] 125: 328 Plan: -Events: Patient to OR yesterday for closure of fasciotomy. Patient with improved feeling to her feet, noted with pinprick test. -continue Eliquis -PPI -continue IV fluids per Nephrology -nephrology consultation: results reviewed -Pain management -bowel regimen: add lactulose -DC antibiotic therapy tomorrow -repeat labs in a.m. -social service consultation for DC planning. At this time patient states she lives alone, with a granddaughter available to help daily, but patient does not have someone in-house 24 hours a day. Plan discussed with: Patient My Orders Orders - RADHA CATALAN MD Procedure Category Date Status Time Transfer Orders XFER 03/17/24 Transmitted 13:20 Date of Service: Mar 17, 2024 Billing Provider: RADHA CATALAN MD Common Visit Codes: [id number] INP/OBS CARE(HIGH) RADHA CATALAN MD Mar 17, 2024 20:49
[2024-03-18] VITALS (7 sets, daily range): BP systolic 100–130; BP diastolic 60–72; PULSE 66–100; RESP 17–18; TEMP 97.5–98.1; O2SAT 95–99
[2024-03-18] MEDS: ACETAMINOPHEN 500 MG TAB or CAP PO PRN (05:39)
--- NOTE | 2024-03-18 10:02 | DVHPN2 ---
Progress Note Date Seen: Mar 18, 2024 Has the PT tested + for MRSA If YES, has PT been informed?: No Medical Necessity Reason Pt with a Central, PICC or Fol: Yes The following are medically ne: Myers Catheter Reason for myers catheter: Strict I&O Subjective Patient reports: No new complaints Changes from previous H/P or p: No Changes Review of Systems: HEENT:Normal, CVS:Normal, RESPIRATORY:Normal, GI:Normal, :Normal, MSK:Normal (Foot warm patient has some increased sensation in the foot with minimal movement of the toes.), NEURO:Normal Objective vital signs Vital Sign Date Time Temp Pulse Resp B/P (MAP) Pulse Ox O2 Delivery O2 Flow Rate FiO2 03/18/24 05:05 97.8 66 18 111/62 (78) 97 97.8 03/17/24 19:30 Room Air* 0 21 Total Intake and Output 03/17/24 03/17/24 03/18/24 15:00 23:00 07:00 Intake Total 50 ml 240 ml 600 ml Output Total 300 ml Balance 50 ml 240 ml 300 ml medications Current Medications Medications Dose Ordered Sig/Anthony Route Start Time Stop Time Status Last Admin Dose Admin Nitroglycerin 0.4 mg Q5MINP PRN SL 03/10/24 14:45 Morphine Sulfate 2 mg Q30M PRN IV 03/10/24 14:45 Morphine Sulfate 2 mg Q4HPRN PRN IV 03/10/24 14:45 03/12/24 15:03 Acetaminophen/ Hydrocodone Bitart 1 tab Q6HPRN PRN PO 03/10/24 14:45 03/18/24 00:52 Acetaminophen 500 mg Q8HP PRN PO 03/10/24 14:45 03/18/24 05:39 Ondansetron HCl 4 mg Q6HP PRN IV 03/10/24 14:45 Docusate Sodium 100 mg BID PRN PO 03/10/24 14:45 03/10/24 16:23 Ceftriaxone Sodium 50 ml @ 100 mls/hr DAILY@09 IV 03/10/24 15:30 03/18/24 09:13 Amiodarone HCl 200 mg BID PO 03/10/24 22:00 03/17/24 21:49 Polyethylene Glycol 17 gm DAILYPRN PRN PO 03/11/24 13:15 03/12/24 10:09 Enteral Nutritional Formula 240 ml QID PO 03/12/24 12:00 03/18/24 05:42 Apixaban 5 mg BID PO 03/14/24 22:00 03/17/24 21:49 Lactulose 30 ml DAILY PO 03/16/24 10:00 03/17/24 10:38 Pantoprazole Sodium 40 mg DAILY@0600 PO 03/17/24 06:00 03/18/24 05:39 Examination: GENERAL:Normal, HEENT:Normal, NECK:Normal, LUNGS:Normal, CVS:Normal, ABDOMEN:Normal, MSK:Normal (Foot warm patient has some increased sensation in the foot with minimal movement of the toes.), SKIN:Normal, NEURO:Normal, :Normal laboratory and microbiology Laboratory Tests 03/16/24 05:08 Test 03/16/24 05:08 Range/Units Serum Glucose 103 74-106 mg/dL Microbiology Date/Time Source Procedure Growth Status 03/10/24 23:15 Urine - [place] Urine Culture - Final Complete 03/10/24 16:00 Nose MRSA Screen - Final Complete Problem List/Assessment/Plan Problem List/Assessment/Plan Status post right common femoral embolectomy, angiogram, 4 quadrant fasciotomy March 08, 2024 , fasciotomy closure on March 15, 2024 Out of bed Continue anticoagulation Social work for home physical therapy. Plan discussed with: Patient My Orders My Orders Orders - VIDAL JONES Jr., MD Procedure Category Date Status Time Change Dressing Daily ALYSA 03/17/24 In Process 16:04 Communication Order ORDERS 03/17/24 Transmitted 16:04 Dietary Evaluation Review Comments: 1. Encourage PO intake when medically feasible. Continue with Ensure Hi Protein PO feedidngs/supplement if pt can tolerate. 2. If GI asscessible, feeding can not meet her protein and energy goal, consider TF jevity 50ml/hr providing 67 gPro and 1440 kcal FS in 24 hrs, 3. Considere TPN per pharmacy to meet 75% of her needds, if NPO>7 days 4. Advance to 2 GNA Lo fat Lo Cholesterol cardiac diet, texture as tolerated if Pt passes speech eval. Expected Outcomes/Goals: maintain Weight, improved lab values VIDAL JONES Jr., MD Mar 18, 2024 10:02
[2024-03-18] MEDS: LIDOCAINE 1% HCL (LOCAL ANESTH.) INJ 20ML MDV ONE (11:38)
[2024-03-18] MEDS: BUPIVACAINE 0.25% INJ 50ML VIAL ONE (11:38)
--- NOTE | 2024-03-18 19:53 | DVHPN2 ---
Subjective in bed resting Reviewed: Care Plan, H&P, Labs, Medications Changes from previous H/P or p: No Changes General: Per HPI Eyes: No Pain, No Vision change, No Conjunctivae inflammation, No Eyelid inflammation, No Other, No Redness ENT: No Ear pain, No Ear discharge, No Nose pain, No Nose discharge, No Nose congestion, No Mouth pain, No Mouth swelling, No Throat pain, No Throat swelling, No Other Cardiovascular: No Chest Pain, No Palpitations, No Orthopnea, No Paroxysmal Noc. Dyspnea, No Edema, No Lt Headedness, No Other Respiratory: No Cough, No Dry, No Shortness of breath, No SOB with excertion, No Wheezing, No Hemoptysis, No Pleuritic Pain, No Sputum, No Other Genitourinary: No Dysuria, No Frequency, No Incontinence, No Hematuria, No Retention, No Other Musculoskeletal: leg pain (Dressing dry and intact) Skin: No Rash, No Lesions, No Jaundice, No Bruising, No Other Objective Vitals Vital Signs Date Time Temp Pulse Resp B/P (MAP) Pulse Ox O2 Delivery O2 Flow Rate FiO2 03/18/24 17:11 98.1 100 18 100/61 (74) 98 98.1 03/18/24 08:00 Room Air* 0 21 Intake/Output Intake and Output 03/18/24 04:59 Intake Total 365 ml Output Total 150 ml Balance 215 ml Intake Oral 315 ml IV Total 50 ml Output Urine Total 150 ml General Appearance: Alert, Oriented X3, Cooperative, mild distress HEENT: Atraumatic, PERRLA Lungs: Clear to auscultation, Normal air movement, Other (Nasal cannula at 2 liters/minute) Cardiovascular: Normal S1, Normal S2, Other (Atrial fibrillation with controlled rate) Abdomen: Normal bowel sounds Genitourinary: No Apparent Abnormalities (Bernabe catheter) Musculoskeletal: Other (No motor movement to right foot.) Extremities: Other (No motor movement or feeling to right foot.) Neuro: Normal gait, Normal speech Skin: Dry, Intact, Warm, Wounds (See nurse notes and pictures) Psych/Mental Status: Mental status NL, Mood NL Medications Current Medications Medications Dose Ordered Sig/Anthony Route Start Time Stop Time Status Last Admin Dose Admin Nitroglycerin 0.4 mg Q5MINP PRN SL 03/10/24 14:45 Morphine Sulfate 2 mg Q30M PRN IV 03/10/24 14:45 Morphine Sulfate 2 mg Q4HPRN PRN IV 03/10/24 14:45 03/12/24 15:03 2 MG Acetaminophen/ Hydrocodone Bitart 1 tab Q6HPRN PRN PO 03/10/24 14:45 03/18/24 16:40 1 TAB Acetaminophen 500 mg Q8HP PRN PO 03/10/24 14:45 03/18/24 05:39 500 MG Ondansetron HCl 4 mg Q6HP PRN IV 03/10/24 14:45 Docusate Sodium 100 mg BID PRN PO 03/10/24 14:45 03/10/24 16:23 100 MG Ceftriaxone Sodium 50 ml @ 100 mls/hr DAILY@09 IV 03/10/24 15:30 03/18/24 09:13 100 MLS/HR Amiodarone HCl 200 mg BID PO 03/10/24 22:00 03/18/24 10:44 200 MG Polyethylene Glycol 17 gm DAILYPRN PRN PO 03/11/24 13:15 03/12/24 10:09 17 GM Enteral Nutritional Formula 240 ml QID PO 03/12/24 12:00 03/18/24 18:00 240 ML Apixaban 5 mg BID PO 03/14/24 22:00 03/18/24 10:44 5 MG Lactulose 30 ml DAILY PO 03/16/24 10:00 03/17/24 10:38 30 ML Pantoprazole Sodium 40 mg DAILY@0600 PO 03/17/24 06:00 03/18/24 05:39 40 MG Laboratory Results Laboratory Tests 03/16/24 05:08 Urinalysis Test 03/10/24 23:15 Urine Color Brown (Yellow) H Urine Clarity Ex.turbid (Clear) Urine pH 5.5 (5.0-9.0) Urine Specific [place] 1.012 (1.001-1.035) Urine Protein Trace (Negative) H Urine Ketones Negative (Negative) Urine Blood 3+ /uL (Negative) H Urine Nitrite Negative (Negative) Urine Bilirubin Negative (Negative) Urine Urobilinogen Normal mg/dL (Negative) Urine Leukocyte Esterase 1+ /uL (Negative) Urine RBC 3 /hpf (0 - 4) Urine WBC 42 /hpf (0 - 5) Urine WBC Clumps Present /hpf (None Seen) Urine Squamous Epithelial Cells Few /hpf (<5) Urine Bacteria None seen /hpf (None Seen) Urine Yeast (Budding) Few /hpf (None Seen) Urine Glucose 3+ mg/dL (Normal) H Microbiology Microbiology Date/Time Source Procedure Growth Status 03/10/24 23:15 Urine - [place] Urine Culture - Final Complete 03/10/24 16:00 Nose MRSA Screen - Final Complete Assessment/Plan Assessment/Plan -Acute decompensated systolic heart failure. -Acute thrombus with right lower extremity ischemia -acute on chronic systolic heart failure -acute hypoxic respiratory failure -atrial fibrillation rapid ventricular rate -history of Watchman device -elevated D-dimer, ruled out pulmonary embolism -dyslipidemia -hyperkalemia with acute kidney injury -rhabdomyolysis -ruled out CA. [place] 125: 328 Plan: -Events: Patient to OR yesterday for closure of fasciotomy. Patient with improved feeling to her feet, noted with pinprick test. -continue Eliquis -PPI -continue IV fluids per Nephrology -nephrology consultation: results reviewed -Pain management -bowel regimen: add lactulose -DC antibiotic therapy tomorrow -repeat labs in a.m. -social service consultation for DC planning. At this time patient states she lives alone, with a granddaughter available to help daily, but patient does not have someone in-house 24 hours a day. Plan discussed with: Patient Date of Service: Mar 18, 2024 Billing Provider: RADHA CATALAN MD Common Visit Codes: [id number] INP/OBS CARE(HIGH) RADHA CATALAN MD Mar 18, 2024 19:53
--- NOTE | 2024-03-18 21:36 | DVHPN2 ---
Progress Note - Dictate Date Seen: Mar 18, 2024 Has the PT tested + for MRSA If YES, has PT been informed?: No Medical Necessity Reason Pt with a Central, PICC or Fol: Yes The following are medically ne: Myers Catheter Reason for myers catheter: Strict I&O Subjective Patient seen and examined at bedside. On room air Overnight events reviewed. vital signs Vital Sign Date Time Temp Pulse Resp B/P (MAP) Pulse Ox O2 Delivery O2 Flow Rate FiO2 03/18/24 17:11 98.1 100 18 100/61 (74) 98 98.1 03/18/24 08:00 Room Air* 0 21 Total Intake and Output 03/17/24 03/17/24 03/18/24 15:00 23:00 07:00 Intake Total 50 ml 240 ml 600 ml Output Total 300 ml Balance 50 ml 240 ml 300 ml medications Current Medications Medications Dose Ordered Sig/Anthony Route Start Time Stop Time Status Last Admin Dose Admin Nitroglycerin 0.4 mg Q5MINP PRN SL 03/10/24 14:45 Morphine Sulfate 2 mg Q30M PRN IV 03/10/24 14:45 Morphine Sulfate 2 mg Q4HPRN PRN IV 03/10/24 14:45 03/12/24 15:03 2 MG Acetaminophen/ Hydrocodone Bitart 1 tab Q6HPRN PRN PO 03/10/24 14:45 03/18/24 16:40 1 TAB Acetaminophen 500 mg Q8HP PRN PO 03/10/24 14:45 03/18/24 05:39 500 MG Ondansetron HCl 4 mg Q6HP PRN IV 03/10/24 14:45 Docusate Sodium 100 mg BID PRN PO 03/10/24 14:45 03/10/24 16:23 100 MG Ceftriaxone Sodium 50 ml @ 100 mls/hr DAILY@09 IV 03/10/24 15:30 03/18/24 09:13 100 MLS/HR Amiodarone HCl 200 mg BID PO 03/10/24 22:00 03/18/24 10:44 200 MG Polyethylene Glycol 17 gm DAILYPRN PRN PO 03/11/24 13:15 03/12/24 10:09 17 GM Enteral Nutritional Formula 240 ml QID PO 03/12/24 12:00 03/18/24 18:00 240 ML Apixaban 5 mg BID PO 03/14/24 22:00 03/18/24 10:44 5 MG Lactulose 30 ml DAILY PO 03/16/24 10:00 03/17/24 10:38 30 ML Pantoprazole Sodium 40 mg DAILY@0600 PO 03/17/24 06:00 03/18/24 05:39 40 MG objective Gen.: Patient lying in bed in no apparent distress. On room air Head: Normocephalic, atraumatic. Eyes: EOMI/PERRLA. Ears: Normal hearing. Normal anatomy. Neck/trachea: Trachea midline, supple. Nose: Normal external anatomy. Mouth: Moist mucous membranes. Chest: Decreased air entry bilaterally. No wheezing or rhonchi. Cardiovascular: Positive S1, positive S2. Regular rate and rhythm. Abdomen: Positive bowel sounds in all 4 quadrants. Soft, non-tender, non- distended. : Deferred. Rectal: Deferred. Skin: Warm, dry. Intact. Extremities: 2+ radial pulses bilaterally. No lower extremity edema. Neuro: Awake, alert, oriented x3. No gross motor or sensory deficits. Cranial nerves II through XII intact. Gait not assessed. laboratory and microbiology Laboratory Tests 03/16/24 05:08 Test 03/16/24 05:08 Range/Units Serum Glucose 103 74-106 mg/dL Assessment/Plan Impression: Acute hypoxic respiratory failure Acute thrombus with right lower extremity ischemia Acute on chronic systolic heart failure Atrial fibrillation w/ rapid ventricular rate Acute kidney injury Rhabdomyolysis Events: Remains on room air No respiratory distress. Supplemental oxygen PRN CXR reviewed, demonstrates mild pulmonary congestion. No pleural effusion or pneumothorax. Continue antibiotics Bronchodilators PRN. Incentive spirometry Eliquis BID Amiodarone PO. Physical therapy Disposition per hospitalist. ASA ruled out endocarditis. Labs and imaging reviewed. Rest of plan as noted below. Plan: Supplemental oxygen PRN Titrate to keep O2 sats above 92%. Continue antibiotics Amiodarone PO S/p left leg fasciotomy with closure. Vascular Surgery recs appreciated. Wound care Monitor renal function. Monitor electrolytes. Supplement as necessary. Monitor ins and outs. DVT prophylaxis. Prognosis: Guarded given patient's multiple co-morbidities. Rest of plan per hospitalist and other consultants. A total of 51 minutes of clinical care time was spent reviewing the patient record, examining the patient, making a diagnostic and therapeutic plan, discussing this plan with the medical personnel, following up on diagnostic studies and following the patient for clinical stability excluding any and all procedures. At least 50% of this time was spent in direct, [id number] contact. Thank you, DAVID Gonzalez, for allowing me to participate in this patient's care. Further recommendations will depend on the patient's clinical course. Please do not hesitate to contact me if you have any questions or concerns. This medical document was created using an electronic medical record system with [employer] dictation system. Although these documentations are being carefully reviewed, there may still be some phonetic and typographical changes. The errors are purely typographical, due to imperfection on the software program, and do not reflect any compromise in the patient's medical care. Dietary Evaluation Review Comments: 1. Encourage PO intake when medically feasible. Continue with Ensure Hi Protein PO feedidngs/supplement if pt can tolerate. 2. If GI asscessible, feeding can not meet her protein and energy goal, consider TF jevity 50ml/hr providing 67 gPro and 1440 kcal FS in 24 hrs, 3. Considere TPN per pharmacy to meet 75% of her needds, if NPO>7 days 4. Advance to 2 GNA Lo fat Lo Cholesterol cardiac diet, texture as tolerated if Pt passes speech eval. Expected Outcomes/Goals: maintain Weight, improved lab values Plan discussed with: Patient, Other (RADHA Lion) JORDAN WONG MD Mar 18, 2024 21:36
--- NOTE | 2024-03-18 23:17 | DVHPN2 ---
Progress Note - Dictate Date Seen: Mar 18, 2024 Has the PT tested + for MRSA If YES, has PT been informed?: No Medical Necessity Reason Pt with a Central, PICC or Fol: Yes The following are medically ne: Myers Catheter Reason for myers catheter: Strict I&O Subjective Patient was seen and evaluated in follow up. Patient has been downgraded. Patient complains of back and left hip pain. Per hospital staff, the patient has been combative and using profanity towards them. vital signs Vital Sign Date Time Temp Pulse Resp B/P (MAP) Pulse Ox O2 Delivery O2 Flow Rate FiO2 03/18/24 09:00 97.5 69 18 105/60 (75) 96 97.5 03/18/24 08:00 Room Air* 0 21 Total Intake and Output 03/17/24 03/17/24 03/18/24 15:00 23:00 07:00 Intake Total 50 ml 240 ml 600 ml Output Total 300 ml Balance 50 ml 240 ml 300 ml medications Current Medications Medications Dose Ordered Sig/Anthony Route Start Time Stop Time Status Last Admin Dose Admin Nitroglycerin 0.4 mg Q5MINP PRN SL 03/10/24 14:45 Morphine Sulfate 2 mg Q30M PRN IV 03/10/24 14:45 Morphine Sulfate 2 mg Q4HPRN PRN IV 03/10/24 14:45 03/12/24 15:03 2 MG Acetaminophen/ Hydrocodone Bitart 1 tab Q6HPRN PRN PO 03/10/24 14:45 03/18/24 00:52 1 TAB Acetaminophen 500 mg Q8HP PRN PO 03/10/24 14:45 03/18/24 05:39 500 MG Ondansetron HCl 4 mg Q6HP PRN IV 03/10/24 14:45 Docusate Sodium 100 mg BID PRN PO 03/10/24 14:45 03/10/24 16:23 100 MG Ceftriaxone Sodium 50 ml @ 100 mls/hr DAILY@09 IV 03/10/24 15:30 03/18/24 09:13 100 MLS/HR Amiodarone HCl 200 mg BID PO 03/10/24 22:00 03/18/24 10:44 200 MG Polyethylene Glycol 17 gm DAILYPRN PRN PO 03/11/24 13:15 03/12/24 10:09 17 GM Enteral Nutritional Formula 240 ml QID PO 03/12/24 12:00 03/18/24 12:05 240 ML Apixaban 5 mg BID PO 03/14/24 22:00 03/18/24 10:44 5 MG Lactulose 30 ml DAILY PO 03/16/24 10:00 03/17/24 10:38 30 ML Pantoprazole Sodium 40 mg DAILY@0600 PO 03/17/24 06:00 03/18/24 05:39 40 MG objective GENERAL: Awake, alert, oriented. LUNGS: Clear. CARDIOVASCULAR: Heart sounds are good. ABDOMEN: Soft. laboratory and microbiology Laboratory Tests 03/16/24 05:08 Test 03/16/24 05:08 Range/Units Serum Glucose 103 74-106 mg/dL Problem List Acute decompensated systolic heart failure. Lower extremity ischemia. Acute on chronic systolic heart failure. Acute hypoxic respiratory failure. Atrial fibrillation rapid ventricular rate. History of Watchman device. Dyslipidemia. Acute right lower leg PND with ischemia. Hyperkalemia with acute kidney injury. Rhabdomyolysis. Assessment/Plan Continued all current supportive medical care. Morphine and [place] for pain management. Amiodarone. IV antibiotics as ordered. Additional plan as per the hospital course. Dietary Evaluation Review Comments: 1. Encourage PO intake when medically feasible. Continue with Ensure Hi Protein PO feedidngs/supplement if pt can tolerate. 2. If GI asscessible, feeding can not meet her protein and energy goal, consider TF jevity 50ml/hr providing 67 gPro and 1440 kcal FS in 24 hrs, 3. Considere TPN per pharmacy to meet 75% of her needds, if NPO>7 days 4. Advance to 2 GNA Lo fat Lo Cholesterol cardiac diet, texture as tolerated if Pt passes speech eval. Expected Outcomes/Goals: maintain Weight, improved lab values Plan discussed with: Patient SALVADOR CONNORS MD Mar 18, 2024 12:45
[2024-03-19] VITALS (8 sets, daily range): BP systolic 100–120; BP diastolic 47–63; PULSE 64–81; RESP 17–18; TEMP 97.4–98.9; O2SAT 97–99
--- NOTE | 2024-03-19 13:27 | DVHPN2 ---
Subjective Patient denies any symptoms other than mild pain to her right leg and foot. Reviewed: Care Plan, H&P, Labs, Medications Changes from previous H/P or p: No Changes General: Per HPI Eyes: No Pain, No Vision change, No Conjunctivae inflammation, No Eyelid inflammation, No Other, No Redness ENT: No Ear pain, No Ear discharge, No Nose pain, No Nose discharge, No Nose congestion, No Mouth pain, No Mouth swelling, No Throat pain, No Throat swelling, No Other Cardiovascular: No Chest Pain, No Palpitations, No Orthopnea, No Paroxysmal Noc. Dyspnea, No Edema, No Lt Headedness, No Other Respiratory: No Cough, No Dry, No Shortness of breath, No SOB with excertion, No Wheezing, No Hemoptysis, No Pleuritic Pain, No Sputum, No Other Genitourinary: No Dysuria, No Frequency, No Incontinence, No Hematuria, No Retention, No Other Musculoskeletal: leg pain (Dressing dry and intact) Skin: No Rash, No Lesions, No Jaundice, No Bruising, No Other Objective Vitals Vital Signs Date Time Temp Pulse Resp B/P (MAP) Pulse Ox O2 Delivery O2 Flow Rate FiO2 03/19/24 13:00 97.4 80 18 111/57 (75) 98 97.4 03/19/24 08:10 Room Air* 0 21 Intake/Output Intake and Output 03/19/24 07:00 Intake Total 1070 ml Output Total 1800 ml Balance -730 ml Intake Oral 1020 ml IV Total 50 ml Output Urine Total 1800 ml General Appearance: Alert, Oriented X3, Cooperative, mild distress HEENT: Atraumatic, PERRLA Lungs: Clear to auscultation, Normal air movement, Other (Nasal cannula at 2 liters/minute) Cardiovascular: Normal S1, Normal S2, Other (Atrial fibrillation with controlled rate) Abdomen: Normal bowel sounds Genitourinary: No Apparent Abnormalities (Bernabe catheter) Musculoskeletal: Other (No motor movement to right foot.) Extremities: Other (No motor movement or feeling to right foot.) Neuro: Normal gait, Normal speech Skin: Dry, Intact, Warm, Wounds (See nurse notes and pictures) Psych/Mental Status: Mental status NL, Mood NL Medications Current Medications Medications Dose Ordered Sig/Anthony Route Start Time Stop Time Status Last Admin Dose Admin Nitroglycerin 0.4 mg Q5MINP PRN SL 03/10/24 14:45 Morphine Sulfate 2 mg Q30M PRN IV 03/10/24 14:45 Morphine Sulfate 2 mg Q4HPRN PRN IV 03/10/24 14:45 03/12/24 15:03 2 MG Acetaminophen/ Hydrocodone Bitart 1 tab Q6HPRN PRN PO 03/10/24 14:45 03/19/24 11:51 1 TAB Acetaminophen 500 mg Q8HP PRN PO 03/10/24 14:45 03/18/24 05:39 500 MG Ondansetron HCl 4 mg Q6HP PRN IV 03/10/24 14:45 Docusate Sodium 100 mg BID PRN PO 03/10/24 14:45 03/10/24 16:23 100 MG Amiodarone HCl 200 mg BID PO 03/10/24 22:00 03/19/24 09:27 200 MG Polyethylene Glycol 17 gm DAILYPRN PRN PO 03/11/24 13:15 03/12/24 10:09 17 GM Enteral Nutritional Formula 240 ml QID PO 03/12/24 12:00 03/19/24 05:44 240 ML Apixaban 5 mg BID PO 03/14/24 22:00 03/19/24 09:27 5 MG Lactulose 30 ml DAILY PO 03/16/24 10:00 03/19/24 09:27 30 ML Pantoprazole Sodium 40 mg DAILY@0600 PO 03/17/24 06:00 03/19/24 05:44 40 MG Laboratory Results Laboratory Tests 03/16/24 05:08 Urinalysis Test 03/10/24 23:15 Urine Color Brown (Yellow) H Urine Clarity Ex.turbid (Clear) Urine pH 5.5 (5.0-9.0) Urine Specific [place] 1.012 (1.001-1.035) Urine Protein Trace (Negative) H Urine Ketones Negative (Negative) Urine Blood 3+ /uL (Negative) H Urine Nitrite Negative (Negative) Urine Bilirubin Negative (Negative) Urine Urobilinogen Normal mg/dL (Negative) Urine Leukocyte Esterase 1+ /uL (Negative) Urine RBC 3 /hpf (0 - 4) Urine WBC 42 /hpf (0 - 5) Urine WBC Clumps Present /hpf (None Seen) Urine Squamous Epithelial Cells Few /hpf (<5) Urine Bacteria None seen /hpf (None Seen) Urine Yeast (Budding) Few /hpf (None Seen) Urine Glucose 3+ mg/dL (Normal) H Microbiology Microbiology Date/Time Source Procedure Growth Status 03/10/24 23:15 Urine - [place] Urine Culture - Final Complete 03/10/24 16:00 Nose MRSA Screen - Final Complete Labs and/or images reviewed: Labs reviewed by me, Image(s) reviewed by me Assessment/Plan Assessment/Plan Impression: -Acute decompensated systolic heart failure. -Acute thrombus with right lower extremity ischemia -acute on chronic systolic heart failure -acute hypoxic respiratory failure -atrial fibrillation rapid ventricular rate -history of Watchman device -elevated D-dimer, ruled out pulmonary embolism -dyslipidemia -hyperkalemia with acute kidney injury -rhabdomyolysis -ruled out CA. CA 125: 328 Plan: -Events: Patient denies any symptoms. No events overnight. Discussed discharge planning with the patient who continues to requests not being placed in rehab facility. -continue Eliquis -PPI -stop antibiotic therapy and given full course has been provided. -continue IV fluids per Nephrology -nephrology consultation: results reviewed -Pain management -bowel regimen: add lactulose -social service consultation for DC planning. At this time patient states she lives alone, with a granddaughter available to help daily, but patient does not have someone in-house 24 hours a day. Total time spent with patient discussing and formulating plan of care: 35 minutes. This medical document was created using an electronic medical record system with [employer] dictation system. Although this document has been carefully reviewed, there may still be some phonetic and typographical errors. These areas are purely typographical due to imperfections of the software programs, and do not reflect any compromise in the patient's medical care. Plan discussed with: Patient, Other (RN) My Orders Orders - NICOLE REBOLLAR NP Procedure Category Date Status Time Communication Order ORDERS 03/19/24 Verified 13:23 Date of Service: Mar 19, 2024 Billing Provider: NICOLE REBOLLAR NP Common Visit Codes: [id number] INP/OBS CARE(HIGH) NICOLE REBOLLAR NP Mar 19, 2024 13:27
--- NOTE | 2024-03-19 16:48 | DVHPN2 ---
Progress Note - Dictate Date Seen: Mar 19, 2024 Has the PT tested + for MRSA If YES, has PT been informed?: No Medical Necessity Reason Pt with a Central, PICC or Fol: Yes The following are medically ne: Myers Catheter Reason for myers catheter: Strict I&O Subjective Patient was seen and evaluated in follow up.No overnight events. Patient is complaining of lower extremity pain. Patient stable on room air. VS are WNL. vital signs Vital Sign Date Time Temp Pulse Resp B/P (MAP) Pulse Ox O2 Delivery O2 Flow Rate FiO2 03/19/24 13:00 97.4 80 18 111/57 (75) 98 97.4 03/19/24 08:10 Room Air* 0 21 Total Intake and Output 03/18/24 03/18/24 03/19/24 15:00 23:00 07:00 Intake Total 50 ml 420 ml 600 ml Output Total 600 ml 1200 ml Balance 50 ml -180 ml -600 ml medications Current Medications Medications Dose Ordered Sig/Anthony Route Start Time Stop Time Status Last Admin Dose Admin Nitroglycerin 0.4 mg Q5MINP PRN SL 03/10/24 14:45 Morphine Sulfate 2 mg Q30M PRN IV 03/10/24 14:45 Morphine Sulfate 2 mg Q4HPRN PRN IV 03/10/24 14:45 03/12/24 15:03 2 MG Acetaminophen/ Hydrocodone Bitart 1 tab Q6HPRN PRN PO 03/10/24 14:45 03/19/24 11:51 1 TAB Acetaminophen 500 mg Q8HP PRN PO 03/10/24 14:45 03/18/24 05:39 500 MG Ondansetron HCl 4 mg Q6HP PRN IV 03/10/24 14:45 Docusate Sodium 100 mg BID PRN PO 03/10/24 14:45 03/10/24 16:23 100 MG Amiodarone HCl 200 mg BID PO 03/10/24 22:00 03/19/24 09:27 200 MG Polyethylene Glycol 17 gm DAILYPRN PRN PO 03/11/24 13:15 03/12/24 10:09 17 GM Enteral Nutritional Formula 240 ml QID PO 03/12/24 12:00 03/19/24 05:44 240 ML Apixaban 5 mg BID PO 03/14/24 22:00 03/19/24 09:27 5 MG Lactulose 30 ml DAILY PO 03/16/24 10:00 03/19/24 09:27 30 ML Pantoprazole Sodium 40 mg DAILY@0600 PO 03/17/24 06:00 03/19/24 05:44 40 MG objective GENERAL: Awake, alert, oriented. LUNGS: Clear. CARDIOVASCULAR: Heart sounds are good. ABDOMEN: Soft. laboratory and microbiology Laboratory Tests 03/16/24 05:08 Test 03/16/24 05:08 Range/Units Serum Glucose 103 74-106 mg/dL Problem List Acute decompensated systolic heart failure. Lower extremity ischemia. Acute on chronic systolic heart failure. Acute hypoxic respiratory failure. Atrial fibrillation rapid ventricular rate. History of Watchman device. Dyslipidemia. Acute right lower leg PND with ischemia. Hyperkalemia with acute kidney injury. Rhabdomyolysis. Assessment/Plan Continued all current supportive medical care. Morphine and [place] for pain management. Amiodarone. IV antibiotics as ordered. Additional plan as per the hospital course. Dietary Evaluation Review Comments: 1. Encourage PO intake when medically feasible. Continue with Ensure Hi Protein PO feedidngs/supplement if pt can tolerate. 2. If GI asscessible, feeding can not meet her protein and energy goal, consider TF jevity 50ml/hr providing 67 gPro and 1440 kcal FS in 24 hrs, 3. Considere TPN per pharmacy to meet 75% of her needds, if NPO>7 days 4. Advance to 2 GNA Lo fat Lo Cholesterol cardiac diet, texture as tolerated if Pt passes speech eval. Expected Outcomes/Goals: maintain Weight, improved lab values Plan discussed with: Patient SALVADOR CONNORS MD Mar 19, 2024 16:48
--- NOTE | 2024-03-19 23:08 | DVHPN2 ---
Progress Note - Dictate Date Seen: Mar 19, 2024 Has the PT tested + for MRSA If YES, has PT been informed?: No Medical Necessity Reason Pt with a Central, PICC or Fol: Yes The following are medically ne: Myers Catheter Reason for myers catheter: Strict I&O Subjective Patient seen and examined at bedside. On room air Overnight events reviewed. vital signs Vital Sign Date Time Temp Pulse Resp B/P (MAP) Pulse Ox O2 Delivery O2 Flow Rate FiO2 03/19/24 21:00 98.9 74 18 106/57 (73) 99 98.9 03/19/24 08:10 Room Air* 0 21 Total Intake and Output 03/18/24 03/18/24 03/19/24 15:00 23:00 07:00 Intake Total 50 ml 420 ml 600 ml Output Total 600 ml 1200 ml Balance 50 ml -180 ml -600 ml medications Current Medications Medications Dose Ordered Sig/Anthony Route Start Time Stop Time Status Last Admin Dose Admin Nitroglycerin 0.4 mg Q5MINP PRN SL 03/10/24 14:45 Morphine Sulfate 2 mg Q30M PRN IV 03/10/24 14:45 Morphine Sulfate 2 mg Q4HPRN PRN IV 03/10/24 14:45 03/12/24 15:03 2 MG Acetaminophen/ Hydrocodone Bitart 1 tab Q6HPRN PRN PO 03/10/24 14:45 03/19/24 20:33 1 TAB Acetaminophen 500 mg Q8HP PRN PO 03/10/24 14:45 03/18/24 05:39 500 MG Ondansetron HCl 4 mg Q6HP PRN IV 03/10/24 14:45 Docusate Sodium 100 mg BID PRN PO 03/10/24 14:45 03/10/24 16:23 100 MG Amiodarone HCl 200 mg BID PO 03/10/24 22:00 03/19/24 22:16 200 MG Polyethylene Glycol 17 gm DAILYPRN PRN PO 03/11/24 13:15 03/12/24 10:09 17 GM Enteral Nutritional Formula 240 ml QID PO 03/12/24 12:00 03/19/24 22:16 240 ML Apixaban 5 mg BID PO 03/14/24 22:00 03/19/24 22:16 5 MG Lactulose 30 ml DAILY PO 03/16/24 10:00 03/19/24 09:27 30 ML Pantoprazole Sodium 40 mg DAILY@0600 PO 03/17/24 06:00 03/19/24 05:44 40 MG objective Gen.: Patient lying in bed in no apparent distress. On room air Head: Normocephalic, atraumatic. Eyes: EOMI/PERRLA. Ears: Normal hearing. Normal anatomy. Neck/trachea: Trachea midline, supple. Nose: Normal external anatomy. Mouth: Moist mucous membranes. Chest: Decreased air entry bilaterally. No wheezing or rhonchi. Cardiovascular: Positive S1, positive S2. Regular rate and rhythm. Abdomen: Positive bowel sounds in all 4 quadrants. Soft, non-tender, non- distended. : Deferred. Rectal: Deferred. Skin: Warm, dry. Intact. Extremities: 2+ radial pulses bilaterally. No lower extremity edema. Neuro: Awake, alert, oriented x3. No gross motor or sensory deficits. Cranial nerves II through XII intact. Gait not assessed. laboratory and microbiology Laboratory Tests 03/16/24 05:08 Test 03/16/24 05:08 Range/Units Serum Glucose 103 74-106 mg/dL Assessment/Plan Impression: Acute hypoxic respiratory failure Acute thrombus with right lower extremity ischemia Acute on chronic systolic heart failure Atrial fibrillation w/ rapid ventricular rate Acute kidney injury Rhabdomyolysis Events: Remains on room air No respiratory distress. Supplemental oxygen PRN Completed antibiotics Bronchodilators PRN. Incentive spirometry Eliquis BID Amiodarone PO. Pain control Avoid oversedation Physical therapy Disposition per hospitalist. ASA ruled out endocarditis. Labs and imaging reviewed. Rest of plan as noted below. Plan: Supplemental oxygen PRN Titrate to keep O2 sats above 92%. Continue antibiotics Amiodarone PO S/p left leg fasciotomy with closure. Vascular Surgery recs appreciated. Wound care Monitor renal function. Monitor electrolytes. Supplement as necessary. Monitor ins and outs. DVT prophylaxis. Prognosis: Guarded given patient's multiple co-morbidities. Rest of plan per hospitalist and other consultants. A total of 51 minutes of clinical care time was spent reviewing the patient record, examining the patient, making a diagnostic and therapeutic plan, discussing this plan with the medical personnel, following up on diagnostic studies and following the patient for clinical stability excluding any and all procedures. At least 50% of this time was spent in direct, [id number] contact. Thank you, DAVID Gonzalez, for allowing me to participate in this patient's care. Further recommendations will depend on the patient's clinical course. Please do not hesitate to contact me if you have any questions or concerns. This medical document was created using an electronic medical record system with [employer] dictation system. Although these documentations are being carefully reviewed, there may still be some phonetic and typographical changes. The errors are purely typographical, due to imperfection on the software program, and do not reflect any compromise in the patient's medical care. Dietary Evaluation Review Comments: 1. Encourage PO intake when medically feasible. Continue with Ensure Hi Protein PO feedidngs/supplement if pt can tolerate. 2. If GI asscessible, feeding can not meet her protein and energy goal, consider TF jevity 50ml/hr providing 67 gPro and 1440 kcal FS in 24 hrs, 3. Considere TPN per pharmacy to meet 75% of her needds, if NPO>7 days 4. Advance to 2 GNA Lo fat Lo Cholesterol cardiac diet, texture as tolerated if Pt passes speech eval. Expected Outcomes/Goals: maintain Weight, improved lab values Plan discussed with: Patient, Other (RADHA Ward) JORDAN WONG MD Mar 19, 2024 23:08
[2024-03-20] VITALS (8 sets, daily range): BP systolic 95–114; BP diastolic 56–70; PULSE 64–100; RESP 16–20; TEMP 97.1–97.8; O2SAT 97–99
--- NOTE | 2024-03-20 14:11 | DVHPN2 ---
Subjective Patient denies any symptoms other than mild pain to her right leg and foot. Reviewed: Care Plan, H&P, Labs, Medications Changes from previous H/P or p: No Changes General: Per HPI Eyes: No Pain, No Vision change, No Conjunctivae inflammation, No Eyelid inflammation, No Other, No Redness ENT: No Ear pain, No Ear discharge, No Nose pain, No Nose discharge, No Nose congestion, No Mouth pain, No Mouth swelling, No Throat pain, No Throat swelling, No Other Cardiovascular: No Chest Pain, No Palpitations, No Orthopnea, No Paroxysmal Noc. Dyspnea, No Edema, No Lt Headedness, No Other Respiratory: No Cough, No Dry, No Shortness of breath, No SOB with excertion, No Wheezing, No Hemoptysis, No Pleuritic Pain, No Sputum, No Other Genitourinary: No Dysuria, No Frequency, No Incontinence, No Hematuria, No Retention, No Other Musculoskeletal: leg pain (Dressing dry and intact) Skin: No Rash, No Lesions, No Jaundice, No Bruising, No Other Objective Vitals Vital Signs Date Time Temp Pulse Resp B/P (MAP) Pulse Ox O2 Delivery O2 Flow Rate FiO2 03/20/24 09:00 97.6 64 20 103/59 (74) 98 97.6 03/20/24 08:00 Room Air* 0 21 Intake/Output Intake and Output 03/20/24 07:00 Intake Total 1250 ml Output Total 1100 ml Balance 150 ml Intake Oral 1200 ml IV Total 50 ml Output Urine Total 1100 ml General Appearance: Alert, Oriented X3, Cooperative, mild distress HEENT: Atraumatic, PERRLA Lungs: Clear to auscultation, Normal air movement, Other (Nasal cannula at 2 liters/minute) Cardiovascular: Normal S1, Normal S2, Other (Atrial fibrillation with controlled rate) Abdomen: Normal bowel sounds Genitourinary: No Apparent Abnormalities (Bernabe catheter) Musculoskeletal: Other (No motor movement to right foot.) Extremities: Other (No motor movement or feeling to right foot.) Neuro: Normal gait, Normal speech Skin: Dry, Intact, Warm, Wounds (See nurse notes and pictures) Psych/Mental Status: Mental status NL, Mood NL Medications Current Medications Medications Dose Ordered Sig/Anthony Route Start Time Stop Time Status Last Admin Dose Admin Nitroglycerin 0.4 mg Q5MINP PRN SL 03/10/24 14:45 Morphine Sulfate 2 mg Q30M PRN IV 03/10/24 14:45 Morphine Sulfate 2 mg Q4HPRN PRN IV 03/10/24 14:45 03/12/24 15:03 2 MG Acetaminophen/ Hydrocodone Bitart 1 tab Q6HPRN PRN PO 03/10/24 14:45 03/20/24 05:39 1 TAB Acetaminophen 500 mg Q8HP PRN PO 03/10/24 14:45 03/18/24 05:39 500 MG Ondansetron HCl 4 mg Q6HP PRN IV 03/10/24 14:45 Docusate Sodium 100 mg BID PRN PO 03/10/24 14:45 03/10/24 16:23 100 MG Amiodarone HCl 200 mg BID PO 03/10/24 22:00 03/20/24 09:25 200 MG Polyethylene Glycol 17 gm DAILYPRN PRN PO 03/11/24 13:15 03/12/24 10:09 17 GM Enteral Nutritional Formula 240 ml QID PO 03/12/24 12:00 03/20/24 12:00 240 ML Apixaban 5 mg BID PO 03/14/24 22:00 03/20/24 09:25 5 MG Lactulose 30 ml DAILY PO 03/16/24 10:00 03/20/24 09:25 30 ML Pantoprazole Sodium 40 mg DAILY@0600 PO 03/17/24 06:00 03/20/24 05:38 40 MG Laboratory Results Laboratory Tests 03/16/24 05:08 Urinalysis Test 03/10/24 23:15 Urine Color Brown (Yellow) H Urine Clarity Ex.turbid (Clear) Urine pH 5.5 (5.0-9.0) Urine Specific [place] 1.012 (1.001-1.035) Urine Protein Trace (Negative) H Urine Ketones Negative (Negative) Urine Blood 3+ /uL (Negative) H Urine Nitrite Negative (Negative) Urine Bilirubin Negative (Negative) Urine Urobilinogen Normal mg/dL (Negative) Urine Leukocyte Esterase 1+ /uL (Negative) Urine RBC 3 /hpf (0 - 4) Urine WBC 42 /hpf (0 - 5) Urine WBC Clumps Present /hpf (None Seen) Urine Squamous Epithelial Cells Few /hpf (<5) Urine Bacteria None seen /hpf (None Seen) Urine Yeast (Budding) Few /hpf (None Seen) Urine Glucose 3+ mg/dL (Normal) H Microbiology Microbiology Date/Time Source Procedure Growth Status 03/10/24 23:15 Urine - [place] Urine Culture - Final Complete 03/10/24 16:00 Nose MRSA Screen - Final Complete Labs and/or images reviewed: Labs reviewed by me, Image(s) reviewed by me Assessment/Plan Assessment/Plan Impression: -Acute decompensated systolic heart failure. -Acute thrombus with right lower extremity ischemia -acute on chronic systolic heart failure -acute hypoxic respiratory failure -atrial fibrillation rapid ventricular rate -history of Watchman device -elevated D-dimer, ruled out pulmonary embolism -dyslipidemia -hyperkalemia with acute kidney injury -rhabdomyolysis -ruled out CA. [place] 125: 328 Plan: -Events: No events overnight. Improvement with right lower extremity. -continue Eliquis -PPI -repeat labs in a.m. -Pain management -bowel regimen: add lactulose -social service consultation for DC planning. At this time patient states she lives alone, with a granddaughter available to help daily, but patient does not have someone in-house 24 hours a day. Total time spent with patient discussing and formulating plan of care: 35 minutes. This medical document was created using an electronic medical record system with [employer] dictation system. Although this document has been carefully reviewed, there may still be some phonetic and typographical errors. These areas are purely typographical due to imperfections of the software programs, and do not reflect any compromise in the patient's medical care. Plan discussed with: Patient, Other (RN) My Orders Orders - NICOLE REBOLLAR NP Procedure Category Date Status Time Basic Metabolic Panel LAB 03/21/24 Verified 04:00 Complete Blood Count LAB 03/21/24 Verified 04:00 Creatine Kinase LAB 03/21/24 Verified 04:00 Date of Service: Mar 20, 2024 Billing Provider: NICOLE REBOLLAR NP Common Visit Codes: [id number] INP/OBS CARE(MOD) NICOLE REBOLLAR NP Mar 20, 2024 14:11
[2024-03-20] MEDS: MORPHINE SULFATE INJ 2 MG/ml SYRG IV PRN (18:19)
--- NOTE | 2024-03-20 22:32 | DVHPN2 ---
Progress Note - Dictate Date Seen: Mar 20, 2024 Has the PT tested + for MRSA If YES, has PT been informed?: No Medical Necessity Reason Pt with a Central, PICC or Fol: Yes The following are medically ne: Myers Catheter Reason for myers catheter: Strict I&O Subjective Patient was seen and evaluated in follow up.No overnight events. Patient is complaining of intermittent RLE pain. CM is assisting with discharge planning. vital signs Vital Sign Date Time Temp Pulse Resp B/P (MAP) Pulse Ox O2 Delivery O2 Flow Rate FiO2 03/20/24 21:00 97.7 80 20 114/59 (77) 97 97.7 03/20/24 08:00 Room Air* 0 21 Total Intake and Output 03/19/24 03/19/24 03/20/24 15:00 23:00 07:00 Intake Total 50 ml 1000 ml 200 ml Output Total 600 ml 500 ml Balance 50 ml 400 ml -300 ml medications Current Medications Medications Dose Ordered Sig/Anthony Route Start Time Stop Time Status Last Admin Dose Admin Nitroglycerin 0.4 mg Q5MINP PRN SL 03/10/24 14:45 Morphine Sulfate 2 mg Q30M PRN IV 03/10/24 14:45 03/20/24 18:19 2 MG Morphine Sulfate 2 mg Q4HPRN PRN IV 03/10/24 14:45 03/12/24 15:03 2 MG Acetaminophen/ Hydrocodone Bitart 1 tab Q6HPRN PRN PO 03/10/24 14:45 03/20/24 17:06 1 TAB Acetaminophen 500 mg Q8HP PRN PO 03/10/24 14:45 03/18/24 05:39 500 MG Ondansetron HCl 4 mg Q6HP PRN IV 03/10/24 14:45 Docusate Sodium 100 mg BID PRN PO 03/10/24 14:45 03/10/24 16:23 100 MG Amiodarone HCl 200 mg BID PO 03/10/24 22:00 03/20/24 21:22 200 MG Polyethylene Glycol 17 gm DAILYPRN PRN PO 03/11/24 13:15 03/12/24 10:09 17 GM Enteral Nutritional Formula 240 ml QID PO 03/12/24 12:00 03/20/24 21:24 240 ML Apixaban 5 mg BID PO 03/14/24 22:00 03/20/24 21:22 5 MG Lactulose 30 ml DAILY PO 03/16/24 10:00 03/20/24 09:25 30 ML Pantoprazole Sodium 40 mg DAILY@0600 PO 03/17/24 06:00 03/20/24 05:38 40 MG objective GENERAL: Awake, alert, oriented. LUNGS: Clear. CARDIOVASCULAR: Heart sounds are good. ABDOMEN: Soft. laboratory and microbiology Laboratory Tests 03/16/24 05:08 Test 03/16/24 05:08 Range/Units Serum Glucose 103 74-106 mg/dL Problem List Acute decompensated systolic heart failure. Lower extremity ischemia. Acute on chronic systolic heart failure. Acute hypoxic respiratory failure. Atrial fibrillation rapid ventricular rate. History of Watchman device. Dyslipidemia. Acute right lower leg PND with ischemia. Hyperkalemia with acute kidney injury. Rhabdomyolysis. Assessment/Plan Continued all current supportive medical care. Morphine and [place] for pain management. Amiodarone. IV antibiotics as ordered. Additional plan as per the hospital course. Dietary Evaluation Review Comments: 1. Encourage PO intake when medically feasible. Continue with Ensure Hi Protein PO feedidngs/supplement if pt can tolerate. 2. If GI asscessible, feeding can not meet her protein and energy goal, consider TF jevity 50ml/hr providing 67 gPro and 1440 kcal FS in 24 hrs, 3. Considere TPN per pharmacy to meet 75% of her needds, if NPO>7 days 4. Advance to 2 GNA Lo fat Lo Cholesterol cardiac diet, texture as tolerated if Pt passes speech eval. Expected Outcomes/Goals: maintain Weight, improved lab values Plan discussed with: Patient SALVADOR CONNORS MD Mar 20, 2024 22:32
--- NOTE | 2024-03-20 22:59 | DVHPN2 ---
Progress Note - Dictate Date Seen: Mar 20, 2024 Has the PT tested + for MRSA If YES, has PT been informed?: No Medical Necessity Reason Pt with a Central, PICC or Fol: Yes The following are medically ne: Myers Catheter Reason for myers catheter: Strict I&O Subjective Patient seen and examined at bedside. On room air Overnight events reviewed. vital signs Vital Sign Date Time Temp Pulse Resp B/P (MAP) Pulse Ox O2 Delivery O2 Flow Rate FiO2 03/20/24 21:00 97.7 80 20 114/59 (77) 97 97.7 03/20/24 08:00 Room Air* 0 21 Total Intake and Output 03/19/24 03/19/24 03/20/24 15:00 23:00 07:00 Intake Total 50 ml 1000 ml 200 ml Output Total 600 ml 500 ml Balance 50 ml 400 ml -300 ml medications Current Medications Medications Dose Ordered Sig/Anthony Route Start Time Stop Time Status Last Admin Dose Admin Nitroglycerin 0.4 mg Q5MINP PRN SL 03/10/24 14:45 Morphine Sulfate 2 mg Q30M PRN IV 03/10/24 14:45 03/20/24 18:19 2 MG Morphine Sulfate 2 mg Q4HPRN PRN IV 03/10/24 14:45 03/12/24 15:03 2 MG Acetaminophen/ Hydrocodone Bitart 1 tab Q6HPRN PRN PO 03/10/24 14:45 03/20/24 17:06 1 TAB Acetaminophen 500 mg Q8HP PRN PO 03/10/24 14:45 03/18/24 05:39 500 MG Ondansetron HCl 4 mg Q6HP PRN IV 03/10/24 14:45 Docusate Sodium 100 mg BID PRN PO 03/10/24 14:45 03/10/24 16:23 100 MG Amiodarone HCl 200 mg BID PO 03/10/24 22:00 03/20/24 21:22 200 MG Polyethylene Glycol 17 gm DAILYPRN PRN PO 03/11/24 13:15 03/12/24 10:09 17 GM Enteral Nutritional Formula 240 ml QID PO 03/12/24 12:00 03/20/24 21:24 240 ML Apixaban 5 mg BID PO 03/14/24 22:00 03/20/24 21:22 5 MG Lactulose 30 ml DAILY PO 03/16/24 10:00 03/20/24 09:25 30 ML Pantoprazole Sodium 40 mg DAILY@0600 PO 03/17/24 06:00 03/20/24 05:38 40 MG objective Gen.: Patient lying in bed in no apparent distress. On room air Head: Normocephalic, atraumatic. Eyes: EOMI/PERRLA. Ears: Normal hearing. Normal anatomy. Neck/trachea: Trachea midline, supple. Nose: Normal external anatomy. Mouth: Moist mucous membranes. Chest: Decreased air entry bilaterally. No wheezing or rhonchi. Cardiovascular: Positive S1, positive S2. Regular rate and rhythm. Abdomen: Positive bowel sounds in all 4 quadrants. Soft, non-tender, non- distended. : Deferred. Rectal: Deferred. Skin: Warm, dry. Intact. Extremities: 2+ radial pulses bilaterally. No lower extremity edema. Neuro: Awake, alert, oriented x3. No gross motor or sensory deficits. Cranial nerves II through XII intact. Gait not assessed. laboratory and microbiology Laboratory Tests 03/16/24 05:08 Test 03/16/24 05:08 Range/Units Serum Glucose 103 74-106 mg/dL Assessment/Plan Impression: Acute hypoxic respiratory failure Acute thrombus with right lower extremity ischemia Acute on chronic systolic heart failure Atrial fibrillation w/ rapid ventricular rate Acute kidney injury Rhabdomyolysis Events: Remains on room air No respiratory distress. Supplemental oxygen PRN Completed antibiotics Bronchodilators PRN. Incentive spirometry Eliquis BID Amiodarone PO. Pain control Avoid oversedation Wound care Physical therapy Disposition per hospitalist. ASA ruled out endocarditis. Labs and imaging reviewed. Rest of plan as noted below. Plan: Supplemental oxygen PRN Titrate to keep O2 sats above 92%. Continue antibiotics Amiodarone PO S/p left leg fasciotomy with closure. Vascular Surgery recs appreciated. Wound care Monitor renal function. Monitor electrolytes. Supplement as necessary. Monitor ins and outs. DVT prophylaxis. Prognosis: Guarded given patient's multiple co-morbidities. Rest of plan per hospitalist and other consultants. A total of 51 minutes of clinical care time was spent reviewing the patient record, examining the patient, making a diagnostic and therapeutic plan, discussing this plan with the medical personnel, following up on diagnostic studies and following the patient for clinical stability excluding any and all procedures. At least 50% of this time was spent in direct, [id number] contact. Thank you, DEC[employer] Lisa, for allowing me to participate in this patient's care. Further recommendations will depend on the patient's clinical course. Please do not hesitate to contact me if you have any questions or concerns. This medical document was created using an electronic medical record system with [employer] dictation system. Although these documentations are being carefully reviewed, there may still be some phonetic and typographical changes. The errors are purely typographical, due to imperfection on the software program, and do not reflect any compromise in the patient's medical care. Dietary Evaluation Review Comments: 1. Encourage PO intake when medically feasible. Continue with Ensure Hi Protein PO feedidngs/supplement if pt can tolerate. 2. If GI asscessible, feeding can not meet her protein and energy goal, consider TF jevity 50ml/hr providing 67 gPro and 1440 kcal FS in 24 hrs, 3. Considere TPN per pharmacy to meet 75% of her needds, if NPO>7 days 4. Advance to 2 GNA Lo fat Lo Cholesterol cardiac diet, texture as tolerated if Pt passes speech eval. Expected Outcomes/Goals: maintain Weight, improved lab values Plan discussed with: Patient, Other (RADHA Vázquez/Loren) JORDAN WONG MD Mar 20, 2024 22:59
[2024-03-21] VITALS (8 sets, daily range): BP systolic 102–115; BP diastolic 53–66; PULSE 70–89; RESP 16–20; TEMP 97.1–98.1; O2SAT 90–99
[2024-03-21 06:38] LABS: Basophils # (auto) 0 10 ^3/uL (0-0.2); Basophils % (auto) 0.5 % (0.0-2.0); Eosinophils # (auto) 0.1 10 ^3/uL (0-0.8); Monocytes # (auto) 0.4 10 ^3/uL (0-1.3)
[2024-03-21 06:41] LABS: Eosinophils % (auto) 1.2 % (0.0-7.0); Hematocrit 30.9 % (36.0-46.0); Hemoglobin 10.6 g/dL (12.2-16.2); Lymphocytes # (auto) 0.7 10 ^3/uL (0.4-5.4); Lymphocytes % (auto) 12.2 % (10.0-50.0); Mean Corpuscular Hemoglobin 34.8 pg (28.0-32.0); Mean Corpuscular Hgb Conc. 34.2 g/dL (32.0-36.0); Mean Corpuscular Volume 101.7 fL (80.0-100.0); Monocytes % (auto) 6.3 % (0.0-12.0); Neutrophils # (auto) 4.6 10 ^3/uL (1.6-8.6); Neutrophils % (auto) 79.8 % (37.0-80.0); Platelet Count (auto) 199 10^3/uL (140-450); Red Blood Cells 3.04 10^6/uL (4.0-5.20); Red Cell Distribution Width 14.5 % (11.8-14.3); White Blood Cell 5.8 10^3/uL (4.4-10.8)
[2024-03-21 06:47] LABS: Calcium 9.2 mg/dL (8.7-10.4); Chloride 106 mmol/L (98-107); Potassium 4.5 mmol/L (3.5-5.1); Sodium 139 mmol/L (136-145)
[2024-03-21 06:48] LABS: Anion Gap 4 (5-15); Carbon Dioxide 29 mmol/L (20-31)
[2024-03-21 06:54] LABS: BUN/Creatinine Ratio 20.8 (10.0-20.0); Blood Urea Nitrogen 20 mg/dL (9-23); Glucose 85 mg/dL (74-106)
[2024-03-21 06:55] LABS: Creatine Kinase IFCC 110 U/L (34-145)
--- NOTE | 2024-03-21 10:48 | DVHPN2 ---
Subjective Patient denies any symptoms other than mild pain to her right leg and foot. Reviewed: Care Plan, H&P, Labs, Medications Changes from previous H/P or p: No Changes General: Per HPI Eyes: No Pain, No Vision change, No Conjunctivae inflammation, No Eyelid inflammation, No Other, No Redness ENT: No Ear pain, No Ear discharge, No Nose pain, No Nose discharge, No Nose congestion, No Mouth pain, No Mouth swelling, No Throat pain, No Throat swelling, No Other Cardiovascular: No Chest Pain, No Palpitations, No Orthopnea, No Paroxysmal Noc. Dyspnea, No Edema, No Lt Headedness, No Other Respiratory: No Cough, No Dry, No Shortness of breath, No SOB with excertion, No Wheezing, No Hemoptysis, No Pleuritic Pain, No Sputum, No Other Genitourinary: No Dysuria, No Frequency, No Incontinence, No Hematuria, No Retention, No Other Musculoskeletal: leg pain (Dressing dry and intact) Skin: No Rash, No Lesions, No Jaundice, No Bruising, No Other Objective Vitals Vital Signs Date Time Temp Pulse Resp B/P (MAP) Pulse Ox O2 Delivery O2 Flow Rate FiO2 03/21/24 08:52 97.9 71 18 102/55 (71) 98 97.9 03/20/24 20:00 Room Air* 0 21 Intake/Output Intake and Output 03/21/24 06:59 Intake Total 1410 ml Output Total 1 ml Balance 1409 ml Intake Oral 1410 ml Stool Total 1 ml # Voids 5 # Bowel Movements 1 General Appearance: Alert, Oriented X3, Cooperative, mild distress HEENT: Atraumatic, PERRLA Lungs: Clear to auscultation, Normal air movement, Other (Nasal cannula at 2 liters/minute) Cardiovascular: Normal S1, Normal S2, Other (Atrial fibrillation with controlled rate) Abdomen: Normal bowel sounds Genitourinary: No Apparent Abnormalities (Bernabe catheter) Musculoskeletal: Other (No motor movement to right foot.) Extremities: Other (No motor movement or feeling to right foot.) Neuro: Normal gait, Normal speech Skin: Dry, Intact, Warm, Wounds (See nurse notes and pictures) Psych/Mental Status: Mental status NL, Mood NL Medications Current Medications Medications Dose Ordered Sig/Anthony Route Start Time Stop Time Status Last Admin Dose Admin Nitroglycerin 0.4 mg Q5MINP PRN SL 03/10/24 14:45 Morphine Sulfate 2 mg Q30M PRN IV 03/10/24 14:45 03/20/24 18:19 2 MG Morphine Sulfate 2 mg Q4HPRN PRN IV 03/10/24 14:45 03/12/24 15:03 2 MG Acetaminophen/ Hydrocodone Bitart 1 tab Q6HPRN PRN PO 03/10/24 14:45 03/20/24 17:06 1 TAB Acetaminophen 500 mg Q8HP PRN PO 03/10/24 14:45 03/18/24 05:39 500 MG Ondansetron HCl 4 mg Q6HP PRN IV 03/10/24 14:45 Docusate Sodium 100 mg BID PRN PO 03/10/24 14:45 03/10/24 16:23 100 MG Amiodarone HCl 200 mg BID PO 03/10/24 22:00 03/21/24 09:59 200 MG Polyethylene Glycol 17 gm DAILYPRN PRN PO 03/11/24 13:15 03/12/24 10:09 17 GM Enteral Nutritional Formula 240 ml QID PO 03/12/24 12:00 03/21/24 06:18 240 ML Apixaban 5 mg BID PO 03/14/24 22:00 03/21/24 09:59 5 MG Lactulose 30 ml DAILY PO 03/16/24 10:00 03/21/24 10:01 30 ML Pantoprazole Sodium 40 mg DAILY@0600 PO 03/17/24 06:00 03/21/24 06:16 40 MG Laboratory Results Laboratory Tests 03/21/24 06:04 Chemistry Test 03/21/24 06:04 Calcium Level 9.2 mg/dL (8.7-10.4) Urinalysis Test 03/10/24 23:15 Urine Color Brown (Yellow) H Urine Clarity Ex.turbid (Clear) Urine pH 5.5 (5.0-9.0) Urine Specific [place] 1.012 (1.001-1.035) Urine Protein Trace (Negative) H Urine Ketones Negative (Negative) Urine Blood 3+ /uL (Negative) H Urine Nitrite Negative (Negative) Urine Bilirubin Negative (Negative) Urine Urobilinogen Normal mg/dL (Negative) Urine Leukocyte Esterase 1+ /uL (Negative) Urine RBC 3 /hpf (0 - 4) Urine WBC 42 /hpf (0 - 5) Urine WBC Clumps Present /hpf (None Seen) Urine Squamous Epithelial Cells Few /hpf (<5) Urine Bacteria None seen /hpf (None Seen) Urine Yeast (Budding) Few /hpf (None Seen) Urine Glucose 3+ mg/dL (Normal) H Microbiology Microbiology Date/Time Source Procedure Growth Status 03/10/24 23:15 Urine - [place] Urine Culture - Final Complete 03/10/24 16:00 Nose MRSA Screen - Final Complete Labs and/or images reviewed: Labs reviewed by me, Image(s) reviewed by me Assessment/Plan Assessment/Plan Impression: -Acute decompensated systolic heart failure. -Acute thrombus with right lower extremity ischemia -acute on chronic systolic heart failure -acute hypoxic respiratory failure -atrial fibrillation rapid ventricular rate -history of Watchman device -elevated D-dimer, ruled out pulmonary embolism -dyslipidemia -hyperkalemia with acute kidney injury -rhabdomyolysis -ruled out [place]. [place] 125: 328 Plan: -Events: No events overnight. Continue increase physical therapy. Recommend to keep brace on patient's right ankle to prevent foot drop. Labs reviewed, unremarkable. CPK now normal -continue Eliquis -PPI -Pain management -bowel regimen: add lactulose -social service consultation for DC planning. At this time patient states she lives alone, with a granddaughter available to help daily, but patient does not have someone in-house 24 hours a day. Total time spent with patient discussing and formulating plan of care: 35 minutes. This medical document was created using an electronic medical record system with [employer] dictation system. Although this document has been carefully reviewed, there may still be some phonetic and typographical errors. These areas are purely typographical due to imperfections of the software programs, and do not reflect any compromise in the patient's medical care. Plan discussed with: Patient, Other (RN, Granddaughter) Date of Service: Mar 21, 2024 Billing Provider: NICOLE REBOLLAR NP Common Visit Codes: [id number] INP/OBS CARE(MOD) NICOLE REBOLLAR NP Mar 21, 2024 10:48
--- NOTE | 2024-03-21 20:47 | DVHPN2 ---
Progress Note - Dictate Date Seen: Mar 21, 2024 Has the PT tested + for MRSA If YES, has PT been informed?: No Medical Necessity Reason Pt with a Central, PICC or Fol: Yes The following are medically ne: Myers Catheter Reason for myers catheter: Strict I&O Subjective Patient was seen and evaluated in follow up. Patient remains with intermittent RLE pain. Granddaughter at bedside. vital signs Vital Sign Date Time Temp Pulse Resp B/P (MAP) Pulse Ox O2 Delivery O2 Flow Rate FiO2 03/21/24 13:00 98.1 80 20 108/66 (80) 99 98.1 03/21/24 08:00 Room Air* 0 21 Total Intake and Output 03/20/24 03/20/24 03/21/24 15:00 23:00 07:00 Intake Total 1210 ml 200 ml Output Total 1 ml Balance 1209 ml 200 ml medications Current Medications Medications Dose Ordered Sig/Anthony Route Start Time Stop Time Status Last Admin Dose Admin Nitroglycerin 0.4 mg Q5MINP PRN SL 03/10/24 14:45 Morphine Sulfate 2 mg Q30M PRN IV 03/10/24 14:45 03/20/24 18:19 2 MG Morphine Sulfate 2 mg Q4HPRN PRN IV 03/10/24 14:45 03/12/24 15:03 2 MG Acetaminophen/ Hydrocodone Bitart 1 tab Q6HPRN PRN PO 03/10/24 14:45 03/21/24 12:34 1 TAB Acetaminophen 500 mg Q8HP PRN PO 03/10/24 14:45 03/18/24 05:39 500 MG Ondansetron HCl 4 mg Q6HP PRN IV 03/10/24 14:45 Docusate Sodium 100 mg BID PRN PO 03/10/24 14:45 03/21/24 12:34 100 MG Amiodarone HCl 200 mg BID PO 03/10/24 22:00 03/21/24 09:59 200 MG Polyethylene Glycol 17 gm DAILYPRN PRN PO 03/11/24 13:15 03/12/24 10:09 17 GM Enteral Nutritional Formula 240 ml QID PO 03/12/24 12:00 03/21/24 06:18 240 ML Apixaban 5 mg BID PO 03/14/24 22:00 03/21/24 09:59 5 MG Lactulose 30 ml DAILY PO 03/16/24 10:00 03/21/24 10:01 30 ML Pantoprazole Sodium 40 mg DAILY@0600 PO 03/17/24 06:00 03/21/24 06:16 40 MG objective GENERAL: Awake, alert, oriented. LUNGS: Clear. CARDIOVASCULAR: Heart sounds are good. ABDOMEN: Soft. laboratory and microbiology Laboratory Tests 03/21/24 06:04 Test 03/21/24 06:04 Range/Units Serum Glucose 85 74-106 mg/dL Problem List Acute decompensated systolic heart failure. Lower extremity ischemia. Acute on chronic systolic heart failure. Acute hypoxic respiratory failure. Atrial fibrillation rapid ventricular rate. History of Watchman device. Dyslipidemia. Acute right lower leg PND with ischemia. Hyperkalemia with acute kidney injury. Rhabdomyolysis. Assessment/Plan Continued all current supportive medical care. Morphine and [place] for pain management. Amiodarone. IV antibiotics as ordered. Additional plan as per the hospital course. Dietary Evaluation Review Comments: 1. Encourage PO intake when medically feasible. Continue with Ensure Hi Protein PO feedidngs/supplement if pt can tolerate. 2. If GI asscessible, feeding can not meet her protein and energy goal, consider TF jevity 50ml/hr providing 67 gPro and 1440 kcal FS in 24 hrs, 3. Considere TPN per pharmacy to meet 75% of her needds, if NPO>7 days 4. Advance to 2 GNA Lo fat Lo Cholesterol cardiac diet, texture as tolerated if Pt passes speech eval. Expected Outcomes/Goals: maintain Weight, improved lab values Plan discussed with: Patient SALVADOR CONNORS MD Mar 21, 2024 13:34
--- NOTE | 2024-03-21 23:26 | DVHPN2 ---
Progress Note - Dictate Date Seen: Mar 21, 2024 Has the PT tested + for MRSA If YES, has PT been informed?: No Medical Necessity Reason Pt with a Central, PICC or Fol: Yes The following are medically ne: Myers Catheter Reason for myers catheter: Strict I&O Subjective Patient seen and examined at bedside. On room air Overnight events reviewed. vital signs Vital Sign Date Time Temp Pulse Resp B/P (MAP) Pulse Ox O2 Delivery O2 Flow Rate FiO2 03/21/24 21:00 98.0 74 19 105/56 (72) 98 98.0 03/21/24 08:00 Room Air* 0 21 Total Intake and Output 03/20/24 03/20/24 03/21/24 14:59 22:59 06:59 Intake Total 1210 ml 200 ml Output Total 1 ml Balance 1209 ml 200 ml medications Current Medications Medications Dose Ordered Sig/Anthony Route Start Time Stop Time Status Last Admin Dose Admin Nitroglycerin 0.4 mg Q5MINP PRN SL 03/10/24 14:45 Morphine Sulfate 2 mg Q30M PRN IV 03/10/24 14:45 03/20/24 18:19 2 MG Morphine Sulfate 2 mg Q4HPRN PRN IV 03/10/24 14:45 03/12/24 15:03 2 MG Acetaminophen/ Hydrocodone Bitart 1 tab Q6HPRN PRN PO 03/10/24 14:45 03/21/24 21:32 1 TAB Acetaminophen 500 mg Q8HP PRN PO 03/10/24 14:45 03/18/24 05:39 500 MG Ondansetron HCl 4 mg Q6HP PRN IV 03/10/24 14:45 Docusate Sodium 100 mg BID PRN PO 03/10/24 14:45 03/21/24 12:34 100 MG Amiodarone HCl 200 mg BID PO 03/10/24 22:00 03/21/24 21:32 200 MG Polyethylene Glycol 17 gm DAILYPRN PRN PO 03/11/24 13:15 03/12/24 10:09 17 GM Enteral Nutritional Formula 240 ml QID PO 03/12/24 12:00 03/21/24 21:32 240 ML Apixaban 5 mg BID PO 03/14/24 22:00 03/21/24 21:32 5 MG Lactulose 30 ml DAILY PO 03/16/24 10:00 03/21/24 10:01 30 ML Pantoprazole Sodium 40 mg DAILY@0600 PO 03/17/24 06:00 03/21/24 06:16 40 MG objective Gen.: Patient lying in bed in no apparent distress. On room air Head: Normocephalic, atraumatic. Eyes: EOMI/PERRLA. Ears: Normal hearing. Normal anatomy. Neck/trachea: Trachea midline, supple. Nose: Normal external anatomy. Mouth: Moist mucous membranes. Chest: Decreased air entry bilaterally. No wheezing or rhonchi. Cardiovascular: Positive S1, positive S2. Regular rate and rhythm. Abdomen: Positive bowel sounds in all 4 quadrants. Soft, non-tender, non- distended. : Deferred. Rectal: Deferred. Skin: Warm, dry. Intact. Extremities: 2+ radial pulses bilaterally. No lower extremity edema. Neuro: Awake, alert, oriented x3. No gross motor or sensory deficits. Cranial nerves II through XII intact. Gait not assessed. laboratory and microbiology Laboratory Tests 03/21/24 06:04 Test 03/21/24 06:04 Range/Units Serum Glucose 85 74-106 mg/dL Assessment/Plan Impression: Acute hypoxic respiratory failure Acute thrombus with right lower extremity ischemia Acute on chronic systolic heart failure Atrial fibrillation w/ rapid ventricular rate Acute kidney injury Rhabdomyolysis Events: Remains on room air No respiratory distress. Supplemental oxygen PRN Completed antibiotics Bronchodilators PRN. Incentive spirometry Eliquis BID Amiodarone PO. Pain control Avoid oversedation Wound care Physical therapy Disposition per hospitalist. ASA ruled out endocarditis. Labs and imaging reviewed. Rest of plan as noted below. Plan: Supplemental oxygen PRN Titrate to keep O2 sats above 92%. Continue antibiotics Amiodarone PO S/p left leg fasciotomy with closure. Vascular Surgery recs appreciated. Wound care Monitor renal function. Monitor electrolytes. Supplement as necessary. Monitor ins and outs. DVT prophylaxis. Prognosis: Guarded given patient's multiple co-morbidities. Rest of plan per hospitalist and other consultants. A total of 51 minutes of clinical care time was spent reviewing the patient record, examining the patient, making a diagnostic and therapeutic plan, discussing this plan with the medical personnel, following up on diagnostic studies and following the patient for clinical stability excluding any and all procedures. At least 50% of this time was spent in direct, [id number] contact. Thank you, DAVID Gnozalez, for allowing me to participate in this patient's care. Further recommendations will depend on the patient's clinical course. Please do not hesitate to contact me if you have any questions or concerns. This medical document was created using an electronic medical record system with [employer] dictation system. Although these documentations are being carefully reviewed, there may still be some phonetic and typographical changes. The errors are purely typographical, due to imperfection on the software program, and do not reflect any compromise in the patient's medical care. Dietary Evaluation Review Comments: 1. Encourage PO intake when medically feasible. Continue with Ensure Hi Protein PO feedidngs/supplement if pt can tolerate. 2. If GI asscessible, feeding can not meet her protein and energy goal, consider TF jevity 50ml/hr providing 67 gPro and 1440 kcal FS in 24 hrs, 3. Considere TPN per pharmacy to meet 75% of her needds, if NPO>7 days 4. Advance to 2 GNA Lo fat Lo Cholesterol cardiac diet, texture as tolerated if Pt passes speech eval. Expected Outcomes/Goals: maintain Weight, improved lab values Plan discussed with: Patient, Other (RADHA Pimentel) JORDAN WONG MD Mar 21, 2024 23:26
[2024-03-22] VITALS (7 sets, daily range): BP systolic 79–106; BP diastolic 50–61; PULSE 63–76; RESP 15–20; TEMP 97.8–98.4; O2SAT 97–100
--- NOTE | 2024-03-22 13:09 | DVHPN2 ---
Subjective Patient denies any symptoms other than mild pain to her right leg and foot. Reviewed: Care Plan, H&P, Labs, Medications Changes from previous H/P or p: No Changes General: Per HPI Eyes: No Pain, No Vision change, No Conjunctivae inflammation, No Eyelid inflammation, No Other, No Redness ENT: No Ear pain, No Ear discharge, No Nose pain, No Nose discharge, No Nose congestion, No Mouth pain, No Mouth swelling, No Throat pain, No Throat swelling, No Other Cardiovascular: No Chest Pain, No Palpitations, No Orthopnea, No Paroxysmal Noc. Dyspnea, No Edema, No Lt Headedness, No Other Respiratory: No Cough, No Dry, No Shortness of breath, No SOB with excertion, No Wheezing, No Hemoptysis, No Pleuritic Pain, No Sputum, No Other Genitourinary: No Dysuria, No Frequency, No Incontinence, No Hematuria, No Retention, No Other Musculoskeletal: leg pain (Dressing dry and intact) Skin: No Rash, No Lesions, No Jaundice, No Bruising, No Other Objective Vitals Vital Signs Date Time Temp Pulse Resp B/P (MAP) Pulse Ox O2 Delivery O2 Flow Rate FiO2 03/22/24 12:09 97.9 76 20 103/54 (70) 100 97.9 03/22/24 08:00 Room Air* 0 21 Intake/Output Intake and Output 03/22/24 07:00 Intake Total 650 ml Output Total 100 ml Balance 550 ml Intake Oral 650 ml Output Urine Total 100 ml General Appearance: Alert, Oriented X3, Cooperative, mild distress HEENT: Atraumatic, PERRLA Lungs: Clear to auscultation, Normal air movement, Other (Nasal cannula at 2 liters/minute) Cardiovascular: Normal S1, Normal S2, Other (Atrial fibrillation with controlled rate) Abdomen: Normal bowel sounds Genitourinary: No Apparent Abnormalities (Bernabe catheter) Musculoskeletal: Other (No motor movement to right foot.) Extremities: Other (No motor movement or feeling to right foot.) Neuro: Normal gait, Normal speech Skin: Dry, Intact, Warm, Wounds (See nurse notes and pictures) Psych/Mental Status: Mental status NL, Mood NL Medications Current Medications Medications Dose Ordered Sig/Anthony Route Start Time Stop Time Status Last Admin Dose Admin Nitroglycerin 0.4 mg Q5MINP PRN SL 03/10/24 14:45 Morphine Sulfate 2 mg Q30M PRN IV 03/10/24 14:45 03/20/24 18:19 2 MG Morphine Sulfate 2 mg Q4HPRN PRN IV 03/10/24 14:45 03/12/24 15:03 2 MG Acetaminophen/ Hydrocodone Bitart 1 tab Q6HPRN PRN PO 03/10/24 14:45 03/22/24 10:01 1 TAB Acetaminophen 500 mg Q8HP PRN PO 03/10/24 14:45 03/18/24 05:39 500 MG Ondansetron HCl 4 mg Q6HP PRN IV 03/10/24 14:45 Docusate Sodium 100 mg BID PRN PO 03/10/24 14:45 03/21/24 12:34 100 MG Amiodarone HCl 200 mg BID PO 03/10/24 22:00 03/22/24 09:59 200 MG Polyethylene Glycol 17 gm DAILYPRN PRN PO 03/11/24 13:15 03/12/24 10:09 17 GM Enteral Nutritional Formula 240 ml QID PO 03/12/24 12:00 03/22/24 05:35 240 ML Apixaban 5 mg BID PO 03/14/24 22:00 03/22/24 10:00 5 MG Lactulose 30 ml DAILY PO 03/16/24 10:00 03/22/24 10:00 30 ML Pantoprazole Sodium 40 mg DAILY@0600 PO 03/17/24 06:00 03/22/24 05:35 40 MG Laboratory Results Laboratory Tests 03/21/24 06:04 Urinalysis Test 03/10/24 23:15 Urine Color Brown (Yellow) H Urine Clarity Ex.turbid (Clear) Urine pH 5.5 (5.0-9.0) Urine Specific [place] 1.012 (1.001-1.035) Urine Protein Trace (Negative) H Urine Ketones Negative (Negative) Urine Blood 3+ /uL (Negative) H Urine Nitrite Negative (Negative) Urine Bilirubin Negative (Negative) Urine Urobilinogen Normal mg/dL (Negative) Urine Leukocyte Esterase 1+ /uL (Negative) Urine RBC 3 /hpf (0 - 4) Urine WBC 42 /hpf (0 - 5) Urine WBC Clumps Present /hpf (None Seen) Urine Squamous Epithelial Cells Few /hpf (<5) Urine Bacteria None seen /hpf (None Seen) Urine Yeast (Budding) Few /hpf (None Seen) Urine Glucose 3+ mg/dL (Normal) H Microbiology Microbiology Date/Time Source Procedure Growth Status 03/10/24 23:15 Urine - [place] Urine Culture - Final Complete 03/10/24 16:00 Nose MRSA Screen - Final Complete Labs and/or images reviewed: Labs reviewed by me, Image(s) reviewed by me Assessment/Plan Assessment/Plan Impression: -Acute decompensated systolic heart failure. -Acute thrombus with right lower extremity ischemia -acute on chronic systolic heart failure -acute hypoxic respiratory failure -atrial fibrillation rapid ventricular rate -history of Watchman device -elevated D-dimer, ruled out pulmonary embolism -dyslipidemia -hyperkalemia with acute kidney injury -rhabdomyolysis -ruled out CA. CA 125: 328 Plan: -Events: Patient and of bed to chair yesterday. Patient now wearing brace to prevent foot drop. Recommend physical therapy twice a day. -continue Eliquis -PPI -Pain management -bowel regimen: add lactulose -social service consultation for DC planning. At this time patient states she lives alone, with a granddaughter available to help daily, but patient does not have someone in-house 24 hours a day. Total time spent with patient discussing and formulating plan of care: 35 minutes. This medical document was created using an electronic medical record system with [employer] dictation system. Although this document has been carefully reviewed, there may still be some phonetic and typographical errors. These areas are purely typographical due to imperfections of the software programs, and do not reflect any compromise in the patient's medical care. Plan discussed with: Patient, Other (RN) Date of Service: Mar 22, 2024 Billing Provider: NICOLE REBOLLAR NP Common Visit Codes: [id number] INP/OBS CARE(HIGH) NICOLE REBOLLAR NP Mar 22, 2024 13:09
--- NOTE | 2024-03-22 13:30 | DVHPN2 ---
Progress Note - Dictate Date Seen: Mar 22, 2024 Has the PT tested + for MRSA If YES, has PT been informed?: No Medical Necessity Reason Pt with a Central, PICC or Fol: Yes The following are medically ne: Myers Catheter Reason for myers catheter: Strict I&O Subjective Patient was seen and evaluated in follow up. No overnight events. Patient denies any new complaints. Patient now wearing brace to prevent foot drop. Patient is working with PT. vital signs Vital Sign Date Time Temp Pulse Resp B/P (MAP) Pulse Ox O2 Delivery O2 Flow Rate FiO2 03/22/24 08:00 73 18 99 Room Air* 0 21 03/22/24 07:45 98.4 106/61 (76) 98.4 Total Intake and Output 03/21/24 03/21/24 03/22/24 14:59 22:59 06:59 Intake Total 210 ml 240 ml 200 ml Output Total 100 ml Balance 210 ml 240 ml 100 ml medications Current Medications Medications Dose Ordered Sig/Anthony Route Start Time Stop Time Status Last Admin Dose Admin Nitroglycerin 0.4 mg Q5MINP PRN SL 03/10/24 14:45 Morphine Sulfate 2 mg Q30M PRN IV 03/10/24 14:45 03/20/24 18:19 2 MG Morphine Sulfate 2 mg Q4HPRN PRN IV 03/10/24 14:45 03/12/24 15:03 2 MG Acetaminophen/ Hydrocodone Bitart 1 tab Q6HPRN PRN PO 03/10/24 14:45 03/22/24 10:01 1 TAB Acetaminophen 500 mg Q8HP PRN PO 03/10/24 14:45 03/18/24 05:39 500 MG Ondansetron HCl 4 mg Q6HP PRN IV 03/10/24 14:45 Docusate Sodium 100 mg BID PRN PO 03/10/24 14:45 03/21/24 12:34 100 MG Amiodarone HCl 200 mg BID PO 03/10/24 22:00 03/22/24 09:59 200 MG Polyethylene Glycol 17 gm DAILYPRN PRN PO 03/11/24 13:15 03/12/24 10:09 17 GM Enteral Nutritional Formula 240 ml QID PO 03/12/24 12:00 03/22/24 05:35 240 ML Apixaban 5 mg BID PO 03/14/24 22:00 03/22/24 10:00 5 MG Lactulose 30 ml DAILY PO 03/16/24 10:00 03/22/24 10:00 30 ML Pantoprazole Sodium 40 mg DAILY@0600 PO 03/17/24 06:00 03/22/24 05:35 40 MG objective GENERAL: Awake, alert, oriented. LUNGS: Clear. CARDIOVASCULAR: Heart sounds are good. ABDOMEN: Soft. laboratory and microbiology Laboratory Tests 03/21/24 06:04 Test 03/21/24 06:04 Range/Units Serum Glucose 85 74-106 mg/dL Problem List Acute decompensated systolic heart failure. Lower extremity ischemia. Acute on chronic systolic heart failure. Acute hypoxic respiratory failure. Atrial fibrillation rapid ventricular rate. History of Watchman device. Dyslipidemia. Acute right lower leg PND with ischemia. Hyperkalemia with acute kidney injury. Rhabdomyolysis. Assessment/Plan Continued all current supportive medical care. Morphine and [place] for pain management. Amiodarone. IV antibiotics as ordered. Additional plan as per the hospital course. Dietary Evaluation Review Comments: 1. Encourage PO intake when medically feasible. Continue with Ensure Hi Protein PO feedidngs/supplement if pt can tolerate. 2. If GI asscessible, feeding can not meet her protein and energy goal, consider TF jevity 50ml/hr providing 67 gPro and 1440 kcal FS in 24 hrs, 3. Considere TPN per pharmacy to meet 75% of her needds, if NPO>7 days 4. Advance to 2 GNA Lo fat Lo Cholesterol cardiac diet, texture as tolerated if Pt passes speech eval. Expected Outcomes/Goals: maintain Weight, improved lab values Plan discussed with: Patient SALVADOR CONNORS MD Mar 22, 2024 12:04
--- NOTE | 2024-03-22 22:13 | DVHPN2 ---
Progress Note - Dictate Date Seen: Mar 22, 2024 Has the PT tested + for MRSA If YES, has PT been informed?: No Medical Necessity Reason Pt with a Central, PICC or Fol: Yes The following are medically ne: Myers Catheter Reason for myers catheter: Strict I&O Subjective Patient seen and examined at bedside. On room air Overnight events reviewed. vital signs Vital Sign Date Time Temp Pulse Resp B/P (MAP) Pulse Ox O2 Delivery O2 Flow Rate FiO2 03/22/24 21:00 97.8 63 15 102/55 (71) 97 97.8 03/22/24 08:00 Room Air* 0 21 Total Intake and Output 03/21/24 03/21/24 03/22/24 15:00 23:00 07:00 Intake Total 210 ml 240 ml 200 ml Output Total 100 ml Balance 210 ml 240 ml 100 ml medications Current Medications Medications Dose Ordered Sig/Anthony Route Start Time Stop Time Status Last Admin Dose Admin Nitroglycerin 0.4 mg Q5MINP PRN SL 03/10/24 14:45 Morphine Sulfate 2 mg Q30M PRN IV 03/10/24 14:45 03/20/24 18:19 2 MG Morphine Sulfate 2 mg Q4HPRN PRN IV 03/10/24 14:45 03/12/24 15:03 2 MG Acetaminophen/ Hydrocodone Bitart 1 tab Q6HPRN PRN PO 03/10/24 14:45 03/22/24 21:53 1 TAB Acetaminophen 500 mg Q8HP PRN PO 03/10/24 14:45 03/18/24 05:39 500 MG Ondansetron HCl 4 mg Q6HP PRN IV 03/10/24 14:45 Docusate Sodium 100 mg BID PRN PO 03/10/24 14:45 03/21/24 12:34 100 MG Amiodarone HCl 200 mg BID PO 03/10/24 22:00 03/22/24 21:54 200 MG Polyethylene Glycol 17 gm DAILYPRN PRN PO 03/11/24 13:15 03/12/24 10:09 17 GM Enteral Nutritional Formula 240 ml QID PO 03/12/24 12:00 03/22/24 21:54 240 ML Apixaban 5 mg BID PO 03/14/24 22:00 03/22/24 21:54 5 MG Lactulose 30 ml DAILY PO 03/16/24 10:00 03/22/24 10:00 30 ML Pantoprazole Sodium 40 mg DAILY@0600 PO 03/17/24 06:00 03/22/24 05:35 40 MG objective Gen.: Patient lying in bed in no apparent distress. On room air Head: Normocephalic, atraumatic. Eyes: EOMI/PERRLA. Ears: Normal hearing. Normal anatomy. Neck/trachea: Trachea midline, supple. Nose: Normal external anatomy. Mouth: Moist mucous membranes. Chest: Decreased air entry bilaterally. No wheezing or rhonchi. Cardiovascular: Positive S1, positive S2. Regular rate and rhythm. Abdomen: Positive bowel sounds in all 4 quadrants. Soft, non-tender, non- distended. : Deferred. Rectal: Deferred. Skin: Warm, dry. Intact. Extremities: 2+ radial pulses bilaterally. No lower extremity edema. Neuro: Awake, alert, oriented x3. No gross motor or sensory deficits. Cranial nerves II through XII intact. Gait not assessed. laboratory and microbiology Laboratory Tests 03/21/24 06:04 Test 03/21/24 06:04 Range/Units Serum Glucose 85 74-106 mg/dL Assessment/Plan Impression: Acute hypoxic respiratory failure Acute thrombus with right lower extremity ischemia Acute on chronic systolic heart failure Atrial fibrillation w/ rapid ventricular rate Acute kidney injury Rhabdomyolysis Events: Remains on room air No respiratory distress. Supplemental oxygen PRN Completed antibiotics Bronchodilators PRN. Incentive spirometry Eliquis BID Amiodarone PO. Pain control Avoid oversedation Wound care Physical therapy Disposition per hospitalist. ASA ruled out endocarditis. Labs and imaging reviewed. Rest of plan as noted below. Plan: Supplemental oxygen PRN Titrate to keep O2 sats above 92%. Continue antibiotics Amiodarone PO S/p left leg fasciotomy with closure. Vascular Surgery recs appreciated. Wound care Monitor renal function. Monitor electrolytes. Supplement as necessary. Monitor ins and outs. DVT prophylaxis. Prognosis: Guarded given patient's multiple co-morbidities. Rest of plan per hospitalist and other consultants. A total of 51 minutes of clinical care time was spent reviewing the patient record, examining the patient, making a diagnostic and therapeutic plan, discussing this plan with the medical personnel, following up on diagnostic studies and following the patient for clinical stability excluding any and all procedures. At least 50% of this time was spent in direct, [id number] contact. Thank you, DAVID Gonzalez, for allowing me to participate in this patient's care. Further recommendations will depend on the patient's clinical course. Please do not hesitate to contact me if you have any questions or concerns. This medical document was created using an electronic medical record system with [employer] dictation system. Although these documentations are being carefully reviewed, there may still be some phonetic and typographical changes. The errors are purely typographical, due to imperfection on the software program, and do not reflect any compromise in the patient's medical care. Dietary Evaluation Review Comments: 1. Encourage PO intake when medically feasible. Continue with Ensure Hi Protein PO feedidngs/supplement if pt can tolerate. 2. If GI asscessible, feeding can not meet her protein and energy goal, consider TF jevity 50ml/hr providing 67 gPro and 1440 kcal FS in 24 hrs, 3. Considere TPN per pharmacy to meet 75% of her needds, if NPO>7 days 4. Advance to 2 GNA Lo fat Lo Cholesterol cardiac diet, texture as tolerated if Pt passes speech eval. Expected Outcomes/Goals: maintain Weight, improved lab values Plan discussed with: Patient, Other (RADHA Pimentel) JORDAN WONG MD Mar 22, 2024 22:13
[2024-03-23] VITALS (7 sets, daily range): BP systolic 94–141; BP diastolic 55–72; PULSE 53–92; RESP 14–17; TEMP 97.3–98.6; O2SAT 96–99
--- NOTE | 2024-03-23 13:24 | DVHPN2 ---
Subjective Patient denies any symptoms other than mild pain to her right leg and foot. Reviewed: Care Plan, H&P, Labs, Medications Changes from previous H/P or p: No Changes General: Per HPI Eyes: No Pain, No Vision change, No Conjunctivae inflammation, No Eyelid inflammation, No Other, No Redness ENT: No Ear pain, No Ear discharge, No Nose pain, No Nose discharge, No Nose congestion, No Mouth pain, No Mouth swelling, No Throat pain, No Throat swelling, No Other Cardiovascular: No Chest Pain, No Palpitations, No Orthopnea, No Paroxysmal Noc. Dyspnea, No Edema, No Lt Headedness, No Other Respiratory: No Cough, No Dry, No Shortness of breath, No SOB with excertion, No Wheezing, No Hemoptysis, No Pleuritic Pain, No Sputum, No Other Genitourinary: No Dysuria, No Frequency, No Incontinence, No Hematuria, No Retention, No Other Musculoskeletal: leg pain (Dressing dry and intact) Skin: No Rash, No Lesions, No Jaundice, No Bruising, No Other Objective Vitals Vital Signs Date Time Temp Pulse Resp B/P (MAP) Pulse Ox O2 Delivery O2 Flow Rate FiO2 03/23/24 08:30 97.3 69 14 96/57 (70) 98 97.3 03/22/24 20:00 Room Air* 0 21 Intake/Output Intake and Output 03/23/24 07:00 Intake Total 375 ml Output Total 800 ml Balance -425 ml Intake Oral 375 ml Output Urine Total 800 ml General Appearance: Alert, Oriented X3, Cooperative, mild distress HEENT: Atraumatic, PERRLA Lungs: Clear to auscultation, Normal air movement, Other (Nasal cannula at 2 liters/minute) Cardiovascular: Normal S1, Normal S2, Other (Atrial fibrillation with controlled rate) Abdomen: Normal bowel sounds Genitourinary: No Apparent Abnormalities (Bernabe catheter) Musculoskeletal: Other (No motor movement to right foot.) Extremities: Other (No motor movement or feeling to right foot.) Neuro: Normal gait, Normal speech Skin: Dry, Intact, Warm, Wounds (See nurse notes and pictures) Psych/Mental Status: Mental status NL, Mood NL Medications Current Medications Medications Dose Ordered Sig/Anthony Route Start Time Stop Time Status Last Admin Dose Admin Nitroglycerin 0.4 mg Q5MINP PRN SL 03/10/24 14:45 Morphine Sulfate 2 mg Q30M PRN IV 03/10/24 14:45 03/20/24 18:19 2 MG Morphine Sulfate 2 mg Q4HPRN PRN IV 03/10/24 14:45 03/12/24 15:03 2 MG Acetaminophen/ Hydrocodone Bitart 1 tab Q6HPRN PRN PO 03/10/24 14:45 03/22/24 21:53 1 TAB Acetaminophen 500 mg Q8HP PRN PO 03/10/24 14:45 03/18/24 05:39 500 MG Ondansetron HCl 4 mg Q6HP PRN IV 03/10/24 14:45 Docusate Sodium 100 mg BID PRN PO 03/10/24 14:45 03/21/24 12:34 100 MG Amiodarone HCl 200 mg BID PO 03/10/24 22:00 03/23/24 10:54 200 MG Polyethylene Glycol 17 gm DAILYPRN PRN PO 03/11/24 13:15 03/12/24 10:09 17 GM Enteral Nutritional Formula 240 ml QID PO 03/12/24 12:00 03/23/24 12:05 240 ML Apixaban 5 mg BID PO 03/14/24 22:00 03/23/24 10:54 5 MG Lactulose 30 ml DAILY PO 03/16/24 10:00 03/23/24 10:54 30 ML Pantoprazole Sodium 40 mg DAILY@0600 PO 03/17/24 06:00 03/23/24 06:14 40 MG Laboratory Results Laboratory Tests 03/21/24 06:04 Urinalysis Test 03/10/24 23:15 Urine Color Brown (Yellow) H Urine Clarity Ex.turbid (Clear) Urine pH 5.5 (5.0-9.0) Urine Specific [place] 1.012 (1.001-1.035) Urine Protein Trace (Negative) H Urine Ketones Negative (Negative) Urine Blood 3+ /uL (Negative) H Urine Nitrite Negative (Negative) Urine Bilirubin Negative (Negative) Urine Urobilinogen Normal mg/dL (Negative) Urine Leukocyte Esterase 1+ /uL (Negative) Urine RBC 3 /hpf (0 - 4) Urine WBC 42 /hpf (0 - 5) Urine WBC Clumps Present /hpf (None Seen) Urine Squamous Epithelial Cells Few /hpf (<5) Urine Bacteria None seen /hpf (None Seen) Urine Yeast (Budding) Few /hpf (None Seen) Urine Glucose 3+ mg/dL (Normal) H Microbiology Microbiology Date/Time Source Procedure Growth Status 03/10/24 23:15 Urine - [place] Urine Culture - Final Complete 03/10/24 16:00 Nose MRSA Screen - Final Complete Labs and/or images reviewed: Labs reviewed by me, Image(s) reviewed by me Assessment/Plan Assessment/Plan Impression: -Acute decompensated systolic heart failure. -Acute thrombus with right lower extremity ischemia -acute on chronic systolic heart failure -acute hypoxic respiratory failure -atrial fibrillation rapid ventricular rate -history of Watchman device -elevated D-dimer, ruled out pulmonary embolism -dyslipidemia -hyperkalemia with acute kidney injury -rhabdomyolysis -ruled out CA. CA 125: 328 Plan: -Events: Asked to retirement facility/rehabilitation facility transfer with the patient. She continues to date want to attempt DC home with physical therapy. Patient was instructed to continue to participate with physical therapy and attempt to become more independent with transferring. Both the patient and granddaughter verbalized understanding. -continue Eliquis -PPI -Pain management -bowel regimen: add lactulose -social service consultation for DC planning. At this time patient states she lives alone, with a granddaughter available to help daily, but patient does not have someone in-house 24 hours a day. Total time spent with patient discussing and formulating plan of care: 35 minutes. This medical document was created using an electronic medical record system with [employer] dictation system. Although this document has been carefully reviewed, there may still be some phonetic and typographical errors. These areas are purely typographical due to imperfections of the software programs, and do not reflect any compromise in the patient's medical care. Plan discussed with: Patient, Other (RN) Date of Service: Mar 23, 2024 Billing Provider: NICOLE REBOLLAR NP Common Visit Codes: [id number] INP/OBS CARE(HIGH) NICOLE REBOLLAR NP Mar 23, 2024 13:24
--- NOTE | 2024-03-23 20:54 | DVHPN2 ---
Progress Note - Dictate Date Seen: Mar 23, 2024 Has the PT tested + for MRSA If YES, has PT been informed?: No Medical Necessity Reason Pt with a Central, PICC or Fol: Yes The following are medically ne: Myers Catheter Reason for myers catheter: Strict I&O Subjective Patient was seen and evaluated in follow up. Patient has foot brace on. Per CM, patient's granddaughter is requesting for the patient to discharge home with HH and PT instead of SNF. vital signs Vital Sign Date Time Temp Pulse Resp B/P (MAP) Pulse Ox O2 Delivery O2 Flow Rate FiO2 03/23/24 08:30 97.3 69 14 96/57 (70) 98 97.3 03/22/24 20:00 Room Air* 0 21 Total Intake and Output 03/22/24 03/22/24 03/23/24 15:00 23:00 07:00 Intake Total 0 ml 375 ml Output Total 400 ml 400 ml Balance -400 ml -25 ml medications Current Medications Medications Dose Ordered Sig/Anthony Route Start Time Stop Time Status Last Admin Dose Admin Nitroglycerin 0.4 mg Q5MINP PRN SL 03/10/24 14:45 Morphine Sulfate 2 mg Q30M PRN IV 03/10/24 14:45 03/20/24 18:19 2 MG Morphine Sulfate 2 mg Q4HPRN PRN IV 03/10/24 14:45 03/12/24 15:03 2 MG Acetaminophen/ Hydrocodone Bitart 1 tab Q6HPRN PRN PO 03/10/24 14:45 03/22/24 21:53 1 TAB Acetaminophen 500 mg Q8HP PRN PO 03/10/24 14:45 03/18/24 05:39 500 MG Ondansetron HCl 4 mg Q6HP PRN IV 03/10/24 14:45 Docusate Sodium 100 mg BID PRN PO 03/10/24 14:45 03/21/24 12:34 100 MG Amiodarone HCl 200 mg BID PO 03/10/24 22:00 03/23/24 10:54 200 MG Polyethylene Glycol 17 gm DAILYPRN PRN PO 03/11/24 13:15 03/12/24 10:09 17 GM Enteral Nutritional Formula 240 ml QID PO 03/12/24 12:00 03/23/24 06:16 240 ML Apixaban 5 mg BID PO 03/14/24 22:00 03/23/24 10:54 5 MG Lactulose 30 ml DAILY PO 03/16/24 10:00 03/23/24 10:54 30 ML Pantoprazole Sodium 40 mg DAILY@0600 PO 03/17/24 06:00 03/23/24 06:14 40 MG objective GENERAL: Awake, alert, oriented. LUNGS: Clear. CARDIOVASCULAR: Heart sounds are good. ABDOMEN: Soft. laboratory and microbiology Laboratory Tests 03/21/24 06:04 Test 03/21/24 06:04 Range/Units Serum Glucose 85 74-106 mg/dL Problem List Acute decompensated systolic heart failure. Lower extremity ischemia. Acute on chronic systolic heart failure. Acute hypoxic respiratory failure. Atrial fibrillation rapid ventricular rate. History of Watchman device. Dyslipidemia. Acute right lower leg PND with ischemia. Hyperkalemia with acute kidney injury. Rhabdomyolysis. Assessment/Plan Continued all current supportive medical care. Morphine and [place] for pain management. Amiodarone. IV antibiotics as ordered. Additional plan as per the hospital course. Dietary Evaluation Review Comments: 1. Encourage PO intake when medically feasible. Continue with Ensure Hi Protein PO feedidngs/supplement if pt can tolerate. 2. If GI asscessible, feeding can not meet her protein and energy goal, consider TF jevity 50ml/hr providing 67 gPro and 1440 kcal FS in 24 hrs, 3. Considere TPN per pharmacy to meet 75% of her needds, if NPO>7 days 4. Advance to 2 GNA Lo fat Lo Cholesterol cardiac diet, texture as tolerated if Pt passes speech eval. Expected Outcomes/Goals: maintain Weight, improved lab values Plan discussed with: Patient SALVADOR CONNORS MD Mar 23, 2024 11:43
--- NOTE | 2024-03-23 20:57 | DVHPN2 ---
Progress Note - Dictate Date Seen: Mar 23, 2024 Has the PT tested + for MRSA If YES, has PT been informed?: No Medical Necessity Reason Pt with a Central, PICC or Fol: Yes The following are medically ne: Myers Catheter Reason for myers catheter: Strict I&O Subjective Patient seen and examined at bedside. On room air Overnight events reviewed. vital signs Vital Sign Date Time Temp Pulse Resp B/P (MAP) Pulse Ox O2 Delivery O2 Flow Rate FiO2 03/23/24 17:00 98.0 92 17 108/60 (76) 97 98.0 03/23/24 08:00 Room Air* 0 21 Total Intake and Output 03/22/24 03/22/24 03/23/24 15:00 23:00 07:00 Intake Total 0 ml 375 ml Output Total 400 ml 400 ml Balance -400 ml -25 ml medications Current Medications Medications Dose Ordered Sig/Anthony Route Start Time Stop Time Status Last Admin Dose Admin Nitroglycerin 0.4 mg Q5MINP PRN SL 03/10/24 14:45 Morphine Sulfate 2 mg Q30M PRN IV 03/10/24 14:45 03/20/24 18:19 2 MG Morphine Sulfate 2 mg Q4HPRN PRN IV 03/10/24 14:45 03/12/24 15:03 2 MG Acetaminophen/ Hydrocodone Bitart 1 tab Q6HPRN PRN PO 03/10/24 14:45 03/23/24 20:22 1 TAB Acetaminophen 500 mg Q8HP PRN PO 03/10/24 14:45 03/18/24 05:39 500 MG Ondansetron HCl 4 mg Q6HP PRN IV 03/10/24 14:45 Docusate Sodium 100 mg BID PRN PO 03/10/24 14:45 03/21/24 12:34 100 MG Amiodarone HCl 200 mg BID PO 03/10/24 22:00 03/23/24 10:54 200 MG Polyethylene Glycol 17 gm DAILYPRN PRN PO 03/11/24 13:15 03/12/24 10:09 17 GM Enteral Nutritional Formula 240 ml QID PO 03/12/24 12:00 03/23/24 17:59 240 ML Apixaban 5 mg BID PO 03/14/24 22:00 03/23/24 10:54 5 MG Lactulose 30 ml DAILY PO 03/16/24 10:00 03/23/24 10:54 30 ML Pantoprazole Sodium 40 mg DAILY@0600 PO 03/17/24 06:00 03/23/24 06:14 40 MG objective Gen.: Patient lying in bed in no apparent distress. On room air Head: Normocephalic, atraumatic. Eyes: EOMI/PERRLA. Ears: Normal hearing. Normal anatomy. Neck/trachea: Trachea midline, supple. Nose: Normal external anatomy. Mouth: Moist mucous membranes. Chest: Decreased air entry bilaterally. No wheezing or rhonchi. Cardiovascular: Positive S1, positive S2. Regular rate and rhythm. Abdomen: Positive bowel sounds in all 4 quadrants. Soft, non-tender, non- distended. : Deferred. Rectal: Deferred. Skin: Warm, dry. Intact. Extremities: 2+ radial pulses bilaterally. No lower extremity edema. Neuro: Awake, alert, oriented x3. No gross motor or sensory deficits. Cranial nerves II through XII intact. Gait not assessed. laboratory and microbiology Laboratory Tests 03/21/24 06:04 Test 03/21/24 06:04 Range/Units Serum Glucose 85 74-106 mg/dL Assessment/Plan Impression: Acute hypoxic respiratory failure Acute thrombus with right lower extremity ischemia Acute on chronic systolic heart failure Atrial fibrillation w/ rapid ventricular rate Acute kidney injury Rhabdomyolysis Events: Remains on room air No respiratory distress. Supplemental oxygen PRN Completed antibiotics Bronchodilators PRN. Incentive spirometry Eliquis BID Amiodarone PO. Pain control Avoid oversedation Wound care Physical therapy Disposition per hospitalist. Awaiting Home Health and PT. ASA ruled out endocarditis. Labs and imaging reviewed. Rest of plan as noted below. Plan: Supplemental oxygen PRN Titrate to keep O2 sats above 92%. Continue antibiotics Amiodarone PO S/p left leg fasciotomy with closure. Vascular Surgery recs appreciated. Wound care Monitor renal function. Monitor electrolytes. Supplement as necessary. Monitor ins and outs. DVT prophylaxis. Prognosis: Guarded given patient's multiple co-morbidities. Rest of plan per hospitalist and other consultants. A total of 51 minutes of clinical care time was spent reviewing the patient record, examining the patient, making a diagnostic and therapeutic plan, discussing this plan with the medical personnel, following up on diagnostic studies and following the patient for clinical stability excluding any and all procedures. At least 50% of this time was spent in direct, [id number] contact. Thank you, DAVID Gonzalez, for allowing me to participate in this patient's care. Further recommendations will depend on the patient's clinical course. Please do not hesitate to contact me if you have any questions or concerns. This medical document was created using an electronic medical record system with [employer] dictation system. Although these documentations are being carefully reviewed, there may still be some phonetic and typographical changes. The errors are purely typographical, due to imperfection on the software program, and do not reflect any compromise in the patient's medical care. Dietary Evaluation Review Comments: 1. Encourage PO intake when medically feasible. Continue with Ensure Hi Protein PO feedidngs/supplement if pt can tolerate. 2. If GI asscessible, feeding can not meet her protein and energy goal, consider TF jevity 50ml/hr providing 67 gPro and 1440 kcal FS in 24 hrs, 3. Considere TPN per pharmacy to meet 75% of her needds, if NPO>7 days 4. Advance to 2 GNA Lo fat Lo Cholesterol cardiac diet, texture as tolerated if Pt passes speech eval. Expected Outcomes/Goals: maintain Weight, improved lab values Plan discussed with: Patient, Other (RADHA Lion) JORDAN WONG MD Mar 23, 2024 20:57
[2024-03-24] VITALS (7 sets, daily range): BP systolic 93–107; BP diastolic 50–66; PULSE 64–86; RESP 15–18; TEMP 97.5–98.2; O2SAT 97–100
--- NOTE | 2024-03-24 13:40 | DVHPN2 ---
Reviewed: Care Plan, H&P, Labs, Medications Changes from previous H/P or p: No Changes General: Per HPI Eyes: No Pain, No Vision change, No Conjunctivae inflammation, No Eyelid inflammation, No Other, No Redness ENT: No Ear pain, No Ear discharge, No Nose pain, No Nose discharge, No Nose congestion, No Mouth pain, No Mouth swelling, No Throat pain, No Throat swelling, No Other Cardiovascular: No Chest Pain, No Palpitations, No Orthopnea, No Paroxysmal Noc. Dyspnea, No Edema, No Lt Headedness, No Other Respiratory: No Cough, No Dry, No Shortness of breath, No SOB with excertion, No Wheezing, No Hemoptysis, No Pleuritic Pain, No Sputum, No Other Genitourinary: No Dysuria, No Frequency, No Incontinence, No Hematuria, No Retention, No Other Musculoskeletal: leg pain (Dressing dry and intact) Skin: No Rash, No Lesions, No Jaundice, No Bruising, No Other Objective Vitals Vital Signs Date Time Temp Pulse Resp B/P (MAP) Pulse Ox O2 Delivery O2 Flow Rate FiO2 03/24/24 10:51 97.9 03/24/24 08:35 64 15 93/54 (67) 100 03/24/24 07:30 Room Air* 0 21 Intake/Output Intake and Output 03/24/24 07:00 Intake Total 918 ml Output Total 480 ml Balance 438 ml Intake Oral 918 ml Output Urine Total 480 ml General Appearance: Alert, Oriented X3, Cooperative, mild distress HEENT: Atraumatic, PERRLA Lungs: Clear to auscultation, Normal air movement, Other (Nasal cannula at 2 liters/minute) Cardiovascular: Normal S1, Normal S2, Other (Atrial fibrillation with controlled rate) Abdomen: Normal bowel sounds Genitourinary: No Apparent Abnormalities (Bernabe catheter) Musculoskeletal: Other (No motor movement to right foot.) Extremities: Other (No motor movement or feeling to right foot.) Neuro: Normal gait, Normal speech Skin: Dry, Intact, Warm, Wounds (See nurse notes and pictures) Psych/Mental Status: Mental status NL, Mood NL Medications Current Medications Medications Dose Ordered Sig/Anthony Route Start Time Stop Time Status Last Admin Dose Admin Nitroglycerin 0.4 mg Q5MINP PRN SL 03/10/24 14:45 Morphine Sulfate 2 mg Q30M PRN IV 03/10/24 14:45 03/20/24 18:19 2 MG Morphine Sulfate 2 mg Q4HPRN PRN IV 03/10/24 14:45 03/12/24 15:03 2 MG Acetaminophen/ Hydrocodone Bitart 1 tab Q6HPRN PRN PO 03/10/24 14:45 03/24/24 11:21 1 TAB Acetaminophen 500 mg Q8HP PRN PO 03/10/24 14:45 03/24/24 09:51 500 MG Ondansetron HCl 4 mg Q6HP PRN IV 03/10/24 14:45 Docusate Sodium 100 mg BID PRN PO 03/10/24 14:45 03/21/24 12:34 100 MG Amiodarone HCl 200 mg BID PO 03/10/24 22:00 03/24/24 09:49 200 MG Polyethylene Glycol 17 gm DAILYPRN PRN PO 03/11/24 13:15 03/12/24 10:09 17 GM Enteral Nutritional Formula 240 ml QID PO 03/12/24 12:00 03/24/24 05:17 240 ML Apixaban 5 mg BID PO 03/14/24 22:00 03/24/24 09:49 5 MG Lactulose 30 ml DAILY PO 03/16/24 10:00 03/24/24 09:48 30 ML Pantoprazole Sodium 40 mg DAILY@0600 PO 03/17/24 06:00 03/24/24 05:17 40 MG Laboratory Results Laboratory Tests 03/21/24 06:04 Urinalysis Test 03/10/24 23:15 Urine Color Brown (Yellow) H Urine Clarity Ex.turbid (Clear) Urine pH 5.5 (5.0-9.0) Urine Specific [place] 1.012 (1.001-1.035) Urine Protein Trace (Negative) H Urine Ketones Negative (Negative) Urine Blood 3+ /uL (Negative) H Urine Nitrite Negative (Negative) Urine Bilirubin Negative (Negative) Urine Urobilinogen Normal mg/dL (Negative) Urine Leukocyte Esterase 1+ /uL (Negative) Urine RBC 3 /hpf (0 - 4) Urine WBC 42 /hpf (0 - 5) Urine WBC Clumps Present /hpf (None Seen) Urine Squamous Epithelial Cells Few /hpf (<5) Urine Bacteria None seen /hpf (None Seen) Urine Yeast (Budding) Few /hpf (None Seen) Urine Glucose 3+ mg/dL (Normal) H Microbiology Microbiology Date/Time Source Procedure Growth Status 03/10/24 23:15 Urine - [place] Urine Culture - Final Complete 03/10/24 16:00 Nose MRSA Screen - Final Complete Labs and/or images reviewed: Labs reviewed by me, Image(s) reviewed by me Assessment/Plan Assessment/Plan Covering For nurse practitioner Roque Gonzalez -Acute decompensated systolic heart failure. -Acute thrombus with right lower extremity ischemia -acute on chronic systolic heart failure -acute hypoxic respiratory failure -atrial fibrillation rapid ventricular rate -history of Watchman device -elevated D-dimer, ruled out pulmonary embolism -dyslipidemia -hyperkalemia with acute kidney injury -rhabdomyolysis Continue Current management Granddaughter at the bedside Plan discussed with: Patient Date of Service: Mar 24, 2024 Billing Provider: LISA DEVINE MD Common Visit Codes: [id number] INP/OBS CARE(HIGH) LISA DEVINE MD Mar 24, 2024 13:39
--- NOTE | 2024-03-24 13:58 | DVHPN2 ---
Progress Note - Dictate Date Seen: Mar 24, 2024 Has the PT tested + for MRSA If YES, has PT been informed?: No Medical Necessity Reason Pt with a Central, PICC or Fol: Yes The following are medically ne: Myers Catheter Reason for myers catheter: Strict I&O Subjective Patient was seen and evaluated in follow up. Overnight, patient refused wound care. Patient denies any current complaints. Patient remains in foot brace. vital signs Vital Sign Date Time Temp Pulse Resp B/P (MAP) Pulse Ox O2 Delivery O2 Flow Rate FiO2 03/24/24 09:51 98.0 03/24/24 08:35 64 15 93/54 (67) 100 03/23/24 20:00 Room Air* 0 21 Total Intake and Output 03/23/24 03/23/24 03/24/24 15:00 23:00 07:00 Intake Total 518 ml 400 ml Output Total 300 ml 180 ml Balance 218 ml 220 ml medications Current Medications Medications Dose Ordered Sig/Anthony Route Start Time Stop Time Status Last Admin Dose Admin Nitroglycerin 0.4 mg Q5MINP PRN SL 03/10/24 14:45 Morphine Sulfate 2 mg Q30M PRN IV 03/10/24 14:45 03/20/24 18:19 2 MG Morphine Sulfate 2 mg Q4HPRN PRN IV 03/10/24 14:45 03/12/24 15:03 2 MG Acetaminophen/ Hydrocodone Bitart 1 tab Q6HPRN PRN PO 03/10/24 14:45 03/24/24 11:21 1 TAB Acetaminophen 500 mg Q8HP PRN PO 03/10/24 14:45 03/24/24 09:51 500 MG Ondansetron HCl 4 mg Q6HP PRN IV 03/10/24 14:45 Docusate Sodium 100 mg BID PRN PO 03/10/24 14:45 03/21/24 12:34 100 MG Amiodarone HCl 200 mg BID PO 03/10/24 22:00 03/24/24 09:49 200 MG Polyethylene Glycol 17 gm DAILYPRN PRN PO 03/11/24 13:15 03/12/24 10:09 17 GM Enteral Nutritional Formula 240 ml QID PO 03/12/24 12:00 03/24/24 05:17 240 ML Apixaban 5 mg BID PO 03/14/24 22:00 03/24/24 09:49 5 MG Lactulose 30 ml DAILY PO 03/16/24 10:00 03/24/24 09:48 30 ML Pantoprazole Sodium 40 mg DAILY@0600 PO 03/17/24 06:00 03/24/24 05:17 40 MG objective GENERAL: Awake, alert, oriented. LUNGS: Clear. CARDIOVASCULAR: Heart sounds are good. ABDOMEN: Soft. laboratory and microbiology Laboratory Tests 03/21/24 06:04 Test 03/21/24 06:04 Range/Units Serum Glucose 85 74-106 mg/dL Problem List Acute decompensated systolic heart failure. Lower extremity ischemia. Acute on chronic systolic heart failure. Acute hypoxic respiratory failure. Atrial fibrillation rapid ventricular rate. History of Watchman device. Dyslipidemia. Acute right lower leg PND with ischemia. Hyperkalemia with acute kidney injury. Rhabdomyolysis. Assessment/Plan Continued all current supportive medical care. Morphine and [place] for pain management. Amiodarone. IV antibiotics as ordered. Additional plan as per the hospital course. Dietary Evaluation Review Comments: 1. Encourage PO intake when medically feasible. Continue with Ensure Hi Protein PO feedidngs/supplement if pt can tolerate. 2. If GI asscessible, feeding can not meet her protein and energy goal, consider TF jevity 50ml/hr providing 67 gPro and 1440 kcal FS in 24 hrs, 3. Considere TPN per pharmacy to meet 75% of her needds, if NPO>7 days 4. Advance to 2 GNA Lo fat Lo Cholesterol cardiac diet, texture as tolerated if Pt passes speech eval. Expected Outcomes/Goals: maintain Weight, improved lab values Plan discussed with: Patient SALVADOR CONNORS MD Mar 24, 2024 12:11
--- NOTE | 2024-03-24 23:14 | DVHPN2 ---
Progress Note - Dictate Date Seen: Mar 24, 2024 Has the PT tested + for MRSA If YES, has PT been informed?: No Medical Necessity Reason Pt with a Central, PICC or Fol: Yes The following are medically ne: Myers Catheter Reason for myers catheter: Strict I&O Subjective Patient seen and examined at bedside. On room air Overnight events reviewed. vital signs Vital Sign Date Time Temp Pulse Resp B/P (MAP) Pulse Ox O2 Delivery O2 Flow Rate FiO2 03/24/24 21:00 97.7 86 18 101/54 (70) 97 97.7 03/24/24 20:00 Room Air* 0 21 Total Intake and Output 03/23/24 03/23/24 03/24/24 15:00 23:00 07:00 Intake Total 518 ml 400 ml Output Total 300 ml 180 ml Balance 218 ml 220 ml medications Current Medications Medications Dose Ordered Sig/Anthony Route Start Time Stop Time Status Last Admin Dose Admin Nitroglycerin 0.4 mg Q5MINP PRN SL 03/10/24 14:45 Morphine Sulfate 2 mg Q30M PRN IV 03/10/24 14:45 03/20/24 18:19 2 MG Morphine Sulfate 2 mg Q4HPRN PRN IV 03/10/24 14:45 03/12/24 15:03 2 MG Acetaminophen/ Hydrocodone Bitart 1 tab Q6HPRN PRN PO 03/10/24 14:45 03/24/24 17:14 1 TAB Acetaminophen 500 mg Q8HP PRN PO 03/10/24 14:45 03/24/24 09:51 500 MG Ondansetron HCl 4 mg Q6HP PRN IV 03/10/24 14:45 Docusate Sodium 100 mg BID PRN PO 03/10/24 14:45 03/21/24 12:34 100 MG Amiodarone HCl 200 mg BID PO 03/10/24 22:00 03/24/24 21:52 200 MG Polyethylene Glycol 17 gm DAILYPRN PRN PO 03/11/24 13:15 03/12/24 10:09 17 GM Enteral Nutritional Formula 240 ml QID PO 03/12/24 12:00 03/24/24 18:07 240 ML Apixaban 5 mg BID PO 03/14/24 22:00 03/24/24 21:52 5 MG Lactulose 30 ml DAILY PO 03/16/24 10:00 03/24/24 09:48 30 ML Pantoprazole Sodium 40 mg DAILY@0600 PO 03/17/24 06:00 03/24/24 05:17 40 MG objective Gen.: Patient lying in bed in no apparent distress. On room air Head: Normocephalic, atraumatic. Eyes: EOMI/PERRLA. Ears: Normal hearing. Normal anatomy. Neck/trachea: Trachea midline, supple. Nose: Normal external anatomy. Mouth: Moist mucous membranes. Chest: Decreased air entry bilaterally. No wheezing or rhonchi. Cardiovascular: Positive S1, positive S2. Regular rate and rhythm. Abdomen: Positive bowel sounds in all 4 quadrants. Soft, non-tender, non- distended. : Deferred. Rectal: Deferred. Skin: Warm, dry. Intact. Extremities: 2+ radial pulses bilaterally. No lower extremity edema. Neuro: Awake, alert, oriented x3. No gross motor or sensory deficits. Cranial nerves II through XII intact. Gait not assessed. laboratory and microbiology Laboratory Tests 03/21/24 06:04 Test 03/21/24 06:04 Range/Units Serum Glucose 85 74-106 mg/dL Assessment/Plan Impression: Acute hypoxic respiratory failure Acute thrombus with right lower extremity ischemia Acute on chronic systolic heart failure Atrial fibrillation w/ rapid ventricular rate Acute kidney injury Rhabdomyolysis Events: Remains on room air No respiratory distress. Supplemental oxygen PRN Completed antibiotics Bronchodilators PRN. Incentive spirometry Eliquis BID Amiodarone PO. Pain control Avoid oversedation Wound care Physical therapy Disposition per hospitalist. Arranging Home Health and PT. ASA ruled out endocarditis. Labs and imaging reviewed. Rest of plan as noted below. Plan: Supplemental oxygen PRN Titrate to keep O2 sats above 92%. Continue antibiotics Amiodarone PO S/p left leg fasciotomy with closure. Vascular Surgery recs appreciated. Wound care Monitor renal function. Monitor electrolytes. Supplement as necessary. Monitor ins and outs. DVT prophylaxis. Prognosis: Guarded given patient's multiple co-morbidities. Rest of plan per hospitalist and other consultants. A total of 51 minutes of clinical care time was spent reviewing the patient record, examining the patient, making a diagnostic and therapeutic plan, discussing this plan with the medical personnel, following up on diagnostic studies and following the patient for clinical stability excluding any and all procedures. At least 50% of this time was spent in direct, [id number] contact. Thank you, DAVID Gonzalez, for allowing me to participate in this patient's care. Further recommendations will depend on the patient's clinical course. Please do not hesitate to contact me if you have any questions or concerns. This medical document was created using an electronic medical record system with [employer] dictation system. Although these documentations are being carefully reviewed, there may still be some phonetic and typographical changes. The errors are purely typographical, due to imperfection on the software program, and do not reflect any compromise in the patient's medical care. Dietary Evaluation Review Comments: 1. Encourage PO intake when medically feasible. Continue with Ensure Hi Protein PO feedidngs/supplement if pt can tolerate. 2. If GI asscessible, feeding can not meet her protein and energy goal, consider TF jevity 50ml/hr providing 67 gPro and 1440 kcal FS in 24 hrs, 3. Considere TPN per pharmacy to meet 75% of her needds, if NPO>7 days 4. Advance to 2 GNA Lo fat Lo Cholesterol cardiac diet, texture as tolerated if Pt passes speech eval. Expected Outcomes/Goals: maintain Weight, improved lab values Plan discussed with: Patient, Other (RADHA Carrillo) JORDAN WONG MD Mar 24, 2024 23:13
[2024-03-25] VITALS (7 sets, daily range): BP systolic 95–108; BP diastolic 47–70; PULSE 62–80; RESP 16–20; TEMP 97.5–99.4; O2SAT 95–99
--- NOTE | 2024-03-25 10:29 | DVHPN2 ---
Reviewed: Care Plan, H&P, Labs, Medications Changes from previous H/P or p: No Changes General: Per HPI Eyes: No Pain, No Vision change, No Conjunctivae inflammation, No Eyelid inflammation, No Other, No Redness ENT: No Ear pain, No Ear discharge, No Nose pain, No Nose discharge, No Nose congestion, No Mouth pain, No Mouth swelling, No Throat pain, No Throat swelling, No Other Cardiovascular: No Chest Pain, No Palpitations, No Orthopnea, No Paroxysmal Noc. Dyspnea, No Edema, No Lt Headedness, No Other Respiratory: No Cough, No Dry, No Shortness of breath, No SOB with excertion, No Wheezing, No Hemoptysis, No Pleuritic Pain, No Sputum, No Other Genitourinary: No Dysuria, No Frequency, No Incontinence, No Hematuria, No Retention, No Other Musculoskeletal: leg pain Skin: No Rash, No Lesions, No Jaundice, No Bruising, No Other Objective Vitals Vital Signs Date Time Temp Pulse Resp B/P (MAP) Pulse Ox O2 Delivery O2 Flow Rate FiO2 03/25/24 09:16 97.9 03/25/24 09:00 76 17 103/55 (71) 96 03/25/24 07:30 Room Air* 0 21 Intake/Output Intake and Output 03/25/24 07:00 Intake Total 610 ml Output Total 525 ml Balance 85 ml Intake Oral 610 ml Output Urine Total 525 ml General Appearance: Alert, Oriented X3, Cooperative, mild distress HEENT: Atraumatic, PERRLA Lungs: Clear to auscultation, Normal air movement, Other Cardiovascular: Normal S1, Normal S2, Other Abdomen: Normal bowel sounds Genitourinary: No Apparent Abnormalities Musculoskeletal: Other Extremities: Other Neuro: Normal gait, Normal speech Skin: Dry, Intact, Warm, Wounds Psych/Mental Status: Mental status NL, Mood NL Medications Current Medications Medications Dose Ordered Sig/Anthony Route Start Time Stop Time Status Last Admin Dose Admin Nitroglycerin 0.4 mg Q5MINP PRN SL 03/10/24 14:45 Morphine Sulfate 2 mg Q30M PRN IV 03/10/24 14:45 03/20/24 18:19 2 MG Morphine Sulfate 2 mg Q4HPRN PRN IV 03/10/24 14:45 03/12/24 15:03 2 MG Acetaminophen/ Hydrocodone Bitart 1 tab Q6HPRN PRN PO 03/10/24 14:45 03/25/24 05:29 1 TAB Acetaminophen 500 mg Q8HP PRN PO 03/10/24 14:45 03/25/24 09:16 500 MG Ondansetron HCl 4 mg Q6HP PRN IV 03/10/24 14:45 Docusate Sodium 100 mg BID PRN PO 03/10/24 14:45 03/21/24 12:34 100 MG Amiodarone HCl 200 mg BID PO 03/10/24 22:00 03/25/24 09:15 200 MG Polyethylene Glycol 17 gm DAILYPRN PRN PO 03/11/24 13:15 03/12/24 10:09 17 GM Enteral Nutritional Formula 240 ml QID PO 03/12/24 12:00 03/25/24 05:29 240 ML Apixaban 5 mg BID PO 03/14/24 22:00 03/25/24 09:16 5 MG Lactulose 30 ml DAILY PO 03/16/24 10:00 03/25/24 09:14 30 ML Pantoprazole Sodium 40 mg DAILY@0600 PO 03/17/24 06:00 03/25/24 05:28 40 MG Laboratory Results Laboratory Tests 03/21/24 06:04 Urinalysis Test 03/10/24 23:15 Urine Color Brown (Yellow) H Urine Clarity Ex.turbid (Clear) Urine pH 5.5 (5.0-9.0) Urine Specific [place] 1.012 (1.001-1.035) Urine Protein Trace (Negative) H Urine Ketones Negative (Negative) Urine Blood 3+ /uL (Negative) H Urine Nitrite Negative (Negative) Urine Bilirubin Negative (Negative) Urine Urobilinogen Normal mg/dL (Negative) Urine Leukocyte Esterase 1+ /uL (Negative) Urine RBC 3 /hpf (0 - 4) Urine WBC 42 /hpf (0 - 5) Urine WBC Clumps Present /hpf (None Seen) Urine Squamous Epithelial Cells Few /hpf (<5) Urine Bacteria None seen /hpf (None Seen) Urine Yeast (Budding) Few /hpf (None Seen) Urine Glucose 3+ mg/dL (Normal) H Microbiology Microbiology Date/Time Source Procedure Growth Status 03/10/24 23:15 Urine - [place] Urine Culture - Final Complete 03/10/24 16:00 Nose MRSA Screen - Final Complete Labs and/or images reviewed: Labs reviewed by me, Image(s) reviewed by me Assessment/Plan Assessment/Plan Covering For nurse practitioner Roque Gonzalez -Acute decompensated systolic heart failure. -Acute thrombus with right lower extremity ischemia -acute on chronic systolic heart failure -acute hypoxic respiratory failure -atrial fibrillation rapid ventricular rate -history of Watchman device -elevated D-dimer, ruled out pulmonary embolism -dyslipidemia -hyperkalemia with acute kidney injury -rhabdomyolysis Continue Current management Granddaughter at the bedside Plan discussed with: Patient Date of Service: Mar 25, 2024 Billing Provider: LISA DEVINE MD Common Visit Codes: [id number] INP/OBS CARE(HIGH) LISA DEVINE MD Mar 25, 2024 10:29
--- NOTE | 2024-03-25 19:05 | DVHPN2 ---
Progress Note - Dictate Date Seen: Mar 25, 2024 Has the PT tested + for MRSA If YES, has PT been informed?: No Medical Necessity Reason Pt with a Central, PICC or Fol: Yes The following are medically ne: Myers Catheter Reason for myers catheter: Strict I&O Subjective Patient was seen and evaluated in follow up. No overnight events. Patient resting in bed. No apparent distress. RLE dressings are C/D/I. vital signs Vital Sign Date Time Temp Pulse Resp B/P (MAP) Pulse Ox O2 Delivery O2 Flow Rate FiO2 03/25/24 13:00 99.4 76 16 99/55 (70) 99 99.4 03/25/24 07:30 Room Air* 0 21 Total Intake and Output 03/24/24 03/24/24 03/25/24 15:00 23:00 07:00 Intake Total 610 ml Output Total 250 ml 275 ml Balance -250 ml 335 ml medications Current Medications Medications Dose Ordered Sig/Anthony Route Start Time Stop Time Status Last Admin Dose Admin Nitroglycerin 0.4 mg Q5MINP PRN SL 03/10/24 14:45 Morphine Sulfate 2 mg Q30M PRN IV 03/10/24 14:45 03/20/24 18:19 2 MG Morphine Sulfate 2 mg Q4HPRN PRN IV 03/10/24 14:45 03/12/24 15:03 2 MG Acetaminophen/ Hydrocodone Bitart 1 tab Q6HPRN PRN PO 03/10/24 14:45 03/25/24 05:29 1 TAB Acetaminophen 500 mg Q8HP PRN PO 03/10/24 14:45 03/25/24 09:16 500 MG Ondansetron HCl 4 mg Q6HP PRN IV 03/10/24 14:45 Docusate Sodium 100 mg BID PRN PO 03/10/24 14:45 03/21/24 12:34 100 MG Amiodarone HCl 200 mg BID PO 03/10/24 22:00 03/25/24 09:15 200 MG Polyethylene Glycol 17 gm DAILYPRN PRN PO 03/11/24 13:15 03/12/24 10:09 17 GM Enteral Nutritional Formula 240 ml QID PO 03/12/24 12:00 03/25/24 05:29 240 ML Apixaban 5 mg BID PO 03/14/24 22:00 03/25/24 09:16 5 MG Lactulose 30 ml DAILY PO 03/16/24 10:00 03/25/24 09:14 30 ML Pantoprazole Sodium 40 mg DAILY@0600 PO 03/17/24 06:00 03/25/24 05:28 40 MG objective GENERAL: Awake, alert, oriented. LUNGS: Clear. CARDIOVASCULAR: Heart sounds are good. ABDOMEN: Soft. laboratory and microbiology Laboratory Tests 03/21/24 06:04 Test 03/21/24 06:04 Range/Units Serum Glucose 85 74-106 mg/dL Problem List Acute decompensated systolic heart failure. Lower extremity ischemia. Acute on chronic systolic heart failure. Acute hypoxic respiratory failure. Atrial fibrillation rapid ventricular rate. History of Watchman device. Dyslipidemia. Acute right lower leg PND with ischemia. Hyperkalemia with acute kidney injury. Rhabdomyolysis. Assessment/Plan Continued all current supportive medical care. Morphine and Girard for pain management. Amiodarone. IV antibiotics as ordered. Additional plan as per the hospital course. Dietary Evaluation Review Comments: 1. Encourage PO intake when medically feasible. Continue with Ensure Hi Protein PO feedidngs/supplement if pt can tolerate. 2. If GI asscessible, feeding can not meet her protein and energy goal, consider TF jevity 50ml/hr providing 67 gPro and 1440 kcal FS in 24 hrs, 3. Considere TPN per pharmacy to meet 75% of her needds, if NPO>7 days 4. Advance to 2 GNA Lo fat Lo Cholesterol cardiac diet, texture as tolerated if Pt passes speech eval. Expected Outcomes/Goals: maintain Weight, improved lab values Plan discussed with: Patient SALVADOR CONNORS MD Mar 25, 2024 13:15
--- NOTE | 2024-03-25 23:25 | DVHPN2 ---
Progress Note - Dictate Date Seen: Mar 25, 2024 Has the PT tested + for MRSA If YES, has PT been informed?: No Medical Necessity Reason Pt with a Central, PICC or Fol: Yes The following are medically ne: Myers Catheter Reason for myers catheter: Strict I&O Subjective Patient seen and examined at bedside. On room air Overnight events reviewed. vital signs Vital Sign Date Time Temp Pulse Resp B/P (MAP) Pulse Ox O2 Delivery O2 Flow Rate FiO2 03/25/24 21:00 98.3 80 20 100/53 (69) 98 98.3 03/25/24 07:30 Room Air* 0 21 Total Intake and Output 03/24/24 03/24/24 03/25/24 15:00 23:00 07:00 Intake Total 610 ml Output Total 250 ml 275 ml Balance -250 ml 335 ml medications Current Medications Medications Dose Ordered Sig/Anthony Route Start Time Stop Time Status Last Admin Dose Admin Nitroglycerin 0.4 mg Q5MINP PRN SL 03/10/24 14:45 Morphine Sulfate 2 mg Q30M PRN IV 03/10/24 14:45 03/20/24 18:19 2 MG Morphine Sulfate 2 mg Q4HPRN PRN IV 03/10/24 14:45 03/12/24 15:03 2 MG Acetaminophen/ Hydrocodone Bitart 1 tab Q6HPRN PRN PO 03/10/24 14:45 03/25/24 20:12 1 TAB Acetaminophen 500 mg Q8HP PRN PO 03/10/24 14:45 03/25/24 09:16 500 MG Ondansetron HCl 4 mg Q6HP PRN IV 03/10/24 14:45 Docusate Sodium 100 mg BID PRN PO 03/10/24 14:45 03/21/24 12:34 100 MG Amiodarone HCl 200 mg BID PO 03/10/24 22:00 03/25/24 21:51 200 MG Polyethylene Glycol 17 gm DAILYPRN PRN PO 03/11/24 13:15 03/12/24 10:09 17 GM Enteral Nutritional Formula 240 ml QID PO 03/12/24 12:00 03/25/24 21:52 240 ML Apixaban 5 mg BID PO 03/14/24 22:00 03/25/24 21:51 5 MG Lactulose 30 ml DAILY PO 03/16/24 10:00 03/25/24 09:14 30 ML Pantoprazole Sodium 40 mg DAILY@0600 PO 03/17/24 06:00 03/25/24 05:28 40 MG objective Gen.: Patient lying in bed in no apparent distress. On room air Head: Normocephalic, atraumatic. Eyes: EOMI/PERRLA. Ears: Normal hearing. Normal anatomy. Neck/trachea: Trachea midline, supple. Nose: Normal external anatomy. Mouth: Moist mucous membranes. Chest: Decreased air entry bilaterally. No wheezing or rhonchi. Cardiovascular: Positive S1, positive S2. Regular rate and rhythm. Abdomen: Positive bowel sounds in all 4 quadrants. Soft, non-tender, non- distended. : Deferred. Rectal: Deferred. Skin: Warm, dry. Intact. Extremities: 2+ radial pulses bilaterally. No lower extremity edema. Neuro: Awake, alert, oriented x3. No gross motor or sensory deficits. Cranial nerves II through XII intact. Gait not assessed. laboratory and microbiology Laboratory Tests 03/21/24 06:04 Test 03/21/24 06:04 Range/Units Serum Glucose 85 74-106 mg/dL Assessment/Plan Impression: Acute hypoxic respiratory failure Acute thrombus with right lower extremity ischemia Acute on chronic systolic heart failure Atrial fibrillation w/ rapid ventricular rate Acute kidney injury Rhabdomyolysis Events: Remains on room air No respiratory distress. Supplemental oxygen PRN Completed antibiotics Bronchodilators PRN. Incentive spirometry Eliquis BID Amiodarone PO. Pain control Avoid oversedation Wound care Physical therapy Disposition per hospitalist. Arranging Home Health and PT. ASA ruled out endocarditis. Labs and imaging reviewed. Rest of plan as noted below. Plan: Supplemental oxygen PRN Titrate to keep O2 sats above 92%. Continue antibiotics Amiodarone PO S/p left leg fasciotomy with closure. Vascular Surgery recs appreciated. Wound care Monitor renal function. Monitor electrolytes. Supplement as necessary. Monitor ins and outs. DVT prophylaxis. Prognosis: Guarded given patient's multiple co-morbidities. Rest of plan per hospitalist and other consultants. A total of 51 minutes of clinical care time was spent reviewing the patient record, examining the patient, making a diagnostic and therapeutic plan, discussing this plan with the medical personnel, following up on diagnostic studies and following the patient for clinical stability excluding any and all procedures. At least 50% of this time was spent in direct, [id number] contact. Thank you, DAVID Gonzalez, for allowing me to participate in this patient's care. Further recommendations will depend on the patient's clinical course. Please do not hesitate to contact me if you have any questions or concerns. This medical document was created using an electronic medical record system with [employer] dictation system. Although these documentations are being carefully reviewed, there may still be some phonetic and typographical changes. The errors are purely typographical, due to imperfection on the software program, and do not reflect any compromise in the patient's medical care. Dietary Evaluation Review Comments: 1. Encourage PO intake when medically feasible. Continue with Ensure Hi Protein PO feedidngs/supplement if pt can tolerate. 2. If GI asscessible, feeding can not meet her protein and energy goal, consider TF jevity 50ml/hr providing 67 gPro and 1440 kcal FS in 24 hrs, 3. Considere TPN per pharmacy to meet 75% of her needds, if NPO>7 days 4. Advance to 2 GNA Lo fat Lo Cholesterol cardiac diet, texture as tolerated if Pt passes speech eval. Expected Outcomes/Goals: maintain Weight, improved lab values Plan discussed with: Patient, Other (RADHA Carrillo) JORDAN WONG MD Mar 25, 2024 23:25
[2024-03-26] VITALS (8 sets, daily range): BP systolic 90–107; BP diastolic 51–66; PULSE 59–87; RESP 15–18; TEMP 97.5–98.3; O2SAT 98–99
--- NOTE | 2024-03-26 14:22 | DVHPN2 ---
Subjective Patient denies any symptoms other than mild pain to her right leg and foot. Reviewed: Care Plan, H&P, Labs, Medications Changes from previous H/P or p: No Changes General: Per HPI Eyes: No Pain, No Vision change, No Conjunctivae inflammation, No Eyelid inflammation, No Other, No Redness ENT: No Ear pain, No Ear discharge, No Nose pain, No Nose discharge, No Nose congestion, No Mouth pain, No Mouth swelling, No Throat pain, No Throat swelling, No Other Cardiovascular: No Chest Pain, No Palpitations, No Orthopnea, No Paroxysmal Noc. Dyspnea, No Edema, No Lt Headedness, No Other Respiratory: No Cough, No Dry, No Shortness of breath, No SOB with excertion, No Wheezing, No Hemoptysis, No Pleuritic Pain, No Sputum, No Other Genitourinary: No Dysuria, No Frequency, No Incontinence, No Hematuria, No Retention, No Other Musculoskeletal: leg pain Skin: No Rash, No Lesions, No Jaundice, No Bruising, No Other Objective Vitals Vital Signs Date Time Temp Pulse Resp B/P (MAP) Pulse Ox O2 Delivery O2 Flow Rate FiO2 03/26/24 09:00 98.2 59 15 95/57 (70) 98 98.2 03/26/24 08:05 Room Air* 0 21 Intake/Output Intake and Output 03/26/24 06:59 Intake Total 865 ml Output Total 500 ml Balance 365 ml Intake Oral 865 ml Output Urine Total 500 ml General Appearance: Alert, Oriented X3, Cooperative, mild distress HEENT: Atraumatic, PERRLA Lungs: Clear to auscultation, Normal air movement, Other Cardiovascular: Normal S1, Normal S2, Other Abdomen: Normal bowel sounds Genitourinary: No Apparent Abnormalities Musculoskeletal: Other Extremities: Other Neuro: Normal gait, Normal speech Skin: Dry, Intact, Warm, Wounds Psych/Mental Status: Mental status NL, Mood NL Medications Current Medications Medications Dose Ordered Sig/Anthony Route Start Time Stop Time Status Last Admin Dose Admin Nitroglycerin 0.4 mg Q5MINP PRN SL 03/10/24 14:45 Morphine Sulfate 2 mg Q30M PRN IV 03/10/24 14:45 03/20/24 18:19 2 MG Morphine Sulfate 2 mg Q4HPRN PRN IV 03/10/24 14:45 03/12/24 15:03 2 MG Acetaminophen/ Hydrocodone Bitart 1 tab Q6HPRN PRN PO 03/10/24 14:45 03/26/24 05:53 1 TAB Acetaminophen 500 mg Q8HP PRN PO 03/10/24 14:45 03/25/24 09:16 500 MG Ondansetron HCl 4 mg Q6HP PRN IV 03/10/24 14:45 Docusate Sodium 100 mg BID PRN PO 03/10/24 14:45 03/21/24 12:34 100 MG Amiodarone HCl 200 mg BID PO 03/10/24 22:00 03/26/24 09:16 200 MG Polyethylene Glycol 17 gm DAILYPRN PRN PO 03/11/24 13:15 03/12/24 10:09 17 GM Enteral Nutritional Formula 240 ml QID PO 03/12/24 12:00 03/26/24 14:07 240 ML Apixaban 5 mg BID PO 03/14/24 22:00 03/26/24 09:16 5 MG Lactulose 30 ml DAILY PO 03/16/24 10:00 03/26/24 09:18 30 ML Pantoprazole Sodium 40 mg DAILY@0600 PO 03/17/24 06:00 03/26/24 05:52 40 MG Laboratory Results Laboratory Tests 03/21/24 06:04 Urinalysis Test 03/10/24 23:15 Urine Color Brown (Yellow) H Urine Clarity Ex.turbid (Clear) Urine pH 5.5 (5.0-9.0) Urine Specific [place] 1.012 (1.001-1.035) Urine Protein Trace (Negative) H Urine Ketones Negative (Negative) Urine Blood 3+ /uL (Negative) H Urine Nitrite Negative (Negative) Urine Bilirubin Negative (Negative) Urine Urobilinogen Normal mg/dL (Negative) Urine Leukocyte Esterase 1+ /uL (Negative) Urine RBC 3 /hpf (0 - 4) Urine WBC 42 /hpf (0 - 5) Urine WBC Clumps Present /hpf (None Seen) Urine Squamous Epithelial Cells Few /hpf (<5) Urine Bacteria None seen /hpf (None Seen) Urine Yeast (Budding) Few /hpf (None Seen) Urine Glucose 3+ mg/dL (Normal) H Microbiology Microbiology Date/Time Source Procedure Growth Status 03/10/24 23:15 Urine - [place] Urine Culture - Final Complete 03/10/24 16:00 Nose MRSA Screen - Final Complete Labs and/or images reviewed: Labs reviewed by me, Image(s) reviewed by me Assessment/Plan Assessment/Plan Impression: -Acute decompensated systolic heart failure. -Acute thrombus with right lower extremity ischemia -acute on chronic systolic heart failure -acute hypoxic respiratory failure -atrial fibrillation rapid ventricular rate -history of Watchman device -elevated D-dimer, ruled out pulmonary embolism -dyslipidemia -hyperkalemia with acute kidney injury -rhabdomyolysis -ruled out CA. CA 125: 328 -constipation Plan: -Events: Documentation by Physical therapy reveals that the patient has ambulated 6 ft. Patient continues to want to be discharged home for home health services with physical therapy. No BM noted for five days -out of bed to chair t.i.d. with nursing. Weight-bearing as tolerated. -continue Eliquis -PPI -Pain management -bowel regimen: Please give MiraLax, continue lactulose daily -social service consultation for DC planning. At this time patient states she lives alone, with a granddaughter available to help daily, but patient does not have someone in-house 24 hours a day. Total time spent with patient discussing and formulating plan of care: 35 minutes. This medical document was created using an electronic medical record system with [employer] dictation system. Although this document has been carefully reviewed, there may still be some phonetic and typographical errors. These areas are purely typographical due to imperfections of the software programs, and do not reflect any compromise in the patient's medical care. Plan discussed with: Patient, Other (RN) My Orders Orders - NICOLE REBOLLAR NP Procedure Category Date Status Time Oob To Chair ALYSA 03/26/24 Transmitted 14:18 Pt Request For Service PT 03/26/24 Transmitted 14:18 Polyethylene Glycol PHA 03/26/24 Transmitted 17g Powder (Miralax 14:30 Date of Service: Mar 26, 2024 Billing Provider: NICOLE REBOLLAR NP Common Visit Codes: [id number] INP/OBS CARE(HIGH) NICOLE REBOLLAR NP Mar 26, 2024 14:22
[2024-03-26] MEDS: POLYETHYLENE GLYCOL 17 GM PWDR PO ONE (14:30)
--- NOTE | 2024-03-26 21:23 | DVHPN2 ---
Progress Note - Dictate Date Seen: Mar 26, 2024 Has the PT tested + for MRSA If YES, has PT been informed?: No Medical Necessity Reason Pt with a Central, PICC or Fol: Yes The following are medically ne: Myers Catheter Reason for myers catheter: Strict I&O Subjective Patient was seen and evaluated in follow up. No overnight events. Patient reports feeling well today. Patient has not had a BM in 5 days. Patient is working with PT, ambulating approx 6 feet. Patient is wanting to be discharged with HH and PT. vital signs Vital Sign Date Time Temp Pulse Resp B/P (MAP) Pulse Ox O2 Delivery O2 Flow Rate FiO2 03/26/24 17:00 98.3 63 18 102/64 (77) 98 98.3 03/26/24 08:05 Room Air* 0 21 Total Intake and Output 03/25/24 03/25/24 03/26/24 15:00 23:00 07:00 Intake Total 625 ml 240 ml Output Total 350 ml 150 ml Balance 275 ml 90 ml medications Current Medications Medications Dose Ordered Sig/Anthony Route Start Time Stop Time Status Last Admin Dose Admin Nitroglycerin 0.4 mg Q5MINP PRN SL 03/10/24 14:45 Morphine Sulfate 2 mg Q30M PRN IV 03/10/24 14:45 03/20/24 18:19 2 MG Morphine Sulfate 2 mg Q4HPRN PRN IV 03/10/24 14:45 03/12/24 15:03 2 MG Acetaminophen/ Hydrocodone Bitart 1 tab Q6HPRN PRN PO 03/10/24 14:45 03/26/24 20:27 1 TAB Acetaminophen 500 mg Q8HP PRN PO 03/10/24 14:45 03/25/24 09:16 500 MG Ondansetron HCl 4 mg Q6HP PRN IV 03/10/24 14:45 Docusate Sodium 100 mg BID PRN PO 03/10/24 14:45 03/21/24 12:34 100 MG Amiodarone HCl 200 mg BID PO 03/10/24 22:00 03/26/24 09:16 200 MG Enteral Nutritional Formula 240 ml QID PO 03/12/24 12:00 03/26/24 18:00 240 ML Apixaban 5 mg BID PO 03/14/24 22:00 03/26/24 09:16 5 MG Lactulose 30 ml DAILY PO 03/16/24 10:00 03/26/24 09:18 30 ML Pantoprazole Sodium 40 mg DAILY@0600 PO 03/17/24 06:00 03/26/24 05:52 40 MG objective GENERAL: Awake, alert, oriented. LUNGS: Clear. CARDIOVASCULAR: Heart sounds are good. ABDOMEN: Soft. laboratory and microbiology Laboratory Tests 03/21/24 06:04 Test 03/21/24 06:04 Range/Units Serum Glucose 85 74-106 mg/dL Problem List Acute decompensated systolic heart failure. Lower extremity ischemia. Acute on chronic systolic heart failure. Acute hypoxic respiratory failure. Atrial fibrillation rapid ventricular rate. History of Watchman device. Dyslipidemia. Acute right lower leg PND with ischemia. Hyperkalemia with acute kidney injury. Rhabdomyolysis. Assessment/Plan Continued all current supportive medical care. Morphine and [place] for pain management. Amiodarone. IV antibiotics as ordered. Additional plan as per the hospital course. Dietary Evaluation Review Comments: 1. Encourage PO intake when medically feasible. Continue with Ensure Hi Protein PO feedidngs/supplement if pt can tolerate. 2. If GI asscessible, feeding can not meet her protein and energy goal, consider TF jevity 50ml/hr providing 67 gPro and 1440 kcal FS in 24 hrs, 3. Considere TPN per pharmacy to meet 75% of her needds, if NPO>7 days 4. Advance to 2 GNA Lo fat Lo Cholesterol cardiac diet, texture as tolerated if Pt passes speech eval. Expected Outcomes/Goals: maintain Weight, improved lab values Plan discussed with: Patient SALVADOR CONNORS MD Mar 26, 2024 21:23
[2024-03-27] VITALS (8 sets, daily range): BP systolic 92–122; BP diastolic 47–75; PULSE 64–100; RESP 17–18; TEMP 97.4–98.7; O2SAT 96–99
--- NOTE | 2024-03-27 13:42 | DVHPN2 ---
Subjective Patient denies any symptoms other than mild pain to her right leg and foot. Reviewed: Care Plan, H&P, Labs, Medications Changes from previous H/P or p: No Changes General: Per HPI Eyes: No Pain, No Vision change, No Conjunctivae inflammation, No Eyelid inflammation, No Other, No Redness ENT: No Ear pain, No Ear discharge, No Nose pain, No Nose discharge, No Nose congestion, No Mouth pain, No Mouth swelling, No Throat pain, No Throat swelling, No Other Cardiovascular: No Chest Pain, No Palpitations, No Orthopnea, No Paroxysmal Noc. Dyspnea, No Edema, No Lt Headedness, No Other Respiratory: No Cough, No Dry, No Shortness of breath, No SOB with excertion, No Wheezing, No Hemoptysis, No Pleuritic Pain, No Sputum, No Other Genitourinary: No Dysuria, No Frequency, No Incontinence, No Hematuria, No Retention, No Other Musculoskeletal: leg pain Skin: No Rash, No Lesions, No Jaundice, No Bruising, No Other Objective Vitals Vital Signs Date Time Temp Pulse Resp B/P (MAP) Pulse Ox O2 Delivery O2 Flow Rate FiO2 03/27/24 12:38 98.7 81 17 115/61 (79) 98 98.7 03/26/24 20:00 Room Air* 0 21 Intake/Output Intake and Output 03/27/24 07:00 Intake Total 820 ml Output Total 650 ml Balance 170 ml Intake Oral 820 ml Output Urine Total 650 ml General Appearance: Alert, Oriented X3, Cooperative, mild distress HEENT: Atraumatic, PERRLA Lungs: Clear to auscultation, Normal air movement, Other Cardiovascular: Normal S1, Normal S2, Other Abdomen: Normal bowel sounds Genitourinary: No Apparent Abnormalities Musculoskeletal: Other Extremities: Other Neuro: Normal gait, Normal speech Skin: Dry, Intact, Warm, Wounds Psych/Mental Status: Mental status NL, Mood NL Medications Current Medications Medications Dose Ordered Sig/Nathony Route Start Time Stop Time Status Last Admin Dose Admin Nitroglycerin 0.4 mg Q5MINP PRN SL 03/10/24 14:45 Morphine Sulfate 2 mg Q30M PRN IV 03/10/24 14:45 03/26/24 21:48 2 MG Morphine Sulfate 2 mg Q4HPRN PRN IV 03/10/24 14:45 03/12/24 15:03 2 MG Acetaminophen 500 mg Q8HP PRN PO 03/10/24 14:45 03/25/24 09:16 500 MG Ondansetron HCl 4 mg Q6HP PRN IV 03/10/24 14:45 Docusate Sodium 100 mg BID PRN PO 03/10/24 14:45 03/21/24 12:34 100 MG Amiodarone HCl 200 mg BID PO 03/10/24 22:00 03/27/24 09:46 200 MG Enteral Nutritional Formula 240 ml QID PO 03/12/24 12:00 03/27/24 06:32 240 ML Apixaban 5 mg BID PO 03/14/24 22:00 03/27/24 09:45 5 MG Lactulose 30 ml DAILY PO 03/16/24 10:00 03/27/24 09:45 30 ML Pantoprazole Sodium 40 mg DAILY@0600 PO 03/17/24 06:00 03/27/24 06:32 40 MG Acetaminophen/ Hydrocodone Bitart 1 tab Q6HP PRN PO 03/27/24 13:30 Laboratory Results Laboratory Tests 03/21/24 06:04 Urinalysis Test 03/10/24 23:15 Urine Color Brown (Yellow) H Urine Clarity Ex.turbid (Clear) Urine pH 5.5 (5.0-9.0) Urine Specific [place] 1.012 (1.001-1.035) Urine Protein Trace (Negative) H Urine Ketones Negative (Negative) Urine Blood 3+ /uL (Negative) H Urine Nitrite Negative (Negative) Urine Bilirubin Negative (Negative) Urine Urobilinogen Normal mg/dL (Negative) Urine Leukocyte Esterase 1+ /uL (Negative) Urine RBC 3 /hpf (0 - 4) Urine WBC 42 /hpf (0 - 5) Urine WBC Clumps Present /hpf (None Seen) Urine Squamous Epithelial Cells Few /hpf (<5) Urine Bacteria None seen /hpf (None Seen) Urine Yeast (Budding) Few /hpf (None Seen) Urine Glucose 3+ mg/dL (Normal) H Microbiology Microbiology Date/Time Source Procedure Growth Status 03/10/24 23:15 Urine - [place] Urine Culture - Final Complete 03/10/24 16:00 Nose MRSA Screen - Final Complete Labs and/or images reviewed: Labs reviewed by me, Image(s) reviewed by me Assessment/Plan Assessment/Plan Impression: -Acute decompensated systolic heart failure. -Acute thrombus with right lower extremity ischemia -acute on chronic systolic heart failure -acute hypoxic respiratory failure -atrial fibrillation rapid ventricular rate -history of Watchman device -elevated D-dimer, ruled out pulmonary embolism -dyslipidemia -hyperkalemia with acute kidney injury -rhabdomyolysis -ruled out [place]. [place] 125: 328 -constipation Plan: -Events: Patient ambulated approximately 8 ft. Physical therapist stated that she did have some pain, limiting her extended treatment. -out of bed to chair t.i.d. with nursing. Weight-bearing as tolerated. -continue Eliquis -PPI -Pain management: Increase [place] to 7.5/325 -bowel regimen: Lactulose -social service consultation for DC planning. At this time patient states she lives alone, with a granddaughter available to help daily, but patient does not have someone in-house 24 hours a day. Total time spent with patient discussing and formulating plan of care: 35 minutes. This medical document was created using an electronic medical record system with [employer] dictation system. Although this document has been carefully reviewed, there may still be some phonetic and typographical errors. These areas are purely typographical due to imperfections of the software programs, and do not reflect any compromise in the patient's medical care. Plan discussed with: Patient, Other (RN) My Orders Orders - NICOLE REBOLLAR NP Procedure Category Date Status Time Oob To Chair ALYSA 03/26/24 In Process 14:18 Pt Request For Service PT 03/26/24 Logged 14:18 Hydrocodone-Acet PHA 03/27/24 In Process 7.5/325mg Tab ([place] 13:30 Date of Service: Mar 27, 2024 Billing Provider: NICOLE REBOLLAR NP Common Visit Codes: [id number] INP/OBS CARE(HIGH) NICOLE REBOLLAR NP Mar 27, 2024 13:42
--- NOTE | 2024-03-27 19:10 | DVHPN2 ---
Progress Note - Dictate Date Seen: Mar 27, 2024 Has the PT tested + for MRSA If YES, has PT been informed?: No Medical Necessity Reason Pt with a Central, PICC or Fol: Yes The following are medically ne: Myers Catheter Reason for myers catheter: Strict I&O Subjective Patient was seen and evaluated in follow up. No overnight events. Patient is working with PT. Patient ambulated approx 8 feet. Patient is encouraged to be out of bed 3 times a day. vital signs Vital Sign Date Time Temp Pulse Resp B/P (MAP) Pulse Ox O2 Delivery O2 Flow Rate FiO2 03/27/24 16:33 97.5 100 17 122/75 (91) 96 97.5 03/27/24 08:00 Room Air* 0 21 Total Intake and Output 03/26/24 03/26/24 03/27/24 15:00 23:00 07:00 Intake Total 620 ml 200 ml Output Total 650 ml Balance -30 ml 200 ml medications Current Medications Medications Dose Ordered Sig/Anthony Route Start Time Stop Time Status Last Admin Dose Admin Nitroglycerin 0.4 mg Q5MINP PRN SL 03/10/24 14:45 Morphine Sulfate 2 mg Q30M PRN IV 03/10/24 14:45 03/26/24 21:48 2 MG Morphine Sulfate 2 mg Q4HPRN PRN IV 03/10/24 14:45 03/12/24 15:03 2 MG Acetaminophen 500 mg Q8HP PRN PO 03/10/24 14:45 03/25/24 09:16 500 MG Ondansetron HCl 4 mg Q6HP PRN IV 03/10/24 14:45 Docusate Sodium 100 mg BID PRN PO 03/10/24 14:45 03/27/24 13:51 100 MG Amiodarone HCl 200 mg BID PO 03/10/24 22:00 03/27/24 09:46 200 MG Enteral Nutritional Formula 240 ml QID PO 03/12/24 12:00 03/27/24 06:32 240 ML Apixaban 5 mg BID PO 03/14/24 22:00 03/27/24 09:45 5 MG Lactulose 30 ml DAILY PO 03/16/24 10:00 03/27/24 09:45 30 ML Pantoprazole Sodium 40 mg DAILY@0600 PO 03/17/24 06:00 03/27/24 06:32 40 MG Acetaminophen/ Hydrocodone Bitart 1 tab Q6HP PRN PO 03/27/24 13:30 objective GENERAL: Awake, alert, oriented. LUNGS: Clear. CARDIOVASCULAR: Heart sounds are good. ABDOMEN: Soft. laboratory and microbiology Laboratory Tests 03/21/24 06:04 Test 03/21/24 06:04 Range/Units Serum Glucose 85 74-106 mg/dL Problem List Acute decompensated systolic heart failure. Lower extremity ischemia. Acute on chronic systolic heart failure. Acute hypoxic respiratory failure. Atrial fibrillation rapid ventricular rate. History of Watchman device. Dyslipidemia. Acute right lower leg PND with ischemia. Hyperkalemia with acute kidney injury. Rhabdomyolysis. Assessment/Plan Continued all current supportive medical care. Morphine and [place] for pain management. Amiodarone. Eliquis. Lactulose. Additional plan as per the hospital course. Dietary Evaluation Review Comments: 1. Encourage PO intake when medically feasible. Continue with Ensure Hi Protein PO feedidngs/supplement if pt can tolerate. 2. If GI asscessible, feeding can not meet her protein and energy goal, consider TF jevity 50ml/hr providing 67 gPro and 1440 kcal FS in 24 hrs, 3. Considere TPN per pharmacy to meet 75% of her needds, if NPO>7 days 4. Advance to 2 GNA Lo fat Lo Cholesterol cardiac diet, texture as tolerated if Pt passes speech eval. Expected Outcomes/Goals: maintain Weight, improved lab values Plan discussed with: Patient SALVADOR CONNORS MD Mar 27, 2024 19:10
[2024-03-28 04:56] VITALS: BP 92/56; PULSE 69; RESP 18; TEMP 97.5; O2SAT 92
[2024-03-28 09:00] VITALS: BP 94/50; PULSE 71; RESP 17; TEMP 97.3; O2SAT 100
[2024-03-28 13:00] VITALS: BP 111/59; PULSE 85; RESP 16; TEMP 97.8; O2SAT 98
--- NOTE | 2024-03-28 13:43 | DVHPN2 ---
Subjective Patient denies any symptoms other than mild pain to her right leg and foot. Reviewed: Care Plan, H&P, Labs, Medications Changes from previous H/P or p: No Changes General: Per HPI Eyes: No Pain, No Vision change, No Conjunctivae inflammation, No Eyelid inflammation, No Other, No Redness ENT: No Ear pain, No Ear discharge, No Nose pain, No Nose discharge, No Nose congestion, No Mouth pain, No Mouth swelling, No Throat pain, No Throat swelling, No Other Cardiovascular: No Chest Pain, No Palpitations, No Orthopnea, No Paroxysmal Noc. Dyspnea, No Edema, No Lt Headedness, No Other Respiratory: No Cough, No Dry, No Shortness of breath, No SOB with excertion, No Wheezing, No Hemoptysis, No Pleuritic Pain, No Sputum, No Other Genitourinary: No Dysuria, No Frequency, No Incontinence, No Hematuria, No Retention, No Other Musculoskeletal: leg pain Skin: No Rash, No Lesions, No Jaundice, No Bruising, No Other Objective Vitals Vital Signs Date Time Temp Pulse Resp B/P (MAP) Pulse Ox O2 Delivery O2 Flow Rate FiO2 03/28/24 09:00 97.3 71 17 94/50 (65) 100 97.3 03/28/24 08:00 Room Air* 0 21 Intake/Output Intake and Output 03/28/24 07:00 Intake Total 1140 ml Output Total 890 ml Balance 250 ml Intake Oral 1140 ml Output Urine Total 890 ml # Bowel Movements 1 General Appearance: Alert, Oriented X3, Cooperative, mild distress HEENT: Atraumatic, PERRLA Lungs: Clear to auscultation, Normal air movement, Other Cardiovascular: Normal S1, Normal S2, Other Abdomen: Normal bowel sounds Genitourinary: No Apparent Abnormalities Musculoskeletal: Other Extremities: Other Neuro: Normal gait, Normal speech Skin: Dry, Intact, Warm, Wounds Psych/Mental Status: Mental status NL, Mood NL Medications Current Medications Medications Dose Ordered Sig/Anthony Route Start Time Stop Time Status Last Admin Dose Admin Nitroglycerin 0.4 mg Q5MINP PRN SL 03/10/24 14:45 Morphine Sulfate 2 mg Q30M PRN IV 03/10/24 14:45 03/26/24 21:48 2 MG Morphine Sulfate 2 mg Q4HPRN PRN IV 03/10/24 14:45 03/27/24 21:31 2 MG Acetaminophen 500 mg Q8HP PRN PO 03/10/24 14:45 03/25/24 09:16 500 MG Ondansetron HCl 4 mg Q6HP PRN IV 03/10/24 14:45 Docusate Sodium 100 mg BID PRN PO 03/10/24 14:45 03/27/24 13:51 100 MG Amiodarone HCl 200 mg BID PO 03/10/24 22:00 03/28/24 09:52 200 MG Enteral Nutritional Formula 240 ml QID PO 03/12/24 12:00 03/27/24 06:32 240 ML Apixaban 5 mg BID PO 03/14/24 22:00 03/28/24 09:52 5 MG Lactulose 30 ml DAILY PO 03/16/24 10:00 03/28/24 09:52 30 ML Pantoprazole Sodium 40 mg DAILY@0600 PO 03/17/24 06:00 03/28/24 05:21 40 MG Acetaminophen/ Hydrocodone Bitart 1 tab Q6HP PRN PO 03/27/24 13:30 Laboratory Results Laboratory Tests 03/21/24 06:04 Urinalysis Test 03/10/24 23:15 Urine Color Brown (Yellow) H Urine Clarity Ex.turbid (Clear) Urine pH 5.5 (5.0-9.0) Urine Specific [place] 1.012 (1.001-1.035) Urine Protein Trace (Negative) H Urine Ketones Negative (Negative) Urine Blood 3+ /uL (Negative) H Urine Nitrite Negative (Negative) Urine Bilirubin Negative (Negative) Urine Urobilinogen Normal mg/dL (Negative) Urine Leukocyte Esterase 1+ /uL (Negative) Urine RBC 3 /hpf (0 - 4) Urine WBC 42 /hpf (0 - 5) Urine WBC Clumps Present /hpf (None Seen) Urine Squamous Epithelial Cells Few /hpf (<5) Urine Bacteria None seen /hpf (None Seen) Urine Yeast (Budding) Few /hpf (None Seen) Urine Glucose 3+ mg/dL (Normal) H Microbiology Microbiology Date/Time Source Procedure Growth Status 03/10/24 23:15 Urine - [place] Urine Culture - Final Complete 03/10/24 16:00 Nose MRSA Screen - Final Complete Labs and/or images reviewed: Labs reviewed by me, Image(s) reviewed by me Assessment/Plan Assessment/Plan Impression: -Acute decompensated systolic heart failure. -Acute thrombus with right lower extremity ischemia -acute on chronic systolic heart failure -acute hypoxic respiratory failure -atrial fibrillation rapid ventricular rate -history of Watchman device -elevated D-dimer, ruled out pulmonary embolism -dyslipidemia -hyperkalemia with acute kidney injury -rhabdomyolysis -ruled out [place]. [place] 125: 328 -constipation Plan: -Events: Still without BM. Continues to refuse by intermediate facility placement. -out of bed to chair t.i.d. with nursing. Weight-bearing as tolerated. Continue with physical therapy -continue Eliquis -PPI -Pain management: [place] to 7.5/325 -bowel regimen: Lactulose, add Dulcolax suppository and Colace daily -social service consultation for DC planning. At this time patient states she lives alone, with a granddaughter available to help daily, but patient does not have someone in-house 24 hours a day. Total time spent with patient discussing and formulating plan of care: 35 minutes. This medical document was created using an electronic medical record system with [employer] dictation system. Although this document has been carefully reviewed, there may still be some phonetic and typographical errors. These areas are purely typographical due to imperfections of the software programs, and do not reflect any compromise in the patient's medical care. Plan discussed with: Patient, Other (RN) My Orders Orders - NICOLE REBOLLAR NP Procedure Category Date Status Time Cleanse Wound With ALYSA 03/28/24 In Process Wound Clean 10:00 * Dietary Consult CONS 03/27/24 Transmitted 15:30 Order Specialty ALYSA 03/27/24 In Process [place] 15:30 Bisacodyl Suppository PHA 03/28/24 Transmitted (Dulcolax Supposit 13:45 Bisacodyl Suppository PHA 03/28/24 Transmitted (Dulcolax Supposit 13:45 Docusate Sodium PHA 03/28/24 Transmitted Capsule (Colace 22:00 Date of Service: Mar 28, 2024 Billing Provider: NICOLE REBOLLAR NP Common Visit Codes: [id number] INP/OBS CARE(HIGH) NICOLE REBOLLAR NP Mar 28, 2024 13:43
[2024-03-28] MEDS: BISACODYL 10 MG RECT SUPP PR ONE (14:28)
[2024-03-28 16:59] VITALS: BP 100/65; PULSE 80; RESP 16; TEMP 97.9; O2SAT 98
[2024-03-28 20:00] VITALS: PULSE 77; RESP 18; O2SAT 95
[2024-03-28 21:00] VITALS: BP 96/59; PULSE 77; RESP 18; TEMP 97.7; O2SAT 95
[2024-03-28] MEDS: DOCUSATE SOD 100 MG CAP PO SCH (21:30)
[2024-03-28] MEDS: HYDROcodone-ACET 7.5/325MG TAB PO PRN (21:32)
--- NOTE | 2024-03-28 22:14 | DVHPN2 ---
Progress Note - Dictate Date Seen: Mar 28, 2024 Has the PT tested + for MRSA If YES, has PT been informed?: No Medical Necessity Reason Pt with a Central, PICC or Fol: Yes The following are medically ne: Myers Catheter Reason for myers catheter: Strict I&O Subjective Patient was seen and evaluated in follow up. Patient's RLE is draining scant serosanguineous fluid and right foot is noted to have +2 pitting edema. Patients RLE pain is unchanged. vital signs Vital Sign Date Time Temp Pulse Resp B/P (MAP) Pulse Ox O2 Delivery O2 Flow Rate FiO2 03/28/24 09:00 97.3 71 17 94/50 (65) 100 97.3 03/28/24 08:00 Room Air* 0 21 Total Intake and Output 03/27/24 03/27/24 03/28/24 15:00 23:00 07:00 Intake Total 240 ml 600 ml 300 ml Output Total 400 ml 490 ml Balance 240 ml 200 ml -190 ml medications Current Medications Medications Dose Ordered Sig/Anthony Route Start Time Stop Time Status Last Admin Dose Admin Nitroglycerin 0.4 mg Q5MINP PRN SL 03/10/24 14:45 Morphine Sulfate 2 mg Q30M PRN IV 03/10/24 14:45 03/26/24 21:48 2 MG Morphine Sulfate 2 mg Q4HPRN PRN IV 03/10/24 14:45 03/27/24 21:31 2 MG Acetaminophen 500 mg Q8HP PRN PO 03/10/24 14:45 03/25/24 09:16 500 MG Ondansetron HCl 4 mg Q6HP PRN IV 03/10/24 14:45 Amiodarone HCl 200 mg BID PO 03/10/24 22:00 03/28/24 09:52 200 MG Enteral Nutritional Formula 240 ml QID PO 03/12/24 12:00 03/27/24 06:32 240 ML Apixaban 5 mg BID PO 03/14/24 22:00 03/28/24 09:52 5 MG Lactulose 30 ml DAILY PO 03/16/24 10:00 03/28/24 09:52 30 ML Pantoprazole Sodium 40 mg DAILY@0600 PO 03/17/24 06:00 03/28/24 05:21 40 MG Acetaminophen/ Hydrocodone Bitart 1 tab Q6HP PRN PO 03/27/24 13:30 Bisacodyl 10 mg DAILYP PRN NM 03/29/24 10:00 Docusate Sodium 100 mg BID PO 03/28/24 22:00 objective GENERAL: Awake, alert, oriented. LUNGS: Clear. CARDIOVASCULAR: Heart sounds are good. ABDOMEN: Soft. laboratory and microbiology Laboratory Tests 03/21/24 06:04 Test 03/21/24 06:04 Range/Units Serum Glucose 85 74-106 mg/dL Problem List Acute decompensated systolic heart failure. Lower extremity ischemia. Acute on chronic systolic heart failure. Acute hypoxic respiratory failure. Atrial fibrillation rapid ventricular rate. History of Watchman device. Dyslipidemia. Acute right lower leg PND with ischemia. Hyperkalemia with acute kidney injury. Rhabdomyolysis. Assessment/Plan Continued all current supportive medical care. Morphine and [place] for pain management. Amiodarone. Eliquis. Lactulose. Additional plan as per the hospital course. Dietary Evaluation Review Comments: 1. Encourage PO intake when medically feasible. Continue with Ensure Hi Protein PO feedidngs/supplement if pt can tolerate. 2. If GI asscessible, feeding can not meet her protein and energy goal, consider TF jevity 50ml/hr providing 67 gPro and 1440 kcal FS in 24 hrs, 3. Considere TPN per pharmacy to meet 75% of her needds, if NPO>7 days 4. Advance to 2 GNA Lo fat Lo Cholesterol cardiac diet, texture as tolerated if Pt passes speech eval. Expected Outcomes/Goals: maintain Weight, improved lab values Plan discussed with: Patient SALVADOR CONNORS MD Mar 28, 2024 14:14
[2024-03-29] VITALS (7 sets, daily range): BP systolic 93–106; BP diastolic 48–67; PULSE 67–84; RESP 17–18; TEMP 97.5–98.3; O2SAT 96–97
[2024-03-29] MEDS ORDERED: BISACODYL 10 MG RECT SUPP PR PRN (10:00)
--- NOTE | 2024-03-29 13:56 | DVHPN2 ---
Subjective Pt. reporting swelling to RLE Reviewed: Care Plan, H&P, Labs, Medications Changes from previous H/P or p: Changes General: Per HPI Eyes: No Pain, No Vision change, No Conjunctivae inflammation, No Eyelid inflammation, No Other, No Redness ENT: No Ear pain, No Ear discharge, No Nose pain, No Nose discharge, No Nose congestion, No Mouth pain, No Mouth swelling, No Throat pain, No Throat swelling, No Other Cardiovascular: No Chest Pain, No Palpitations, No Orthopnea, No Paroxysmal Noc. Dyspnea, No Edema, No Lt Headedness, No Other Respiratory: No Cough, No Dry, No Shortness of breath, No SOB with excertion, No Wheezing, No Hemoptysis, No Pleuritic Pain, No Sputum, No Other Genitourinary: No Dysuria, No Frequency, No Incontinence, No Hematuria, No Retention, No Other Musculoskeletal: leg pain Skin: No Rash, No Lesions, No Jaundice, No Bruising, No Other Objective Vitals Vital Signs Date Time Temp Pulse Resp B/P (MAP) Pulse Ox O2 Delivery O2 Flow Rate FiO2 03/29/24 08:44 97.5 70 18 93/56 (68) 96 97.5 03/29/24 08:00 Room Air* 0 21 Intake/Output Intake and Output 03/29/24 07:00 Intake Total 600 ml Output Total 1050 ml Balance -450 ml Intake Oral 600 ml Output Urine Total 1050 ml # Bowel Movements 2 General Appearance: Alert, Oriented X3, Cooperative, mild distress HEENT: Atraumatic, PERRLA Lungs: Clear to auscultation, Normal air movement, Other Cardiovascular: Normal S1, Normal S2, Other Abdomen: Normal bowel sounds Genitourinary: No Apparent Abnormalities Musculoskeletal: Other Extremities: Other Neuro: Normal gait, Normal speech Skin: Dry, Intact, Warm, Wounds Psych/Mental Status: Mental status NL, Mood NL Medications Current Medications Medications Dose Ordered Sig/Anthony Route Start Time Stop Time Status Last Admin Dose Admin Nitroglycerin 0.4 mg Q5MINP PRN SL 03/10/24 14:45 Morphine Sulfate 2 mg Q30M PRN IV 03/10/24 14:45 03/26/24 21:48 2 MG Morphine Sulfate 2 mg Q4HPRN PRN IV 03/10/24 14:45 03/27/24 21:31 2 MG Acetaminophen 500 mg Q8HP PRN PO 03/10/24 14:45 03/25/24 09:16 500 MG Ondansetron HCl 4 mg Q6HP PRN IV 03/10/24 14:45 Amiodarone HCl 200 mg BID PO 03/10/24 22:00 03/29/24 09:38 200 MG Enteral Nutritional Formula 240 ml QID PO 03/12/24 12:00 03/29/24 12:00 240 ML Apixaban 5 mg BID PO 03/14/24 22:00 03/29/24 09:39 5 MG Lactulose 30 ml DAILY PO 03/16/24 10:00 03/29/24 09:38 30 ML Pantoprazole Sodium 40 mg DAILY@0600 PO 03/17/24 06:00 03/29/24 06:13 40 MG Acetaminophen/ Hydrocodone Bitart 1 tab Q6HP PRN PO 03/27/24 13:30 03/28/24 21:32 1 TAB Bisacodyl 10 mg DAILYP PRN [place] 03/29/24 10:00 Docusate Sodium 100 mg BID PO 03/28/24 22:00 03/29/24 09:39 100 MG Laboratory Results Laboratory Tests 03/21/24 06:04 Urinalysis Test 03/10/24 23:15 Urine Color Brown (Yellow) H Urine Clarity Ex.turbid (Clear) Urine pH 5.5 (5.0-9.0) Urine Specific [place] 1.012 (1.001-1.035) Urine Protein Trace (Negative) H Urine Ketones Negative (Negative) Urine Blood 3+ /uL (Negative) H Urine Nitrite Negative (Negative) Urine Bilirubin Negative (Negative) Urine Urobilinogen Normal mg/dL (Negative) Urine Leukocyte Esterase 1+ /uL (Negative) Urine RBC 3 /hpf (0 - 4) Urine WBC 42 /hpf (0 - 5) Urine WBC Clumps Present /hpf (None Seen) Urine Squamous Epithelial Cells Few /hpf (<5) Urine Bacteria None seen /hpf (None Seen) Urine Yeast (Budding) Few /hpf (None Seen) Urine Glucose 3+ mg/dL (Normal) H Microbiology Microbiology Date/Time Source Procedure Growth Status 03/10/24 23:15 Urine - [place] Urine Culture - Final Complete 03/10/24 16:00 Nose MRSA Screen - Final Complete Labs and/or images reviewed: Labs reviewed by me, Image(s) reviewed by me Assessment/Plan Assessment/Plan Impression: -Acute decompensated systolic heart failure. -Acute thrombus with right lower extremity ischemia -acute on chronic systolic heart failure -acute hypoxic respiratory failure -atrial fibrillation rapid ventricular rate -history of Watchman device -elevated D-dimer, ruled out pulmonary embolism -dyslipidemia -hyperkalemia with acute kidney injury -rhabdomyolysis -ruled out CA. [place] 125: 328 -constipation Plan: -Events: Positive bowel movement yesterday. Swelling noted to right lower extremity. Wound care performed with no noted infectious process. Informed patient that extremity we will swell as she performs physical therapy. -trial of p.o. Lasix -decrease amiodarone 200 mg daily -out of bed to chair t.i.d. with nursing. Weight-bearing as tolerated. Continue with physical therapy -continue Eliquis -PPI -Pain management: [place] to 7.5/325 -bowel regimen: Lactulose, add Dulcolax suppository and Colace daily -social service consultation for DC planning. At this time patient states she lives alone, with a granddaughter available to help daily, but patient does not have someone in-house 24 hours a day. Total time spent with patient discussing and formulating plan of care: 35 minutes. This medical document was created using an electronic medical record system with [employer] dictation system. Although this document has been carefully reviewed, there may still be some phonetic and typographical errors. These areas are purely typographical due to imperfections of the software programs, and do not reflect any compromise in the patient's medical care. Plan discussed with: Patient, Other (RN) My Orders Orders - NICOLE REBOLLAR NP Procedure Category Date Status Time Amiodarone Tablet PHA 03/30/24 Verified (Cordarone Tablet) 10:00 Communication Order ORDERS 03/29/24 Verified 13:52 Furosemide Tablet PHA 03/29/24 Verified (Lasix Tablet) 14:00 Date of Service: Mar 29, 2024 Billing Provider: NICOLE REBOLLAR NP Common Visit Codes: [id number] INP/OBS CARE(HIGH) NICOLE REBOLLAR NP Mar 29, 2024 13:56
[2024-03-29] MEDS: FUROSEMIDE 20 MG TAB PO ONE (14:00)
--- NOTE | 2024-03-29 15:46 | DVHPN2 ---
Progress Note - Dictate Date Seen: Mar 29, 2024 Has the PT tested + for MRSA If YES, has PT been informed?: No Medical Necessity Reason Pt with a Central, PICC or Fol: Yes The following are medically ne: Myers Catheter Reason for myers catheter: Strict I&O Subjective Patient was seen and evaluated in follow up. Patient's RLE pain has not improved. Patient is hypotensive 93/56. Patient is refusing to wear Tab boots as she states she feels like "rocks are underneath her feet". vital signs Vital Sign Date Time Temp Pulse Resp B/P (MAP) Pulse Ox O2 Delivery O2 Flow Rate FiO2 03/29/24 08:44 97.5 70 18 93/56 (68) 96 97.5 03/29/24 08:00 Room Air* 0 21 Total Intake and Output 03/28/24 03/28/24 03/29/24 15:00 23:00 07:00 Intake Total 200 ml 400 ml Output Total 750 ml 300 ml Balance -550 ml 100 ml medications Current Medications Medications Dose Ordered Sig/Anthony Route Start Time Stop Time Status Last Admin Dose Admin Nitroglycerin 0.4 mg Q5MINP PRN SL 03/10/24 14:45 Morphine Sulfate 2 mg Q30M PRN IV 03/10/24 14:45 03/26/24 21:48 2 MG Morphine Sulfate 2 mg Q4HPRN PRN IV 03/10/24 14:45 03/27/24 21:31 2 MG Acetaminophen 500 mg Q8HP PRN PO 03/10/24 14:45 03/25/24 09:16 500 MG Ondansetron HCl 4 mg Q6HP PRN IV 03/10/24 14:45 Amiodarone HCl 200 mg BID PO 03/10/24 22:00 03/29/24 09:38 200 MG Enteral Nutritional Formula 240 ml QID PO 03/12/24 12:00 03/27/24 06:32 240 ML Apixaban 5 mg BID PO 03/14/24 22:00 03/29/24 09:39 5 MG Lactulose 30 ml DAILY PO 03/16/24 10:00 03/29/24 09:38 30 ML Pantoprazole Sodium 40 mg DAILY@0600 PO 03/17/24 06:00 03/29/24 06:13 40 MG Acetaminophen/ Hydrocodone Bitart 1 tab Q6HP PRN PO 03/27/24 13:30 03/28/24 21:32 1 TAB Bisacodyl 10 mg DAILYP PRN [place] 03/29/24 10:00 Docusate Sodium 100 mg BID PO 03/28/24 22:00 03/29/24 09:39 100 MG objective GENERAL: Awake, alert, oriented. LUNGS: Clear. CARDIOVASCULAR: Heart sounds are good. ABDOMEN: Soft. laboratory and microbiology Laboratory Tests 03/21/24 06:04 Test 03/21/24 06:04 Range/Units Serum Glucose 85 74-106 mg/dL Problem List Acute decompensated systolic heart failure. Lower extremity ischemia. Acute on chronic systolic heart failure. Acute hypoxic respiratory failure. Atrial fibrillation rapid ventricular rate. History of Watchman device. Dyslipidemia. Acute right lower leg PND with ischemia. Hyperkalemia with acute kidney injury. Rhabdomyolysis. Assessment/Plan Continued all current supportive medical care. Morphine and [place] for pain management. Amiodarone. Eliquis. Lactulose. Additional plan as per the hospital course. Dietary Evaluation Review Comments: 1. Encourage PO intake when medically feasible. Continue with Ensure Hi Protein PO feedidngs/supplement if pt can tolerate. 2. If GI asscessible, feeding can not meet her protein and energy goal, consider TF jevity 50ml/hr providing 67 gPro and 1440 kcal FS in 24 hrs, 3. Considere TPN per pharmacy to meet 75% of her needds, if NPO>7 days 4. Advance to 2 GNA Lo fat Lo Cholesterol cardiac diet, texture as tolerated if Pt passes speech eval. Expected Outcomes/Goals: maintain Weight, improved lab values Plan discussed with: Patient SALVADOR CONNORS MD Mar 29, 2024 11:59
[2024-03-30] VITALS (7 sets, daily range): BP systolic 87–109; BP diastolic 49–66; PULSE 63–97; RESP 14–18; TEMP 97.4–98.7; O2SAT 96–100
[2024-03-30] MEDS: AMIODARONE HCL 200 MG TAB PO SCH (10:29)
--- NOTE | 2024-03-30 17:18 | DVHPN2 ---
Subjective Patient reports improvement with her right lower extremity pain. Reviewed: Care Plan, H&P, Labs, Medications Changes from previous H/P or p: No Changes General: Per HPI Eyes: No Pain, No Vision change, No Conjunctivae inflammation, No Eyelid inflammation, No Other, No Redness ENT: No Ear pain, No Ear discharge, No Nose pain, No Nose discharge, No Nose congestion, No Mouth pain, No Mouth swelling, No Throat pain, No Throat swelling, No Other Cardiovascular: No Chest Pain, No Palpitations, No Orthopnea, No Paroxysmal Noc. Dyspnea, No Edema, No Lt Headedness, No Other Respiratory: No Cough, No Dry, No Shortness of breath, No SOB with excertion, No Wheezing, No Hemoptysis, No Pleuritic Pain, No Sputum, No Other Genitourinary: No Dysuria, No Frequency, No Incontinence, No Hematuria, No Retention, No Other Musculoskeletal: leg pain Skin: No Rash, No Lesions, No Jaundice, No Bruising, No Other Objective Vitals Vital Signs Date Time Temp Pulse Resp B/P (MAP) Pulse Ox O2 Delivery O2 Flow Rate FiO2 03/30/24 16:49 98.1 80 16 108/63 (78) 98 98.1 03/30/24 08:00 Room Air* 0 21 Intake/Output Intake and Output 03/30/24 07:00 Intake Total 840 ml Output Total 900 ml Balance -60 ml Intake Oral 840 ml Output Urine Total 900 ml # Bowel Movements 1 General Appearance: Alert, Oriented X3, Cooperative, mild distress HEENT: Atraumatic, PERRLA Lungs: Clear to auscultation, Normal air movement, Other Cardiovascular: Normal S1, Normal S2, Other Abdomen: Normal bowel sounds Genitourinary: No Apparent Abnormalities Musculoskeletal: Other Extremities: Other Neuro: Normal gait, Normal speech Skin: Dry, Intact, Warm, Wounds Psych/Mental Status: Mental status NL, Mood NL Medications Current Medications Medications Dose Ordered Sig/Anthony Route Start Time Stop Time Status Last Admin Dose Admin Nitroglycerin 0.4 mg Q5MINP PRN SL 03/10/24 14:45 Morphine Sulfate 2 mg Q30M PRN IV 03/10/24 14:45 03/26/24 21:48 2 MG Morphine Sulfate 2 mg Q4HPRN PRN IV 03/10/24 14:45 03/27/24 21:31 2 MG Acetaminophen 500 mg Q8HP PRN PO 03/10/24 14:45 03/25/24 09:16 500 MG Ondansetron HCl 4 mg Q6HP PRN IV 03/10/24 14:45 Enteral Nutritional Formula 240 ml QID PO 03/12/24 12:00 03/30/24 12:21 240 ML Apixaban 5 mg BID PO 03/14/24 22:00 03/30/24 10:29 5 MG Lactulose 30 ml DAILY PO 03/16/24 10:00 03/30/24 10:28 30 ML Pantoprazole Sodium 40 mg DAILY@0600 PO 03/17/24 06:00 03/30/24 05:51 40 MG Acetaminophen/ Hydrocodone Bitart 1 tab Q6HP PRN PO 03/27/24 13:30 03/29/24 22:04 1 TAB Bisacodyl 10 mg DAILYP PRN [place] 03/29/24 10:00 Docusate Sodium 100 mg BID PO 03/28/24 22:00 03/30/24 10:29 100 MG Amiodarone HCl 200 mg DAILY PO 03/30/24 10:00 03/30/24 10:29 200 MG Laboratory Results Laboratory Tests 03/21/24 06:04 Urinalysis Test 03/10/24 23:15 Urine Color Brown (Yellow) H Urine Clarity Ex.turbid (Clear) Urine pH 5.5 (5.0-9.0) Urine Specific [place] 1.012 (1.001-1.035) Urine Protein Trace (Negative) H Urine Ketones Negative (Negative) Urine Blood 3+ /uL (Negative) H Urine Nitrite Negative (Negative) Urine Bilirubin Negative (Negative) Urine Urobilinogen Normal mg/dL (Negative) Urine Leukocyte Esterase 1+ /uL (Negative) Urine RBC 3 /hpf (0 - 4) Urine WBC 42 /hpf (0 - 5) Urine WBC Clumps Present /hpf (None Seen) Urine Squamous Epithelial Cells Few /hpf (<5) Urine Bacteria None seen /hpf (None Seen) Urine Yeast (Budding) Few /hpf (None Seen) Urine Glucose 3+ mg/dL (Normal) H Microbiology Microbiology Date/Time Source Procedure Growth Status 03/10/24 23:15 Urine - [place] Urine Culture - Final Complete 03/10/24 16:00 Nose MRSA Screen - Final Complete Labs and/or images reviewed: Labs reviewed by me, Image(s) reviewed by me Assessment/Plan Assessment/Plan Impression: -Acute decompensated systolic heart failure. -Acute thrombus with right lower extremity ischemia -acute on chronic systolic heart failure -acute hypoxic respiratory failure -atrial fibrillation rapid ventricular rate -history of Watchman device -elevated D-dimer, ruled out pulmonary embolism -dyslipidemia -hyperkalemia with acute kidney injury -rhabdomyolysis -ruled out [place]. [place] 125: 328 -constipation Plan: -Events: Patient was now ambulating approximately 20 ft. Long discussion made with the patient's daughter regarding expectations when she gets discharged home. Plans for discharge in the next several days when she was able to ambulate 30 ft. -trial of p.o. Lasix -decrease amiodarone 200 mg daily -out of bed to chair t.i.d. with nursing. Weight-bearing as tolerated. Continue with physical therapy -continue Eliquis -PPI -Pain management: [place] to 7.5/325 -bowel regimen: Lactulose, add Dulcolax suppository and Colace daily -social service consultation for DC planning. At this time patient states she lives alone, with a granddaughter available to help daily, but patient does not have someone in-house 24 hours a day. Total time spent with patient discussing and formulating plan of care: 35 minutes. This medical document was created using an electronic medical record system with [employer] dictation system. Although this document has been carefully reviewed, there may still be some phonetic and typographical errors. These areas are purely typographical due to imperfections of the software programs, and do not reflect any compromise in the patient's medical care. Plan discussed with: Patient, Other (RN) Date of Service: Mar 30, 2024 Billing Provider: NICOLE REBOLLAR NP Common Visit Codes: [id number] INP/OBS CARE(HIGH) NICOLE REBOLLAR NP Mar 30, 2024 17:17
[2024-03-30] MEDS: MELATONIN 5 MG TAB PO ONE (21:29)
[2024-03-30] MEDS: APIXABAN 2.5 MG TAB PO SCH (21:30)
--- NOTE | 2024-03-30 22:08 | DVHPN2 ---
Progress Note - Dictate Date Seen: Mar 30, 2024 Has the PT tested + for MRSA If YES, has PT been informed?: No Medical Necessity Reason Pt with a Central, PICC or Fol: Yes The following are medically ne: Myers Catheter Reason for myers catheter: Strict I&O Subjective Patient was seen and evaluated in follow up. Patient reports improvement with her right lower extremity pain. Patients vitals are stable. Wound dressings are C/D/I. vital signs Vital Sign Date Time Temp Pulse Resp B/P (MAP) Pulse Ox O2 Delivery O2 Flow Rate FiO2 03/30/24 09:00 98.1 80 14 108/64 (79) 96 98.1 03/30/24 08:00 Room Air* 0 21 Total Intake and Output 03/29/24 03/29/24 03/30/24 15:00 23:00 07:00 Intake Total 600 ml 240 ml Output Total 800 ml 100 ml Balance -200 ml 140 ml medications Current Medications Medications Dose Ordered Sig/Anthony Route Start Time Stop Time Status Last Admin Dose Admin Nitroglycerin 0.4 mg Q5MINP PRN SL 03/10/24 14:45 Morphine Sulfate 2 mg Q30M PRN IV 03/10/24 14:45 03/26/24 21:48 2 MG Morphine Sulfate 2 mg Q4HPRN PRN IV 03/10/24 14:45 03/27/24 21:31 2 MG Acetaminophen 500 mg Q8HP PRN PO 03/10/24 14:45 03/25/24 09:16 500 MG Ondansetron HCl 4 mg Q6HP PRN IV 03/10/24 14:45 Enteral Nutritional Formula 240 ml QID PO 03/12/24 12:00 03/30/24 12:21 240 ML Apixaban 5 mg BID PO 03/14/24 22:00 03/30/24 10:29 5 MG Lactulose 30 ml DAILY PO 03/16/24 10:00 03/30/24 10:28 30 ML Pantoprazole Sodium 40 mg DAILY@0600 PO 03/17/24 06:00 03/30/24 05:51 40 MG Acetaminophen/ Hydrocodone Bitart 1 tab Q6HP PRN PO 03/27/24 13:30 03/29/24 22:04 1 TAB Bisacodyl 10 mg DAILYP PRN [place] 03/29/24 10:00 Docusate Sodium 100 mg BID PO 03/28/24 22:00 03/30/24 10:29 100 MG Amiodarone HCl 200 mg DAILY PO 03/30/24 10:00 03/30/24 10:29 200 MG objective GENERAL: Awake, alert, oriented. LUNGS: Clear. CARDIOVASCULAR: Heart sounds are good. ABDOMEN: Soft. laboratory and microbiology Laboratory Tests 03/21/24 06:04 Test 03/21/24 06:04 Range/Units Serum Glucose 85 74-106 mg/dL Problem List Acute decompensated systolic heart failure. Acute on chronic systolic heart failure. Acute hypoxic respiratory failure. Atrial fibrillation rapid ventricular rate. History of Watchman device. Dyslipidemia. Acute right lower leg PND with ischemia. Hyperkalemia with acute kidney injury. Rhabdomyolysis. Acute thrombus with right lower extremity ischemia. Assessment/Plan Continued all current supportive medical care. Morphine and [place] for pain management. Amiodarone. Eliquis. Lactulose. Additional plan as per the hospital course. Dietary Evaluation Review Comments: 1. Encourage PO intake when medically feasible. Continue with Ensure Hi Protein PO feedidngs/supplement if pt can tolerate. 2. If GI asscessible, feeding can not meet her protein and energy goal, consider TF jevity 50ml/hr providing 67 gPro and 1440 kcal FS in 24 hrs, 3. Considere TPN per pharmacy to meet 75% of her needds, if NPO>7 days 4. Advance to 2 GNA Lo fat Lo Cholesterol cardiac diet, texture as tolerated if Pt passes speech eval. Expected Outcomes/Goals: maintain Weight, improved lab values Plan discussed with: Patient SALVADOR CONNORS MD Mar 30, 2024 12:38
[2024-03-31 05:37] VITALS: BP 91/50; PULSE 60; RESP 18; TEMP 97.8; O2SAT 97
[2024-03-31 07:47] VITALS: BP 103/55; PULSE 64; RESP 16; TEMP 97.9; O2SAT 98
[2024-03-31 11:50] VITALS: BP 116/71; PULSE 78; RESP 18; TEMP 97.6; O2SAT 98
[2024-03-31 15:37] VITALS: BP 125/74; PULSE 80; RESP 16; TEMP 97.4; O2SAT 94
--- NOTE | 2024-03-31 15:59 | DVHPN2 ---
Subjective Patient reports improvement with her right lower extremity pain. Reviewed: Care Plan, H&P, Labs, Medications Changes from previous H/P or p: No Changes General: Per HPI Eyes: No Pain, No Vision change, No Conjunctivae inflammation, No Eyelid inflammation, No Other, No Redness ENT: No Ear pain, No Ear discharge, No Nose pain, No Nose discharge, No Nose congestion, No Mouth pain, No Mouth swelling, No Throat pain, No Throat swelling, No Other Cardiovascular: No Chest Pain, No Palpitations, No Orthopnea, No Paroxysmal Noc. Dyspnea, No Edema, No Lt Headedness, No Other Respiratory: No Cough, No Dry, No Shortness of breath, No SOB with excertion, No Wheezing, No Hemoptysis, No Pleuritic Pain, No Sputum, No Other Genitourinary: No Dysuria, No Frequency, No Incontinence, No Hematuria, No Retention, No Other Musculoskeletal: leg pain Skin: No Rash, No Lesions, No Jaundice, No Bruising, No Other Objective Vitals Vital Signs Date Time Temp Pulse Resp B/P (MAP) Pulse Ox O2 Delivery O2 Flow Rate FiO2 03/31/24 11:50 97.6 78 18 116/71 (86) 98 97.6 03/31/24 08:00 Room Air* 0 21 Intake/Output Intake and Output 03/31/24 07:00 Intake Total 1040 ml Output Total 600 ml Balance 440 ml Intake Oral 1040 ml Output Urine Total 600 ml # Bowel Movements 1 General Appearance: Alert, Oriented X3, Cooperative, mild distress HEENT: Atraumatic, PERRLA Lungs: Clear to auscultation, Normal air movement, Other Cardiovascular: Normal S1, Normal S2, Other Abdomen: Normal bowel sounds Genitourinary: No Apparent Abnormalities Musculoskeletal: Other Extremities: Other Neuro: Normal gait, Normal speech Skin: Dry, Intact, Warm, Wounds Psych/Mental Status: Mental status NL, Mood NL Medications Current Medications Medications Dose Ordered Sig/Anthony Route Start Time Stop Time Status Last Admin Dose Admin Nitroglycerin 0.4 mg Q5MINP PRN SL 03/10/24 14:45 Morphine Sulfate 2 mg Q30M PRN IV 03/10/24 14:45 03/26/24 21:48 2 MG Morphine Sulfate 2 mg Q4HPRN PRN IV 03/10/24 14:45 03/27/24 21:31 2 MG Acetaminophen 500 mg Q8HP PRN PO 03/10/24 14:45 03/25/24 09:16 500 MG Ondansetron HCl 4 mg Q6HP PRN IV 03/10/24 14:45 Enteral Nutritional Formula 240 ml QID PO 03/12/24 12:00 03/31/24 12:00 240 ML Lactulose 30 ml DAILY PO 03/16/24 10:00 03/31/24 09:08 30 ML Pantoprazole Sodium 40 mg DAILY@0600 PO 03/17/24 06:00 03/31/24 06:17 40 MG Acetaminophen/ Hydrocodone Bitart 1 tab Q6HP PRN PO 03/27/24 13:30 03/30/24 21:30 1 TAB Bisacodyl 10 mg DAILYP PRN [place] 03/29/24 10:00 Docusate Sodium 100 mg BID PO 03/28/24 22:00 03/31/24 09:08 100 MG Amiodarone HCl 200 mg DAILY PO 03/30/24 10:00 03/31/24 09:08 200 MG Apixaban 2.5 mg BID PO 03/30/24 22:00 03/31/24 09:08 2.5 MG Laboratory Results Laboratory Tests 03/21/24 06:04 Urinalysis Test 03/10/24 23:15 Urine Color Brown (Yellow) H Urine Clarity Ex.turbid (Clear) Urine pH 5.5 (5.0-9.0) Urine Specific [place] 1.012 (1.001-1.035) Urine Protein Trace (Negative) H Urine Ketones Negative (Negative) Urine Blood 3+ /uL (Negative) H Urine Nitrite Negative (Negative) Urine Bilirubin Negative (Negative) Urine Urobilinogen Normal mg/dL (Negative) Urine Leukocyte Esterase 1+ /uL (Negative) Urine RBC 3 /hpf (0 - 4) Urine WBC 42 /hpf (0 - 5) Urine WBC Clumps Present /hpf (None Seen) Urine Squamous Epithelial Cells Few /hpf (<5) Urine Bacteria None seen /hpf (None Seen) Urine Yeast (Budding) Few /hpf (None Seen) Urine Glucose 3+ mg/dL (Normal) H Microbiology Microbiology Date/Time Source Procedure Growth Status 03/10/24 23:15 Urine - [place] Urine Culture - Final Complete 03/10/24 16:00 Nose MRSA Screen - Final Complete Labs and/or images reviewed: Labs reviewed by me, Image(s) reviewed by me Assessment/Plan Assessment/Plan Impression: -Acute decompensated systolic heart failure. -Acute thrombus with right lower extremity ischemia -acute on chronic systolic heart failure -acute hypoxic respiratory failure -atrial fibrillation rapid ventricular rate -history of Watchman device -elevated D-dimer, ruled out pulmonary embolism -dyslipidemia -hyperkalemia with acute kidney injury -rhabdomyolysis -ruled out [place]. [place] 125: 328 -constipation Plan: -Events: Patient now ambulating approximately 25 ft. DC planning for tomorrow with the following day with home health services. -Continue amiodarone at 200 mg p.o. daily -out of bed to chair t.i.d. with nursing. Weight-bearing as tolerated. Continue with physical therapy -continue Eliquis, decreased to 2.5 mg p.o. b.i.d. -PPI -Pain management: [place] to 7.5/325 -bowel regimen: Lactulose, add Dulcolax suppository and Colace daily Total time spent with patient discussing and formulating plan of care: 35 minutes. This medical document was created using an electronic medical record system with [employer] dictation system. Although this document has been carefully reviewed, there may still be some phonetic and typographical errors. These areas are purely typographical due to imperfections of the software programs, and do not reflect any compromise in the patient's medical care. Plan discussed with: Patient, Other (Rn) My Orders Orders - NICOLE REBOLLAR NP Procedure Category Date Status Time Dme: Walker DME 03/30/24 Transmitted 17:15 Apixaban (Eliquis) PHA 03/30/24 In Process 22:00 * Water/Wastewater Project Manager CONS 03/31/24 Transmitted Consult Date of Service: Mar 31, 2024 Billing Provider: NICOLE REBOLLAR NP Common Visit Codes: [id number] INP/OBS CARE(HIGH) NICOLE REBOLLAR NP Mar 31, 2024 15:59
[2024-03-31 20:00] VITALS: O2SAT 99
[2024-03-31 21:00] VITALS: BP_SYST 104; BP_SYST 106; BP_DIAS 58; BP_DIAS 62; PULSE 81; PULSE 87; RESP 19; TEMP 97.6; TEMP 98.7; O2SAT 87; O2SAT 97
[2024-03-31] MEDS: MELATONIN 5 MG TAB PO SCH (21:22)
--- NOTE | 2024-03-31 22:56 | DVHPN2 ---
Progress Note - Dictate Date Seen: Mar 31, 2024 Has the PT tested + for MRSA If YES, has PT been informed?: No Medical Necessity Reason Pt with a Central, PICC or Fol: Yes The following are medically ne: Myers Catheter Reason for myers catheter: Strict I&O Subjective Patient was seen and evaluated in follow up. No overnight events. The patient is able to tolerate sitting in chair with BLEs elevated. Patient is encouraged to work with PT. is being arranged for patient. vital signs Vital Sign Date Time Temp Pulse Resp B/P (MAP) Pulse Ox O2 Delivery O2 Flow Rate FiO2 03/31/24 11:50 97.6 78 18 116/71 (86) 98 97.6 03/31/24 08:00 Room Air* 0 21 Total Intake and Output 03/30/24 03/30/24 03/31/24 15:00 23:00 07:00 Intake Total 480 ml 560 ml Output Total 200 ml 400 ml Balance 280 ml 160 ml medications Current Medications Medications Dose Ordered Sig/Anthony Route Start Time Stop Time Status Last Admin Dose Admin Nitroglycerin 0.4 mg Q5MINP PRN SL 03/10/24 14:45 Morphine Sulfate 2 mg Q30M PRN IV 03/10/24 14:45 03/26/24 21:48 2 MG Morphine Sulfate 2 mg Q4HPRN PRN IV 03/10/24 14:45 03/27/24 21:31 2 MG Acetaminophen 500 mg Q8HP PRN PO 03/10/24 14:45 03/25/24 09:16 500 MG Ondansetron HCl 4 mg Q6HP PRN IV 03/10/24 14:45 Enteral Nutritional Formula 240 ml QID PO 03/12/24 12:00 03/30/24 18:00 240 ML Lactulose 30 ml DAILY PO 03/16/24 10:00 03/31/24 09:08 30 ML Pantoprazole Sodium 40 mg DAILY@0600 PO 03/17/24 06:00 03/31/24 06:17 40 MG Acetaminophen/ Hydrocodone Bitart 1 tab Q6HP PRN PO 03/27/24 13:30 03/30/24 21:30 1 TAB Bisacodyl 10 mg DAILYP PRN [place] 03/29/24 10:00 Docusate Sodium 100 mg BID PO 03/28/24 22:00 03/31/24 09:08 100 MG Amiodarone HCl 200 mg DAILY PO 03/30/24 10:00 03/31/24 09:08 200 MG Apixaban 2.5 mg BID PO 03/30/24 22:00 03/31/24 09:08 2.5 MG objective GENERAL: Awake, alert, oriented. LUNGS: Clear. CARDIOVASCULAR: Heart sounds are good. ABDOMEN: Soft. laboratory and microbiology Laboratory Tests 03/21/24 06:04 Test 03/21/24 06:04 Range/Units Serum Glucose 85 74-106 mg/dL Problem List Acute decompensated systolic heart failure. Acute on chronic systolic heart failure. Acute hypoxic respiratory failure. Atrial fibrillation rapid ventricular rate. History of Watchman device. Dyslipidemia. Acute right lower leg PND with ischemia. Hyperkalemia with acute kidney injury. Rhabdomyolysis. Acute thrombus with right lower extremity ischemia. Assessment/Plan Continued all current supportive medical care. Morphine and [place] for pain management. Amiodarone. Eliquis. Lactulose. Additional plan as per the hospital course. Dietary Evaluation Review Comments: 1. Encourage PO intake when medically feasible. Continue with Ensure Hi Protein PO feedidngs/supplement if pt can tolerate. 2. If GI asscessible, feeding can not meet her protein and energy goal, consider TF jevity 50ml/hr providing 67 gPro and 1440 kcal FS in 24 hrs, 3. Considere TPN per pharmacy to meet 75% of her needds, if NPO>7 days 4. Advance to 2 GNA Lo fat Lo Cholesterol cardiac diet, texture as tolerated if Pt passes speech eval. Expected Outcomes/Goals: maintain Weight, improved lab values Plan discussed with: Patient SALVADOR CONNORS MD Mar 31, 2024 12:16
[2024-04-01 01:00] VITALS: BP 101/62; PULSE 64; RESP 18; TEMP 97.1; O2SAT 99
[2024-04-01 05:00] VITALS: BP 104/59; PULSE 66; RESP 18; TEMP 98.3; O2SAT 96
[2024-04-01 09:00] VITALS: BP 100/39; PULSE 68; RESP 18; TEMP 98.7; O2SAT 98
[2024-04-01 13:00] VITALS: PULSE 78; TEMP 98.6
[2024-04-01] MEDS ORDERED: HYDR-4795 PO (16:28)
--- NOTE | 2024-04-01 16:32 | DVHPN2 ---
Subjective Patient reports improvement with her right lower extremity pain. Reviewed: Care Plan, H&P, Labs, Medications Changes from previous H/P or p: No Changes General: Per HPI Eyes: No Pain, No Vision change, No Conjunctivae inflammation, No Eyelid inflammation, No Other, No Redness ENT: No Ear pain, No Ear discharge, No Nose pain, No Nose discharge, No Nose congestion, No Mouth pain, No Mouth swelling, No Throat pain, No Throat swelling, No Other Cardiovascular: No Chest Pain, No Palpitations, No Orthopnea, No Paroxysmal Noc. Dyspnea, No Edema, No Lt Headedness, No Other Respiratory: No Cough, No Dry, No Shortness of breath, No SOB with excertion, No Wheezing, No Hemoptysis, No Pleuritic Pain, No Sputum, No Other Genitourinary: No Dysuria, No Frequency, No Incontinence, No Hematuria, No Retention, No Other Musculoskeletal: leg pain Skin: No Rash, No Lesions, No Jaundice, No Bruising, No Other Objective Vitals Vital Signs Date Time Temp Pulse Resp B/P (MAP) Pulse Ox O2 Delivery O2 Flow Rate FiO2 04/01/24 09:00 98.7 68 18 100/39 (59) 98 98.7 04/01/24 08:00 Room Air* 0 21 Intake/Output Intake and Output 04/01/24 07:00 Intake Total 2000 ml Output Total 600 ml Balance 1400 ml Intake Oral 2000 ml Output Urine Total 600 ml General Appearance: Alert, Oriented X3, Cooperative, mild distress HEENT: Atraumatic, PERRLA Lungs: Clear to auscultation, Normal air movement, Other Cardiovascular: Normal S1, Normal S2, Other Abdomen: Normal bowel sounds Genitourinary: No Apparent Abnormalities Musculoskeletal: Other Extremities: Other Neuro: Normal gait, Normal speech Skin: Dry, Intact, Warm, Wounds Psych/Mental Status: Mental status NL, Mood NL Medications Current Medications Medications Dose Ordered Sig/Anthony Route Start Time Stop Time Status Last Admin Dose Admin Nitroglycerin 0.4 mg Q5MINP PRN SL 03/10/24 14:45 Acetaminophen 500 mg Q8HP PRN PO 03/10/24 14:45 03/25/24 09:16 500 MG Ondansetron HCl 4 mg Q6HP PRN IV 03/10/24 14:45 Enteral Nutritional Formula 240 ml QID PO 03/12/24 12:00 2/2/25 12:28 240 ML Lactulose 30 ml DAILY PO 03/16/24 10:00 04/01/24 09:17 30 ML Pantoprazole Sodium 40 mg DAILY@0600 PO 03/17/24 06:00 04/01/24 07:02 40 MG Acetaminophen/ Hydrocodone Bitart 1 tab Q6HP PRN PO 03/27/24 13:30 03/31/24 21:25 1 TAB Bisacodyl 10 mg DAILYP PRN [place] 03/29/24 10:00 Docusate Sodium 100 mg BID PO 03/28/24 22:00 04/01/24 09:17 100 MG Amiodarone HCl 200 mg DAILY PO 03/30/24 10:00 04/01/24 09:17 200 MG Apixaban 2.5 mg BID PO 03/30/24 22:00 04/01/24 09:17 2.5 MG Melatonin 5 mg HS PO 03/31/24 22:00 03/31/24 21:22 5 MG Laboratory Results Laboratory Tests 03/21/24 06:04 Urinalysis Test 03/10/24 23:15 Urine Color Brown (Yellow) H Urine Clarity Ex.turbid (Clear) Urine pH 5.5 (5.0-9.0) Urine Specific [place] 1.012 (1.001-1.035) Urine Protein Trace (Negative) H Urine Ketones Negative (Negative) Urine Blood 3+ /uL (Negative) H Urine Nitrite Negative (Negative) Urine Bilirubin Negative (Negative) Urine Urobilinogen Normal mg/dL (Negative) Urine Leukocyte Esterase 1+ /uL (Negative) Urine RBC 3 /hpf (0 - 4) Urine WBC 42 /hpf (0 - 5) Urine WBC Clumps Present /hpf (None Seen) Urine Squamous Epithelial Cells Few /hpf (<5) Urine Bacteria None seen /hpf (None Seen) Urine Yeast (Budding) Few /hpf (None Seen) Urine Glucose 3+ mg/dL (Normal) H Microbiology Microbiology Date/Time Source Procedure Growth Status 03/10/24 23:15 Urine - [place] Urine Culture - Final Complete 03/10/24 16:00 Nose MRSA Screen - Final Complete Labs and/or images reviewed: Labs reviewed by me, Image(s) reviewed by me Assessment/Plan Assessment/Plan Impression: -Acute decompensated systolic heart failure. -Acute thrombus with right lower extremity ischemia -acute on chronic systolic heart failure -acute hypoxic respiratory failure -atrial fibrillation rapid ventricular rate -history of Watchman device -elevated D-dimer, ruled out pulmonary embolism -dyslipidemia -hyperkalemia with acute kidney injury -rhabdomyolysis -ruled out CA. CA 125: 328 -constipation Plan: -Events: Patient now ambulating greater than 30 ft. DC planning for tomorrow. -Continue amiodarone at 200 mg p.o. daily -out of bed to chair t.i.d. with nursing. Weight-bearing as tolerated. Continue with physical therapy -continue Eliquis, decreased to 2.5 mg p.o. b.i.d. -PPI -Pain management: [place] to 7.5/325 -bowel regimen: Lactulose, add Dulcolax suppository and Colace daily Total time spent with patient discussing and formulating plan of care: 35 minutes. This medical document was created using an electronic medical record system with [employer] dictation system. Although this document has been carefully reviewed, there may still be some phonetic and typographical errors. These areas are purely typographical due to imperfections of the software programs, and do not reflect any compromise in the patient's medical care. Plan discussed with: Patient, Other (RN) My Orders Orders - NICOLE REBOLLAR NP Procedure Category Date Status Time * Credit Intern CONS 04/01/24 Transmitted Consult Discharge DISCHARGE 04/01/24 Transmitted 16:23 Date of Service: Apr 01, 2024 Billing Provider: NICOLE REBOLLAR NP Common Visit Codes: [id number] INP/OBS CARE(HIGH) NICOLE REBOLLAR NP Apr 01, 2024 16:32
[2024-04-01 17:00] VITALS: BP 116/61; PULSE 88; RESP 19; TEMP 99.1; O2SAT 96
--- NOTE | 2024-04-01 17:32 | DVHPN2 ---
Progress Note - Dictate Date Seen: Apr 01, 2024 Has the PT tested + for MRSA If YES, has PT been informed?: No Medical Necessity Reason Pt with a Central, PICC or Fol: Yes The following are medically ne: Myers Catheter Reason for myers catheter: Strict I&O Subjective Patient was seen and evaluated in follow up. Patient is c/o BLE discomfort. Patient is refusing BLE wound care. CM is working on and DME for the patient. vital signs Vital Sign Date Time Temp Pulse Resp B/P (MAP) Pulse Ox O2 Delivery O2 Flow Rate FiO2 04/01/24 09:00 98.7 68 18 100/39 (59) 98 98.7 04/01/24 08:00 Room Air* 0 21 Total Intake and Output 03/31/24 03/31/24 04/01/24 15:00 23:00 07:00 Intake Total 1500 ml 500 ml Output Total 350 ml 250 ml Balance 1150 ml 250 ml medications Current Medications Medications Dose Ordered Sig/Anthony Route Start Time Stop Time Status Last Admin Dose Admin Nitroglycerin 0.4 mg Q5MINP PRN SL 03/10/24 14:45 Morphine Sulfate 2 mg Q30M PRN IV 03/10/24 14:45 03/26/24 21:48 2 MG Morphine Sulfate 2 mg Q4HPRN PRN IV 03/10/24 14:45 03/27/24 21:31 2 MG Acetaminophen 500 mg Q8HP PRN PO 03/10/24 14:45 03/25/24 09:16 500 MG Ondansetron HCl 4 mg Q6HP PRN IV 03/10/24 14:45 Enteral Nutritional Formula 240 ml QID PO 03/12/24 12:00 04/01/24 12:28 240 ML Lactulose 30 ml DAILY PO 03/16/24 10:00 04/01/24 09:17 30 ML Pantoprazole Sodium 40 mg DAILY@0600 PO 03/17/24 06:00 04/01/24 07:02 40 MG Acetaminophen/ Hydrocodone Bitart 1 tab Q6HP PRN PO 03/27/24 13:30 03/31/24 21:25 1 TAB Bisacodyl 10 mg DAILYP PRN [place] 03/29/24 10:00 Docusate Sodium 100 mg BID PO 03/28/24 22:00 04/01/24 09:17 100 MG Amiodarone HCl 200 mg DAILY PO 03/30/24 10:00 04/01/24 09:17 200 MG Apixaban 2.5 mg BID PO 03/30/24 22:00 04/01/24 09:17 2.5 MG Melatonin 5 mg HS PO 03/31/24 22:00 03/31/24 21:22 5 MG objective GENERAL: Awake, alert, oriented. LUNGS: Clear. CARDIOVASCULAR: Heart sounds are good. ABDOMEN: Soft. laboratory and microbiology Laboratory Tests 03/21/24 06:04 Test 03/21/24 06:04 Range/Units Serum Glucose 85 74-106 mg/dL Problem List Acute decompensated systolic heart failure. Acute on chronic systolic heart failure. Acute hypoxic respiratory failure. Atrial fibrillation rapid ventricular rate. History of Watchman device. Dyslipidemia. Acute right lower leg PND with ischemia. Hyperkalemia with acute kidney injury. Rhabdomyolysis. Acute thrombus with right lower extremity ischemia. Assessment/Plan Continued all current supportive medical care. Morphine and [place] for pain management. Amiodarone. Eliquis. Lactulose. Additional plan as per the hospital course. Dietary Evaluation Review Comments: 1. Encourage PO intake when medically feasible. Continue with Ensure Hi Protein PO feedidngs/supplement if pt can tolerate. 2. If GI asscessible, feeding can not meet her protein and energy goal, consider TF jevity 50ml/hr providing 67 gPro and 1440 kcal FS in 24 hrs, 3. Considere TPN per pharmacy to meet 75% of her needds, if NPO>7 days 4. Advance to 2 GNA Lo fat Lo Cholesterol cardiac diet, texture as tolerated if Pt passes speech eval. Expected Outcomes/Goals: maintain Weight, improved lab values Plan discussed with: Patient SALVADOR CONNORS MD Apr 01, 2024 13:57
[2024-04-01 21:00] VITALS: BP 90/53; PULSE 81; RESP 19; TEMP 97.5; O2SAT 98
[2024-04-02 01:00] VITALS: BP 102/58; PULSE 66; RESP 16; O2SAT 99
[2024-04-02 05:00] VITALS: BP 97/59; PULSE 71; RESP 20; TEMP 98; O2SAT 97
[2024-04-02 08:00] VITALS: PULSE 64; RESP 18
[2024-04-02 09:00] VITALS: BP 115/53; PULSE 64; RESP 18; TEMP 97.3; O2SAT 98
[2024-04-02 09:24] VITALS: BP 115/73; PULSE 64; TEMP 97.3
--- NOTE | 2024-04-02 12:06 | DVHDS2 ---
Discharge Summary Date of Admission Mar 10, 2024 at 14:42 Date of Discharge: Apr 02, 2024 Labs/Diagnostic Data: Laboratory Results Test 03/21/24 06:04 03/14/24 18:14 03/14/24 02:54 03/11/24 03:20 White Blood Count 5.8 10^3/uL (4.4-10.8) Red Blood Count 3.04 10^6/uL (4.0-5.20) Hemoglobin 10.6 g/dL (12.2-16.2) Hematocrit 30.9 % (36.0-46.0) Mean Corpuscular Volume 101.7 fL (80.0-100.0) Mean Corpuscular Hemoglobin 34.8 pg (28.0-32.0) Mean Corpuscular Hemoglobin Concent 34.2 g/dL (32.0-36.0) Red Cell Distribution Width 14.5 % (11.8-14.3) Platelet Count 199 10^3/uL (140-450) Mean Platelet Volume 8.8 fL (6.9-10.8) Neutrophils (%) (Auto) 79.8 % (37.0-80.0) Lymphocytes (%) (Auto) 12.2 % (10.0-50.0) Monocytes (%) (Auto) 6.3 % (0.0-12.0) Eosinophils (%) (Auto) 1.2 % (0.0-7.0) Basophils (%) (Auto) 0.5 % (0.0-2.0) Neutrophils # (Auto) 4.6 10 ^3/uL (1.6-8.6) Lymphocytes # (Auto) 0.7 10 ^3/uL (0.4-5.4) Monocytes # (Auto) 0.4 10 ^3/uL (0-1.3) Eosinophils # (Auto) 0.1 10 ^3/uL (0-0.8) Basophils # (Auto) 0 10 ^3/uL (0-0.2) Nucleated Red Blood Cells 0.0 % Sodium Level 139 mmol/L (136-145) Potassium Level 4.5 mmol/L (3.5-5.1) Chloride Level 106 mmol/L (98-107) Carbon Dioxide Level 29 mmol/L (20-31) Anion Gap 4 (5-15) Blood Urea Nitrogen 20 mg/dL (9-23) Creatinine 0.96 mg/dL (0.550-1.02) Glomerular Filtration Rate Calc 60 mL/min (>90) BUN/Creatinine Ratio 20.8 (10.0-20.0) Serum Glucose 85 mg/dL (74-106) Calcium Level 9.2 mg/dL (8.7-10.4) Creatine Kinase 110 U/L (34-145) POC Glucose 163 mg/dl (70-106) Prothrombin Time 11.0 sec (9.3-11.8) Prothrombin Time INR 1.04 (0.9-1.15) Activated Partial Thromboplast Time 65.5 SEC (24.5-34.5) Total Bilirubin 0.4 mg/dL (0.2-1.0) Aspartate Amino Transferase (AST) 511 U/L (13-40) Alanine Aminotransferase (ALT) 138 U/L (7-40) Alkaline Phosphatase 79 U/L (46-116) Total Protein 5.4 g/dL (5.7-8.2) Albumin 3.3 g/dL (3.2-4.8) Test 03/10/24 23:15 Urine Color Brown (Yellow) Urine Clarity Ex.turbid (Clear) Urine pH 5.5 (5.0-9.0) Urine Specific [place] 1.012 (1.001-1.035) Urine Protein Trace (Negative) Urine Ketones Negative (Negative) Urine Blood 3+ /uL (Negative) Urine Nitrite Negative (Negative) Urine Bilirubin Negative (Negative) Urine Urobilinogen Normal mg/dL (Negative) Urine Leukocyte Esterase 1+ /uL (Negative) Urine RBC 3 /hpf (0 - 4) Urine WBC 42 /hpf (0 - 5) Urine WBC Clumps Present /hpf (None Seen) Urine Squamous Epithelial Cells Few /hpf (<5) Urine Bacteria None seen /hpf (None Seen) Urine Yeast (Budding) Few /hpf (None Seen) Urine Glucose 3+ mg/dL (Normal) Other Laboratory Tests 03/21/24 06:04 Brief Hx & Hospital Course: History of Present Illness Patient was an 78-year-old female returning back to the hospital after leaving against medical advice to attend her 's . Patient was originally admitted approximately a week ago for decompensated heart failure which improved. Patient later then had acute limb ischemia to her right lower extremity requiring thrombectomy by vascular surgery in addition to fasciotomy for patient's going to the extremity as well as rhabdomyolysis. Patient also is in acute kidney injury. Patient's tumor markers were performed which have come back with a positive CA 125 with a level of 328. Patient will be continued on heparin drip and be re-evaluated several days for closure of her fasciotomy. Course of hospitalization: Patient had ASA which found the patient to not have a Watchman device, also negative for PFO as well as being negative for left atrial appendage thrombus. This was discussed with the patient as well as family who stated that she they were informed that her cloud security architect told her that she had a watchman's device placed at [facility]. Patient has been transitioned to Eliquis from full anticoagulation with a heparin drip. Patient was offered placement at a senior care/rehabilitation facility, for which she declined. Patient continued to have wound care as well as physical therapy while in the hospital, with the patient now ambulating greater than 30 ft. Patient has been provided DME in the form of a wheelchair, with the patient's family stating she has a walker at home. Patient will be discharged home and continue with home health services for physical therapy as well as wound care. Reviewing the patient's medications, she was to continue Eliquis 2.5 mg p.o. b.i.d., amiodarone 400 mg p.o. daily, and two with hold beta-kathie as well as FRANCISCO inhibitor therapy given the patient's marginal blood pressure. She was also to continue Lasix 20 mg p.o. daily. The patient should follow up with her cloud security architect, PCP within 1-2 weeks. She was instructed that she needs to follow up for evaluation of her systolic heart failure, with possible ischemia workup versus left heart catheterization in the future. Both patient and family who were bedside are agreeable with discharge plan. All questions answered. Physical examination General: Alert and Oriented x3. No acute distress. Well-nourished. Eyes: EOMI. Anicteric. HENT: Moist mucous membranes. Lungs: Clear to auscultation bilaterally. No accessory muscle use. Cardiovascular: Regular rate and rhythm. No murmur. No JVD. Abdomen: Soft, non-tender and non-distended. No palpable masses. Extremities: No edema. Non-tender. Dressing dry and intact to right lower extremity Skin: No rashes or lesions. Warm. Neurologic: No focal neurological deficits. CN II-XII grossly intact, but not individually tested. Psychiatric: Cooperative. Appropriate mood and affect. Total time spent with patient discussing and formulating plan of care: 35 minutes. This medical document was created using an electronic medical record system with [employer] dictation system. Although this document has been carefully reviewed, there may still be some phonetic and typographical errors. These areas are purely typographical due to imperfections of the software programs, and do not reflect any compromise in the patient's medical care. Consults/Reason for consult Vascular surgery: status post right lower extremity revascularization, fasciotomy Cardiology: ASA Condition at Discharge: Good Final Diagnosis/Problems List Right lower extremity acute limb ischemia, status post revascularization and fasciotomy Secondary Diagnosis: -Acute decompensated systolic heart failure. -Acute thrombus with right lower extremity ischemia -acute on chronic systolic heart failure -acute hypoxic respiratory failure -atrial fibrillation rapid ventricular rate -history of Watchman device -elevated D-dimer, ruled out pulmonary embolism -dyslipidemia -hyperkalemia with acute kidney injury -rhabdomyolysis -ruled out CA. CA 125: 328 -constipation Discharge Disposition: Home with Health Services Discharge Instruct/Medications Diet: Cardiac 2g Na,low cholest Activity: No Restrictions, As Tolerated Activity comment: Use walker and wheelchair as needed Follow Up/Referral: Follow up with cloud security architect in 1-2 weeks Follow up with PCP in 1-2 weeks Follow up with vascular surgeon in 1-2 weeks Medications: Eliquis 2.5 mg p.o. b.i.d. [place] 7.5/325 q.6 hours as needed for [id number] pain 36 Discharge Statement: "Patient was advised to return to the ER or call 911 if any headaches, dizziness, shortness of breath, chest pain, abdominal pain, bleeding, fevers, or worsening of medical condition. Patient was counseled about treatment plan, medications, possible side effects, patientverbalized understanding. All questions were answered to the best of my ability. This discharge took greater then 30 minutes in planning, reviewing documentation, counseling the patient, and discussing with other team members." DME: Diagnosis: RLE ischemia, s/p vascularization with fasciotomy ASSESSMENT ASSESSMENT Assessment Right lower extremity acute limb ischemia, status post revascularization and fasciotomy Date of Service: Apr 02, 2024 Billing Provider: NICOLE REBOLLAR NP Common Visit Codes: [id number] DISCH DAY >30min NICOLE REBOLLAR NP Apr 02, 2024 12:06
--- NOTE | 2024-04-02 18:34 | DVHPN2 ---
Progress Note - Dictate Date Seen: Apr 02, 2024 Has the PT tested + for MRSA If YES, has PT been informed?: No Medical Necessity Reason Pt with a Central, PICC or Fol: Yes The following are medically ne: Myers Catheter Reason for myers catheter: Strict I&O Subjective Patient was seen and evaluated in follow up. Patient has no new complaints at this time. Patient denies any cardiac symptoms. Patient is cardiac stable for discharge. vital signs Vital Sign Date Time Temp Pulse Resp B/P (MAP) Pulse Ox O2 Delivery O2 Flow Rate FiO2 04/02/24 09:24 97.3 64 04/02/24 09:00 18 115/53 (73) 98 04/02/24 08:00 Room Air* 0 21 Total Intake and Output 04/01/24 04/01/24 04/02/24 15:00 23:00 07:00 Intake Total 575 ml 345 ml Output Total 550 ml 250 ml Balance 25 ml 95 ml objective GENERAL: Awake, alert, oriented. LUNGS: Clear. CARDIOVASCULAR: Heart sounds are good. ABDOMEN: Soft. laboratory and microbiology Laboratory Tests 03/21/24 06:04 Test 03/21/24 06:04 Range/Units Serum Glucose 85 74-106 mg/dL Problem List Acute decompensated systolic heart failure. Acute on chronic systolic heart failure. Acute hypoxic respiratory failure. Atrial fibrillation rapid ventricular rate. History of Watchman device. Dyslipidemia. Acute right lower leg PND with ischemia. Hyperkalemia with acute kidney injury. Rhabdomyolysis. Acute thrombus with right lower extremity ischemia. Assessment/Plan Continued all current supportive medical care. Morphine and [place] for pain management. Amiodarone. Eliquis. Lactulose. Additional plan as per the hospital course. Dietary Evaluation Review Comments: 1. Encourage PO intake when medically feasible. Continue with Ensure Hi Protein PO feedidngs/supplement if pt can tolerate. 2. If GI asscessible, feeding can not meet her protein and energy goal, consider TF jevity 50ml/hr providing 67 gPro and 1440 kcal FS in 24 hrs, 3. Considere TPN per pharmacy to meet 75% of her needds, if NPO>7 days 4. Advance to 2 GNA Lo fat Lo Cholesterol cardiac diet, texture as tolerated if Pt passes speech eval. Expected Outcomes/Goals: maintain Weight, improved lab values Plan discussed with: Patient SALVADOR CONNORS MD Apr 02, 2024 18:34
== END 2024-04-02 11:30 | disposition home health service (06) | DRG 500 ==
LOC: ER 13:57 → TELE 14:42 → ICU WEST 15:44 → DOU IN ICU 03-14 13:21 → TELE-EAST 03-17 17:01 → EAST 03-18 02:27
PROVIDERS: ADMIT Family Medicine; ATTEND Nurse Practitioner Acute Care
PROC: 05HB33Z Insertion of Infusion Device into Right Basilic Vein, Percutaneous Approach (ICD-10-PCS; 2024-03-10)
PROC: B54MZZA Ultrasonography of Right Upper Extremity Veins, Guidance (ICD-10-PCS; 2024-03-10)
PROC: B24BZZ4 Ultrasonography of Heart with Aorta, Transesophageal (ICD-10-PCS; principal; 2024-03-14)
PROC: 0JQN0ZZ Repair Right Lower Leg Subcutaneous Tissue and Fascia, Open Approach (ICD-10-PCS; 2024-03-15)
DX: M62.82 Rhabdomyolysis (principal); I50.43 Acute on chronic combined systolic (congestive) and diastolic (congestive) heart failure; N17.0 Acute kidney failure with tubular necrosis; J96.01 Acute respiratory failure with hypoxia; I74.3 Embolism and thrombosis of arteries of the lower extremities; J98.11 Atelectasis; I48.20 Chronic atrial fibrillation, unspecified; I99.8 Other disorder of circulatory system; I11.0 Hypertensive heart disease with heart failure; D64.9 Anemia, unspecified; E78.5 Hyperlipidemia, unspecified; I70.221 Atherosclerosis of native arteries of extremities with rest pain, right leg; E87.5 Hyperkalemia; K82.8 Other specified diseases of gallbladder; K59.00 Constipation, unspecified; M10.9 Gout, unspecified; Z79.899 Other long term (current) drug therapy; Z79.01 Long term (current) use of anticoagulants; Z95.818 Presence of other cardiac implants and grafts; Z99.81 Dependence on supplemental oxygen
CPT/HCPCS: 36415; 71045; 71250; 74176; 76856; 80048; 80053; 81001; 82550; 82962; 85025; 85610; 85730; 87081; 87086; 93312; 97110; 97116; 97163; 97530; G0378; J2003; J2250; J2405; J2704; J3490

== ENCOUNTER 2025-01-02 09:52 | Emergency (ER) | payer OTHER ==
[~2025-01-02 09:52] MED LIST changes: +HYDR-4795 PO
--- NOTE | 2025-01-02 10:00 | ED.PDOC ---
CPR-HPI HPI Comments This is a 79 year old female CHAVAA presenting to the ED with chief complaint of cardiac arrest. EMS reports patient was seen by a neighbor to be having difficulty breathing and altered at home, helped down to the ground by them. EMS relays upon their arrival, patient was witnessed to go into cardiac arrest with a rhythm in asystole. EMS states CPR was immediately started and continued throughout transit along with 4 rounds of Epinephrine and intubation. EMS notes patient has been down for a total of 15 minutes. Time Seen by MD: 09:57 Reviewed Notes: Nurses Notes, Chronometer Adjuster Notes, Medications, Allergies Allergies: Coded Allergies: Procaine (Verified Allergy, Unknown, 03/11/24) Sulfa Antibiotics (Verified Allergy, Unknown, 03/11/24) Home Meds Active Scripts Hydrocodone-Acetaminophen (Hydrocodone Bitartrate/AC 7.5-325 mg) 1 Tab Tab, 1 TAB PO Q6HP PRN for 7 Days, #15 TAB Prov:NICOLE REBOLLAR INSPECTOR 04/01/24 Reported Medications Ydowgcxpcag-Zkbtdmjvfdj-Okd C- (Glucosamine Chondroitin) 1 Cap Cap, 1 CAP PO AC, CAP 03/04/24 Cholecalciferol (D3) 50 Mcg Cap, 50 MCG PO DAILY, CAP 03/04/24 Apoaequorin (PREVAGEN) 10 Mg Cap, 10 MG PO, CAP 03/04/24 Curcuma Longa (Turmeric) Extra (TURMERIC) 500 Mg Cap, 500 MG OR, CAP 03/04/24 Furosemide (Furosemide) 20 Mg Tab, 1 TAB PO DAILY for 30 Days, #30 03/04/24 Ferrous Sulfate (FERROUS SULFATE) 325 Mg Tb, 1 TAB PO DAILY for 90 Days, #90 03/04/24 Apixaban Base (ELIQUIS) 2.5 Mg Tab, 2.5 MG PO BID for 30 Days, #60 03/04/24 Nitroglycerin (NTROSTAT SUBLINGUAL) 0.4 Mg Sl, 0.4 MG SL PRN for 33 Days, #100 *MAY REPEAT EVERY 5 MINUTES X 3 TOTAL IF NO RELIEF, INITIATE ANALGESIC THERAPY. NOTIFY PHYSICIAN *Do not crush. 03/04/24 Amlodipine Besylate (Amlodipine Besylate) 5 Mg Tab, 1 TAB PO DAILY for 90 Days, #90 03/04/24 Lisinopril (Lisinopril) 10 Mg Tab, 1 TAB PO DAILY for 100 Days, #100 03/04/24 Metoprolol Succinate (Metoprolol Succinate Er) 25 Mg Tab, 1 TAB PO DAILY for 90 Days, #90 03/04/24 Allopurinol (Allopurinol) 300 Mg Tab, 1 TAB PO DAILY for 90 Days, #90 03/04/24 Amiodarone HCl (Amiodarone HCl) 200 Mg Tab, 1 TAB PO BID for 30 Days, #60 03/04/24 Information Source: Emergency Med Personnel Mode of Arrival: EMS Timing: Minutes Duration: Down time prior EMS: (0), Total time prior hopital: (15 minutes) Onset: At rest Available Hx: Unknown Inital rhythm: Asystole Treatment: CPR, Intubation, IV, Epinephrine Response: No response Past Medical History PAST MEDICAL HISTORY: AFIB, CHF, CVA, HTN Surgical History: Unknown 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: Denies all 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 Hx, Unknown Family History Family History: Reviewed,noncontributory to illness, Unknown Social History Smoker: Non-Smoker Alcohol: Denies ETOH Use Drugs: Denies Drug Use Lives In: Home Constitutional: denies: chills, diaphoresis, fatigue, fever, malaise, sweats, weakness, others EENTM: denies: blurred vision, double vision, ear bleeding, ear discharge, ear drainage, ear pain, ear ringing, eye pain, eye redness, hearing loss, mouth pain, mouth swelling, nasal discharge, nose bleeding, nose congestion, nose pain, photophobia, tearing, throat pain, throat swelling, voice changes, others Respiratory: denies: cough, hemoptysis, orthopnea, SOB at rest, shortness of breath, SOB with excertion, stridor, wheezing, others Cardiovascular: denies: chest pain, dizzy spells, diaphoresis, Dyspnea on exertion, edema, irregular heart beat, left arm pain, lightheadedness, palpitations, PND, syncope, others Gastrointestinal: denies: abdomen distended, abdominal pain, blood streaked bowels, constipated, diarrhea, dysphagia, difficulty swallowing, hematemesis, melena, nausea, poor appetite, poor fluid intake, rectal bleeding, rectal pain, vomiting, others Genitourinary: denies: abnormal vagina bleeding, burning, dyspareunia, dysuria, flank pain, frequency, hematuria, incontinence, pain, , vagina discharge, urgency, others Neurological: denies: dizziness, fainting, headache, left sided numbness, left sided weakness, numbness, paresthesia, pre-existing deficit, right sided numbness, right sided weakness, seizure, speech problems, tingling, tremors, weakness, others Musculoskeletal: denies: back pain, gout, joint pain, joint swelling, muscle pain, muscle stiffness, neck pain, others Integumetry: denies: bruises, change in color, change in hair/nails, dryness, laceration, lesions, lumps, rash, wounds, others Allergic/Immunocompromised: denies: Difficulty Healing, Frequent Infections, Hives, Itching, others Hematologic/Lymphatic: denies: anemia, blood clots, easy bleeding, easy bruising, swollen glands, others Endocrine: denies: excessive hunger, excessive sweating, excessive thirst, excessive urination, flushing, intolerance to cold, intolerance to heat, unexplained weight gain, unexplained weight loss, others Psychiatric: denies: anxiety, bipolar disorder, depression, hopeless, panic disorder, schizophrenia, sleepless, suicidal, others Unable to Obtain due to: Medical Urgency, Intubated All Other Systems: Reviewed and Negative Physical Exam General Appearance: Other (CPR in progress) HEENT: Other (Pupils fixed and dilated) Neck: Normal Inspection Respiratory: Other (Patient is intubated) Cardiovascular: Other (With CPR in progress) Breast Exam: Normal Gastrointestinal: No Organomegaly Genitalia: Deferred Pelvic: Deferred Rectal: Deferred Extremities: No pedal edema Neurologic: Other (Unresponsive) Cerebellar Function: NOT DONE Reflexes: NOT DONE Skin: Mottled Lymphatic: NOT DONE Was a procedure done? Was a procedure done?: No Differential Dx CPR Differential Diagnosis: Cardiopulmonary arrest, Myocardial Infarction, Respiratory Failure X-Ray, Labs, Meds, VS Vital Signs Date Time Temp Pulse Resp B/P (MAP) Pulse Ox O2 Delivery O2 Flow Rate FiO2 01/02/25 10:14 0 0 0 T-piece 15 N/A 01/02/25 10:14 96.8 0 0 0/0 (0) 0 96.8 01/02/25 09:52 96.8 0 0 0/0 0 96.8 Time of 1ST Reevaluation: 09:59 Reevaluation 1ST: N/A (Patient .) Patient Education/Counseling: Pt Unresponsive Family Education/Counseling: No Family Present SEPSIS Sepsis Screen Vital Signs Date Time Temp Pulse Resp B/P (MAP) Pulse Ox O2 Delivery O2 Flow Rate FiO2 01/02/25 10:14 0 0 0 T-piece 15 N/A 01/02/25 10:14 96.8 0 0 0/0 (0) 0 96.8 01/02/25 09:52 96.8 0 0 0/0 0 96.8 Departure 1 Departure Time of Disposition: 17:09 (Patient presented in cardiac arrest. ACLS per protocol. ultimately patient ) Impression: Primary Impression: Cardiac arrest Disposition: 20 Condition: Other () Critical Care Note Critical Care Time?: No Heart Score Heart Score: Heart Score Response (Comments) Value History N/A 0 EKG N/A 0 Age N/A 0 Risk Factors N/A 0 Troponin N/A 0 Total 0 Stability Stability form required: No I personally scribed for ILAN HOUSE MD ([email or web address]) on 01/02/25 at 10:00. Electronically submitted by Roderick Fernandez ([email or web address]). I personally scribed for ILAN HOUSE MD ([email or web address]) on 01/02/25 at 10:02. Electronically submitted by Roderick Fernandez ([email or web address]). ILAN HOUSE MD Jan 02, 2025 10:00
[2025-01-02 10:14] VITALS: BP 0/0; PULSE 0; RESP 0; TEMP 96.8; O2SAT 0
== END 2025-01-02 09:57 ==
LOC: EDBD 09:52 → ER 09:52
DX: I46.9 Cardiac arrest, cause unspecified (principal); I11.0 Hypertensive heart disease with heart failure; I50.9 Heart failure, unspecified; I48.91 Unspecified atrial fibrillation; Z86.73 Personal history of transient ischemic attack (TIA), and cerebral infarction without residual deficits; Z88.2 Allergy status to sulfonamides; Z79.01 Long term (current) use of anticoagulants; Z79.899 Other long term (current) drug therapy
CPT/HCPCS: 92950